=== PATIENT | female | born 1935 | race Asian ===

== ENCOUNTER 2016-06-20 10:06 | Inpatient (IN) | payer MEDICARE, OTHER ==
--- NOTE | 2016-06-20 10:39 | ER Document Report ---
ED Respiratory Problem - General Mode of Arrival: Medic Information source: Patient, Relative TRAVEL OUTSIDE OF THE [place] IN LAST 30 DAYS: No - HPI Patient complains to provider of: Other - Difficulty breathing Onset: This morning Associated symptoms: Other - See above <DARIUSZ MARTINES - Last Filed: 06/20/16 12:15> <LUCRECIA HAMPTON - Last Filed: 06/20/16 19:23> - General Chief Complaint: Respiratory Distress Stated Complaint: TROUBLE BREATHING Notes: Patient is an 80 year old female, with a past medical history including COPD and CHF, who presents to the emergency department via EMS with her daughter complaining of difficulty breathing. Per daughter patient was hospitalized last week and released 5 days ago, she has been using nebulizer treatments at home and yesterday her breathing got much worse. This morning patient's daughter was going to take her to her doctor but called the clinic and was told to bring her to the ED. Patient also complains of loss of appetite for the past 5 days. Patient denies any pain. PCP: [facility] Economist: Dr. Trevino (DARIUSZ MARTINES) - Related Data Allergies/Adverse Reactions: No Known Allergies Allergy (Verified 04/25/13 16:03) Past Medical History - General Information source: Patient - Social History Smoking Status: Unknown if Ever Smoked Family History: Reviewed & Not Pertinent - Past Medical History Cardiac Medical History: Reports: Hx Congestive Heart Failure, Hx Hypercholesterolemia, Hx Hypertension Pulmonary Medical History: Reports: Hx COPD Renal/ Medical History: Reports: Other - Stage III Kidney Disease Musculoskeltal Medical History: Reports Hx Arthritis Past Surgical History: Reports: Hx Hysterectomy, Other - Cataract surgery <DARIUSZ MARTINES - Last Filed: 06/20/16 12:15> Review of Systems - Review of Systems Constitutional: No symptoms reported EENT: No symptoms reported Cardiovascular: No symptoms reported Respiratory: See HPI, Other - Difficulty breathing. denies: Hurts to breathe Gastrointestinal: See HPI, Poor appetite Genitourinary: No symptoms reported Female Genitourinary: No symptoms reported Musculoskeletal: No symptoms reported Skin: No symptoms reported Hematologic/Lymphatic: No symptoms reported Neurological/Psychological: No symptoms reported -: Yes All other systems reviewed and negative <DARIUSZ MARTINES - Last Filed: 06/20/16 12:15> Physical Exam - Vital signs Interpretation: Tachycardic, Hypoxic - General General appearance: Alert In distress: Moderate - Respiratory distress - HEENT Head: Normocephalic, Atraumatic Mucous membranes: Dry - Respiratory Respiratory status: Respiratory distress - Moderate Chest status: Nontender Breath sounds: Decreased air movement - bilaterally Chest palpation: Normal - Cardiovascular Rhythm: Tachycardia Heart sounds: Normal auscultation Murmur: No - Abdominal Inspection: Normal Distension: No distension Bowel sounds: Normal Tenderness: Nontender Organomegaly: No organomegaly - Back Back: Normal, Nontender - Extremities General upper extremity: Normal inspection General lower extremity: Normal inspection - Neurological Neuro grossly intact: Yes Cognition: Normal Orientation: AAOx4 Cofield Coma Scale Eye Opening: Spontaneous Cofield Coma Scale Verbal: Oriented Cofield Coma Scale Motor: Obeys Commands Cofield Coma Scale Total: 15 Speech: Normal - Psychological Associated symptoms: Normal affect, Normal mood - Skin Skin Temperature: Warm Skin Moisture: Dry Skin Color: Normal <DARIUSZ MARTINES - Last Filed: 06/20/16 12:15> Course - Laboratory Result Diagrams: 06/20/16 10:25 06/20/16 10:25 - Consults Dr Banda Time consulted: 12:15 - Discussed admission with Penelope Renae <DARIUSZ MARTINES - Last Filed: 06/20/16 12:15> - Laboratory Result Diagrams: 06/20/16 10:25 06/20/16 10:25 - Diagnostic Test Radiology reviewed: Image reviewed, Reports reviewed - EKG Interpretation by Me EKG shows normal: Sinus rhythm Rate: Normal Rhythm: NSR Meade/QRS: RBBB <LUCRECIA HAMPTON - Last Filed: 06/20/16 19:23> - Re-evaluation Re-evalutation: 06/20/16 Patient is an 80-year-old female who comes in with difficulty breathing. Patient has a history of heart failure and COPD. Patient is not wheezing. She does not seem to be moving air well on initial presentation. Symptoms are most consistent with heart failure exacerbation. Patient was started on BiPAP and given Lasix. Patient patient also had Nitropaste. Due to her persistent hypoxia, patient will be admitted for further evaluation of her heart failure. Stable time of admission. Resting comfortably on BiPAP. Pain free. (LUCRECIA HAMPTON) - Vital Signs Vital signs: Temp Pulse Resp BP Pulse Ox 98 F 120 H 25 H 123/76 95 06/20/16 10:15 06/20/16 18:05 06/20/16 18:01 06/20/16 17:00 06/20/16 18:01 (DARIUSZ MARTINES) (LUCRECIA HAMPTON) - Laboratory Laboratory results interpreted by me: 06/20/16 06/20/16 06/20/16 10:25 10:25 10:25 WBC 39.0 H* Hgb 11.5 L Hct 34.2 L Seg Neuts % (Manual) 93 H Band Neutrophils % 1 L Lymphocytes % (Manual) 3 L Monocytes % (Manual) 2 L Myelocytes % 1 H Abs Neuts (Manual) 37.1 H VBG pH 7.47 H Sodium 130.2 L Chloride 91 L BUN 96 H Creatinine 1.88 H Est GFR ( Amer) 31 L Est GFR (Non-Af Amer) 26 L Glucose 136 H POC Glucose NT-Pro-B Natriuret Pep 06/20/16 06/20/16 10:25 12:05 WBC Hgb Hct Seg Neuts % (Manual) Band Neutrophils % Lymphocytes % (Manual) Monocytes % (Manual) Myelocytes % Abs Neuts (Manual) VBG pH Sodium Chloride BUN Creatinine Est GFR ( Amer) Est GFR (Non-Af Amer) Glucose POC Glucose 148 H NT-Pro-B Natriuret Pep 1770 H (LUCRECIA HAMPTON) Critical Care Note - Critical Care Note Total time excluding time spent on procedures (mins): 35 - evaluation and management of respiratory distress with multiple re-evaluations, management of heart failure, coordination of admission, counseling of patient and family <LUCRECIA HMAPTON - Last Filed: 06/20/16 19:23> Discharge <DARIUSZ MARTINES - Last Filed: 06/20/16 12:15> - Discharge Admitting Provider: Hospitalist - [facility] Unit Admitted: IMCU <LUCRECIA HAMPTON - Last Filed: 06/20/16 19:23> - Discharge Clinical Impression: Respiratory distress, Acute and chronic respiratory failure with hypoxia CHF (congestive heart failure) Qualifiers: Congestive heart failure type: unspecified congestive heart failure type Congestive heart failure chronicity: acute on chronic Qualified Code(s): I50.9 - Heart failure, unspecified Condition: Stable Disposition: ADMITTED INPATIENT Scribe Attestation: 06/20/16 19:23 I personally performed the services described in the documentation, reviewed and edited the documentation which was dictated to the scribe in my presence, and it accurately records my words and actions. (LUCRECIA HAMPTON) Scribe Documentation - Scribe Written by Scribe:: Dariusz Martines 06/20/16 acting as scribe for :: Lizette <DARIUSZ MARTINES - Last Filed: 06/20/16 12:15>
[2016-06-20 10:50] LABS: VENOUS BLOOD BASE EXCESS 2.1 mmol/L; VENOUS BLOOD HCO3 25.6 mmol/L (20-32); VENOUS BLOOD PCO2 36.1 mmHg (35-63); VENOUS BLOOD PH 7.47 (7.30-7.42)
[2016-06-20 10:53] LABS: PROTHROMBIN TIME 12.5 SEC (11.4-15.4)
[2016-06-20 10:58] LABS: HEMATOCRIT 34.2 % (36.0-47.0); HEMOGLOBIN 11.5 g/dL (12.0-15.5); HGB HCT DIFFERENCE 0.3; MEAN CORPUSCULAR HEMOGLOBIN 30.8 pg (27.0-33.4); MEAN CORPUSCULAR HGB CONC 33.7 g/dL (32.0-36.0); MEAN CORPUSCULAR VOLUME 91 fl (80-97); RED BLOOD COUNT 3.74 10^6/uL (3.72-5.28); RED CELL DISTRIBUTION WIDTH 13.8 % (11.5-14.0)
[2016-06-20 11:20] LABS: CREATINE KINASE MB 3.61 ng/mL (<4.55)
[2016-06-20 11:22] LABS: TROPONIN I 0.056 ng/mL
[2016-06-20 11:34] LABS: BAND NEUTROPHILS % (MANUAL) 1 % (3-5); BASOPHILS % (MANUAL) 0 % (0-2); EOSINOPHILS % (MANUAL) 0 % (0-6); LYMPHOCYTES % (MANUAL) 3 % (13-45); POLYCHROMASIA SLIGHT; TOTAL CELLS COUNTED 100; TOXIC GRANULATION 1+; TOXIC VACUOLATION PRESENT
[2016-06-20 11:39] LABS: ALANINE AMINOTRANSFERASE 35 U/L (9-52); ALBUMIN 3.7 g/dL (3.5-5.0); ALKALINE PHOSPHATASE 79 U/L (38-126); ANION GAP 16 (5-19); ASPARTATE AMINO TRANSFERASE 24 U/L (14-36); BILIRUBIN,TOTAL 0.8 mg/dL (0.2-1.3); BLOOD UREA NITROGEN 96 mg/dL (7-20); CALCIUM 8.8 mg/dL (8.4-10.2); CARBON DIOXIDE 23 mmol/L (22-30); CHLORIDE 91 mmol/L (98-107); CREATINE KINASE 50 U/L (30-135); CREATININE RESULT 1.88 mg/dL (0.52-1.25); GLUCOSE 136 mg/dL (75-110); SODIUM 130.2 mmol/L (137-145); TOTAL PROTEIN 7.6 g/dL (6.3-8.2)
[2016-06-20] MEDS ORDERED: FUROSEMIDE INJ/PF 40 MG/4 ML SDV IV ONE (12:11)
--- NOTE | 2016-06-20 16:37 | PDOC H&P ---
History of Present Illness Admission Date/PCP: 06/20/16 13:38 AARON TATUMANT Patient complains of: Severe shortness of breath History of Present Illness: LORENZO MENENDEZ is a 80 year old female who presents to [facility] emergency department, via EMS this afternoon. She presently is on BiPAP therapy due to hypoxemia upon presentation. She has a friend at bedside, history is obtained from the friend. Friend states the patient has no family, she is , and has no children. She was recently hospitalized at [facility] for acute on chronic respiratory failure and discharged on 06/15/2016. She was discharged with a steroid taper as well as nebulizer treatments. Her friend states she has not been taking her medications as instructed, and has been overusing her nebulizer treatments. She also can continues to smoke approximately 1 pack per day. She has been complaining of increasing shortness of breath over the last 3 days progressively worsening. This morning when her friend visited her she did call her primary care doctor doctor's office who directed her to bring her to the emergency room. She therefore called 911 and the patient was brought by EMS. Patient denies any fever or chills over the last 5 days. She denies a productive cough. Past Medical History Cardiac Medical History: Reports: Congestive Heart Failure, Hyperlipidema, Hypertension Denies: Myocardial Infarction Pulmonary Medical History: Reports: Chronic Obstructive Pulmonary Disease (COPD) Denies: Asthma EENT Medical History: Reports: None Neurological Medical History: Reports: None Denies: Seizures Endocrine Medical History: Reports: None Renal/ Medical History: Reports: None, Other - Stage III Kidney Disease Malignancy Medical History: Reports: None GI Medical History: Reports: None Denies: Hepatitis, Hiatal Hernia Musculoskeltal Medical History: Reports: Arthritis Skin Medical History: Reports: None Psychiatric Medical History: Reports: Tobacco Dependency Traumatic Medical History: Reports: None Hematology: Denies: Anemia, Sickle Cell Disease Infectious Medical History: Reports: None Past Surgical History Past Surgical History: Reports: Hysterectomy, Other - Cataract surgery Denies: Amputation, Mastectomy, Pacemaker Social History Information Source: Patient, Friend Lives with: Alone Smoking Status: Current Every Day Smoker Cigarettes Packs Per Day: 1 Number of Years Smokin Last Time Smoked: 06/19/2016 Frequency of Alcohol Use: Rare Hx Recreational Drug Use: No Drugs: None Hx Prescription Drug Abuse: No - Advance Directive Resuscitation Status: Full Code Surrogate healthcare decision maker:: She does not have one at this time Family History Family History: Hypertension, Malignancy Parental Family History Reviewed: Yes Children Family History Reviewed: Yes Sibling(s) Family History Reviewed.: Yes Medication/Allergy Home Medications: Fluticasone/Salmeterol [Advair HFA 45-21 mcg Inhaler] 1 inh IH BID 04/26/12 Tiotropium Royal [Spiriva Handihaler 18 mcg/dose (30 Dose)] 1 cap IH DAILY 08/06 Albuterol Sulfate [Ventolin HFA MDI 18 GM] 1 puff IH Q4HP PRN 04/25/13 Atorvastatin Calcium [Lipitor 20 mg Tablet] 20 mg PO QHS 04/25/13 Docusate Sodium [Colace 100 mg Capsule] 100 mg PO DAILY #30 capsule 06/22/14 Amlodipine Besylate/Benazepril [Lotrel 5-20 mg Capsule] 1 cap PO DAILY 06/13/16 Vitamin E 1 cap PO DAILY 06/13/16 Albuterol Sulfate [Proair HFA] 2 puff IN QID #1 inhaler 06/15/16 Benazepril HCl [Lotensin 20 mg Tablet] 20 mg PO DAILY #30 tablet 06/15/16 Ergocalciferol (Vitamin D2) [Vitamin D2] 2,000 unit PO DAILY #30 tablet Furosemide [Lasix 20 mg Tablet] 20 mg PO QAM #30 tablet 06/15/16 Prednisone 20 mg PO ASDIR PRN #15 tablet 06/15/16 Allergies/Adverse Reactions: No Known Allergies Allergy (Verified 04/25/13 16:03) Review of Systems Constitutional: ABSENT: chills, fever(s), headache(s), weight gain, weight loss Eyes: PRESENT: as per HPI Ears: ABSENT: hearing changes Cardiovascular: PRESENT: dyspnea on exertion Respiratory: PRESENT: cough, dyspnea Gastrointestinal: ABSENT: abdominal pain, constipation, diarrhea, hematemesis, hematochezia, nausea, vomiting Genitourinary: ABSENT: dysuria, hematuria Musculoskeletal: ABSENT: joint swelling Integumentary: ABSENT: rash, wounds Neurological: ABSENT: abnormal gait, abnormal speech, confusion, dizziness, focal weakness, syncope Psychiatric: ABSENT: anxiety, depression, homidical ideation, suicidal ideation Endocrine: ABSENT: cold intolerance, heat intolerance, polydipsia, polyuria Physical Exam Vital Signs: Temp Pulse Resp BP Pulse Ox 98 F 23 H 116/70 100 06/20/16 10:15 06/20/16 15:01 06/20/16 14:45 06/20/16 15:01 General appearance: PRESENT: no acute distress, thin, well-developed, well- nourished, other - On bipap Head exam: PRESENT: atraumatic, normocephalic Eye exam: PRESENT: conjunctiva pink, EOMI, PERRLA. ABSENT: scleral icterus Ear exam: PRESENT: normal external ear exam Mouth exam: PRESENT: moist, tongue midline Neck exam: ABSENT: carotid bruit, JVD, lymphadenopathy, thyromegaly Respiratory exam: PRESENT: symmetrical, unlabored, wheezes - expiratory bilaterally Cardiovascular exam: PRESENT: RRR. ABSENT: diastolic murmur, rubs, systolic murmur GI/Abdominal exam: PRESENT: normal bowel sounds, soft. ABSENT: distended, guarding, mass, organolmegaly, rebound, tenderness Rectal exam: PRESENT: deferred Extremities exam: PRESENT: full ROM. ABSENT: calf tenderness, clubbing, pedal edema Neurological exam: PRESENT: alert, awake, oriented to person, oriented to place , oriented to time, oriented to situation, CN II-XII grossly intact. ABSENT: motor sensory deficit Psychiatric exam: PRESENT: appropriate affect, normal mood. ABSENT: homicidal ideation, suicidal ideation Skin exam: PRESENT: dry, intact, warm. ABSENT: cyanosis, rash Results Impressions: Chest X-Ray 06/20/16 10:16 IMPRESSION: COPD. NO ACUTE RADIOGRAPHIC FINDING IN THE CHEST. Assessment & Plan - Diagnosis (1) Acute and chronic respiratory failure with hypoxia Is this a current diagnosis for this admission?: YesPlan: Patient required BIPAP at 40% to maintain SPO2> 90%. Continue nebulizers and diurese. Chest xray shows no pneumonia. (2) Acute on chronic renal failure Is this a current diagnosis for this admission?: YesPlan: Patient's BUN elevated from previous admission. Friend states she has not been eating or drinking well (3) COPD (chronic obstructive pulmonary disease) Qualifiers: COPD type: unspecified COPD Qualified Code(s): J44.9 - Chronic obstructive pulmonary disease, unspecified Is this a current diagnosis for this admission?: YesPlan: Continue nebulizer and inhalers (4) Fluid overload Qualifiers: Hypervolemia type: unspecified Qualified Code(s): E87.70 - Fluid overload, unspecified Is this a current diagnosis for this admission?: YesPlan: Chest xray shows mild increase in pulmonary vasculature. Diuresed by ED MD (5) Chronic kidney disease, stage 3 Is this a current diagnosis for this admission?: YesPlan: Avoid nephrotoxic drugs and dosages (6) Acute on chronic diastolic (congestive) heart failure Is this a current diagnosis for this admission?: YesPlan: Chest xray shows fluid volume overload. Diuresed by ED MD. Will continue to monitor. Continue current medications (7) Noncompliance Is this a current diagnosis for this admission?: YesPlan: Patient has mild dementia and lives alone. Only has a friend to assist her. Will consult discharge planning for possible placement - Time Time Spent: 50 to 70 Minutes Critical Time spent with patient: 15-24 minutes Smoking Cessation Education: 3 to 10 minutes Medications reviewed and adjusted accordingly: Yes Anticipated discharge: Acute Rehab - Inpatient Certification Based on my medical assessment, after consideration of the patient's comorbidities, presenting symptoms, or acuity I expect that the services needed warrant INPATIENT care.: Yes I certify that my determination is in accordance with my understanding of Medicare's requirements for reasonable and necessary INPATIENT services [42 CFR 412.3e].: Yes Medical Necessity: Need Close Monitoring Due to Risk of Patient Decompensation, Need for Nebulizer Therapy and Monitoring of Response, Risk of Complication if Not Cared For in Hospital
[2016-06-20 17:16] LABS: APPEARANCE,URINE CLEAR; BILIRUBIN,URINE NEGATIVE (NEGATIVE); GLUCOSE, URINE NEGATIVE (NEGATIVE); KETONES,URINE NEGATIVE (NEGATIVE); LEUKOCYTE ESTERASE,URINE MODERATE (NEGATIVE); NITRITE,URINE NEGATIVE (NEGATIVE); PROTEIN,URINE NEGATIVE (NEGATIVE); URINE SPECIFIC GRAVITY 1.009; UROBILINOGEN,URINE NEGATIVE mg/dL (<2.0)
--- NOTE | 2016-06-20 18:57 | EKG REPORT ---
SEVERITY:- ABNORMAL ECG - SINUS TACHYCARDIA BIATRIAL ABNORMALITIES PROBABLE LEFT VENTRICULAR HYPERTROPHY CONSIDER ANTERIOR INFARCT : Confirmed by: Cam Linton MD 20-Jun-2016 18:57:08
[2016-06-20] MEDS: IPRATROPIUM/ALBUTEROL 0.5-2.5 MG/3 ML AMPUL NEB PRN (21:12)
[2016-06-21] MEDS: IPRATROPIUM/ALBUTEROL 0.5-2.5 MG/3 ML AMPUL NEB PRN ×3 (01:29→17:21)
[2016-06-21 07:01] LABS: HEMATOCRIT 31.1 % (36.0-47.0); HEMOGLOBIN 10.5 g/dL (12.0-15.5); HGB HCT DIFFERENCE 0.4; MEAN CORPUSCULAR HGB CONC 33.9 g/dL (32.0-36.0); MEAN CORPUSCULAR VOLUME 92 fl (80-97); RED CELL DISTRIBUTION WIDTH 14.1 % (11.5-14.0)
[2016-06-21 07:03] LABS: ANION GAP 13 (5-19); BLOOD UREA NITROGEN 114 mg/dL (7-20); CALCIUM 8.6 mg/dL (8.4-10.2); CARBON DIOXIDE 24 mmol/L (22-30); CHLORIDE 92 mmol/L (98-107); CREATININE RESULT 3.07 mg/dL (0.52-1.25); GLUCOSE 89 mg/dL (75-110); SODIUM 129.2 mmol/L (137-145)
[2016-06-21 07:23] LABS: BAND NEUTROPHILS % (MANUAL) 1 % (3-5); BASOPHILS % (MANUAL) 0 % (0-2); EOSINOPHILS % (MANUAL) 0 % (0-6); LYMPHOCYTES % (MANUAL) 2 % (13-45); POLYCHROMASIA SLIGHT; TOTAL CELLS COUNTED 100; TOXIC GRANULATION 1+; TOXIC VACUOLATION PRESENT
[2016-06-21] MEDS ORDERED: FUROSEMIDE 20 MG TABLET PO SCH (08:00)
[2016-06-21] MEDS: NORMAL SALINE 1000 ML 1,000 ML IV PRN ×2 (08:16→17:00)
[2016-06-21] MEDS: TIOTROPIUM BROMIDE DPI 5 CAP/KIT (18 MCG/CAP) IH SCH (09:25)
[2016-06-21 11:22] LABS: PATH REVIEW PATHOLOGIST REVIEWED
--- NOTE | 2016-06-21 18:25 | PDOC PROGRESS REPORT ---
Subjective Progress Note for:: 06/21/16 Subjective:: Patient is seen on morning rounds. She is resting quietly in bed on BIPAP. She does awaken to verbal stimuli. She nods head yes and no to questions. Nursing report issues of tachycardia when patient gets out of bed to go to the bathroom with heart rate of 130's. She continues to have congested cough and mild wheezing. She is able to maintain oxygen saturations on nasal cannula. Her oral intake has been poor overnight Physical Exam Vital Signs: Temp Pulse Resp BP Pulse Ox 98.3 F 100 24 H 143/66 H 100 06/21/16 15:38 06/21/16 15:38 06/21/16 15:38 06/21/16 15:38 06/21/16 15:38 Intake & Output 06/20/16 06/21/16 06/22/16 06:59 06:59 06:59 Intake Total 258 820 Output Total 300 0 Balance -42 820 Weight 40.1 kg General appearance: PRESENT: no acute distress, thin, well-developed Head exam: PRESENT: atraumatic, normocephalic Eye exam: PRESENT: conjunctiva pink, EOMI, PERRLA. ABSENT: scleral icterus Ear exam: PRESENT: normal external ear exam Mouth exam: PRESENT: dry mucosa Neck exam: ABSENT: carotid bruit, JVD, lymphadenopathy, thyromegaly Respiratory exam: PRESENT: symmetrical, unlabored, wheezes - expiratory bilaterally Cardiovascular exam: PRESENT: RRR. ABSENT: diastolic murmur, rubs, systolic murmur Pulses: PRESENT: normal dorsalis pedis pul Vascular exam: PRESENT: normal capillary refill GI/Abdominal exam: PRESENT: ascites Rectal exam: PRESENT: deferred Extremities exam: PRESENT: full ROM. ABSENT: calf tenderness, clubbing, pedal edema Neurological exam: PRESENT: alert, awake, oriented to person, oriented to place , CN II-XII grossly intact. ABSENT: motor sensory deficit Psychiatric exam: PRESENT: appropriate affect, normal mood. ABSENT: homicidal ideation, suicidal ideation Skin exam: PRESENT: dry, intact, warm. ABSENT: cyanosis, rash Results Laboratory Results: 06/21/16 06:20 06/21/16 06:20 06/21/16 06/21/16 06:20 06:20 WBC 27.0 H RBC 3.40 L Hgb 10.5 L Hct 31.1 L MCV 92 MCH 31.0 MCHC 33.9 RDW 14.1 H Plt Count 283 Seg Neutrophils % Not Reportable Lymphocytes % Not Reportable Monocytes % Not Reportable Eosinophils % Not Reportable Basophils % Not Reportable Absolute Neutrophils Not Reportable Absolute Lymphocytes Not Reportable Absolute Monocytes Not Reportable Absolute Eosinophils Not Reportable Absolute Basophils Not Reportable Sodium 129.2 L Potassium 4.0 Chloride 92 L Carbon Dioxide 24 Anion Gap 13 BUN 114 H Creatinine 3.07 H Est GFR ( Amer) 18 L Est GFR (Non-Af Amer) 15 L Glucose 89 Calcium 8.6 Magnesium 2.0 06/20/16 06/21/16 06/21/16 20:06 02:01 06:20 Troponin I 0.050 0.061 NT-Pro-B Natriuret Pep 2280 H Impressions: Chest X-Ray 06/20/16 10:16 IMPRESSION: COPD. NO ACUTE RADIOGRAPHIC FINDING IN THE CHEST. Assessment & Plan - Diagnosis (1) Acute and chronic respiratory failure with hypoxia Is this a current diagnosis for this admission?: YesPlan: Patient required BIPAP at 40% to maintain SPO2> 90%. Continue nebulizers and diurese. Chest xray shows no pneumonia.Patient appears clinically and by labs to slightly dry. She has poor oral intake will rehydrate gently (2) Acute on chronic renal failure Is this a current diagnosis for this admission?: YesPlan: Patient's BUN elevated from previous admission. Friend states she has not been eating or drinking well (3) COPD (chronic obstructive pulmonary disease) Qualifiers: COPD type: unspecified COPD Qualified Code(s): J44.9 - Chronic obstructive pulmonary disease, unspecified Is this a current diagnosis for this admission?: Yes (4) Chronic kidney disease, stage 3 Is this a current diagnosis for this admission?: YesPlan: Avoid nephrotoxic drugs and dosages. Slightly worsened today after IV lasix given in ED. Will rehydrate and monitor. May need to have nephrology reconsulted (5) Acute on chronic diastolic (congestive) heart failure Is this a current diagnosis for this admission?: YesPlan: Diuresed by ED MD on admission. Appears slightly dehydrated today. Will continue to monitor. Continue current medications (6) Noncompliance Is this a current diagnosis for this admission?: YesPlan: Patient has mild dementia and lives alone. Only has a friend to assist her. Will consult discharge planning for possible placement (7) Hyponatremia Is this a current diagnosis for this admission?: YesPlan: Appears more likely due to poor intake and UTI than fluid volume overload. Will gently rehydrate and monitor (8) UTI (urinary tract infection) Qualifiers: Hematuria presence: without hematuria Is this a current diagnosis for this admission?: YesPlan: Started empirically on IV Rocephin. Urine culture shows gm negative rods - Time Time Spent with patient: 25-34 minutes Critical Time spent with patient: 15-24 minutes Smoking Cessation Education: 3 to 10 minutes Medications reviewed and adjusted accordingly: Yes Anticipated discharge: Acute Rehab
[2016-06-21] MEDS: ATORVASTATIN CALCIUM 20 MG TABLET PO SCH (21:20)
[2016-06-21] MEDS: CEFTRIAXONE 1 GM/D5W RTU 1 GM/50 ML RTUPB IV SCH (21:21)
[2016-06-22 06:10] LABS: HEMATOCRIT 29.7 % (36.0-47.0); HEMOGLOBIN 9.9 g/dL (12.0-15.5); MEAN CORPUSCULAR HEMOGLOBIN 30.5 pg (27.0-33.4); MEAN CORPUSCULAR HGB CONC 33.5 g/dL (32.0-36.0); MEAN CORPUSCULAR VOLUME 91 fl (80-97); RED BLOOD COUNT 3.25 10^6/uL (3.72-5.28)
[2016-06-22 06:22] LABS: ANION GAP 16 (5-19); BLOOD UREA NITROGEN 109 mg/dL (7-20); CALCIUM 7.9 mg/dL (8.4-10.2); CARBON DIOXIDE 18 mmol/L (22-30); CHLORIDE 99 mmol/L (98-107); CREATININE RESULT 2.34 mg/dL (0.52-1.25); GLUCOSE 62 mg/dL (75-110); MAGNESIUM 1.9 mg/dL (1.6-2.3); POTASSIUM 3.8 mmol/L (3.6-5.0); SODIUM 133.1 mmol/L (137-145)
[2016-06-22 06:52] LABS: WHITE BLOOD COUNT 31.6 10^3/uL (4.0-10.5)
[2016-06-22 06:59] LABS: BASOPHILS % (MANUAL) 0 % (0-2); EOSINOPHILS % (MANUAL) 0 % (0-6); LYMPHOCYTES % (MANUAL) 1 % (13-45); TOTAL CELLS COUNTED 100
[2016-06-22 07:00] LABS: ANISOCYTOSIS SLIGHT; TOXIC GRANULATION SLIGHT; TOXIC VACUOLATION PRESENT
--- NOTE | 2016-06-22 08:55 | PDOC PROGRESS REPORT ---
Subjective Progress Note for:: 06/22/16 Subjective:: Patient appears quite lethargic this morning;\ she is comfortable off BiPAP with nasal O2 On the monitor she did have intermittent tachycardia with multiple APCs Her blood sugar was 62 this morning Physical Exam Vital Signs: Temp Pulse Resp BP Pulse Ox 98.0 F 97 20 143/81 H 98 06/22/16 07:43 06/22/16 07:43 06/22/16 07:43 06/22/16 07:43 06/22/16 07:43 Intake & Output 06/21/16 06/22/16 06/23/16 00:59 00:59 00:59 Intake Total 50 1028 1200 Output Total 300 0 150 Balance -250 1028 1050 Weight 40.1 kg 43.2 kg General appearance: PRESENT: no acute distress, cooperative, thin - He Head exam: PRESENT: atraumatic, normocephalic Neck exam: ABSENT: carotid bruit, JVD, lymphadenopathy, thyromegaly Respiratory exam: PRESENT: crackles, rhonchi Cardiovascular exam: PRESENT: RRR. ABSENT: diastolic murmur, rubs, systolic murmur GI/Abdominal exam: PRESENT: normal bowel sounds, soft. ABSENT: distended, guarding, mass, organolmegaly, rebound, tenderness Extremities exam: PRESENT: full ROM. ABSENT: calf tenderness, clubbing, pedal edema Results Laboratory Results: 06/22/16 05:12 06/22/16 05:12 06/22/16 06/22/16 05:12 05:12 WBC 31.6 H* RBC 3.25 L Hgb 9.9 L Hct 29.7 L MCV 91 MCH 30.5 MCHC 33.5 RDW 14.0 Plt Count 259 Seg Neutrophils % Not Reportable Lymphocytes % Not Reportable Monocytes % Not Reportable Eosinophils % Not Reportable Basophils % Not Reportable Absolute Neutrophils Not Reportable Absolute Lymphocytes Not Reportable Absolute Monocytes Not Reportable Absolute Eosinophils Not Reportable Absolute Basophils Not Reportable Sodium 133.1 L Potassium 3.8 Chloride 99 Carbon Dioxide 18 L Anion Gap 16 BUN 109 H Creatinine 2.34 H Est GFR ( Amer) 24 L Est GFR (Non-Af Amer) 20 L Glucose 62 L Calcium 7.9 L Magnesium 1.9 06/20/16 06/21/16 06/21/16 20:06 02:01 06:20 Troponin I 0.050 0.061 NT-Pro-B Natriuret Pep 2280 H 06/22/16 05:12 Troponin I NT-Pro-B Natriuret Pep 1930 H Impressions: Chest X-Ray 06/20/16 10:16 IMPRESSION: COPD. NO ACUTE RADIOGRAPHIC FINDING IN THE CHEST. Assessment & Plan - Diagnosis (1) SIRS due to Gram-negative infection Is this a current diagnosis for this admission?: YesPlan: White blood count is 30,000 likely to be secondary to UTI and Sirs Could also be secondary to steroids Continue ceftriaxone IV and follow-up CBC (3) Acute and chronic respiratory failure with hypoxia Is this a current diagnosis for this admission?: YesPlan: secondary to COPD exacerbation and diastolic CHF acute exacerbation Patient has improved somewhat she is off BiPAP and oxygenating adequately on 2and half liters per minute nasal cannula (4) Acute on chronic diastolic (congestive) heart failure Is this a current diagnosis for this admission?: YesPlan: We will resume small doses of Lasix 10 mg Lasix IV daily Noted that patient had a normal left ventricular ejection fraction in the past and a normal stress test (5) Chronic kidney disease, stage 3 Is this a current diagnosis for this admission?: YesPlan: CkD stage 3-4 stable (6) UTI (urinary tract infection) Qualifiers: Hematuria presence: without hematuria Is this a current diagnosis for this admission?: YesPlan: As above continue ceftriaxone (7) COPD (chronic obstructive pulmonary disease) Qualifiers: COPD type: unspecified COPD Qualified Code(s): J44.9 - Chronic obstructive pulmonary disease, unspecified Is this a current diagnosis for this admission?: YesPlan: Added methylprednisolone to present management (8) Discharge planning issues Is this a current diagnosis for this admission?: YesPlan: Patient has no family support she is without children A friend does check on her; but she cannot care for self Patient would be a good candidate for assisted living - Time Time Spent with patient: 25-34 minutes
[2016-06-22] MEDS: METHYLPREDNISOLONE INJ 125 MG/2 ML SDV IV SCH ×2 (09:10→21:14)
[2016-06-22] MEDS: TIOTROPIUM BROMIDE DPI 5 CAP/KIT (18 MCG/CAP) IH SCH (09:11)
[2016-06-22] MEDS: DILTIAZEM HCL 120 MG CAP.SR.24H PO SCH (09:11)
[2016-06-22] MEDS: IPRATROPIUM/ALBUTEROL 0.5-2.5 MG/3 ML AMPUL NEB PRN (09:34)
[2016-06-22] MEDS ORDERED: AMLODIPINE BESYLATE 5 MG TABLET PO SCH (10:00)
[2016-06-22] MEDS ORDERED: FUROSEMIDE INJ/PF 20 MG/2 ML SDV IV SCH (10:00)
[2016-06-22] MEDS ORDERED: BENAZEPRIL HCL 20 MG TABLET PO SCH ×2 (10:00)
[2016-06-22] MEDS: NORMAL SALINE 1000 ML 1,000 ML IV PRN (12:46)
[2016-06-22] MEDS: CEFTRIAXONE 1 GM/D5W RTU 1 GM/50 ML RTUPB IV SCH (21:14)
[2016-06-22] MEDS: ATORVASTATIN CALCIUM 20 MG TABLET PO SCH (21:14)
[2016-06-23] MEDS: NORMAL SALINE 1000 ML 1,000 ML IV PRN (04:08)
[2016-06-23 05:14] LABS: HEMOGLOBIN 9.1 g/dL (12.0-15.5); HGB HCT DIFFERENCE 0.3; MEAN CORPUSCULAR HEMOGLOBIN 30.8 pg (27.0-33.4); MEAN CORPUSCULAR HGB CONC 33.5 g/dL (32.0-36.0); MEAN CORPUSCULAR VOLUME 92 fl (80-97); RED BLOOD COUNT 2.94 10^6/uL (3.72-5.28); RED CELL DISTRIBUTION WIDTH 14.1 % (11.5-14.0); WHITE BLOOD COUNT 17.8 10^3/uL (4.0-10.5)
[2016-06-23 05:32] LABS: ANION GAP 14 (5-19); BLOOD UREA NITROGEN 100 mg/dL (7-20); CALCIUM 8.1 mg/dL (8.4-10.2); CARBON DIOXIDE 19 mmol/L (22-30); CHLORIDE 105 mmol/L (98-107); CREATININE RESULT 1.76 mg/dL (0.52-1.25); GLUCOSE 180 mg/dL (75-110); POTASSIUM 3.4 mmol/L (3.6-5.0); SODIUM 137.7 mmol/L (137-145)
[2016-06-23 05:55] LABS: BASOPHILS % (MANUAL) 0 % (0-2); EOSINOPHILS % (MANUAL) 0 % (0-6); LYMPHOCYTES % (MANUAL) 1 % (13-45); TOTAL CELLS COUNTED 100
[2016-06-23 05:57] LABS: ANISOCYTOSIS SLIGHT; BURR CELLS 1+; OVALOCYTES SLIGHT; POIKILOCYTOSIS 1+; SCHISTOCYTES SLIGHT; TEAR DROP CELLS SLIGHT; TOXIC GRANULATION 1+
[2016-06-23] MEDS ORDERED: FUROSEMIDE INJ/PF 20 MG/2 ML SDV IV SCH (08:58)
--- NOTE | 2016-06-23 09:12 | PDOC PROGRESS REPORT ---
Subjective Progress Note for:: 06/23/16 Subjective:: Patient states she's feeling better She is alert awake She still is wheezing; but in no respiratory distress Physical Exam Vital Signs: Temp Pulse Resp BP Pulse Ox 97.7 F 64 14 137/58 H 96 06/23/16 08:06 06/23/16 08:49 06/23/16 08:06 06/23/16 08:06 06/23/16 08:06 Intake & Output 06/22/16 06/23/16 06/24/16 00:59 00:59 00:59 Intake Total 1028 3329 1050 Output Total 0 1650 Balance 1028 1679 1050 Weight 40.1 kg 43.2 kg 43.2 kg General appearance: PRESENT: thin, other - Looks frail and chronically ill Head exam: PRESENT: atraumatic, normocephalic Eye exam: PRESENT: conjunctiva pink, EOMI, PERRLA. ABSENT: scleral icterus Neck exam: ABSENT: carotid bruit, JVD, lymphadenopathy, thyromegaly Respiratory exam: PRESENT: decreased breath sounds, rhonchi, wheezes - Bilaterally Cardiovascular exam: PRESENT: RRR. ABSENT: diastolic murmur, rubs, systolic murmur GI/Abdominal exam: PRESENT: normal bowel sounds, soft. ABSENT: distended, guarding, mass, organolmegaly, rebound, tenderness Extremities exam: PRESENT: full ROM. ABSENT: calf tenderness, clubbing, pedal edema Neurological exam: PRESENT: alert, awake, oriented to person, oriented to place , oriented to time, oriented to situation, CN II-XII grossly intact. ABSENT: motor sensory deficit Results Laboratory Results: 06/23/16 04:43 06/23/16 04:43 06/23/16 06/23/16 04:43 04:43 WBC 17.8 H RBC 2.94 L Hgb 9.1 L Hct 27.0 L MCV 92 MCH 30.8 MCHC 33.5 RDW 14.1 H Plt Count 242 Seg Neutrophils % Not Reportable Lymphocytes % Not Reportable Monocytes % Not Reportable Eosinophils % Not Reportable Basophils % Not Reportable Absolute Neutrophils Not Reportable Absolute Lymphocytes Not Reportable Absolute Monocytes Not Reportable Absolute Eosinophils Not Reportable Absolute Basophils Not Reportable Sodium 137.7 Potassium 3.4 L Chloride 105 Carbon Dioxide 19 L Anion Gap 14 BUN 100 H Creatinine 1.76 H Est GFR ( Amer) 34 L Est GFR (Non-Af Amer) 28 L Glucose 180 H Calcium 8.1 L Magnesium 2.0 06/20/16 16:52 Clean Catch Midstream Urine Culture - Final Escherichia Coli 06/20/16 06/21/16 06/21/16 20:06 02:01 06:20 Troponin I 0.050 0.061 NT-Pro-B Natriuret Pep 2280 H 06/22/16 06/23/16 05:12 04:43 Troponin I NT-Pro-B Natriuret Pep 1930 H 1900 H Impressions: Chest X-Ray 06/20/16 10:16 IMPRESSION: COPD. NO ACUTE RADIOGRAPHIC FINDING IN THE CHEST. Assessment & Plan - Diagnosis (1) SIRS due to Gram-negative infection Is this a current diagnosis for this admission?: YesPlan: Leukocytosis is resolving slowly white blood count is 17,000 Leukocytosis secondary to SIRS Sirs secondary to UTI Culture grew Escherichia coli pansensitive Continue ceftriaxone IV (2) Discharge planning issues Is this a current diagnosis for this admission?: YesPlan: Patient to be discharged to [facility] when she is clinically stable (3) Acute and chronic respiratory failure with hypoxia Is this a current diagnosis for this admission?: YesPlan: Improved Patient likely will need to be discharged on nasal O2 to rehabilitation Respiratory failure secondary to COPD exacerbation and acute on chronic diastolic CHF (4) Acute on chronic diastolic (congestive) heart failure Is this a current diagnosis for this admission?: YesPlan: We'll increase Lasix to 20 mg IV every 12 Patient will be discharged on Lasix by mouth as well (5) Chronic kidney disease, stage 3 Is this a current diagnosis for this admission?: Yes (6) UTI (urinary tract infection) Qualifiers: Hematuria presence: without hematuria Is this a current diagnosis for this admission?: YesPlan: Continue ceftriaxone; patient may be discharged on Levaquin (7) COPD (chronic obstructive pulmonary disease) Qualifiers: COPD type: unspecified COPD Qualified Code(s): J44.9 - Chronic obstructive pulmonary disease, unspecified Is this a current diagnosis for this admission?: YesPlan: Continue duo nebs, Pulmicort,Spiriva, methylprednisolone Patient is slowly improving (8) Discharge planning issues Is this a current diagnosis for this admission?: Yes - Time Time Spent with patient: 25-34 minutes Within: within 48 hours - Patient may be discharged in 24-48 hrs. when the respiratory status improves further Patient to be evaluated for O2 needs at [facility] prior to discharge
[2016-06-23] MEDS: TIOTROPIUM BROMIDE DPI 5 CAP/KIT (18 MCG/CAP) IH SCH (09:14)
[2016-06-23] MEDS: DILTIAZEM HCL 120 MG CAP.SR.24H PO SCH (09:14)
[2016-06-23] MEDS ORDERED: METHYLPREDNISOLONE INJ 125 MG/2 ML SDV IV SCH (09:15)
[2016-06-23] MEDS ORDERED: BUDESONIDE NEB 0.5 MG/2 ML AMPUL NEB PRN (10:46)
[2016-06-23] MEDS ORDERED: BENAZEPRIL HCL 20 MG TABLET PO ONE (11:30)
[2016-06-23] MEDS ORDERED: METHYLPREDNISOLONE INJ 40 MG/1 ML SDV IV ONE (11:30)
[2016-06-23] MEDS ORDERED: FUROSEMIDE INJ/PF 20 MG/2 ML SDV IV ONE (11:45)
[2016-06-23] MEDS: IPRATROPIUM/ALBUTEROL 0.5-2.5 MG/3 ML AMPUL NEB SCH ×2 (13:20→19:24)
[2016-06-23] MEDS: BUDESONIDE NEB 0.5 MG/2 ML AMPUL NEB SCH (19:24)
[2016-06-23] MEDS: METHYLPREDNISOLONE INJ 40 MG/1 ML SDV IV SCH (21:32)
[2016-06-23] MEDS: FUROSEMIDE INJ/PF 20 MG/2 ML SDV IV SCH (21:32)
[2016-06-23] MEDS: CEFTRIAXONE 1 GM/D5W RTU 1 GM/50 ML RTUPB IV SCH (21:33)
[2016-06-23] MEDS: ATORVASTATIN CALCIUM 20 MG TABLET PO SCH (21:33)
[2016-06-24] MEDS: BUDESONIDE NEB 0.5 MG/2 ML AMPUL NEB SCH ×2 (08:01→20:06)
[2016-06-24] MEDS: IPRATROPIUM/ALBUTEROL 0.5-2.5 MG/3 ML AMPUL NEB SCH ×3 (08:01→20:06)
[2016-06-24] MEDS: BENAZEPRIL HCL 20 MG TABLET PO SCH (09:08)
[2016-06-24] MEDS: DILTIAZEM HCL 120 MG CAP.SR.24H PO SCH (09:08)
[2016-06-24] MEDS: FUROSEMIDE INJ/PF 20 MG/2 ML SDV IV SCH ×2 (09:09→22:41)
[2016-06-24] MEDS: METHYLPREDNISOLONE INJ 40 MG/1 ML SDV IV SCH ×2 (09:09→22:41)
[2016-06-24] MEDS: TIOTROPIUM BROMIDE DPI 5 CAP/KIT (18 MCG/CAP) IH SCH (09:09)
--- NOTE | 2016-06-24 09:10 | PDOC PROGRESS REPORT ---
Subjective Progress Note for:: 06/24/16 Subjective:: Patient is seen on morning rounds. She is awake and presently eating her breakfast. She continues to have congested cough and mild wheezing. She is able to maintain oxygen saturations on nasal cannula. She states her breathing is improved since she came into the hospital. She has no other complaints at the present time. Physical Exam Vital Signs: Temp Pulse Resp BP Pulse Ox 97.9 F 75 16 133/59 H 96 06/24/16 06:53 06/24/16 08:01 06/24/16 08:01 06/24/16 06:53 06/24/16 08:01 Intake & Output 06/23/16 06/24/16 06/25/16 06:59 06:59 06:59 Intake Total 3179 1503 Output Total 1500 2050 Balance 1679 -547 Weight 43.2 kg 44.6 kg General appearance: PRESENT: no acute distress, thin, well-developed Head exam: PRESENT: atraumatic, normocephalic Eye exam: PRESENT: conjunctiva pink, EOMI, PERRLA. ABSENT: scleral icterus Ear exam: PRESENT: normal external ear exam Mouth exam: PRESENT: moist, tongue midline Neck exam: ABSENT: carotid bruit, JVD, lymphadenopathy, thyromegaly Respiratory exam: PRESENT: clear to auscultation hansa. ABSENT: rales, rhonchi, wheezes Cardiovascular exam: PRESENT: RRR. ABSENT: diastolic murmur, rubs, systolic murmur Pulses: PRESENT: normal dorsalis pedis pul Vascular exam: PRESENT: normal capillary refill GI/Abdominal exam: PRESENT: normal bowel sounds, soft. ABSENT: distended, guarding, mass, organolmegaly, rebound, tenderness Rectal exam: PRESENT: deferred Extremities exam: PRESENT: full ROM. ABSENT: calf tenderness, clubbing, pedal edema Neurological exam: PRESENT: alert, awake, oriented to person, oriented to place , oriented to time, oriented to situation, CN II-XII grossly intact. ABSENT: motor sensory deficit Psychiatric exam: PRESENT: appropriate affect, normal mood. ABSENT: homicidal ideation, suicidal ideation Skin exam: PRESENT: dry, intact, warm. ABSENT: cyanosis, rash Results Laboratory Results: 06/23/16 04:43 06/23/16 04:43 06/20/16 06/21/16 06/21/16 20:06 02:01 06:20 Troponin I 0.050 0.061 NT-Pro-B Natriuret Pep 2280 H 06/22/16 06/23/16 05:12 04:43 Troponin I NT-Pro-B Natriuret Pep 1930 H 1900 H Impressions: Chest X-Ray 06/20/16 10:16 IMPRESSION: COPD. NO ACUTE RADIOGRAPHIC FINDING IN THE CHEST. Assessment & Plan - Diagnosis (1) Acute and chronic respiratory failure with hypoxia Is this a current diagnosis for this admission?: YesPlan: Improving. Continue nebulizers and diurese. Chest xray shows no pneumonia. (2) Acute on chronic renal failure Is this a current diagnosis for this admission?: YesPlan: Patient's BUN elevated from previous admission. Friend states she has not been eating or drinking well (3) COPD (chronic obstructive pulmonary disease) Qualifiers: COPD type: unspecified COPD Qualified Code(s): J44.9 - Chronic obstructive pulmonary disease, unspecified Is this a current diagnosis for this admission?: YesPlan: Continue nebulizer and inhalers (4) Chronic kidney disease, stage 3 Is this a current diagnosis for this admission?: YesPlan: Avoid nephrotoxic drugs and dosages. Slightly worsened today after IV lasix given in ED. Will rehydrate and monitor. May need to have nephrology reconsulted (5) Acute on chronic diastolic (congestive) heart failure Is this a current diagnosis for this admission?: YesPlan: Diuresed by ED MD on admission. Appears slightly dehydrated today. Will continue to monitor. Continue current medications (6) Noncompliance Is this a current diagnosis for this admission?: YesPlan: Patient has mild dementia and lives alone. Only has a friend to assist her. Will consult discharge planning for possible placement (7) Hyponatremia Is this a current diagnosis for this admission?: YesPlan: Appears more likely due to poor intake and UTI than fluid volume overload. Will gently rehydrate and monitor (8) UTI (urinary tract infection) Qualifiers: Hematuria presence: without hematuria Is this a current diagnosis for this admission?: YesPlan: Started empirically on IV Rocephin. Urine culture shows gm negative rods - Time Time Spent with patient: 15-24 minutes Critical Time spent with patient: Less than 15 minutes Smoking Cessation Education: 3 to 10 minutes Medications reviewed and adjusted accordingly: Yes Anticipated discharge: Acute Rehab Within: when bed available - Inpatient Certification Based on my medical assessment, after consideration of the patient's comorbidities, presenting symptoms, or acuity I expect that the services needed warrant INPATIENT care.: Yes I certify that my determination is in accordance with my understanding of Medicare's requirements for reasonable and necessary INPATIENT services [42 CFR 412.3e].: Yes Medical Necessity: Failure to Improve With Outpatient Therapy, Need for Nebulizer Therapy and Monitoring of Response, Need for IV Antibiotics
[2016-06-24] MEDS: ATORVASTATIN CALCIUM 20 MG TABLET PO SCH (22:40)
[2016-06-24] MEDS: CEFTRIAXONE 1 GM/D5W RTU 1 GM/50 ML RTUPB IV SCH (22:40)
[2016-06-25] MEDS: BUDESONIDE NEB 0.5 MG/2 ML AMPUL NEB SCH ×2 (07:40→19:57)
[2016-06-25] MEDS: IPRATROPIUM/ALBUTEROL 0.5-2.5 MG/3 ML AMPUL NEB SCH ×3 (07:40→19:57)
--- NOTE | 2016-06-25 10:22 | PDOC PROGRESS REPORT ---
Subjective Subjective:: Patient is seen on morning rounds. She is awake and presently eating her breakfast. Her cough is improved and she is no longer wheezing. She is able to maintain oxygen saturations on nasal cannula. She states her breathing is improved since she came into the hospital. She has no other complaints at the present time. Physical Exam Vital Signs: Temp Pulse Resp BP Pulse Ox 98.2 F 82 16 129/55 H 100 06/25/16 08:27 06/25/16 08:27 06/25/16 08:27 06/25/16 08:27 06/25/16 08:27 Intake & Output 06/24/16 06/25/16 06/26/16 06:59 06:59 06:59 Intake Total 1503 1061 Output Total 2050 1400 Balance -547 -339 Weight 44.6 kg 44.4 kg General appearance: PRESENT: no acute distress, well-developed, well-nourished Head exam: PRESENT: atraumatic, normocephalic Eye exam: PRESENT: conjunctiva pink, EOMI, PERRLA. ABSENT: scleral icterus Ear exam: PRESENT: normal external ear exam Mouth exam: PRESENT: moist, tongue midline Neck exam: ABSENT: carotid bruit, JVD, lymphadenopathy, thyromegaly Respiratory exam: PRESENT: decreased breath sounds, rhonchi, symmetrical, unlabored Cardiovascular exam: PRESENT: RRR. ABSENT: diastolic murmur, rubs, systolic murmur Pulses: PRESENT: normal carotid pulses Vascular exam: PRESENT: normal capillary refill GI/Abdominal exam: PRESENT: normal bowel sounds, soft. ABSENT: distended, guarding, mass, organolmegaly, rebound, tenderness Rectal exam: PRESENT: deferred Extremities exam: PRESENT: full ROM. ABSENT: calf tenderness, clubbing, pedal edema Neurological exam: PRESENT: alert, awake, oriented to person, oriented to place , oriented to time, oriented to situation, CN II-XII grossly intact. ABSENT: motor sensory deficit Psychiatric exam: PRESENT: appropriate affect, normal mood. ABSENT: homicidal ideation, suicidal ideation Skin exam: PRESENT: dry, intact, warm. ABSENT: cyanosis, rash Results Laboratory Results: 06/23/16 04:43 06/23/16 04:43 06/20/16 06/21/16 06/21/16 20:06 02:01 06:20 Troponin I 0.050 0.061 NT-Pro-B Natriuret Pep 2280 H 06/22/16 06/23/16 05:12 04:43 Troponin I NT-Pro-B Natriuret Pep 1930 H 1900 H Impressions: Chest X-Ray 06/20/16 10:16 IMPRESSION: COPD. NO ACUTE RADIOGRAPHIC FINDING IN THE CHEST. Assessment & Plan - Diagnosis (1) Acute and chronic respiratory failure with hypoxia Is this a current diagnosis for this admission?: YesPlan: Improving. Continue nebulizers and diurese. Chest xray shows no pneumonia. (2) Acute on chronic renal failure Is this a current diagnosis for this admission?: YesPlan: Patient's BUN elevated from previous admission. Friend states she has not been eating or drinking well (3) COPD (chronic obstructive pulmonary disease) Qualifiers: COPD type: unspecified COPD Qualified Code(s): J44.9 - Chronic obstructive pulmonary disease, unspecified Is this a current diagnosis for this admission?: YesPlan: Continue nebulizer and inhalers (4) Chronic kidney disease, stage 3 Is this a current diagnosis for this admission?: YesPlan: Avoid nephrotoxic drugs and dosages. Slightly worsened today after IV lasix given in ED. Will rehydrate and monitor. May need to have nephrology reconsulted (5) Acute on chronic diastolic (congestive) heart failure Is this a current diagnosis for this admission?: YesPlan: Diuresed by ED MD on admission. Appears slightly dehydrated today. Will continue to monitor. Continue current medications (6) Noncompliance Is this a current diagnosis for this admission?: YesPlan: Patient has mild dementia and lives alone. Only has a friend to assist her. Will consult discharge planning for possible placement (7) Hyponatremia Is this a current diagnosis for this admission?: YesPlan: Appears more likely due to poor intake and UTI than fluid volume overload. Will gently rehydrate and monitor (8) UTI (urinary tract infection) Qualifiers: Hematuria presence: without hematuria Is this a current diagnosis for this admission?: YesPlan: Urine culture shows gm negative rods. Antibiotic changed to ceftin bid in preparation for discharge - Time Time Spent with patient: 25-34 minutes Critical Time spent with patient: 15-24 minutes Medications reviewed and adjusted accordingly: Yes Anticipated discharge: Acute Rehab
[2016-06-25] MEDS: PREDNISONE 20 MG TABLET PO SCH (10:47)
[2016-06-25] MEDS: DILTIAZEM HCL 120 MG CAP.SR.24H PO SCH (10:48)
[2016-06-25] MEDS: FUROSEMIDE INJ/PF 20 MG/2 ML SDV IV SCH ×2 (10:48→21:26)
[2016-06-25] MEDS: CEFUROXIME 250 MG TABLET PO SCH ×2 (10:48→17:42)
[2016-06-25] MEDS: TIOTROPIUM BROMIDE DPI 5 CAP/KIT (18 MCG/CAP) IH SCH (10:48)
[2016-06-25] MEDS: BENAZEPRIL HCL 20 MG TABLET PO SCH (10:48)
[2016-06-25] MEDS: ATORVASTATIN CALCIUM 20 MG TABLET PO SCH (21:26)
[2016-06-26 04:59] LABS: HEMATOCRIT 29.6 % (36.0-47.0); HGB HCT DIFFERENCE 0.4; MEAN CORPUSCULAR HEMOGLOBIN 30.7 pg (27.0-33.4); MEAN CORPUSCULAR HGB CONC 33.9 g/dL (32.0-36.0); MEAN CORPUSCULAR VOLUME 91 fl (80-97); RED BLOOD COUNT 3.26 10^6/uL (3.72-5.28); RED CELL DISTRIBUTION WIDTH 13.9 % (11.5-14.0); WHITE BLOOD COUNT 12.1 10^3/uL (4.0-10.5)
[2016-06-26 05:08] LABS: ANION GAP 14 (5-19); BLOOD UREA NITROGEN 92 mg/dL (7-20); CALCIUM 9.1 mg/dL (8.4-10.2); CARBON DIOXIDE 25 mmol/L (22-30); CHLORIDE 98 mmol/L (98-107); CREATININE RESULT 1.83 mg/dL (0.52-1.25); GLUCOSE 142 mg/dL (75-110); POTASSIUM 3.1 mmol/L (3.6-5.0); SODIUM 136.7 mmol/L (137-145)
[2016-06-26 05:23] LABS: BASOPHILS % (MANUAL) 0 % (0-2); EOSINOPHILS % (MANUAL) 0 % (0-6); LYMPHOCYTES % (MANUAL) 5 % (13-45); NUCLEATED RED BLOOD CELLS 1 /100 WBC (0); TOTAL CELLS COUNTED 100
[2016-06-26 05:27] LABS: OVALOCYTES 2+; PLATELET CLUMPS PRESENT; TARGET CELLS SLIGHT
[2016-06-26] MEDS: IPRATROPIUM/ALBUTEROL 0.5-2.5 MG/3 ML AMPUL NEB SCH ×3 (07:46→19:32)
[2016-06-26] MEDS: BUDESONIDE NEB 0.5 MG/2 ML AMPUL NEB SCH ×2 (07:46→19:33)
[2016-06-26] MEDS ORDERED: NORMAL SALINE 1000 ML 1,000 ML IV PRN (07:53)
[2016-06-26] MEDS ORDERED: POTASSI CL 20 MEQ/50 ML RIDER 20 MEQ/50 ML RTUPB IV SCH (08:00)
[2016-06-26] MEDS ORDERED: POTASSIUM CHLORIDE 10 MEQ TABLET.SA PO SCH (10:00)
[2016-06-26] MEDS: PREDNISONE 20 MG TABLET PO SCH (10:20)
[2016-06-26] MEDS: BENAZEPRIL HCL 20 MG TABLET PO SCH (10:21)
[2016-06-26] MEDS: DILTIAZEM HCL 120 MG CAP.SR.24H PO SCH (10:21)
[2016-06-26] MEDS: CEFUROXIME 250 MG TABLET PO SCH ×2 (10:22→17:44)
[2016-06-26] MEDS: TIOTROPIUM BROMIDE DPI 5 CAP/KIT (18 MCG/CAP) IH SCH (10:23)
[2016-06-26] MEDS ORDERED: PREDNISONE 20 MG TABLET PO ONE (11:00)
--- NOTE | 2016-06-26 12:25 | PDOC PROGRESS REPORT ---
Subjective Progress Note for:: 06/26/16 Subjective:: Patient is seen on morning rounds. She is awake and presently eating her breakfast. Her cough is improved and she is no longer wheezing. She is able to maintain oxygen saturations on nasal cannula. She states her breathing is improved since she came into the hospital. She has no other complaints at the present time. Physical Exam Vital Signs: Temp Pulse Resp BP Pulse Ox 97.7 F 87 18 146/64 H 100 06/26/16 07:59 06/26/16 07:59 06/26/16 07:59 06/26/16 07:59 06/26/16 07:59 Intake & Output 06/25/16 06/26/16 06/27/16 06:59 06:59 06:59 Intake Total 1061 1436 Output Total 1400 2200 Balance -339 -764 Weight 44.4 kg 44.3 kg General appearance: PRESENT: no acute distress, thin, well-developed, well- nourished Head exam: PRESENT: atraumatic, normocephalic Eye exam: PRESENT: conjunctiva pink, EOMI, PERRLA. ABSENT: scleral icterus Ear exam: PRESENT: normal external ear exam Mouth exam: PRESENT: moist, tongue midline Neck exam: ABSENT: carotid bruit, JVD, lymphadenopathy, thyromegaly Respiratory exam: PRESENT: decreased breath sounds, symmetrical, unlabored, wheezes Cardiovascular exam: PRESENT: RRR. ABSENT: diastolic murmur, rubs, systolic murmur Pulses: PRESENT: normal dorsalis pedis pul Vascular exam: PRESENT: normal capillary refill GI/Abdominal exam: PRESENT: normal bowel sounds, soft. ABSENT: distended, guarding, mass, organolmegaly, rebound, tenderness Rectal exam: PRESENT: deferred Extremities exam: PRESENT: full ROM. ABSENT: calf tenderness, clubbing, pedal edema Neurological exam: PRESENT: alert, awake, oriented to person, oriented to place , oriented to time, oriented to situation, CN II-XII grossly intact. ABSENT: motor sensory deficit Psychiatric exam: PRESENT: appropriate affect, normal mood. ABSENT: homicidal ideation, suicidal ideation Skin exam: PRESENT: dry, intact, warm. ABSENT: cyanosis, rash Results Laboratory Results: 06/26/16 04:25 06/26/16 04:25 06/26/16 06/26/16 04:25 04:25 WBC 12.1 H RBC 3.26 L Hgb 10.0 L Hct 29.6 L MCV 91 MCH 30.7 MCHC 33.9 RDW 13.9 Plt Count 233 Seg Neutrophils % Not Reportable Lymphocytes % Not Reportable Monocytes % Not Reportable Eosinophils % Not Reportable Basophils % Not Reportable Absolute Neutrophils Not Reportable Absolute Lymphocytes Not Reportable Absolute Monocytes Not Reportable Absolute Eosinophils Not Reportable Absolute Basophils Not Reportable Sodium 136.7 L Potassium 3.1 L Chloride 98 Carbon Dioxide 25 Anion Gap 14 BUN 92 H Creatinine 1.83 H Est GFR ( Amer) 32 L Est GFR (Non-Af Amer) 27 L Glucose 142 H Calcium 9.1 06/20/16 06/21/16 06/21/16 20:06 02:01 06:20 Troponin I 0.050 0.061 NT-Pro-B Natriuret Pep 2280 H 06/22/16 06/23/16 05:12 04:43 Troponin I NT-Pro-B Natriuret Pep 1930 H 1900 H Impressions: Chest X-Ray 06/20/16 10:16 IMPRESSION: COPD. NO ACUTE RADIOGRAPHIC FINDING IN THE CHEST. Assessment & Plan - Diagnosis (1) Acute and chronic respiratory failure with hypoxia Is this a current diagnosis for this admission?: YesPlan: Improving. Continue nebulizers and diurese. Chest xray shows no pneumonia. (2) Acute on chronic renal failure Is this a current diagnosis for this admission?: YesPlan: Patient's BUN elevated from previous admission. Friend states she has not been eating or drinking well (3) COPD (chronic obstructive pulmonary disease) Qualifiers: COPD type: unspecified COPD Qualified Code(s): J44.9 - Chronic obstructive pulmonary disease, unspecified Is this a current diagnosis for this admission?: YesPlan: Continue nebulizer and inhalers (4) Chronic kidney disease, stage 3 Is this a current diagnosis for this admission?: YesPlan: Avoid nephrotoxic drugs and dosages. Slightly worsened today after IV lasix given in ED. Will rehydrate and monitor. May need to have nephrology reconsulted (5) Acute on chronic diastolic (congestive) heart failure Is this a current diagnosis for this admission?: YesPlan: Diuresed by ED MD on admission. Appears slightly dehydrated today. Will continue to monitor. Continue current medications (6) Noncompliance Is this a current diagnosis for this admission?: YesPlan: Patient has mild dementia and lives alone. Only has a friend to assist her. Will consult discharge planning for possible placement (7) Hyponatremia Is this a current diagnosis for this admission?: YesPlan: Appears more likely due to poor intake and UTI than fluid volume overload. Will gently rehydrate and monitor (8) UTI (urinary tract infection) Qualifiers: Hematuria presence: without hematuria Is this a current diagnosis for this admission?: Yes - Time Time Spent with patient: 25-34 minutes Critical Time spent with patient: 15-24 minutes Smoking Cessation Education: 3 to 10 minutes Medications reviewed and adjusted accordingly: Yes Anticipated discharge: Acute Rehab Within: when bed available
[2016-06-26] MEDS: POTASSIUM CHLORIDE 10 MEQ TABLET.SA PO SCH (17:43)
[2016-06-26] MEDS: ATORVASTATIN CALCIUM 20 MG TABLET PO SCH (22:02)
[2016-06-27 04:32] VITALS: BP 147/70
[2016-06-27] MEDS: IPRATROPIUM/ALBUTEROL 0.5-2.5 MG/3 ML AMPUL NEB SCH ×2 (07:46→13:38)
[2016-06-27] MEDS: BUDESONIDE NEB 0.5 MG/2 ML AMPUL NEB SCH (07:46)
--- NOTE | 2016-06-27 08:42 | PDOC TRANSFER SUMMARY ---
General - Admit/Disc Date/PCP Admission Date/Primary Care Provider: 06/20/16 13:38 AARON HAHN Discharge Date: 06/27/16 - Discharge Diagnosis (1) Acute and chronic respiratory failure with hypoxia Is this a current diagnosis for this admission?: YesSummary: Patient was treated with steroids and nebulizers. Improved to baseline (2) Acute on chronic renal failure Is this a current diagnosis for this admission?: Yes (3) COPD (chronic obstructive pulmonary disease) Is this a current diagnosis for this admission?: YesSummary: Continue inhalers (4) Chronic kidney disease, stage 3 Is this a current diagnosis for this admission?: YesSummary: Avoid nephrotoxic medications and dosages. (5) Acute on chronic diastolic (congestive) heart failure Is this a current diagnosis for this admission?: YesSummary: Patient was diuresed. 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 Forgets to take medications according to friend (7) Hyponatremia Is this a current diagnosis for this admission?: YesSummary: Resolved (8) UTI (urinary tract infection) Is this a current diagnosis for this admission?: YesSummary: Completed treatment (9) Hypokalemia Summary: Repleted as necessary - Additional Information Resuscitation Status: Full Code Discharge Diet: Cardiac Discharge Activity: Activity As Tolerated, Balance Activity w/Rest, Weigh Daily Home Medications: Fluticasone/Salmeterol [Advair HFA 45-21 mcg Inhaler] 1 inh IH BID 04/26/12 Tiotropium Superior [Spiriva Handihaler 18 mcg/dose (30 Dose)] 1 cap IH DAILY 08/06 Atorvastatin Calcium [Lipitor 20 mg Tablet] 20 mg PO DAILY 04/25/13 Amlodipine Besylate/Benazepril [Lotrel 5-20 mg Capsule] 1 cap PO DAILY 06/13/16 Vitamin E 1 cap PO DAILY 06/13/16 Furosemide [Lasix 20 mg Tablet] 20 mg PO QAM #30 tablet 06/15/16 Cholecalciferol (Vitamin D3) [Vitamin D3 2000 unit Tablet] 2,000 unit PO DAILY 06/21/16 Ergocalciferol (Vitamin D2) [Vitamin D2] 50,000 unit PO ASDIR 06/21/16 Albuterol Sulfate [Proair HFA] 2 puff IN QID PRN #1 inhaler 06/27/16 Diltiazem HCl [Cardizem Cd 120 mg Capsule] 120 mg PO DAILY cap.sr.24h 06/27/16 Prednisone [Deltasone 20 mg Tablet] 20 mg PO DAILY #6 tablet 06/27/16 History of Present Illness Admission Date/PCP: 06/20/16 13:38 AARON HAHN History of Present Illness: LORENZO MENENDEZ is a 80 year old female who presents to [facility]'s emergency department, via EMS this afternoon. She presently is on BiPAP therapy due to hypoxemia upon presentation. She has a friend at bedside, history is obtained from the friend. Friend states the patient has no family, she is , and has no children. She was recently hospitalized at [facility] for acute on chronic respiratory failure and discharged on 06/15/2016. She was discharged with a steroid taper as well as nebulizer treatments. Her friend states she has not been taking her medications as instructed, and has been overusing her nebulizer treatments. She also can continues to smoke approximately 1 pack per day. She has been complaining of increasing shortness of breath over the last 3 days progressively worsening. This morning when her friend visited her she did call her primary care doctor doctor's office who directed her to bring her to the emergency room. She therefore called 911 and the patient was brought by EMS. Patient denies any fever or chills over the last 5 days. She denies a productive cough. Hospital Course Hospital Course: Patient was admitted to the [facility] on telemetry. She received nebulizer treatments and aggressive pulmonary care. She was found to have a uti and started on IV rocephin. She was weaned from BIPAP to nasal cannula. She had PT consult. Discharge planning was consulted for safe discharge plan. She has no family. She has a very supportive friend who checks on her daily. Today her oxygen is back to 2l/min n/c her baseline. She is no longer wheezing. She is ready for discharge to rehab. Physical Exam Vital Signs: Temp Pulse Resp BP Pulse Ox 97.3 F 99 20 147/70 H 98 06/27/16 04:24 06/27/16 07:48 06/27/16 07:48 06/27/16 04:24 06/27/16 07:48 Intake & Output 06/26/16 06/27/16 06/28/16 06:59 06:59 06:59 Intake Total 1436 838 Output Total 2200 1100 Balance -764 -262 Weight 44.3 kg 45 kg General appearance: PRESENT: no acute distress, thin, well-developed, well- nourished Head exam: PRESENT: atraumatic, normocephalic Eye exam: PRESENT: conjunctival injection Ear exam: PRESENT: normal external ear exam Mouth exam: PRESENT: moist, tongue midline Neck exam: ABSENT: carotid bruit, JVD, lymphadenopathy, thyromegaly Respiratory exam: PRESENT: clear to auscultation hansa, decreased breath sounds, symmetrical, unlabored Cardiovascular exam: PRESENT: RRR. ABSENT: diastolic murmur, rubs, systolic murmur Pulses: PRESENT: normal dorsalis pedis pul Vascular exam: PRESENT: normal capillary refill GI/Abdominal exam: PRESENT: normal bowel sounds, soft. ABSENT: distended, guarding, mass, organolmegaly, rebound, tenderness Rectal exam: PRESENT: deferred Extremities exam: PRESENT: full ROM. ABSENT: calf tenderness, clubbing, pedal edema Neurological exam: PRESENT: alert, awake, oriented to person, oriented to place , oriented to time, oriented to situation, CN II-XII grossly intact. ABSENT: motor sensory deficit Psychiatric exam: PRESENT: appropriate affect, normal mood. ABSENT: homicidal ideation, suicidal ideation Skin exam: PRESENT: dry, intact, warm. ABSENT: cyanosis, rash Results Laboratory Results: 06/26/16 04:25 06/26/16 04:25 06/20/16 06/21/16 06/21/16 20:06 02:01 06:20 Troponin I 0.050 0.061 NT-Pro-B Natriuret Pep 2280 H 06/22/16 06/23/16 05:12 04:43 Troponin I NT-Pro-B Natriuret Pep 1930 H 1900 H Impressions: Chest X-Ray 06/20/16 10:16 IMPRESSION: COPD. NO ACUTE RADIOGRAPHIC FINDING IN THE CHEST. Qualifiers PATEINT BEING DISCHARGED WITH ANY OF THE FOLLOWING DIAGNOSIS?: No Plan Discharge Plan: Transfer to [facility]
[2016-06-27 09:05] LABS: ANION GAP 11 (5-19); BLOOD UREA NITROGEN 96 mg/dL (7-20); CALCIUM 9.9 mg/dL (8.4-10.2); CARBON DIOXIDE 24 mmol/L (22-30); CHLORIDE 103 mmol/L (98-107); CREATININE RESULT 1.57 mg/dL (0.52-1.25); GLUCOSE 158 mg/dL (75-110); POTASSIUM 4.9 mmol/L (3.6-5.0); SODIUM 137.5 mmol/L (137-145)
[2016-06-27] MEDS: CEFUROXIME 250 MG TABLET PO SCH (09:30)
[2016-06-27] MEDS: DILTIAZEM HCL 120 MG CAP.SR.24H PO SCH (09:30)
[2016-06-27] MEDS: BENAZEPRIL HCL 20 MG TABLET PO SCH (09:31)
[2016-06-27] MEDS: TIOTROPIUM BROMIDE DPI 5 CAP/KIT (18 MCG/CAP) IH SCH (09:31)
[2016-06-27] MEDS: POTASSIUM CHLORIDE 10 MEQ TABLET.SA PO SCH (09:34)
[2016-06-27] MEDS ORDERED: PREDNISONE 20 MG TABLET PO SCH (10:00)
[2016-06-27] MEDS ORDERED: FUROSEMIDE 20 MG TABLET PO SCH (10:00)
== END 2016-06-27 17:39 | DRG 189 ==
LOC: ER 10:06 → EH 13:38 → UNDOADMIN 13:56 → 3W 18:45
PROVIDERS: ADMIT Family Medicine; ATTEND Family Medicine
PROC: 5A09357 Assistance with Respiratory Ventilation, Less than 24 Consecutive Hours, Continuous Positive Airway Pressure (ICD-10-PCS; principal; 2016-06-20)
DX: J96.21 Acute and chronic respiratory failure with hypoxia (principal); I50.33 Acute on chronic diastolic (congestive) heart failure; I13.0 Hypertensive heart and chronic kidney disease with heart failure and stage 1 through stage 4 chronic kidney disease, or unspecified chronic kidney disease; N17.9 Acute kidney failure, unspecified; N39.0 Urinary tract infection, site not specified; E87.1 Hypo-osmolality and hyponatremia; N18.3 Chronic kidney disease, stage 3 (moderate); F03.90 Unspecified dementia, unspecified severity, without behavioral disturbance, psychotic disturbance, mood disturbance, and anxiety; B96.20 Unspecified Escherichia coli [E. coli] as the cause of diseases classified elsewhere; J44.9 Chronic obstructive pulmonary disease, unspecified; M19.90 Unspecified osteoarthritis, unspecified site; E78.5 Hyperlipidemia, unspecified; F17.210 Nicotine dependence, cigarettes, uncomplicated; E87.6 Hypokalemia; Z79.51 Long term (current) use of inhaled steroids; Z79.52 Long term (current) use of systemic steroids; Z91.19 Patient's noncompliance with other medical treatment and regimen; Z82.49 Family history of ischemic heart disease and other diseases of the circulatory system
CPT/HCPCS: 36415; 71010; 80048; 80053; 81001; 82550; 82553; 82803; 82962; 83605; 83735; 83880; 84484; 85025; 85610; 87040; 87086; 87088; 87186; 93005; 93010; 94660; 99285; G8978-GP; G8979-GP; J0696; J1940; J2920; J2930; J3480; J3490; J7030; J7512; J7620

== ENCOUNTER → 2016-07-31 | Outpatient (CLI) | payer MEDICARE, OTHER ==
[2016-07-31 14:49] LABS: HEMATOCRIT 35.8 % (36.0-47.0); HEMOGLOBIN 11.8 g/dL (12.0-15.5); HGB HCT DIFFERENCE -0.4; MEAN CORPUSCULAR HEMOGLOBIN 30.5 pg (27.0-33.4); MEAN CORPUSCULAR VOLUME 92 fl (80-97); RED BLOOD COUNT 3.88 10^6/uL (3.72-5.28); RED CELL DISTRIBUTION WIDTH 15.3 % (11.5-14.0); WHITE BLOOD COUNT 13.6 10^3/uL (4.0-10.5)
[2016-07-31 15:01] LABS: APPEARANCE,URINE CLEAR; BILIRUBIN,URINE NEGATIVE (NEGATIVE); GLUCOSE, URINE NEGATIVE (NEGATIVE); KETONES,URINE NEGATIVE (NEGATIVE); LEUKOCYTE ESTERASE,URINE NEGATIVE (NEGATIVE); NITRITE,URINE NEGATIVE (NEGATIVE); PROTEIN,URINE NEGATIVE (NEGATIVE); URINE SPECIFIC GRAVITY 1.009; UROBILINOGEN,URINE NEGATIVE mg/dL (<2.0)
[2016-07-31 15:11] LABS: ANION GAP 13 (5-19); BLOOD UREA NITROGEN 56 mg/dL (7-20); CARBON DIOXIDE 30 mmol/L (22-30); CHLORIDE 96 mmol/L (98-107); CREATININE RESULT 1.39 mg/dL (0.52-1.25); GLUCOSE 153 mg/dL (75-110); POTASSIUM 4.1 mmol/L (3.6-5.0); SODIUM 139.1 mmol/L (137-145)
[2016-07-31 15:13] LABS: ANISOCYTOSIS SLIGHT; BASOPHILS % (MANUAL) 0 % (0-2); EOSINOPHILS % (MANUAL) 0 % (0-6); LYMPHOCYTES % (MANUAL) 4 % (13-45); PLATELET CLUMPS PRESENT; POLYCHROMASIA SLIGHT; TOTAL CELLS COUNTED 100; TOXIC GRANULATION SLIGHT
== END ==
LOC: OD 14:11
PROVIDERS: ATTEND Internal Medicine Nephrology
DX: N18.3 Chronic kidney disease, stage 3 (moderate) (principal); D63.1 Anemia in chronic kidney disease
CPT/HCPCS: 36415; 80048; 81001; 85025

== ENCOUNTER → 2016-08-29 | Outpatient (CLI) | payer MEDICARE, OTHER | LOC: RAD 12:33 | PROVIDERS: ATTEND Internal Medicine Critical Care Medicine | DX: R91.8 Other nonspecific abnormal finding of lung field (principal); Z87.891 Personal history of nicotine dependence; R06.09 Other forms of dyspnea; J44.9 Chronic obstructive pulmonary disease, unspecified; Z87.01 Personal history of pneumonia (recurrent) | CPT/HCPCS: 71250 ==

== ENCOUNTER → 2016-09-15 | Outpatient (CLI) | payer MEDICARE, OTHER | LOC: OD 10:16 | PROVIDERS: ATTEND Nurse Practitioner | DX: I50.22 Chronic systolic (congestive) heart failure (principal) | CPT/HCPCS: 71020 ==

== ENCOUNTER 2016-09-22 16:26 | Emergency (ER) | payer MEDICARE, OTHER ==
--- NOTE | 2016-09-22 17:03 | ER Document Report ---
ED General - General Stated Complaint: DIFFICULTY BREATHING Mode of Arrival: Medic Information source: Patient Notes: 80-year-old female history of COPD CHF A. fib presents by EMS with concerns of anxiety not able to sleep at night decreased appetite over the past 10 days. Patient denies any fevers or chills notes that she feels short of breath. Patient believes it is medication related. Patient denies any other concerns. Patient found satting 96% on her home on 4 L which is her baseline TRAVEL OUTSIDE OF THE [place] IN LAST 30 DAYS: No - HPI Onset: Last week Onset/Duration: Persistent Quality of pain: No pain Severity: Mild Pain Level: Denies Associated symptoms: Nonproductive cough, Shortness of breath Exacerbated by: Walking Relieved by: Denies Similar symptoms previously: Yes Recently seen / treated by doctor: Yes - Related Data Allergies/Adverse Reactions: No Known Allergies Allergy (Verified 09/22/16 17:02) Past Medical History - Social History Smoking Status: Never Smoker Cigarette use (# per day): No Chew tobacco use (# tins/day): No Smoking Education Provided: No Family History: Hypertension, Malignancy - Past Medical History Cardiac Medical History: Reports: Hx Congestive Heart Failure, Hx Hypercholesterolemia, Hx Hypertension Denies: Hx Heart Attack Pulmonary Medical History: Reports: Hx COPD Denies: Hx Asthma Neurological Medical History: Denies: Hx Cerebrovascular Accident, Hx Seizures GI Medical History: Denies: Hx Hepatitis, Hx Hiatal Hernia, Hx Ulcer Musculoskeltal Medical History: Reports Hx Arthritis Infectious Medical History: Denies: Hx Hepatitis Past Surgical History: Reports: Hx Hysterectomy, Other - Cataract surgery. Denies: Hx Mastectomy, Hx Open Heart Surgery, Hx Pacemaker Review of Systems - Review of Systems Notes: REVIEW OF SYSTEMS: CONSTITUTIONAL : Denies fever, chills, or sweats. Denies recent illness. EENT: Denies eye, ear, throat, or mouth pain or symptoms. Denies nasal or sinus congestion or discharge. Denies throat, tongue, or mouth swelling or difficulty swallowing. CARDIOVASCULAR: Denies chest pain. Denies palpitations or racing or irregular heart beat. Denies ankle edema. RESPIRATORY: Admits to shortness breath difficulty breathing GASTROINTESTINAL: Denies abdominal pain or distention. Denies nausea, vomiting , or diarrhea. Denies blood in vomitus, stools, or per rectum. Denies black, tarry stools. Denies constipation. GENITOURINARY: Denies difficulty urinating, painful urination, burning, frequency, blood in urine, or discharge. FEMALE GENITOURINARY: Denies vaginal bleeding, heavy or abnormal periods, irregular periods. Denies vaginal discharge or odor. MUSCULOSKELETAL: Denies back or neck pain or stiffness. Denies joint pain or swelling. SKIN: Denies rash, lesions or sores. HEMATOLOGIC : Denies easy bruising or bleeding. LYMPHATIC: Denies swollen, enlarged glands. NEUROLOGICAL: Denies confusion or altered mental status. Denies passing out or loss of consciousness. Denies dizziness or lightheadedness. Denies headache. Denies weakness or paralysis or loss of use of either side. Denies problems with gait or speech. Denies sensory loss, numbness, or tingling. Denies seizures. PSYCHIATRIC: feeling anxious insomnia ALL OTHER SYSTEMS REVIEWED AND NEGATIVE. Dictation was performed using [employer] voice recognition software PHYSICAL EXAMINATION: GENERAL: Well-appearing, well-nourished and in no acute distress. HEAD: Atraumatic, normocephalic. EYES: Pupils equal round and reactive to light, extraocular movements intact, conjunctiva are normal. ENT: Nares patent, oropharynx clear without exudates. Moist mucous membranes. NECK: Normal range of motion, supple without lymphadenopathy LUNGS: No respiratory distress, mild crackles at the bases bilateral HEART: A. fib ABDOMEN: Soft, nontender, nondistended abdomen. No guarding, no rebound. No masses appreciated. Female : deferred Musculoskeletal: Normal range of motion, no pitting or edema. No cyanosis. NEUROLOGICAL: Cranial nerves grossly intact. Normal speech, normal gait. Normal sensory, motor exams PSYCH: Normal mood, normal affect. SKIN: Warm, Dry, normal turgor, no rashes or lesions noted. Physical Exam - Vital signs Vitals: Temp Pulse Resp BP Pulse Ox 98.9 F 86 23 H 123/63 98 09/22/16 16:30 09/22/16 16:30 09/22/16 16:30 09/22/16 16:30 09/22/16 16:30 Course - Re-evaluation Re-evalutation: 09/22/16 17:03 Dyspneic workup performed patient appears stable and in no distress at this time 09/22/16 18:07 pt lab work imaginig and presentation are very benign, pt notes that she is just anxious and having insomnia since taking the antibiotics. i will have her take benadryl for the side effects otherwise she looks well and is satable for dc Family member agrees with this plan After performing a Medical Screening Examination, I estimate there is LOW risk for ACUTE CORONARY SYNDROME, RESPIRATORY FAILURE, SEPSIS OR MENINGITIS, thus I consider the discharge disposition reasonable. The patient and I have discussed the diagnosis and risks, and we agree with discharging home with close follow- up. We also discussed returning to the Emergency Department immediately if new or worsening symptoms occur. We have discussed the symptoms which are most concerning (e.g., changing or worsening pain, trouble swallowing or breathing, neck stiffness, fever) that necessitate immediate return. - Vital Signs Vital signs: Temp Pulse Resp BP Pulse Ox 98.9 F 86 23 H 123/63 98 09/22/16 16:30 09/22/16 16:30 09/22/16 16:30 09/22/16 16:30 09/22/16 16:50 - Laboratory Result Diagrams: 09/22/16 16:50 09/22/16 16:50 Laboratory results interpreted by me: 09/22/16 09/22/16 09/22/16 16:50 16:50 16:50 WBC 14.0 H RBC 3.47 L Hgb 10.5 L Hct 30.9 L RDW 16.8 H Seg Neutrophils % 81.0 H Lymphocytes % 6.5 L Absolute Neutrophils 11.3 H Absolute Monocytes 1.7 H Chloride 94 L BUN 61 H Creatinine 5.51 H Est GFR ( Amer) 9 L Est GFR (Non-Af Amer) 7 L NT-Pro-B Natriuret Pep 3630 H Total Protein 6.0 L - Diagnostic Test Radiology reviewed: Image reviewed, Reports reviewed Discharge - Discharge Clinical Impression: Chronic kidney disease, stage 3 COPD (chronic obstructive pulmonary disease) Qualifiers: COPD type: unspecified COPD Qualified Code(s): J44.9 - Chronic obstructive pulmonary disease, unspecified Condition: Stable Disposition: HOME, SELF-CARE Instructions: Chronic Obstructive Lung Disease ([facility]) Additional Instructions: Follow up with your physician tomorrow for further care or return to the ED IMMEDIATELY if symptoms worsen or new concerns occur
[2016-09-22 17:13] LABS: ABSOLUTE BASOPHILS # (AUTO) 0.1 10^3/uL (0.0-0.2); ABSOLUTE LYMPHOCYTES (AUTO) 0.9 10^3/uL (0.5-4.7); ABSOLUTE MONOCYTES (AUTO) 1.7 10^3/uL (0.1-1.4); ABSOLUTE NEUT (AUTO) 11.3 10^3/uL (1.7-8.2); BASOPHILS % (AUTO) 0.5 % (0-2); EOSINOPHILS % (AUTO) 0.1 % (0-6); HEMATOCRIT 30.9 % (36.0-47.0); HEMOGLOBIN 10.5 g/dL (12.0-15.5); HGB HCT DIFFERENCE 0.6; LYMPHOCYTES % (AUTO) 6.5 % (13-45); MEAN CORPUSCULAR HEMOGLOBIN 30.2 pg (27.0-33.4); MEAN CORPUSCULAR VOLUME 89 fl (80-97); MONOCYTES % (AUTO) 11.9 % (3-13); RED BLOOD COUNT 3.47 10^6/uL (3.72-5.28); RED CELL DISTRIBUTION WIDTH 16.8 % (11.5-14.0)
[2016-09-22] MEDS ORDERED: IPRATROPIUM/ALBUTEROL 0.5-2.5 MG/3 ML AMPUL NEB ONE (17:31)
[2016-09-22 17:41] LABS: ALANINE AMINOTRANSFERASE 22 U/L (9-52); ALBUMIN 3.6 g/dL (3.5-5.0); ALKALINE PHOSPHATASE 85 U/L (38-126); ANION GAP 17 (5-19); ASPARTATE AMINO TRANSFERASE 32 U/L (14-36); BILIRUBIN,DIRECT 0.4 mg/dL (0.0-0.4); BILIRUBIN,TOTAL 0.7 mg/dL (0.2-1.3); BLOOD UREA NITROGEN 61 mg/dL (7-20); CALCIUM 9.5 mg/dL (8.4-10.2); CARBON DIOXIDE 26 mmol/L (22-30); CHLORIDE 94 mmol/L (98-107); CREATINE KINASE 109 U/L (30-135); CREATININE RESULT 5.51 mg/dL (0.52-1.25); GLUCOSE 79 mg/dL (75-110); POTASSIUM 4.4 mmol/L (3.6-5.0); SODIUM 137.3 mmol/L (137-145)
[2016-09-22 17:51] LABS: CREATINE KINASE MB 2.46 ng/mL (<4.55)
[2016-09-22 17:55] LABS: TROPONIN I 0.044 ng/mL
[2016-09-22 18:27] VITALS: BP 128/72
--- NOTE | 2016-09-22 22:02 | EKG REPORT ---
SEVERITY:- BORDERLINE ECG - SINUS RHYTHM BORDERLINE PROLONGED QT INTERVAL : Confirmed by: Lupillo Pedroza 22-Sep-2016 22:01:43
== END 2016-09-22 19:19 | disposition home or self-care (01) ==
LOC: ER 16:26
DX: N18.3 Chronic kidney disease, stage 3 (moderate) (principal); J44.9 Chronic obstructive pulmonary disease, unspecified; R06.02 Shortness of breath; I50.9 Heart failure, unspecified; I48.91 Unspecified atrial fibrillation; F41.9 Anxiety disorder, unspecified; R63.0 Anorexia
CPT/HCPCS: 93005; 94640; 99285; 36415; 87040; 82553; 82550; 85025; 80053; 84484; 83880; 71010; 93010; A9270; J7620

== ENCOUNTER 2016-09-23 08:44 | Inpatient (IN) | payer MEDICARE, OTHER ==
--- NOTE | 2016-09-23 09:57 | ER Document Report ---
ED Dizziness/Weakness - General Stated Complaint: WEAKNESS Mode of Arrival: Medic Information source: Patient Notes: Patient states that she got up this morning and had weakness that caused her to fall. Patient complains of left hip pain after the fall. Patient denies any head injury, headache, or loss of consciousness. Patient denies any chest pain , abdominal pain, nausea or vomiting. Patient denies any fever. Patient does report mild cough and having phlegm in her throat. Patient does state that she was here yesterday. TRAVEL OUTSIDE OF THE [place] IN LAST 30 DAYS: No - HPI Patient complains to provider of: Weakness Onset: This morning Onset/Duration: Sudden Pain Level: 1 Associated symptoms: Recent fall. denies: Chest pain, Confused, Diarrhea, Fainted, Headache, Lightheaded, Vomiting Baseline gait: Walks w/o assistance - Related Data Allergies/Adverse Reactions: No Known Allergies Allergy (Verified 09/22/16 17:02) Past Medical History - General Information source: Patient - Social History Smoking Status: Former Smoker - Quit 4 months ago Frequency of alcohol use: None Drug Abuse: None Lives with: Family Family History: Hypertension, Malignancy - Past Medical History Cardiac Medical History: Reports: Hx Congestive Heart Failure, Hx Hypercholesterolemia, Hx Hypertension Denies: Hx Heart Attack Pulmonary Medical History: Reports: Hx COPD Denies: Hx Asthma Neurological Medical History: Denies: Hx Cerebrovascular Accident, Hx Seizures Renal/ Medical History: Denies: Hx Peritoneal Dialysis GI Medical History: Denies: Hx Hepatitis, Hx Hiatal Hernia, Hx Ulcer Musculoskeltal Medical History: Reports Hx Arthritis Infectious Medical History: Denies: Hx Hepatitis Past Surgical History: Reports: Hx Hysterectomy, Other - Cataract surgery. Denies: Hx Mastectomy, Hx Open Heart Surgery, Hx Pacemaker Review of Systems - Review of Systems Constitutional: Recent illness - Recent upper respiratory symptoms. denies: Fever EENT: No symptoms reported Cardiovascular: No symptoms reported. denies: Chest pain, Dizziness, Lightheaded Respiratory: Cough, Sputum. denies: Short of breath Gastrointestinal: No symptoms reported. denies: Abdominal pain, Diarrhea, Nausea, Vomiting Genitourinary: No symptoms reported. denies: Dysuria, Flank pain Female Genitourinary: No symptoms reported Musculoskeletal: Joint pain - Left hip tenderness Skin: No symptoms reported Hematologic/Lymphatic: No symptoms reported Neurological/Psychological: Weakness. denies: Confusion, Headaches Physical Exam - Vital signs Vitals: Temp Pulse Resp BP Pulse Ox 98.3 F 93 20 146/59 H 100 09/23/16 10:09 09/23/16 10:09 09/23/16 10:09 09/23/16 10:09 09/23/16 10:09 - General General appearance: Appears well, Alert In distress: None - HEENT Head: Normocephalic, Atraumatic Eyes: Normal Conjunctiva: Normal Nasal: Normal Mouth/Lips: Normal Mucous membranes: Normal Pharynx: Normal Neck: Normal, Supple. No: Lymphadenopathy - Respiratory Respiratory status: No respiratory distress. No: Labored Chest status: Nontender Breath sounds: Nonproductive cough. No: Rales, Rhonchi, Stridor, Wheezing Chest palpation: Normal - Cardiovascular Rhythm: Regular Heart sounds: S1 appreciated, S2 appreciated Murmur: No - Abdominal Inspection: Normal Distension: No distension Bowel sounds: Normal Tenderness: Nontender Organomegaly: No organomegaly - Back Back: Normal, Nontender. No: CVA tenderness, Vertebra tenderness - Extremities General upper extremity: Normal inspection, Normal strength General lower extremity: Tender - Left posterior hip tenderness Shoulder: Normal, Nontender Arm: Normal, Nontender Elbow: Normal, Nontender Forearm: Ecchymosis - Right forearm Wrist: Normal, Nontender Hand: Normal, Nontender Hip: Tender - Left posterior hip tenderness. No: Deformity Thigh: Normal, Nontender Knee: Normal, Nontender Calf: Normal, Nontender Ankle: Normal, Nontender Foot: Normal, Nontender - Neurological Neuro grossly intact: Yes [place] Coma Scale Eye Opening: Spontaneous [place] Coma Scale Verbal: Oriented [place] Coma Scale Motor: Obeys Commands [place] Coma Scale Total: 15 Notes: Patient with 4/5 strength to bilateral lower extremities - Psychological Associated symptoms: Normal affect, Normal mood - Skin Skin Temperature: Warm Skin Moisture: Dry Skin Color: Normal Course - Re-evaluation Re-evalutation: 09/23/16 11:[address] Carranza regarding patient presentation, recommends consultation with hospitalist for admission Patient resting comfortably in room, advised that she will need to be admitted. Patient agreeable with this plan of care. Vital signs continue stable. Breath sounds clear bilaterally. Patient denies any shortness of breath or chest pain. 09/23/16 11:[address] Busteed, who agrees to accept patient for admission to nurse practitioner [facility]. Consulted with [facility] INTERIOR DESIGN PROFESSIONAL who advises inpatient admission to telemetry unit. - Vital Signs Vital signs: Temp Pulse Resp BP Pulse Ox 98.3 F 93 15 146/61 H 99 09/23/16 10:09 09/23/16 10:09 09/23/16 10:31 09/23/16 10:31 09/23/16 10:31 - Laboratory Result Diagrams: 09/23/16 10:05 09/23/16 10:05 Laboratory results interpreted by me: 09/23/16 09/23/16 09/23/16 10:05 10:05 10:05 WBC 13.2 H RBC 3.46 L Hgb 10.2 L Hct 30.6 L RDW 15.9 H Seg Neutrophils % 83.0 H Lymphocytes % 5.1 L Absolute Neutrophils 11.0 H Absolute Monocytes 1.5 H Sodium 136.3 L Chloride 96 L BUN 67 H Creatinine 5.83 H Est GFR ( Amer) 8 L Est GFR (Non-Af Amer) 7 L Magnesium 1.5 L Creatine Kinase 181 H NT-Pro-B Natriuret Pep 2780 H Total Protein 5.8 L Labs- Entire Visit 09/23/16 09/23/16 09/23/16 10:05 10:05 10:05 WBC 13.2 H RBC 3.46 L Hgb 10.2 L Hct 30.6 L MCV 89 MCH 29.4 MCHC 33.2 RDW 15.9 H Plt Count 250 Seg Neutrophils % 83.0 H Lymphocytes % 5.1 L Monocytes % 11.5 Eosinophils % 0.1 Basophils % 0.3 Absolute Neutrophils 11.0 H Absolute Lymphocytes 0.7 Absolute Monocytes 1.5 H Absolute Eosinophils 0.0 Absolute Basophils 0.0 Sodium 136.3 L Potassium 4.6 Chloride 96 L Carbon Dioxide 25 Anion Gap 15 BUN 67 H Creatinine 5.83 H Est GFR ( Amer) 8 L Est GFR (Non-Af Amer) 7 L Glucose 82 Calcium 9.2 Magnesium 1.5 L Total Bilirubin 0.5 Direct Bilirubin 0.2 Indirect Bilirubin Not Reportable Neonat Total Bilirubin Not Reportable AST 32 ALT 32 Alkaline Phosphatase 74 Creatine Kinase 181 H CK-MB (CK-2) 4.35 Troponin I 0.041 NT-Pro-B Natriuret Pep 2780 H Total Protein 5.8 L Albumin 3.5 Reviewed patient's laboratory studies from previous ER visit as well as outpatient lab work performed within the past 2 months 09/23/16 12:00 - Diagnostic Test Radiology reviewed: Reports reviewed - Reviewed radiology report from yesterday as well Discharge - Discharge Clinical Impression: Acute on chronic renal failure, Weakness generalized Fall Qualifiers: Encounter type: initial encounter Qualified Code(s): W19.XXXA - Unspecified fall, initial encounter Condition: Stable Disposition: ADMITTED INPATIENT Admitting Provider: Hospitalist Unit Admitted: Telemetry
[2016-09-23 10:22] LABS: ABSOLUTE LYMPHOCYTES (AUTO) 0.7 10^3/uL (0.5-4.7); ABSOLUTE MONOCYTES (AUTO) 1.5 10^3/uL (0.1-1.4); BASOPHILS % (AUTO) 0.3 % (0-2); EOSINOPHILS % (AUTO) 0.1 % (0-6); HEMATOCRIT 30.6 % (36.0-47.0); HEMOGLOBIN 10.2 g/dL (12.0-15.5); LYMPHOCYTES % (AUTO) 5.1 % (13-45); MEAN CORPUSCULAR HEMOGLOBIN 29.4 pg (27.0-33.4); MEAN CORPUSCULAR HGB CONC 33.2 g/dL (32.0-36.0); MEAN CORPUSCULAR VOLUME 89 fl (80-97); MONOCYTES % (AUTO) 11.5 % (3-13); RED BLOOD COUNT 3.46 10^6/uL (3.72-5.28); RED CELL DISTRIBUTION WIDTH 15.9 % (11.5-14.0); WHITE BLOOD COUNT 13.2 10^3/uL (4.0-10.5)
[2016-09-23 10:49] LABS: ALANINE AMINOTRANSFERASE 32 U/L (9-52); ALBUMIN 3.5 g/dL (3.5-5.0); ALKALINE PHOSPHATASE 74 U/L (38-126); ANION GAP 15 (5-19); ASPARTATE AMINO TRANSFERASE 32 U/L (14-36); BILIRUBIN,DIRECT 0.2 mg/dL (0.0-0.4); BILIRUBIN,TOTAL 0.5 mg/dL (0.2-1.3); BLOOD UREA NITROGEN 67 mg/dL (7-20); CALCIUM 9.2 mg/dL (8.4-10.2); CARBON DIOXIDE 25 mmol/L (22-30); CHLORIDE 96 mmol/L (98-107); CREATINE KINASE 181 U/L (30-135); CREATININE RESULT 5.83 mg/dL (0.52-1.25); GLUCOSE 82 mg/dL (75-110); MAGNESIUM 1.5 mg/dL (1.6-2.3); POTASSIUM 4.6 mmol/L (3.6-5.0); SODIUM 136.3 mmol/L (137-145); TOTAL PROTEIN 5.8 g/dL (6.3-8.2)
[2016-09-23 11:01] LABS: CREATINE KINASE MB 4.35 ng/mL (<4.55)
[2016-09-23 11:07] LABS: TROPONIN I 0.041 ng/mL
[2016-09-23] MEDS ORDERED: NORMAL SALINE 1000 ML 500 ML IV ONE (11:30)
--- NOTE | 2016-09-23 12:37 | EKG REPORT ---
SEVERITY:- BORDERLINE ECG - SINUS RHYTHM BORDERLINE PROLONGED QT INTERVAL : Confirmed by: Lupillo Pedroza 23-Sep-2016 12:37:04
--- NOTE | 2016-09-23 13:22 | PDOC H&P ---
History of Present Illness Admission Date/PCP: 09/23/16 11:46 Christie Roman Outpatient back order clerk: Dr. Shaikh Patient complains of: Fell out of bed History of Present Illness: LORENZO MENENDEZ is a 80 year old with a past medical history of chronic kidney disease that states she got up this morning and had weakness that caused her to fall. Patient complains of left hip pain after the fall. Patient denied any head injury, headache, or loss of consciousness. Patient denies any chest pain, abdominal pain, nausea or vomiting. Patient denies any fever. Patient does report mild cough and having phlegm in her throat. Patient does state that she was here yesterday. Today the patient was found to be in acute renal failure. 07/31/16 09/23/16 14:20 10:05 Creatinine 1.39 H 5.83 H Past Medical History Cardiac Medical History: Reports: Congestive Heart Failure, Hyperlipidema, Hypertension Pulmonary Medical History: Reports: Chronic Obstructive Pulmonary Disease (COPD) Renal/ Medical History: Reports: Chronic Kidney Disease Musculoskeltal Medical History: Reports: Arthritis Past Surgical History Past Surgical History: Reports: Hysterectomy, Other - Cataract surgery Social History Information Source: Patient Lives with: Alone Smoking Status: Former Smoker - Quit 4 months ago Number of Years Smokin Frequency of Alcohol Use: None Hx Recreational Drug Use: No Drugs: None Hx Prescription Drug Abuse: No - Advance Directive Resuscitation Status: Full Code Surrogate healthcare decision maker:: Jose Alberts Family History Family History: Reviewed & Not Pertinent, Hypertension, Malignancy Parental Family History Reviewed: Yes Children Family History Reviewed: Yes Sibling(s) Family History Reviewed.: Yes Medication/Allergy Home Medications: Fluticasone/Salmeterol [Advair HFA 45-21 mcg Inhaler] 1 inh IH BID 04/26/12 Tiotropium [place] [Spiriva Handihaler 18 mcg/dose (30 Dose)] 1 cap IH DAILY 08/06 Atorvastatin Calcium [Lipitor 20 mg Tablet] 20 mg PO DAILY 04/25/13 Amlodipine Besylate/Benazepril [Lotrel 5-20 mg Capsule] 1 cap PO DAILY 06/13/16 Vitamin E 1 cap PO DAILY 06/13/16 Furosemide [Lasix 20 mg Tablet] 20 mg PO QAM #30 tablet 12/22/16 Cholecalciferol (Vitamin D3) [Vitamin D3 2000 unit Tablet] 2,000 unit PO DAILY 06/21/16 Ergocalciferol (Vitamin D2) [Vitamin D2] 50,000 unit PO ASDIR 06/21/16 Albuterol Sulfate [Proair HFA] 2 puff IN QID PRN #1 inhaler 06/27/16 Diltiazem HCl [Cardizem Cd 120 mg Capsule] 120 mg PO DAILY cap.sr.24h 06/27/16 Prednisone [Deltasone 20 mg Tablet] 20 mg PO DAILY #6 tablet 06/27/16 Allergies/Adverse Reactions: No Known Allergies Allergy (Verified 09/22/16 17:02) Review of Systems Constitutional: PRESENT: weakness, other - Loss of appetite. ABSENT: chills, fever(s), headache(s), weight gain, weight loss Eyes: ABSENT: visual disturbances Ears: ABSENT: hearing changes Cardiovascular: ABSENT: chest pain, dyspnea on exertion, edema, orthropnea, palpitations Respiratory: ABSENT: cough, hemoptysis Gastrointestinal: ABSENT: abdominal pain, constipation, diarrhea, hematemesis, hematochezia, nausea, vomiting Genitourinary: ABSENT: dysuria, hematuria Musculoskeletal: ABSENT: joint swelling Integumentary: ABSENT: rash, wounds Neurological: ABSENT: abnormal gait, abnormal speech, confusion, dizziness, focal weakness, syncope Psychiatric: ABSENT: anxiety, depression, homidical ideation, suicidal ideation Endocrine: ABSENT: cold intolerance, heat intolerance, polydipsia, polyuria Hematologic/Lymphatic: ABSENT: easy bleeding, easy bruising Physical Exam Vital Signs: Temp Pulse Resp BP Pulse Ox 98.3 F 93 23 H 110/92 H 98 09/23/16 10:09 09/23/16 10:09 09/23/16 12:31 09/23/16 12:31 09/23/16 12:31 General appearance: PRESENT: no acute distress, cooperative, well-developed, well-nourished Head exam: PRESENT: atraumatic, normocephalic Eye exam: PRESENT: conjunctiva pink, EOMI, PERRLA. ABSENT: scleral icterus Ear exam: PRESENT: normal external ear exam Mouth exam: PRESENT: moist, tongue midline Neck exam: ABSENT: carotid bruit, JVD, lymphadenopathy, thyromegaly Respiratory exam: PRESENT: clear to auscultation hansa. ABSENT: rales, rhonchi, wheezes Cardiovascular exam: PRESENT: RRR. ABSENT: diastolic murmur, rubs, systolic murmur Pulses: PRESENT: normal dorsalis pedis pul Vascular exam: PRESENT: normal capillary refill GI/Abdominal exam: PRESENT: normal bowel sounds, soft. ABSENT: distended, guarding, mass, organolmegaly, rebound, tenderness Rectal exam: PRESENT: deferred Extremities exam: PRESENT: full ROM. ABSENT: calf tenderness, clubbing, pedal edema Neurological exam: PRESENT: alert, awake, oriented to person, oriented to place , oriented to time, oriented to situation, CN II-XII grossly intact. ABSENT: motor sensory deficit Psychiatric exam: PRESENT: appropriate affect, normal mood. ABSENT: homicidal ideation, suicidal ideation Skin exam: PRESENT: dry, intact, warm. ABSENT: cyanosis, rash Results Laboratory Results: Labs- Last Values WBC 13.2 10^3/uL (4.0-10.5) H 09/23/16 10:05 RBC 3.46 10^6/uL (3.72-5.28) L 09/23/16 10:05 Hgb 10.2 g/dL (12.0-15.5) L 09/23/16 10:05 Hct 30.6 % (36.0-47.0) L 09/23/16 10:05 MCV 89 fl (80-97) 09/23/16 10:05 MCH 29.4 pg (27.0-33.4) 09/23/16 10:05 MCHC 33.2 g/dL (32.0-36.0) 09/23/16 10:05 RDW 15.9 % (11.5-14.0) H 09/23/16 10:05 Plt Count 250 10^3/uL (150-450) 09/23/16 10:05 Seg Neutrophils % 83.0 % (42-78) H 09/23/16 10:05 Lymphocytes % 5.1 % (13-45) L 09/23/16 10:05 Monocytes % 11.5 % (3-13) 09/23/16 10:05 Eosinophils % 0.1 % (0-6) 09/23/16 10:05 Basophils % 0.3 % (0-2) 09/23/16 10:05 Absolute Neutrophils 11.0 10^3/uL (1.7-8.2) H 09/23/16 10:05 Absolute Lymphocytes 0.7 10^3/uL (0.5-4.7) 09/23/16 10:05 Absolute Monocytes 1.5 10^3/uL (0.1-1.4) H 09/23/16 10:05 Absolute Eosinophils 0.0 10^3/uL (0.0-0.6) 09/23/16 10:05 Absolute Basophils 0.0 10^3/uL (0.0-0.2) 09/23/16 10:05 Sodium 136.3 mmol/L (137-145) L 09/23/16 10:05 Potassium 4.6 mmol/L (3.6-5.0) 09/23/16 10:05 Chloride 96 mmol/L (98-107) L 09/23/16 10:05 Carbon Dioxide 25 mmol/L (22-30) 09/23/16 10:05 Anion Gap 15 (5-19) 09/23/16 10:05 BUN 67 mg/dL (7-20) H 09/23/16 10:05 Creatinine 5.83 mg/dL (0.52-1.25) H 09/23/16 10:05 Est GFR ( Amer) 8 (>60) L 09/23/16 10:05 Est GFR (Non-Af Amer) 7 (>60) L 09/23/16 10:05 Glucose 82 mg/dL (75-110) 09/23/16 10:05 Calcium 9.2 mg/dL (8.4-10.2) 09/23/16 10:05 Magnesium 1.5 mg/dL (1.6-2.3) L 09/23/16 10:05 Total Bilirubin 0.5 mg/dL (0.2-1.3) 09/23/16 10:05 Direct Bilirubin 0.2 mg/dL (0.0-0.4) 09/23/16 10:05 Indirect Bilirubin Not Reportable 09/23/16 10:05 Neonat Total Bilirubin Not Reportable 09/23/16 10:05 AST 32 U/L (14-36) 09/23/16 10:05 ALT 32 U/L (9-52) 09/23/16 10:05 Alkaline Phosphatase 74 U/L (38-126) 09/23/16 10:05 Creatine Kinase 181 U/L (30-135) H 09/23/16 10:05 CK-MB (CK-2) 4.35 ng/mL (<4.55) 09/23/16 10:05 Troponin I 0.041 ng/mL 09/23/16 10:05 NT-Pro-B Natriuret Pep 2780 pg/mL (<450) H 09/23/16 10:05 Total Protein 5.8 g/dL (6.3-8.2) L 09/23/16 10:05 Albumin 3.5 g/dL (3.5-5.0) 09/23/16 10:05 Impressions: Chest X-Ray 09/23/16 09:45 IMPRESSION: COPD. NO ACUTE RADIOGRAPHIC FINDING IN THE CHEST. Hip X-Ray 09/23/16 09:45 IMPRESSION: NEGATIVE STUDY OF THE LEFT HIP AND PELVIS. NO RADIOGRAPHIC EVIDENCE OF ACUTE INJURY. Assessment & Plan - Diagnosis (1) Acute on chronic renal failure Is this a current diagnosis for this admission?: YesPlan: The patient admits to limited oral intake. Will continue to hydrate repeat chemistries in the a.m. and follow. Will obtain UA. Given the patient's deep increasing creatinine will obtain renal ultrasound. (2) Fall Qualifiers: Encounter type: initial encounter Qualified Code(s): W19.XXXA - Unspecified fall, initial encounter Is this a current diagnosis for this admission?: YesPlan: Workup thus far been unremarkable symptoms overall have improved will continue to monitor. (3) COPD (chronic obstructive pulmonary disease) Qualifiers: COPD type: unspecified COPD Qualified Code(s): J44.9 - Chronic obstructive pulmonary disease, unspecified Is this a current diagnosis for this admission?: YesPlan: My home meds the patient is not requiring O2 (4) Chronic kidney disease, stage 3 Is this a current diagnosis for this admission?: YesPlan: Baseline creatinine appears to be in the 1.3-1.4 range (5) Hyponatremia Is this a current diagnosis for this admission?: YesPlan: Mild this may be hypovolemic will monitor. - Time Time Spent: 50 to 70 Minutes Medications reviewed and adjusted accordingly: Yes - Inpatient Certification Based on my medical assessment, after consideration of the patient's comorbidities, presenting symptoms, or acuity I expect that the services needed warrant INPATIENT care.: Yes I certify that my determination is in accordance with my understanding of Medicare's requirements for reasonable and necessary INPATIENT services [42 CFR 412.3e].: Yes Medical Necessity: Need For IV Fluids, Need For Continuous Telemetry Monitoring Post Hospital Care: D/C or Transfer Summary
[2016-09-23] MEDS: HEPARIN SOD (PORCINE) 5,000 UNIT/ML 1 ML SYRINGE SUBCUT SCH ×2 (19:26→22:12)
[2016-09-23] MEDS: NORMAL SALINE 1000 ML 1,000 ML IV PRN (22:12)
[2016-09-24 04:58] LABS: APPEARANCE,URINE CLEAR; BILIRUBIN,URINE NEGATIVE (NEGATIVE); GLUCOSE, URINE NEGATIVE (NEGATIVE); KETONES,URINE NEGATIVE (NEGATIVE); LEUKOCYTE ESTERASE,URINE NEGATIVE (NEGATIVE); NITRITE,URINE NEGATIVE (NEGATIVE); PROTEIN,URINE NEGATIVE (NEGATIVE); URINE SPECIFIC GRAVITY 1.009; UROBILINOGEN,URINE NEGATIVE mg/dL (<2.0)
[2016-09-24 05:04] LABS: ANION GAP 16 (5-19); BLOOD UREA NITROGEN 59 mg/dL (7-20); CALCIUM 8.1 mg/dL (8.4-10.2); CARBON DIOXIDE 22 mmol/L (22-30); CHLORIDE 103 mmol/L (98-107); CREATININE RESULT 4.45 mg/dL (0.52-1.25); GLUCOSE 81 mg/dL (75-110); MAGNESIUM 1.4 mg/dL (1.6-2.3); SODIUM 141.4 mmol/L (137-145)
[2016-09-24] MEDS: HEPARIN SOD (PORCINE) 5,000 UNIT/ML 1 ML SYRINGE SUBCUT SCH ×2 (05:28→17:16)
[2016-09-24 05:31] LABS: POTASSIUM 3.8 mmol/L (3.6-5.0)
[2016-09-24] MEDS: ERGOCALCIFEROL (VITAMIN D2) 50000 UNIT (1.25 MG) CAPSULE PO SCH (09:52)
[2016-09-24] MEDS: DILTIAZEM HCL 120 MG CAP.SR.24H PO SCH (09:53)
[2016-09-24] MEDS: VITAMIN E (DL, ACETATE) 400 UNIT CAPSULE PO SCH (09:53)
[2016-09-24] MEDS: FLUTICASONE/SALMETEROL DISKUS 250-50 MCG/DOSE IH SCH (09:53)
[2016-09-24] MEDS: TIOTROPIUM BROMIDE DPI 5 CAP/KIT (18 MCG/CAP) IH SCH (09:53)
[2016-09-24] MEDS: NORMAL SALINE 1000 ML 1,000 ML IV PRN ×2 (09:54→17:17)
[2016-09-24] MEDS ORDERED: BUDESONIDE/FORMOTEROL 160-4.5 MCG 60 PUFF/6 GM MDI IH SCH (10:00)
[2016-09-24] MEDS ORDERED: HYDRALAZINE HCL INJ/PF 20 MG/1 ML SDV IV PRN (10:07)
--- NOTE | 2016-09-24 10:42 | PDOC PROGRESS REPORT ---
Subjective Progress Note for:: 09/24/16 Subjective:: The patient was seen earlier today on rounds. Patient is concerned with how weak she is cannot take care of herself at home. The patient denies any nausea , vomiting, diarrhea, shortness of breath, dizziness, chest pain, heart palpitations, fevers, or chills. The patient has remained afebrile. Blood pressures have been in a good range. When prompted the patient voices no other concerns at this time. Review of systems: The rest of the review of systems is negative. Physical Exam Vital Signs: Temp Pulse Resp BP Pulse Ox 97.9 F 100 19 190/81 H 96 09/24/16 08:00 09/24/16 08:00 09/24/16 08:00 09/24/16 10:07 09/24/16 08:00 Intake & Output 09/22/16 09/23/16 09/24/16 23:59 23:59 23:59 Intake Total 100 1050 Balance 100 1050 Weight 42.3 kg 42.1 kg General appearance: PRESENT: no acute distress, cooperative, well-developed, well-nourished Head exam: PRESENT: atraumatic, normocephalic Eye exam: PRESENT: conjunctiva pink, EOMI, PERRLA. ABSENT: scleral icterus Ear exam: PRESENT: normal external ear exam Mouth exam: PRESENT: moist, tongue midline Neck exam: ABSENT: carotid bruit, JVD, lymphadenopathy, thyromegaly Respiratory exam: PRESENT: clear to auscultation hansa. ABSENT: rales, rhonchi, wheezes Cardiovascular exam: PRESENT: RRR. ABSENT: diastolic murmur, rubs, systolic murmur Pulses: PRESENT: normal dorsalis pedis pul Vascular exam: PRESENT: normal capillary refill GI/Abdominal exam: PRESENT: normal bowel sounds, soft. ABSENT: distended, guarding, mass, organolmegaly, rebound, tenderness Rectal exam: PRESENT: deferred Extremities exam: PRESENT: full ROM. ABSENT: calf tenderness, clubbing, pedal edema Neurological exam: PRESENT: alert, awake, oriented to person, oriented to place , oriented to time, oriented to situation, CN II-XII grossly intact. ABSENT: motor sensory deficit Psychiatric exam: PRESENT: appropriate affect, normal mood. ABSENT: homicidal ideation, suicidal ideation Skin exam: PRESENT: dry, intact, warm. ABSENT: cyanosis, rash Results Laboratory Results: 09/24/16 04:38 09/24/16 09/24/16 03:50 04:38 Sodium 141.4 Potassium 3.8 Chloride 103 Carbon Dioxide 22 Anion Gap 16 BUN 59 H Creatinine 4.45 H Est GFR ( Amer) 12 L Est GFR (Non-Af Amer) 10 L Glucose 81 Calcium 8.1 L Magnesium 1.4 L Urine Color YELLOW Urine Appearance CLEAR Urine pH 6.0 Ur Specific Paron 1.009 Urine Protein NEGATIVE Urine Glucose (UA) NEGATIVE Urine Ketones NEGATIVE Urine Blood NEGATIVE Urine Nitrite NEGATIVE Ur Leukocyte Esterase NEGATIVE Urine WBC (Auto) 1 Urine RBC (Auto) 0 Impressions: Chest X-Ray 09/23/16 09:45 IMPRESSION: COPD. NO ACUTE RADIOGRAPHIC FINDING IN THE CHEST. Hip X-Ray 09/23/16 09:45 IMPRESSION: NEGATIVE STUDY OF THE LEFT HIP AND PELVIS. NO RADIOGRAPHIC EVIDENCE OF ACUTE INJURY. Renal Ultrasound 09/23/16 13:21 IMPRESSION: Stable. Left kidney not visualized. Assessment & Plan - Diagnosis (1) Acute on chronic renal failure Is this a current diagnosis for this admission?: YesPlan: The patient admits to limited oral intake. Will continue to hydrate. Repeat chemistries have improved. Renal ultrasound showed no evidence of obstructive uropathy. (2) Fall Qualifiers: Encounter type: initial encounter Qualified Code(s): W19.XXXA - Unspecified fall, initial encounter Is this a current diagnosis for this admission?: YesPlan: Workup thus far been unremarkable symptoms overall have improved will continue to monitor. (3) COPD (chronic obstructive pulmonary disease) Qualifiers: COPD type: unspecified COPD Qualified Code(s): J44.9 - Chronic obstructive pulmonary disease, unspecified Is this a current diagnosis for this admission?: YesPlan: My home meds the patient is not requiring O2 (4) Chronic kidney disease, stage 3 Is this a current diagnosis for this admission?: YesPlan: Baseline creatinine appears to be in the 1.3-1.4 range (5) Hyponatremia Is this a current diagnosis for this admission?: YesPlan: Mild this may be hypovolemic will monitor. - Time Time Spent with patient: 25-34 minutes Medications reviewed and adjusted accordingly: Yes Anticipated discharge: SNF, Acute Rehab Within: within 48 hours, when bed available
[2016-09-24] MEDS ORDERED: HYDRALAZINE HCL INJ/PF 20 MG/1 ML SDV IV ONE (11:00)
[2016-09-24] MEDS: MAGNESIUM OXIDE 400 MG TABLET PO SCH ×2 (14:00→17:17)
[2016-09-25] MEDS: HEPARIN SOD (PORCINE) 5,000 UNIT/ML 1 ML SYRINGE SUBCUT SCH ×4 (00:39→21:31)
[2016-09-25] MEDS: FLUTICASONE/SALMETEROL DISKUS 250-50 MCG/DOSE IH SCH ×3 (00:39→21:31)
[2016-09-25 05:29] LABS: HEMATOCRIT 28.7 % (36.0-47.0); HEMOGLOBIN 9.7 g/dL (12.0-15.5); HGB HCT DIFFERENCE 0.4; MEAN CORPUSCULAR HEMOGLOBIN 29.8 pg (27.0-33.4); MEAN CORPUSCULAR HGB CONC 33.8 g/dL (32.0-36.0); MEAN CORPUSCULAR VOLUME 88 fl (80-97); RED BLOOD COUNT 3.25 10^6/uL (3.72-5.28); RED CELL DISTRIBUTION WIDTH 16.3 % (11.5-14.0)
[2016-09-25 05:55] LABS: ANION GAP 10 (5-19); BLOOD UREA NITROGEN 61 mg/dL (7-20); CALCIUM 8.3 mg/dL (8.4-10.2); CARBON DIOXIDE 24 mmol/L (22-30); CHLORIDE 106 mmol/L (98-107); CREATININE RESULT 3.69 mg/dL (0.52-1.25); GLUCOSE 111 mg/dL (75-110); MAGNESIUM 1.6 mg/dL (1.6-2.3); POTASSIUM 3.9 mmol/L (3.6-5.0); SODIUM 139.8 mmol/L (137-145)
[2016-09-25] MEDS: NORMAL SALINE 1000 ML 1,000 ML IV PRN (06:27)
--- NOTE | 2016-09-25 11:49 | PDOC PROGRESS REPORT ---
Subjective Progress Note for:: 09/25/16 Subjective:: The patient was seen earlier today on rounds. Patient is concerned with how weak she and at this point cannot take care of herself at home. The patient denies any nausea, vomiting, diarrhea, shortness of breath, dizziness, chest pain, heart palpitations, fevers, or chills. The patient has remained afebrile. Blood pressures have been in a good range. When prompted the patient voices no other concerns at this time. Review of systems: The rest of the review of systems is negative. Physical Exam Vital Signs: Temp Pulse Resp BP Pulse Ox 98.8 F 88 18 137/61 H 97 09/25/16 07:37 09/25/16 07:37 09/25/16 07:37 09/25/16 07:37 09/25/16 07:37 Intake & Output 09/23/16 09/24/16 09/25/16 23:59 23:59 23:59 Intake Total 100 2674 240 Balance 100 2674 240 Weight 42.3 kg 42.1 kg 42 kg General appearance: PRESENT: no acute distress, cooperative, well-developed, well-nourished Head exam: PRESENT: atraumatic, normocephalic Eye exam: PRESENT: conjunctiva pink, EOMI, PERRLA. ABSENT: scleral icterus Ear exam: PRESENT: normal external ear exam Mouth exam: PRESENT: moist, tongue midline Neck exam: ABSENT: carotid bruit, JVD, lymphadenopathy, thyromegaly Respiratory exam: PRESENT: clear to auscultation hansa. ABSENT: rales, rhonchi, wheezes Cardiovascular exam: PRESENT: RRR. ABSENT: diastolic murmur, rubs, systolic murmur Pulses: PRESENT: normal dorsalis pedis pul Vascular exam: PRESENT: normal capillary refill GI/Abdominal exam: PRESENT: normal bowel sounds, soft. ABSENT: distended, guarding, mass, organolmegaly, rebound, tenderness Rectal exam: PRESENT: deferred Extremities exam: PRESENT: full ROM. ABSENT: calf tenderness, clubbing, pedal edema Neurological exam: PRESENT: alert, awake, oriented to person, oriented to place , oriented to time, oriented to situation, CN II-XII grossly intact. ABSENT: motor sensory deficit Psychiatric exam: PRESENT: appropriate affect, normal mood. ABSENT: homicidal ideation, suicidal ideation Skin exam: PRESENT: dry, intact, warm. ABSENT: cyanosis, rash Results Laboratory Results: 09/25/16 05:00 09/25/16 05:00 Impressions: Chest X-Ray 09/23/16 09:45 IMPRESSION: COPD. NO ACUTE RADIOGRAPHIC FINDING IN THE CHEST. Hip X-Ray 09/23/16 09:45 IMPRESSION: NEGATIVE STUDY OF THE LEFT HIP AND PELVIS. NO RADIOGRAPHIC EVIDENCE OF ACUTE INJURY. Renal Ultrasound 09/23/16 13:21 IMPRESSION: Stable. Left kidney not visualized. Assessment & Plan - Diagnosis (1) Acute on chronic renal failure Is this a current diagnosis for this admission?: YesPlan: The patient admits to limited oral intake. Will continue to hydrate. Repeat chemistries have improved. Renal ultrasound showed no evidence of obstructive uropathy. (2) Fall Qualifiers: Encounter type: initial encounter Qualified Code(s): W19.XXXA - Unspecified fall, initial encounter Is this a current diagnosis for this admission?: YesPlan: Workup thus far been unremarkable symptoms overall have improved will continue to monitor. (3) COPD (chronic obstructive pulmonary disease) Qualifiers: COPD type: unspecified COPD Qualified Code(s): J44.9 - Chronic obstructive pulmonary disease, unspecified Is this a current diagnosis for this admission?: YesPlan: My home meds the patient is not requiring O2 (4) Chronic kidney disease, stage 3 Is this a current diagnosis for this admission?: YesPlan: Baseline creatinine appears to be in the 1.3-1.4 range (5) Hyponatremia Is this a current diagnosis for this admission?: YesPlan: Mild this may be hypovolemic will monitor. - Time Time Spent with patient: 25-34 minutes Medications reviewed and adjusted accordingly: Yes Anticipated discharge: Home Within: within 24 hours, within 48 hours
[2016-09-25] MEDS: MAGNESIUM OXIDE 400 MG TABLET PO SCH ×3 (11:50→18:14)
[2016-09-25] MEDS: DILTIAZEM HCL 120 MG CAP.SR.24H PO SCH (11:50)
[2016-09-25] MEDS: VITAMIN E (DL, ACETATE) 400 UNIT CAPSULE PO SCH (11:50)
[2016-09-25] MEDS: TIOTROPIUM BROMIDE DPI 5 CAP/KIT (18 MCG/CAP) IH SCH (11:51)
[2016-09-26] MEDS: HEPARIN SOD (PORCINE) 5,000 UNIT/ML 1 ML SYRINGE SUBCUT SCH ×3 (05:48→23:02)
[2016-09-26] MEDS: FLUTICASONE/SALMETEROL DISKUS 250-50 MCG/DOSE IH SCH ×2 (09:01→23:01)
[2016-09-26] MEDS: DILTIAZEM HCL 120 MG CAP.SR.24H PO SCH (09:01)
[2016-09-26] MEDS: MAGNESIUM OXIDE 400 MG TABLET PO SCH ×3 (09:02→17:46)
[2016-09-26] MEDS: VITAMIN E (DL, ACETATE) 400 UNIT CAPSULE PO SCH (09:02)
[2016-09-26] MEDS: TIOTROPIUM BROMIDE DPI 5 CAP/KIT (18 MCG/CAP) IH SCH (09:02)
[2016-09-26] MEDS ORDERED: ALBUTEROL SULFATE 0.083% NEB 2.5 MG/3 ML AMPUL NEB PRN (09:07)
[2016-09-26 10:08] LABS: ANION GAP 12 (5-19); BLOOD UREA NITROGEN 64 mg/dL (7-20); CALCIUM 8.7 mg/dL (8.4-10.2); CARBON DIOXIDE 22 mmol/L (22-30); CHLORIDE 107 mmol/L (98-107); CREATININE RESULT 3.27 mg/dL (0.52-1.25); GLUCOSE 121 mg/dL (75-110); POTASSIUM 4.2 mmol/L (3.6-5.0); SODIUM 141.3 mmol/L (137-145)
[2016-09-26] MEDS: NORMAL SALINE 1000 ML 1,000 ML IV PRN (14:31)
--- NOTE | 2016-09-26 16:35 | PDOC PROGRESS REPORT ---
Subjective Progress Note for:: 09/26/16 Subjective:: The patient was seen earlier today on rounds. Patient is feeling much better. The patient is excited to see Dr. Shaikh. The patient denies any nausea, vomiting, diarrhea, shortness of breath, dizziness, chest pain, heart palpitations, fevers, or chills. The patient has remained afebrile. Blood pressures have been in a good range. When prompted the patient voices no other concerns at this time. Review of systems: The rest of the review of systems is negative. Brief history: Patient is a very pleasant 80-year-old [place] female with a past medical history of chronic obstructive pulmonary disease and chronic kidney disease. The patient presented to the emergency department after sustaining a fall and complaining of weakness. The patient was noted to be in acute on chronic kidney failure. Renal ultrasound was not suggestive of an obstructive uropathy. The patient's creatinine has improved nicely with gentle hydration. Physical Exam Vital Signs: Temp Pulse Resp BP Pulse Ox 98.7 F 87 18 132/60 H 99 09/26/16 07:20 09/26/16 15:19 09/26/16 15:19 09/26/16 15:19 09/26/16 15:19 Intake & Output 09/24/16 09/25/16 09/26/16 23:59 23:59 23:59 Intake Total 2674 450 1296 Balance 2674 450 1296 Weight 42.1 kg 42 kg 42 kg General appearance: PRESENT: no acute distress, cooperative, well-developed, well-nourished Head exam: PRESENT: atraumatic, normocephalic Eye exam: PRESENT: conjunctiva pink, EOMI, PERRLA. ABSENT: scleral icterus Ear exam: PRESENT: normal external ear exam Mouth exam: PRESENT: moist, tongue midline Neck exam: ABSENT: carotid bruit, JVD, lymphadenopathy, thyromegaly Respiratory exam: PRESENT: clear to auscultation hansa. ABSENT: rales, rhonchi, wheezes Cardiovascular exam: PRESENT: RRR. ABSENT: diastolic murmur, rubs, systolic murmur Pulses: PRESENT: normal dorsalis pedis pul Vascular exam: PRESENT: normal capillary refill GI/Abdominal exam: PRESENT: normal bowel sounds, soft. ABSENT: distended, guarding, mass, organolmegaly, rebound, tenderness Rectal exam: PRESENT: deferred Extremities exam: PRESENT: full ROM. ABSENT: calf tenderness, clubbing, pedal edema Neurological exam: PRESENT: alert, awake, oriented to person, oriented to place , oriented to time, oriented to situation, CN II-XII grossly intact. ABSENT: motor sensory deficit Psychiatric exam: PRESENT: appropriate affect, normal mood. ABSENT: homicidal ideation, suicidal ideation Skin exam: PRESENT: dry, intact, warm. ABSENT: cyanosis, rash Results Laboratory Results: 09/25/16 05:00 09/26/16 09:30 09/26/16 09:30 Sodium 141.3 Potassium 4.2 Chloride 107 Carbon Dioxide 22 Anion Gap 12 BUN 64 H Creatinine 3.27 H Est GFR ( Amer) 16 L Est GFR (Non-Af Amer) 14 L Glucose 121 H Calcium 8.7 Impressions: Chest X-Ray 09/23/16 09:45 IMPRESSION: COPD. NO ACUTE RADIOGRAPHIC FINDING IN THE CHEST. Hip X-Ray 09/23/16 09:45 IMPRESSION: NEGATIVE STUDY OF THE LEFT HIP AND PELVIS. NO RADIOGRAPHIC EVIDENCE OF ACUTE INJURY. Renal Ultrasound 09/23/16 13:21 IMPRESSION: Stable. Left kidney not visualized. Assessment & Plan - Diagnosis (1) Acute on chronic renal failure Is this a current diagnosis for this admission?: YesPlan: The patient admits to limited oral intake. Will continue to hydrate. Repeat chemistries have improved. Renal ultrasound showed no evidence of obstructive uropathy. (2) Fall Qualifiers: Encounter type: initial encounter Qualified Code(s): W19.XXXA - Unspecified fall, initial encounter Is this a current diagnosis for this admission?: YesPlan: Workup thus far been unremarkable symptoms overall have improved will continue to monitor. (3) COPD (chronic obstructive pulmonary disease) Qualifiers: COPD type: unspecified COPD Qualified Code(s): J44.9 - Chronic obstructive pulmonary disease, unspecified Is this a current diagnosis for this admission?: YesPlan: My home meds the patient is not requiring O2. Have resumed nebulizers. The patient is not producing any sputum. (4) Chronic kidney disease, stage 3 Is this a current diagnosis for this admission?: YesPlan: Baseline creatinine appears to be in the 1.3-1.4 range (5) Hyponatremia Is this a current diagnosis for this admission?: YesPlan: Mild this may be hypovolemic resolved - Time Time Spent with patient: 25-34 minutes Medications reviewed and adjusted accordingly: Yes Anticipated discharge: Home Within: within 24 hours, within 48 hours Disposition: The patient is a full code. Pending patient's symptomatology and diagnostic findings will reevaluate in the a.m.
--- NOTE | 2016-09-26 17:36 | PDOC CONSULTATION ---
Consultation Consult Date: 09/26/16 Attending physician:: MAGNOLIA VILLAGRAN Consult reason:: I was asked by Magnolia Villagran to see the patient because of acute on chronic kidney disease. History of Present Illness Admission Date/PCP: 09/23/16 11:46 History of Present Illness: LORENZO MENENDEZ is a 80 year old with a past medical history of chronic kidney disease that states she got up Sunday morning and had weakness that caused her to fall. Patient complains of left hip pain after the fall. Please note that the patient is a very hard of hearing so history is very difficult to obtain. Patient denied any head injury, headache, or loss of consciousness. Patient denies any chest pain, abdominal pain, nausea or vomiting. Patient denies any fever. Patient does report mild cough and having phlegm in her throat. Patient does state that she was in the emergency room on Sunday but got sent home. So the next day she said she could not ambulate and could not walk because her legs feel weak so she went back to the emergency room. She also admits that she is not eating very well at home prior to admission. On admission she had a BUN of 67 creatinine of 5.83 with estimated GFR of 7. Her baseline creatinine is usually around 1.3-1.5. The last time I saw her in my office on July she had BUN of 56 creatinine of 1.39 with estimated GFR of 36 from the lab drawn on 07/31/2016. She was started on some IV fluid hydration and her kidney function seems to be improving slowly at this time. Her urine output is not quantified. The only complaint that the patient tells me today is inability to walk. Otherwise she doesn't have any other new complaints. Past Medical History Cardiac Medical History: Reports: Hyperlipidemia, Hypertension-primary Pulmonary Medical History: Reports: Chronic Obstructive Pulmonary Disease (COPD) Renal/ Medical History: Reports: Chronic Kidney Disease Stage III, Hyponatremia, Other - Left renal atrophy Musculoskeltal Medical History: Reports: Arthritis Hematology Medical History: Reports Anemia of Chronic Kidney Disease Past Surgical History Past Surgical History: Reports: Hysterectomy, Other - Cataract surgery Social History Lives with: Alone Smoking Status: Current Every Day Smoker Number of Years Smokin Frequency of Alcohol Use: None Hx Recreational Drug Use: No Drugs: None Hx Prescription Drug Abuse: No - Advance Directive Resuscitation Status: Full Code Family History Family History: Malignancy - Colon cancer on her sister Parental Family History Reviewed: Yes Children Family History Reviewed: Unknown Sibling(s) Family History Reviewed.: Yes Medication/Allergy Home Medications: Albuterol Sulfate [Proair HFA Inhalation Aerosol 8.5 gm MDI] 2 puff IH QID 09/23 Albuterol Sulfate [Ventolin 0.083% Neb 2.5 mg/3 mL Ampul] 2.5 mg NEB TID Atorvastatin Calcium [Lipitor 20 mg Tablet] 20 mg PO DAILY 09/23/16 Benazepril HCl [Lotensin 20 mg Tablet] 20 mg PO DAILY 09/23/16 Diltiazem HCl [Cardizem Cd 120 mg Capsule] 120 mg PO DAILY 09/23/16 Ergocalciferol (Vitamin D2) [Vitamin D2] 50,000 unit PO SIMONS@1000 09/23/16 Fluticasone/Salmeterol [Advair 250-50 Diskus 14 Dose/Diskus] 1 puff IH Q12 09/23 Furosemide [Lasix] 20 mg PO DAILY 09/23/16 Potassium Chloride [Klor-Con 10 Meq Tablet.sa] 10 meq PO DAILY 09/23/16 Tiotropium [place] [Spiriva Handihaler 5 Cap/Kit (18 Mcg/Cap)] 1 puff IH DAILY 09/23/16 Vitamin E (Dl, Acetate) [Vitamin E 400 Unit Capsule] 400 unit PO DAILY 09/23/16 Allergies/Adverse Reactions: No Known Allergies Allergy (Verified 09/22/16 17:02) Review of Systems All systems: reviewed and no additional remarkable complaints except as stated Review of Systems: Constitutional: ABSENT: chills, fatigue, fever(s), headache(s), weight gain, weight loss; admits feeling weak and not eating very well at home. Eyes: ABSENT: visual disturbances Ears: ABSENT: hearing changes Cardiovascular: ABSENT: chest pain, dyspnea on exertion, edema, orthropnea, palpitations Respiratory: ABSENT: cough, dyspnea, hemoptysis Gastrointestinal: ABSENT: abdominal pain, constipation, diarrhea, hematemesis, hematochezia, nausea, vomiting Genitourinary: ABSENT: dysuria, hematuria Musculoskeletal: ABSENT: joint swelling Integumentary: ABSENT: rash, wounds Neurological: ABSENT: abnormal gait, abnormal speech, confusion, dizziness, focal weakness, numbness, syncope Psychiatric: ABSENT: anxiety, depression Endocrine: ABSENT: cold intolerance, heat intolerance, polydipsia, polyuria Hematologic/Lymphatic: ABSENT: easy bleeding, easy bruising, lymphadenopathy Physical Exam Vital Signs: Temp Pulse Resp BP Pulse Ox 98.7 F 79 18 132/60 H 98 09/26/16 07:20 09/26/16 16:10 09/26/16 16:10 09/26/16 15:19 09/26/16 16:10 Intake & Output 09/25/16 09/26/16 09/27/16 06:59 06:59 06:59 Intake Total 1864 1506 Balance 1864 1506 Weight 42 kg 42 kg Exam: General appearance: no acute distress, cooperative, well-developed, well- nourished Head exam: PRESENT: atraumatic, normocephalic Eye exam: PRESENT: Conjunctiva slightly pale, EOMI, PERRLA. ABSENT: conjunctival injection, scleral icterus Mouth exam: PRESENT: moist, neck supple, tongue midline Neck exam: PRESENT: full ROM. ABSENT: carotid bruit, JVD, lymphadenopathy, thyromegaly Respiratory exam: PRESENT: Diminished to auscultation bilaterally. She has anterior wheezing more on the upper airways. ABSENT: rales, rhonchi, stridor Cardiovascular exam: PRESENT: RRR, +S1, +S2 soft. ABSENT: systolic murmur Pulses: PRESENT: normal radial pulses, normal dorsalis pedis pulses GI/Abdominal exam: PRESENT: normal bowel sounds, soft. ABSENT: guarding, mass, tenderness Rectal exam: deferred Extremities exam: PRESENT: full ROM. ABSENT: calf tenderness, pedal edema Musculoskeletal: PRESENT: full ROM. ABSENT: deformity Neurological exam: PRESENT: alert, Awake, Oriented to person, Oriented to place , Oriented to time, reflexes normal, CN II-XII grossly intact except for difficulty of hearing. ABSENT: motor sensory deficit Psychiatric exam: PRESENT: appropriate affect, normal mood. ABSENT: homicidal ideation, suicidal ideation Skin exam: PRESENT: intact, dry, warm. ABSENT: rash Results Laboratory Results: 09/25/16 05:00 09/26/16 09:30 09/26/16 09:30 Sodium 141.3 Potassium 4.2 Chloride 107 Carbon Dioxide 22 Anion Gap 12 BUN 64 H Creatinine 3.27 H Est GFR ( Amer) 16 L Est GFR (Non-Af Amer) 14 L Glucose 121 H Calcium 8.7 Impressions: Chest X-Ray 09/23/16 09:45 IMPRESSION: COPD. NO ACUTE RADIOGRAPHIC FINDING IN THE CHEST. Hip X-Ray 09/23/16 09:45 IMPRESSION: NEGATIVE STUDY OF THE LEFT HIP AND PELVIS. NO RADIOGRAPHIC EVIDENCE OF ACUTE INJURY. Renal Ultrasound 09/23/16 13:21 IMPRESSION: Stable. Left kidney not visualized. Assessment & Plan - Diagnosis (1) Acute on chronic renal failure Is this a current diagnosis for this admission?: YesPlan: This is likely due to prerenal azotemia due to poor oral intake. This is improving with cautious IV fluid hydration. Continue current IV fluids but monitor the patient not to clinically overload her. She does not need any renal replacement therapy. (2) Chronic kidney disease, stage 3 Is this a current diagnosis for this admission?: YesPlan: This is due to hypertensive nephrosclerosis in a patient with baseline left renal atrophy. (3) Anemia in chronic kidney disease (CKD) Is this a current diagnosis for this admission?: YesPlan: Currently stable. (4) Hypertension Is this a current diagnosis for this admission?: YesPlan: Controlled. (5) Fall Qualifiers: Encounter type: initial encounter Qualified Code(s): W19.XXXA - Unspecified fall, initial encounter Is this a current diagnosis for this admission?: YesPlan: Patient is still complains of weakness in her legs and inability to ambulate well. Patient might benefit from physical therapy starting flow in the hospital. (6) COPD (chronic obstructive pulmonary disease) Qualifiers: COPD type: unspecified COPD Qualified Code(s): J44.9 - Chronic obstructive pulmonary disease, unspecified Is this a current diagnosis for this admission?: YesPlan: Continue current management per primary service. - Notes Notes: Thank you very much for this consultation. - Time Time Spent: Greater than 70 Minutes
[2016-09-26] MEDS ORDERED: ALBUTEROL SULFATE 0.083% NEB 2.5 MG/3 ML AMPUL NEB ONE (17:45)
[2016-09-27] MEDS: ALBUTEROL SULFATE 0.083% NEB 2.5 MG/3 ML AMPUL NEB PRN (03:34)
[2016-09-27] MEDS: HEPARIN SOD (PORCINE) 5,000 UNIT/ML 1 ML SYRINGE SUBCUT SCH ×3 (06:25→22:24)
[2016-09-27 07:09] LABS: ANION GAP 10 (5-19); BLOOD UREA NITROGEN 62 mg/dL (7-20); CARBON DIOXIDE 22 mmol/L (22-30); CHLORIDE 110 mmol/L (98-107); GLUCOSE 104 mg/dL (75-110); POTASSIUM 4.4 mmol/L (3.6-5.0)
[2016-09-27] MEDS: MAGNESIUM OXIDE 400 MG TABLET PO SCH ×3 (10:02→17:28)
[2016-09-27] MEDS: VITAMIN E (DL, ACETATE) 400 UNIT CAPSULE PO SCH (10:02)
[2016-09-27] MEDS: FLUTICASONE/SALMETEROL DISKUS 250-50 MCG/DOSE IH SCH ×2 (10:03→22:24)
[2016-09-27] MEDS: DILTIAZEM HCL 120 MG CAP.SR.24H PO SCH (10:03)
[2016-09-27] MEDS: TIOTROPIUM BROMIDE DPI 5 CAP/KIT (18 MCG/CAP) IH SCH (10:03)
[2016-09-27] MEDS ORDERED: BUDESONIDE/FORMOTEROL 80-4.5 MCG 60 PUFF/6.9 GM MDI IH ONE (13:00)
--- NOTE | 2016-09-27 16:34 | PDOC PROGRESS REPORT ---
Subjective Progress Note for:: 09/27/16 Subjective:: Patient os seen on morning rounds. She is resting comfortably in bed. She denies any shortness of breath, cough or dyspnea. She denies any chest pain or palpitations. She denies any nausea, vomiting, or diarrhea. She denies any other complaints at the present time. Physical Exam Vital Signs: Temp Pulse Resp BP Pulse Ox 98.1 F 92 20 143/71 H 92 09/27/16 16:24 09/27/16 16:24 09/27/16 16:24 09/27/16 16:24 09/27/16 16:24 Intake & Output 09/26/16 09/27/16 09/28/16 06:59 06:59 06:59 Intake Total 1506 2886 Balance 1506 2886 Weight 42 kg 42 kg General appearance: PRESENT: no acute distress, thin, well-developed Head exam: PRESENT: atraumatic, normocephalic Eye exam: PRESENT: conjunctiva pink, EOMI, PERRLA. ABSENT: scleral icterus Ear exam: PRESENT: normal external ear exam Mouth exam: PRESENT: moist, tongue midline Neck exam: ABSENT: carotid bruit, JVD, lymphadenopathy, thyromegaly Respiratory exam: PRESENT: clear to auscultation hansa. ABSENT: rales, rhonchi, wheezes Cardiovascular exam: PRESENT: RRR. ABSENT: diastolic murmur, rubs, systolic murmur Pulses: PRESENT: normal dorsalis pedis pul Vascular exam: PRESENT: normal capillary refill GI/Abdominal exam: PRESENT: normal bowel sounds, soft. ABSENT: distended, guarding, mass, organolmegaly, rebound, tenderness Rectal exam: PRESENT: deferred Extremities exam: PRESENT: full ROM. ABSENT: calf tenderness, clubbing, pedal edema Neurological exam: PRESENT: alert, awake, oriented to person, oriented to place , oriented to time, oriented to situation, CN II-XII grossly intact. ABSENT: motor sensory deficit Psychiatric exam: PRESENT: appropriate affect, normal mood. ABSENT: homicidal ideation, suicidal ideation Skin exam: PRESENT: dry, intact, warm. ABSENT: cyanosis, rash Results Laboratory Results: 09/25/16 05:00 09/27/16 05:57 09/27/16 05:57 Sodium 142.0 Potassium 4.4 Chloride 110 H Carbon Dioxide 22 Anion Gap 10 BUN 62 H Creatinine 3.20 H Est GFR ( Amer) 17 L Est GFR (Non-Af Amer) 14 L Glucose 104 Calcium 9.0 Impressions: Chest X-Ray 09/23/16 09:45 IMPRESSION: COPD. NO ACUTE RADIOGRAPHIC FINDING IN THE CHEST. Hip X-Ray 09/23/16 09:45 IMPRESSION: NEGATIVE STUDY OF THE LEFT HIP AND PELVIS. NO RADIOGRAPHIC EVIDENCE OF ACUTE INJURY. Renal Ultrasound 09/23/16 13:21 IMPRESSION: Stable. Left kidney not visualized. Assessment & Plan - Diagnosis (1) Acute on chronic renal failure Is this a current diagnosis for this admission?: YesPlan: Patient being totally hydrated with improvement of her BUN/creatinine. Dr. Brooks is following for nephrology. We will avoid nephrotoxic drugs and dosages. (2) Anemia in chronic kidney disease (CKD) Is this a current diagnosis for this admission?: YesPlan: Stable continue to monitor, secondary to chronic kidney disease. (3) Hypertension Is this a current diagnosis for this admission?: YesPlan: Continue current medications and dosages (4) COPD (chronic obstructive pulmonary disease) Qualifiers: COPD type: unspecified COPD Qualified Code(s): J44.9 - Chronic obstructive pulmonary disease, unspecified Is this a current diagnosis for this admission?: YesPlan: Continue nebulizers and inhalers (5) Chronic kidney disease, stage 3 Is this a current diagnosis for this admission?: YesPlan: Avoid nephrotoxic medications and dosages (6) Hyponatremia Is this a current diagnosis for this admission?: YesPlan: Chronic most likely secondary to heart failure - Time Time Spent with patient: 25-34 minutes Critical Time spent with patient: 15-24 minutes Medications reviewed and adjusted accordingly: Yes Anticipated discharge: Home with Homehealth
[2016-09-27] MEDS: NORMAL SALINE 1000 ML 1,000 ML IV PRN (17:29)
[2016-09-27] MEDS: BUDESONIDE/FORMOTEROL 80-4.5 MCG 60 PUFF/6.9 GM MDI IH SCH (22:24)
[2016-09-28 05:51] LABS: ANION GAP 10 (5-19); BLOOD UREA NITROGEN 51 mg/dL (7-20); CALCIUM 8.9 mg/dL (8.4-10.2); CARBON DIOXIDE 19 mmol/L (22-30); CHLORIDE 116 mmol/L (98-107); CREATININE RESULT 1.71 mg/dL (0.52-1.25); GLUCOSE 96 mg/dL (75-110); SODIUM 144.6 mmol/L (137-145)
[2016-09-28] MEDS: HEPARIN SOD (PORCINE) 5,000 UNIT/ML 1 ML SYRINGE SUBCUT SCH ×3 (06:04→22:16)
[2016-09-28] MEDS: NORMAL SALINE 1000 ML 1,000 ML IV PRN (06:04)
[2016-09-28] MEDS: ALBUTEROL SULFATE 0.083% NEB 2.5 MG/3 ML AMPUL NEB PRN ×2 (06:09→22:56)
[2016-09-28] MEDS: TIOTROPIUM BROMIDE DPI 5 CAP/KIT (18 MCG/CAP) IH SCH (09:15)
[2016-09-28] MEDS: VITAMIN E (DL, ACETATE) 400 UNIT CAPSULE PO SCH (09:15)
[2016-09-28] MEDS: BUDESONIDE/FORMOTEROL 80-4.5 MCG 60 PUFF/6.9 GM MDI IH SCH (09:15)
[2016-09-28] MEDS: MAGNESIUM OXIDE 400 MG TABLET PO SCH ×3 (09:15→17:35)
[2016-09-28] MEDS: FLUTICASONE/SALMETEROL DISKUS 250-50 MCG/DOSE IH SCH ×2 (09:15→22:16)
[2016-09-28] MEDS: DILTIAZEM HCL 120 MG CAP.SR.24H PO SCH (09:15)
[2016-09-28] MEDS: CEFTRIAXONE 1 GM/D5W RTU 50 ML IV SCH (10:49)
--- NOTE | 2016-09-28 11:43 | PDOC PROGRESS REPORT ---
Subjective Subjective:: Patient is seen on morning rounds. She is resting comfortably in bed on BIPAP. She apparently got into some respiratory distress while doing her breathing treatment. She recovered with being placed on BIPAP. She denies any shortness of breath, cough or dyspnea at the present time. She denies any chest pain or palpitations. She denies any nausea, vomiting, or diarrhea. She denies any other complaints at the present time. Physical Exam Vital Signs: Temp Pulse Resp BP Pulse Ox 97.4 F 97 13 136/83 H 100 09/28/16 08:00 09/28/16 08:00 09/28/16 09:36 09/28/16 08:00 09/28/16 09:36 Intake & Output 09/27/16 09/28/16 09/29/16 06:59 06:59 06:59 Intake Total 2886 2756 Balance 2886 2756 Weight 42 kg 43 kg General appearance: PRESENT: no acute distress, thin, well-developed, well- nourished Head exam: PRESENT: atraumatic, normocephalic Eye exam: PRESENT: conjunctiva pink, EOMI, PERRLA. ABSENT: scleral icterus Ear exam: PRESENT: bleeding Mouth exam: PRESENT: moist, tongue midline Neck exam: ABSENT: carotid bruit, JVD, lymphadenopathy, thyromegaly Respiratory exam: PRESENT: crackles - left base, symmetrical, unlabored Cardiovascular exam: PRESENT: RRR. ABSENT: diastolic murmur, rubs, systolic murmur Pulses: PRESENT: normal dorsalis pedis pul Vascular exam: PRESENT: normal capillary refill GI/Abdominal exam: PRESENT: normal bowel sounds, soft. ABSENT: distended, guarding, mass, organolmegaly, rebound, tenderness Rectal exam: PRESENT: deferred Extremities exam: PRESENT: full ROM. ABSENT: calf tenderness, clubbing, pedal edema Neurological exam: PRESENT: alert, awake, oriented to person, oriented to place , oriented to time, oriented to situation, CN II-XII grossly intact. ABSENT: motor sensory deficit Psychiatric exam: PRESENT: appropriate affect, normal mood. ABSENT: homicidal ideation, suicidal ideation Skin exam: PRESENT: dry, intact, warm. ABSENT: cyanosis, rash Results Laboratory Results: 09/25/16 05:00 09/28/16 04:44 04/06/17 04:44 Sodium 144.6 Potassium 5.0 Chloride 116 H Carbon Dioxide 19 L Anion Gap 10 BUN 51 H Creatinine 1.71 H Est GFR ( Amer) 35 L Est GFR (Non-Af Amer) 29 L Glucose 96 Calcium 8.9 Impressions: Hip X-Ray 09/23/16 09:45 IMPRESSION: NEGATIVE STUDY OF THE LEFT HIP AND PELVIS. NO RADIOGRAPHIC EVIDENCE OF ACUTE INJURY. Renal Ultrasound 09/23/16 13:21 IMPRESSION: Stable. Left kidney not visualized. Chest X-Ray 09/28/16 00:00 IMPRESSION: Left lower lobe pneumonia. Assessment & Plan - Diagnosis (1) Acute on chronic renal failure Is this a current diagnosis for this admission?: YesPlan: Patient being totally hydrated with improvement of her BUN/creatinine. Dr. Brooks is following for nephrology. We will avoid nephrotoxic drugs and dosages. (2) Anemia in chronic kidney disease (CKD) Is this a current diagnosis for this admission?: YesPlan: Stable continue to monitor, secondary to chronic kidney disease. (3) Hypertension Is this a current diagnosis for this admission?: YesPlan: Continue current medications and dosages (4) COPD (chronic obstructive pulmonary disease) Qualifiers: COPD type: unspecified COPD Qualified Code(s): J44.9 - Chronic obstructive pulmonary disease, unspecified Is this a current diagnosis for this admission?: YesPlan: Continue nebulizers and inhalers (5) Chronic kidney disease, stage 3 Is this a current diagnosis for this admission?: YesPlan: Avoid nephrotoxic medications and dosages (6) Hyponatremia Is this a current diagnosis for this admission?: Yes (7) Pneumonia Qualifiers: Laterality: left Lung location: lower lobe of lung Is this a current diagnosis for this admission?: YesPlan: Patient had repeat chest xray this morning which showed left lobe infiltrate - Time Time Spent with patient: 25-34 minutes Critical Time spent with patient: 15-24 minutes Medications reviewed and adjusted accordingly: Yes Anticipated discharge: SNF
[2016-09-28 11:56] LABS: ARTERIAL BLOOD BASE EXCESS -1.6 mmol/L; ARTERIAL BLOOD O2 SATURATION 99.2 % (94-98)
[2016-09-28] MEDS: AZITHROMYCIN 500 MG in DEXTROSE 5%-WATER 250 ML IV SCH (11:56)
--- NOTE | 2016-09-28 19:48 | PDOC PROGRESS REPORT ---
Subjective Progress Note for:: 09/28/16 Subjective:: Patient tells me that she is not breathing so well. I can actually hear the wheezing without a stethoscope. Again she is very hard of hearing. She tells me that she doesn't really cough that much. Physical Exam Vital Signs: Temp Pulse Resp BP Pulse Ox 97.8 F 100 19 148/87 H 92 09/28/16 16:00 09/28/16 16:00 09/28/16 16:00 09/28/16 16:00 09/28/16 16:00 Intake & Output 09/27/16 09/28/16 09/29/16 06:59 06:59 06:59 Intake Total 2886 2756 857 Balance 2886 2756 857 Weight 42 kg 43 kg Exam: General appearance: [PRESENT: no acute distress, cooperative, well-developed, well-nourished] Head exam: [PRESENT: atraumatic, normocephalic; her face looks slightly puffy compared to a few days ago] Eye exam: [PRESENT: conjunctiva pale, PERRLA. ABSENT: scleral icterus] Neck exam: [ABSENT: JVD] Respiratory exam: [PRESENT: Diminished breath sounds. She has some anterior wheezes and diabetes for crackles ABSENT: Scratch dose rhonchi, unlabored] Cardiovascular exam: [PRESENT: Regular rate rhythm -+S1, +S2. ABSENT: diastolic murmur, systolic murmur] GI/Abdominal exam: [PRESENT: normal bowel sounds, soft. ABSENT: guarding, mass , tenderness] Extremities exam: [Grade 1 bilateral pitting edema] Neurological exam: [PRESENT: alert, awake, oriented to person, place and time.] Skin exam: [PRESENT: dry, warm,] Results Laboratory Results: 09/25/16 05:00 09/28/16 04:44 09/28/16 09/28/16 04:44 11:46 Carbonic Acid 1.23 HCO3/H2CO3 Ratio 19:1 ABG pH 7.38 ABG pCO2 40.7 ABG pO2 174.3 H ABG HCO3 23.4 ABG O2 Saturation 99.2 H ABG Base Excess -1.6 FiO2 45% Sodium 144.6 Potassium 5.0 Chloride 116 H Carbon Dioxide 19 L Anion Gap 10 BUN 51 H Creatinine 1.71 H Est GFR ( Amer) 35 L Est GFR (Non-Af Amer) 29 L Glucose 96 Calcium 8.9 Impressions: Hip X-Ray 09/23/16 09:45 IMPRESSION: NEGATIVE STUDY OF THE LEFT HIP AND PELVIS. NO RADIOGRAPHIC EVIDENCE OF ACUTE INJURY. Renal Ultrasound 09/23/16 13:21 IMPRESSION: Stable. Left kidney not visualized. Chest X-Ray 09/28/16 00:00 IMPRESSION: Left lower lobe pneumonia. Assessment & Plan - Diagnosis (1) Acute on chronic renal failure Is this a current diagnosis for this admission?: YesPlan: Her kidney function is currently almost at baseline. Her urine output is not being quantified. However clinically she seems to be mildly over hydrated. Agree with discontinuation of IV fluids. I will give her a dose of Lasix 20 mg by mouth 1 dose tonight. If needed this could be repeated in the next couple of days. Continue to monitor kidney function. (2) Chronic kidney disease, stage 3 Is this a current diagnosis for this admission?: YesPlan: This is due to hypertensive nephrosclerosis in a patient with baseline left renal atrophy. (3) Anemia in chronic kidney disease (CKD) Is this a current diagnosis for this admission?: YesPlan: Slight decreased hemoglobin could be due to hemodilution. (4) Hypertension Is this a current diagnosis for this admission?: YesPlan: Suboptimal. Continue to hold benazepril for now. Start on low-dose hydralazine 10 mg by mouth twice a day. (5) Fall Qualifiers: Encounter type: initial encounter Qualified Code(s): W19.XXXA - Unspecified fall, initial encounter Is this a current diagnosis for this admission?: YesPlan: Patient is still complains of weakness in her legs and inability to ambulate well. Patient might benefit from physical therapy starting flow in the hospital. (6) COPD (chronic obstructive pulmonary disease) Qualifiers: COPD type: unspecified COPD Qualified Code(s): J44.9 - Chronic obstructive pulmonary disease, unspecified Is this a current diagnosis for this admission?: YesPlan: Continue current management per primary service. (7) Pneumonia Qualifiers: Laterality: left Lung location: lower lobe of lung Is this a current diagnosis for this admission?: Yes - Time Time with patient: 15-25 minutes
[2016-09-28] MEDS ORDERED: FUROSEMIDE 20 MG TABLET PO ONE (20:30)
[2016-09-28] MEDS: HYDRALAZINE HCL 10 MG TABLET PO SCH (22:16)
[2016-09-29] MEDS: HEPARIN SOD (PORCINE) 5,000 UNIT/ML 1 ML SYRINGE SUBCUT SCH ×3 (05:45→21:11)
[2016-09-29] MEDS: VITAMIN E (DL, ACETATE) 400 UNIT CAPSULE PO SCH (09:35)
[2016-09-29] MEDS: HYDRALAZINE HCL 10 MG TABLET PO SCH ×2 (09:35→21:11)
[2016-09-29] MEDS: MAGNESIUM OXIDE 400 MG TABLET PO SCH ×3 (09:36→17:05)
[2016-09-29] MEDS: FLUTICASONE/SALMETEROL DISKUS 250-50 MCG/DOSE IH SCH ×2 (09:36→21:11)
[2016-09-29] MEDS: DILTIAZEM HCL 120 MG CAP.SR.24H PO SCH (09:36)
[2016-09-29] MEDS: CEFTRIAXONE 1 GM/D5W RTU 50 ML IV SCH (10:31)
[2016-09-29] MEDS: TIOTROPIUM BROMIDE DPI 5 CAP/KIT (18 MCG/CAP) IH SCH (10:31)
[2016-09-29] MEDS: AZITHROMYCIN 500 MG in DEXTROSE 5%-WATER 250 ML IV SCH (11:39)
[2016-09-29] MEDS ORDERED: FUROSEMIDE 20 MG TABLET PO ONE (13:15)
--- NOTE | 2016-09-29 15:39 | PDOC PROGRESS REPORT ---
Subjective Progress Note for:: 09/29/16 Subjective:: Patient is seen on morning rounds. She is resting comfortably in bed. She is presently on oxygen by nasal cannula. She continues to have productive cough, and intermittent wheezing. She is continued on IV antibiotics. She was given oral Lasix last evening by nephrology. And creatinine continue to improve. Patient has intermittent periods of confusion, as well as language barrier occasionally being problem. She has a personal was able to interpret for her was not here at the present time. She denies any pain. She denies any nausea or vomiting. Physical Exam Vital Signs: Temp Pulse Resp BP Pulse Ox 97.9 F 95 17 147/75 H 98 09/29/16 12:00 09/29/16 12:00 09/29/16 12:00 09/29/16 12:00 09/29/16 12:00 Intake & Output 09/28/16 09/29/16 09/30/16 06:59 06:59 06:59 Intake Total 2756 1097 538 Output Total 550 Balance 2756 547 538 Weight 43 kg 52.9 kg General appearance: PRESENT: no acute distress, thin, well-developed, well- nourished Head exam: PRESENT: atraumatic, normocephalic Eye exam: PRESENT: conjunctiva pink, EOMI, PERRLA. ABSENT: scleral icterus Ear exam: PRESENT: normal external ear exam Mouth exam: PRESENT: moist, tongue midline Neck exam: ABSENT: carotid bruit, JVD, lymphadenopathy, thyromegaly Respiratory exam: PRESENT: rhonchi, symmetrical, unlabored, wheezes Cardiovascular exam: PRESENT: RRR. ABSENT: diastolic murmur, rubs, systolic murmur Pulses: PRESENT: normal dorsalis pedis pul Vascular exam: PRESENT: normal capillary refill GI/Abdominal exam: PRESENT: normal bowel sounds, soft. ABSENT: distended, guarding, mass, organolmegaly, rebound, tenderness Rectal exam: PRESENT: deferred Extremities exam: PRESENT: full ROM. ABSENT: calf tenderness, clubbing, pedal edema Neurological exam: PRESENT: alert, altered, awake, oriented to person, CN II- XII grossly intact. ABSENT: motor sensory deficit Psychiatric exam: PRESENT: appropriate affect Skin exam: PRESENT: dry, intact, warm. ABSENT: cyanosis, rash Results Laboratory Results: 09/25/16 05:00 09/28/16 04:44 Impressions: Hip X-Ray 09/23/16 09:45 IMPRESSION: NEGATIVE STUDY OF THE LEFT HIP AND PELVIS. NO RADIOGRAPHIC EVIDENCE OF ACUTE INJURY. Renal Ultrasound 09/23/16 13:21 IMPRESSION: Stable. Left kidney not visualized. Chest X-Ray 09/28/16 00:00 IMPRESSION: Left lower lobe pneumonia. Assessment & Plan - Diagnosis (1) Acute on chronic renal failure Is this a current diagnosis for this admission?: YesPlan: Improved back to near baseline. Patient was given po Lasix last evening. We will continue same dose for the next day or two. Dr. Brooks is following for nephrology. We will avoid nephrotoxic drugs and dosages. (2) Anemia in chronic kidney disease (CKD) Is this a current diagnosis for this admission?: YesPlan: Stable continue to monitor, secondary to chronic kidney disease. (3) Hypertension Is this a current diagnosis for this admission?: YesPlan: Continue current medications and dosages (4) COPD (chronic obstructive pulmonary disease) Qualifiers: COPD type: unspecified COPD Qualified Code(s): J44.9 - Chronic obstructive pulmonary disease, unspecified Is this a current diagnosis for this admission?: YesPlan: Continue nebulizers and inhalers (5) Chronic kidney disease, stage 3 Is this a current diagnosis for this admission?: YesPlan: Avoid nephrotoxic medications and dosages (6) Hyponatremia Is this a current diagnosis for this admission?: YesPlan: Chronic most likely secondary to heart failure (7) Pneumonia Qualifiers: Laterality: left Lung location: lower lobe of lung Is this a current diagnosis for this admission?: YesPlan: Patient had repeat chest xray this morning which showed left lobe infiltrate - Time Time Spent with patient: 25-34 minutes Medications reviewed and adjusted accordingly: Yes Anticipated discharge: SNF
[2016-09-30] MEDS: HEPARIN SOD (PORCINE) 5,000 UNIT/ML 1 ML SYRINGE SUBCUT SCH ×3 (05:10→21:32)
[2016-09-30 06:11] LABS: ABSOLUTE BASOPHILS # (AUTO) 0.1 10^3/uL (0.0-0.2); ABSOLUTE EOSINOPHILS # (AUTO) 0.3 10^3/uL (0.0-0.6); ABSOLUTE LYMPHOCYTES (AUTO) 0.9 10^3/uL (0.5-4.7); ABSOLUTE MONOCYTES (AUTO) 0.9 10^3/uL (0.1-1.4); ABSOLUTE NEUT (AUTO) 6.1 10^3/uL (1.7-8.2); BASOPHILS % (AUTO) 0.8 % (0-2); EOSINOPHILS % (AUTO) 3.3 % (0-6); LYMPHOCYTES % (AUTO) 10.4 % (13-45); MEAN CORPUSCULAR HEMOGLOBIN 29.6 pg (27.0-33.4); MEAN CORPUSCULAR HGB CONC 33.2 g/dL (32.0-36.0); MEAN CORPUSCULAR VOLUME 89 fl (80-97); MONOCYTES % (AUTO) 11.1 % (3-13); RED BLOOD COUNT 3.03 10^6/uL (3.72-5.28); RED CELL DISTRIBUTION WIDTH 16.9 % (11.5-14.0); SEGMENTED NEUTROPHILS % (AUTO) 74.4 % (42-78); WHITE BLOOD COUNT 8.2 10^3/uL (4.0-10.5)
[2016-09-30 06:32] LABS: ANION GAP 8 (5-19); BLOOD UREA NITROGEN 34 mg/dL (7-20); CALCIUM 8.9 mg/dL (8.4-10.2); CARBON DIOXIDE 27 mmol/L (22-30); CHLORIDE 107 mmol/L (98-107); CREATININE RESULT 1.18 mg/dL (0.52-1.25); GLUCOSE 87 mg/dL (75-110); POTASSIUM 4.5 mmol/L (3.6-5.0); SODIUM 141.6 mmol/L (137-145)
[2016-09-30] MEDS: CEFTRIAXONE 1 GM/D5W RTU 50 ML IV SCH (09:19)
[2016-09-30] MEDS: FLUTICASONE/SALMETEROL DISKUS 250-50 MCG/DOSE IH SCH ×2 (09:19→21:32)
[2016-09-30] MEDS: FUROSEMIDE 20 MG TABLET PO SCH (09:20)
[2016-09-30] MEDS: MAGNESIUM OXIDE 400 MG TABLET PO SCH ×3 (09:20→17:09)
[2016-09-30] MEDS: VITAMIN E (DL, ACETATE) 400 UNIT CAPSULE PO SCH (09:20)
[2016-09-30] MEDS: DILTIAZEM HCL 120 MG CAP.SR.24H PO SCH (09:20)
[2016-09-30] MEDS: TIOTROPIUM BROMIDE DPI 5 CAP/KIT (18 MCG/CAP) IH SCH (09:21)
[2016-09-30] MEDS: HYDRALAZINE HCL 10 MG TABLET PO SCH ×2 (09:21→21:33)
[2016-09-30] MEDS: AZITHROMYCIN 500 MG in DEXTROSE 5%-WATER 250 ML IV SCH (11:05)
[2016-09-30] MEDS ORDERED: FLUTICASONE NASAL SPRAY 50 MCG/SPRY 120 SPRAY/16 GM NASL ONE (14:30)
[2016-09-30] MEDS ORDERED: CETIRIZINE 10 MG TABLET PO ONE (14:30)
--- NOTE | 2016-09-30 16:49 | PDOC PROGRESS REPORT ---
Subjective Progress Note for:: 09/30/16 Subjective:: Patient is seen on morning rounds. She is resting comfortably in bed. She is presently on oxygen by nasal cannula. She continues to have productive cough, and intermittent wheezing. She is continued on IV antibiotics. She was given oral Lasix last evening by nephrology. And creatinine continue to improve. Patient has intermittent periods of confusion, as well as language barrier occasionally being problem. She has a personal was able to interpret for her was not here at the present time. She denies any pain. She denies any nausea or vomiting. Physical Exam Vital Signs: Temp Pulse Resp BP Pulse Ox 98.4 F 92 18 142/66 H 100 09/30/16 16:00 09/30/16 16:00 09/30/16 16:00 09/30/16 16:00 09/30/16 16:00 Intake & Output 09/29/16 09/30/16 10/01/16 06:59 06:59 06:59 Intake Total 1097 1088 Output Total 550 Balance 547 1088 Weight 52.9 kg 53.5 kg General appearance: PRESENT: no acute distress, thin, well-developed Head exam: PRESENT: atraumatic, normocephalic Eye exam: PRESENT: conjunctiva pink, EOMI, PERRLA. ABSENT: scleral icterus Ear exam: PRESENT: normal external ear exam Mouth exam: PRESENT: moist, tongue midline Neck exam: ABSENT: carotid bruit, JVD, lymphadenopathy, thyromegaly Respiratory exam: PRESENT: crackles, symmetrical, unlabored Cardiovascular exam: PRESENT: RRR. ABSENT: diastolic murmur, rubs, systolic murmur Pulses: PRESENT: normal dorsalis pedis pul Vascular exam: PRESENT: normal capillary refill GI/Abdominal exam: PRESENT: normal bowel sounds, soft. ABSENT: distended, guarding, mass, organolmegaly, rebound, tenderness Rectal exam: PRESENT: deferred Extremities exam: PRESENT: full ROM. ABSENT: calf tenderness, clubbing, pedal edema Musculoskeletal exam: PRESENT: ambulatory Neurological exam: PRESENT: alert, awake, oriented to person, oriented to place , CN II-XII grossly intact, other - confused at times. ABSENT: motor sensory deficit Psychiatric exam: PRESENT: anxious Skin exam: PRESENT: dry, intact, warm. ABSENT: cyanosis, rash Results Laboratory Results: 09/30/16 05:57 09/30/16 05:57 09/30/16 09/30/16 05:57 05:57 WBC 8.2 RBC 3.03 L Hgb 9.0 L Hct 27.0 L MCV 89 MCH 29.6 MCHC 33.2 RDW 16.9 H Plt Count 183 Seg Neutrophils % 74.4 Lymphocytes % 10.4 L Monocytes % 11.1 Eosinophils % 3.3 Basophils % 0.8 Absolute Neutrophils 6.1 Absolute Lymphocytes 0.9 Absolute Monocytes 0.9 Absolute Eosinophils 0.3 Absolute Basophils 0.1 Sodium 141.6 Potassium 4.5 Chloride 107 Carbon Dioxide 27 Anion Gap 8 BUN 34 H Creatinine 1.18 Est GFR ( Amer) 53 L Est GFR (Non-Af Amer) 44 L Glucose 87 Calcium 8.9 Impressions: Hip X-Ray 09/23/16 09:45 IMPRESSION: NEGATIVE STUDY OF THE LEFT HIP AND PELVIS. NO RADIOGRAPHIC EVIDENCE OF ACUTE INJURY. Renal Ultrasound 09/23/16 13:21 IMPRESSION: Stable. Left kidney not visualized. Chest X-Ray 09/28/16 00:00 IMPRESSION: Left lower lobe pneumonia. Head CT 09/29/16 00:00 IMPRESSION: CHRONIC CHANGES OF ATROPHY AND MICROVASCULAR ISCHEMIA. NO ACUTE PROCESS. CHRONIC PARANASAL SINUS DISEASE. Assessment & Plan - Diagnosis (1) Acute on chronic renal failure Is this a current diagnosis for this admission?: YesPlan: Improved back to near baseline. Patient was given po Lasix last evening. We will continue same dose for the next day or two. Dr. Brooks is following for nephrology. We will avoid nephrotoxic drugs and dosages. (2) Anemia in chronic kidney disease (CKD) Is this a current diagnosis for this admission?: YesPlan: Stable continue to monitor, secondary to chronic kidney disease. (3) Hypertension Is this a current diagnosis for this admission?: YesPlan: Continue current medications and dosages (4) COPD (chronic obstructive pulmonary disease) Qualifiers: COPD type: unspecified COPD Qualified Code(s): J44.9 - Chronic obstructive pulmonary disease, unspecified Is this a current diagnosis for this admission?: YesPlan: Continue nebulizers and inhalers (5) Chronic kidney disease, stage 3 Is this a current diagnosis for this admission?: YesPlan: Avoid nephrotoxic medications and dosages (6) Hyponatremia Is this a current diagnosis for this admission?: YesPlan: Resolved (7) Pneumonia Qualifiers: Laterality: left Lung location: lower lobe of lung Is this a current diagnosis for this admission?: Yes - Time Time Spent with patient: 25-34 minutes Critical Time spent with patient: 15-24 minutes Medications reviewed and adjusted accordingly: Yes Anticipated discharge: Acute Rehab
[2016-09-30] MEDS: ALBUTEROL SULFATE 0.083% NEB 2.5 MG/3 ML AMPUL NEB PRN (19:58)
[2016-09-30] MEDS: MONTELUKAST SODIUM 10 MG TABLET PO SCH (21:33)
[2016-10-01] MEDS: HEPARIN SOD (PORCINE) 5,000 UNIT/ML 1 ML SYRINGE SUBCUT SCH ×3 (06:00→21:41)
[2016-10-01] MEDS: FUROSEMIDE 20 MG TABLET PO SCH (09:29)
[2016-10-01] MEDS: DILTIAZEM HCL 120 MG CAP.SR.24H PO SCH (09:29)
[2016-10-01] MEDS: HYDRALAZINE HCL 10 MG TABLET PO SCH ×2 (09:30→21:41)
[2016-10-01] MEDS: ERGOCALCIFEROL (VITAMIN D2) 50000 UNIT (1.25 MG) CAPSULE PO SCH (09:30)
[2016-10-01] MEDS: CETIRIZINE 10 MG TABLET PO SCH (09:30)
[2016-10-01] MEDS: VITAMIN E (DL, ACETATE) 400 UNIT CAPSULE PO SCH (09:30)
[2016-10-01] MEDS: AZITHROMYCIN 250 MG TABLET PO SCH (09:30)
[2016-10-01] MEDS: TIOTROPIUM BROMIDE DPI 5 CAP/KIT (18 MCG/CAP) IH SCH (09:30)
[2016-10-01] MEDS: MAGNESIUM OXIDE 400 MG TABLET PO SCH ×3 (09:30→17:20)
[2016-10-01] MEDS: FLUTICASONE NASAL SPRAY 50 MCG/SPRY 120 SPRAY/16 GM NASL SCH (09:31)
[2016-10-01] MEDS: FLUTICASONE/SALMETEROL DISKUS 250-50 MCG/DOSE IH SCH ×2 (09:36→21:41)
--- NOTE | 2016-10-01 13:45 | PDOC PROGRESS REPORT ---
Subjective Progress Note for:: 10/01/16 Subjective:: Patient is seen on morning rounds. She is resting comfortably in bed. She is presently on oxygen by nasal cannula. She continues to have productive cough. She is no longer wheezing. She does have intermittent periods of confusion and there is problems with language barriers. BUN and creatinine continue to improve. Patient has intermittent periods of confusion, as well as language barrier with communication. She has a personal friend who is able to interpret for her was not here at the present time. She denies any pain. She denies any nausea or vomiting. Physical Exam Vital Signs: Temp Pulse Resp BP Pulse Ox 98.1 F 87 16 160/66 H 100 10/01/16 12:00 10/01/16 12:00 10/01/16 12:00 10/01/16 12:00 10/01/16 12:00 Intake & Output 09/30/16 10/01/16 10/02/16 06:59 06:59 06:59 Intake Total 1088 1280 Output Total 400 Balance 1088 880 Weight 53.5 kg 51.9 kg General appearance: PRESENT: no acute distress, thin, well-developed Head exam: PRESENT: atraumatic, normocephalic Eye exam: PRESENT: conjunctiva pink, EOMI, PERRLA. ABSENT: scleral icterus Ear exam: PRESENT: normal external ear exam Mouth exam: PRESENT: moist, tongue midline Neck exam: ABSENT: carotid bruit, JVD, lymphadenopathy, thyromegaly Respiratory exam: PRESENT: rhonchi, symmetrical, unlabored Cardiovascular exam: PRESENT: RRR. ABSENT: diastolic murmur, rubs, systolic murmur Pulses: PRESENT: normal dorsalis pedis pul Vascular exam: PRESENT: normal capillary refill GI/Abdominal exam: PRESENT: normal bowel sounds, soft. ABSENT: distended, guarding, mass, organolmegaly, rebound, tenderness Rectal exam: PRESENT: deferred Extremities exam: PRESENT: full ROM. ABSENT: calf tenderness, clubbing, pedal edema Neurological exam: PRESENT: alert, awake, oriented to person, oriented to place , CN II-XII grossly intact. ABSENT: motor sensory deficit Psychiatric exam: PRESENT: appropriate affect, normal mood. ABSENT: homicidal ideation, suicidal ideation Skin exam: PRESENT: dry, intact, warm. ABSENT: cyanosis, rash Results Laboratory Results: 09/30/16 05:57 09/30/16 05:57 Impressions: Hip X-Ray 09/23/16 09:45 IMPRESSION: NEGATIVE STUDY OF THE LEFT HIP AND PELVIS. NO RADIOGRAPHIC EVIDENCE OF ACUTE INJURY. Renal Ultrasound 09/23/16 13:21 IMPRESSION: Stable. Left kidney not visualized. Chest X-Ray 09/28/16 00:00 IMPRESSION: Left lower lobe pneumonia. Head CT 09/29/16 00:00 IMPRESSION: CHRONIC CHANGES OF ATROPHY AND MICROVASCULAR ISCHEMIA. NO ACUTE PROCESS. CHRONIC PARANASAL SINUS DISEASE. Assessment & Plan - Diagnosis (1) Acute on chronic renal failure Is this a current diagnosis for this admission?: YesPlan: Improved back to near baseline. Patient was given po Lasix last evening. We will continue same dose for the next day or two. Dr. Brooks is following for nephrology. We will avoid nephrotoxic drugs and dosages. (2) Anemia in chronic kidney disease (CKD) Is this a current diagnosis for this admission?: YesPlan: Stable continue to monitor, secondary to chronic kidney disease. (3) Hypertension Is this a current diagnosis for this admission?: YesPlan: Continue current medications and dosages (4) COPD (chronic obstructive pulmonary disease) Qualifiers: COPD type: unspecified COPD Qualified Code(s): J44.9 - Chronic obstructive pulmonary disease, unspecified Is this a current diagnosis for this admission?: YesPlan: Continue nebulizers and inhalers (5) Chronic kidney disease, stage 3 Is this a current diagnosis for this admission?: YesPlan: Avoid nephrotoxic medications and dosages (6) Hyponatremia Is this a current diagnosis for this admission?: YesPlan: Resolved (7) Pneumonia Qualifiers: Laterality: left Lung location: lower lobe of lung Is this a current diagnosis for this admission?: YesPlan: Patient had repeat chest xray this morning which showed left lobe infiltrate - Time Time Spent with patient: 25-34 minutes Critical Time spent with patient: 15-24 minutes Anticipated discharge: SNF Within: when bed available
[2016-10-01] MEDS: MONTELUKAST SODIUM 10 MG TABLET PO SCH (21:41)
[2016-10-02] MEDS: HEPARIN SOD (PORCINE) 5,000 UNIT/ML 1 ML SYRINGE SUBCUT SCH ×2 (05:19→15:21)
[2016-10-02 07:58] LABS: ANION GAP 7 (5-19); BLOOD UREA NITROGEN 31 mg/dL (7-20); CALCIUM 9.1 mg/dL (8.4-10.2); CARBON DIOXIDE 32 mmol/L (22-30); CHLORIDE 102 mmol/L (98-107); CREATININE RESULT 1.39 mg/dL (0.52-1.25); GLUCOSE 88 mg/dL (75-110); MAGNESIUM 2.1 mg/dL (1.6-2.3); POTASSIUM 4.8 mmol/L (3.6-5.0); SODIUM 140.8 mmol/L (137-145)
[2016-10-02 08:48] VITALS: BP 149/70
[2016-10-02] MEDS: MAGNESIUM OXIDE 400 MG TABLET PO SCH ×2 (10:54→15:20)
[2016-10-02] MEDS: CETIRIZINE 10 MG TABLET PO SCH (10:54)
[2016-10-02] MEDS: DILTIAZEM HCL 120 MG CAP.SR.24H PO SCH (10:54)
[2016-10-02] MEDS: FUROSEMIDE 20 MG TABLET PO SCH (10:54)
[2016-10-02] MEDS: FLUTICASONE NASAL SPRAY 50 MCG/SPRY 120 SPRAY/16 GM NASL SCH (10:55)
[2016-10-02] MEDS: VITAMIN E (DL, ACETATE) 400 UNIT CAPSULE PO SCH (10:56)
[2016-10-02] MEDS: HYDRALAZINE HCL 10 MG TABLET PO SCH (10:56)
[2016-10-02] MEDS: AZITHROMYCIN 250 MG TABLET PO SCH (10:56)
[2016-10-02] MEDS: TIOTROPIUM BROMIDE DPI 5 CAP/KIT (18 MCG/CAP) IH SCH (10:57)
--- NOTE | 2016-10-02 11:08 | PDOC TRANSFER SUMMARY ---
General - Admit/Disc Date/PCP Admission Date/Primary Care Provider: 09/23/16 11:46 Discharge Date: 10/02/16 - Discharge Diagnosis (1) Acute on chronic renal failure Is this a current diagnosis for this admission?: YesSummary: Secondary to dehydration now resolved back to chronic kidney disease stage III after being rehydrated (2) Anemia in chronic kidney disease (CKD) Is this a current diagnosis for this admission?: YesSummary: Stable we'll continue to follow (3) Hypertension Is this a current diagnosis for this admission?: YesSummary: Continue current antihypertensive she is normotensive (4) COPD (chronic obstructive pulmonary disease) Is this a current diagnosis for this admission?: YesSummary: Continue current inhalers and nebulizer treatment (5) Chronic kidney disease, stage 3 Is this a current diagnosis for this admission?: YesSummary: Avoid nephrotoxic medications and dosages (6) Hyponatremia Is this a current diagnosis for this admission?: YesSummary: Resolved (7) Pneumonia Is this a current diagnosis for this admission?: YesSummary: Completed a course of antibiotics - Additional Information Resuscitation Status: Full Code Discharge Diet: Cardiac Discharge Activity: Activity As Tolerated Home Medications: Albuterol Sulfate [Proair HFA Inhalation Aerosol 8.5 gm MDI] 2 puff IH QID 09/23 Albuterol Sulfate [Ventolin 0.083% Neb 2.5 mg/3 mL Ampul] 2.5 mg NEB TID Atorvastatin Calcium [Lipitor 20 mg Tablet] 20 mg PO DAILY 09/23/16 Diltiazem HCl [Cardizem Cd 120 mg Capsule] 120 mg PO DAILY 09/23/16 Ergocalciferol (Vitamin D2) [Vitamin D2] 50,000 unit PO SIMONS@1000 09/23/16 Fluticasone/Salmeterol [Advair 250-50 Diskus 14 Dose/Diskus] 1 puff IH Q12 09/23 Furosemide [Lasix] 20 mg PO DAILY 09/23/16 Tiotropium Mims [Spiriva Handihaler 5 Cap/Kit (18 Mcg/Cap)] 1 puff IH DAILY 09/23/16 Vitamin E (Dl, Acetate) [Vitamin E 400 Unit Capsule] 400 unit PO DAILY 09/23/16 Cetirizine HCl [Zyrtec 10 mg Tablet] 10 mg PO DAILY tablet 10/02/16 Ergocalciferol (Vitamin D2) [Drisdol 50,000 unit (1.25MG) Capsule] 50,000 unit PO SIMONS@1000 capsule 10/02/16 Fluticasone Propionate [Flonase Nasal [place] 50 Mcg/[place] 16 gm] 2 spray NASL DAILY spray.pump 10/02/16 Hydralazine HCl [Apresoline 10 mg Tablet] 10 mg PO Q12 tablet 10/02/16 Magnesium Oxide [Mag-Ox 400 mg Tablet] 800 mg PO TID tablet 10/02/16 Montelukast Sodium [Singulair 10 mg Tablet] 10 mg PO QHS tablet 10/02/16 Tiotropium Mims [Spiriva Handihaler 5 Cap/Kit (18 Mcg/Cap)] 1 cap IH DAILY kit 10/02/16 History of Present Illness Admission Date/PCP: 09/23/16 11:46 History of Present Illness: LORENZO MENENDEZ is a 80 year old with a past medical history of chronic kidney disease that states she got up Sunday morning and had weakness that caused her to fall. Patient complains of left hip pain after the fall. Please note that the patient is a very hard of hearing so history is very difficult to obtain. Patient denied any head injury, headache, or loss of consciousness. Patient denies any chest pain, abdominal pain, nausea or vomiting. Patient denies any fever. Patient does report mild cough and having phlegm in her throat. Patient does state that she was in the emergency room on Sunday but got sent home. So the next day she said she could not ambulate and could not walk because her legs feel weak so she went back to the emergency room. She also admits that she is not eating very well at home prior to admission. On admission she had a BUN of 67 creatinine of 5.83 with estimated GFR of 7. Her baseline creatinine is usually around 1.3-1.5. The last time I saw her in my office on July she had BUN of 56 creatinine of 1.39 with estimated GFR of 36 from the lab drawn on 07/31/2016. She was started on some IV fluid hydration and her kidney function seems to be improving slowly at this time. Her urine output is not quantified. The only complaint that the patient tells me today is inability to walk. Otherwise she doesn't have any other new complaints. Hospital Course Hospital Course: Patient presented to [facility] emergency room on 09/23/2016, after she fell out of bed injuring her left hip. Patient reports she's had increasing weakness over the last several days prior to this, she was actually seen the day prior in the emergency room and discharged home. X-rays of the hip are unremarkable. Lab work did reveal however that she was anicteric acute kidney injury with a BUN of 67 and a creatinine of 5.83. She does have a history of chronic kidney disease stage III. Renal ultrasound was ordered patient was referred to the hospitalist service for admission. Admitted to telemetry unit she was gently rehydrated with IV fluids. Dr. العلي, riveter [employer], saw the patient in consult. Patient was noted to have also a left lower lobe pneumonia on chest x-ray. 6 she was started on broad-spectrum and her antibiotic therapy, she required BiPAP from time to time because of respiratory distress. This improved over the next several days. BUN/ creatinine returned to baseline creatinine of 1.18. She has increased her activity with physical therapy. They have recommended she at least short-term rehabilitation for her prior to going home. She is agreed to go to [facility] for rehabilitation. She did have periods of confusion intermittently during her hospitalization. ET of the head was obtained which did show small vessel changes consistent with dementia. Physical Exam Vital Signs: Temp Pulse Resp BP Pulse Ox 98.2 F 116 H 23 H 149/70 H 91 L 10/02/16 07:59 10/02/16 07:59 10/02/16 07:59 10/02/16 07:59 10/02/16 07:59 Intake & Output 10/01/16 10/02/16 10/03/16 06:59 06:59 06:59 Intake Total 1280 1270 Output Total 400 Balance 880 1270 Weight 51.9 kg 50.4 kg General appearance: PRESENT: no acute distress, well-developed, well-nourished Head exam: PRESENT: atraumatic, normocephalic Eye exam: PRESENT: conjunctiva pink, EOMI, PERRLA. ABSENT: scleral icterus Ear exam: PRESENT: normal external ear exam Mouth exam: PRESENT: moist, tongue midline Neck exam: ABSENT: carotid bruit, JVD, lymphadenopathy, thyromegaly Respiratory exam: PRESENT: clear to auscultation hansa, decreased breath sounds, symmetrical, unlabored. ABSENT: rales, rhonchi, wheezes Cardiovascular exam: PRESENT: RRR. ABSENT: diastolic murmur, rubs, systolic murmur Pulses: PRESENT: normal dorsalis pedis pul Vascular exam: PRESENT: normal capillary refill GI/Abdominal exam: PRESENT: normal bowel sounds, soft. ABSENT: distended, guarding, mass, organolmegaly, rebound, tenderness Rectal exam: PRESENT: deferred Extremities exam: PRESENT: full ROM. ABSENT: calf tenderness, clubbing, pedal edema Neurological exam: PRESENT: alert, awake, oriented to person, oriented to place , oriented to situation, CN II-XII grossly intact. ABSENT: motor sensory deficit Psychiatric exam: PRESENT: anxious, appropriate affect, normal mood. ABSENT: homicidal ideation, suicidal ideation Skin exam: PRESENT: dry, intact, warm. ABSENT: cyanosis, rash Results Laboratory Results: 09/30/16 05:57 10/02/16 07:00 10/02/16 07:00 Sodium 140.8 Potassium 4.8 Chloride 102 Carbon Dioxide 32 H Anion Gap 7 BUN 31 H Creatinine 1.39 H Est GFR ( Amer) 44 L Est GFR (Non-Af Amer) 36 L Glucose 88 Calcium 9.1 Magnesium 2.1 Impressions: Hip X-Ray 09/23/16 09:45 IMPRESSION: NEGATIVE STUDY OF THE LEFT HIP AND PELVIS. NO RADIOGRAPHIC EVIDENCE OF ACUTE INJURY. Renal Ultrasound 09/23/16 13:21 IMPRESSION: Stable. Left kidney not visualized. Chest X-Ray 09/28/16 00:00 IMPRESSION: Left lower lobe pneumonia. Head CT 09/29/16 00:00 IMPRESSION: CHRONIC CHANGES OF ATROPHY AND MICROVASCULAR ISCHEMIA. NO ACUTE PROCESS. CHRONIC PARANASAL SINUS DISEASE. Transfer Plan - Disposition Transfer Plan: Discharge to [facility] - Time Spent with Patient Time spent with patient: Less than 30 Minutes Qualifiers PATEINT BEING DISCHARGED WITH ANY OF THE FOLLOWING DIAGNOSIS?: No
[2016-10-02] MEDS: FLUTICASONE/SALMETEROL DISKUS 250-50 MCG/DOSE IH SCH (15:20)
== END 2016-10-02 16:55 | DRG 682 ==
LOC: ER 08:44 → EH 11:46 → UNDOADMIN 11:49 → 5 15:03
PROVIDERS: ADMIT Internal Medicine; ATTEND Internal Medicine
PROC: 3E0F73Z Introduction of Anti-inflammatory into Respiratory Tract, Via Natural or Artificial Opening (ICD-10-PCS; principal; 2016-09-26)
DX: N17.9 Acute kidney failure, unspecified (principal); J18.9 Pneumonia, unspecified organism; I13.0 Hypertensive heart and chronic kidney disease with heart failure and stage 1 through stage 4 chronic kidney disease, or unspecified chronic kidney disease; E87.1 Hypo-osmolality and hyponatremia; M25.552 Pain in left hip; M19.90 Unspecified osteoarthritis, unspecified site; N18.3 Chronic kidney disease, stage 3 (moderate); I50.9 Heart failure, unspecified; Z87.891 Personal history of nicotine dependence; J44.9 Chronic obstructive pulmonary disease, unspecified; D63.1 Anemia in chronic kidney disease; H91.90 Unspecified hearing loss, unspecified ear; E86.0 Dehydration; R26.2 Difficulty in walking, not elsewhere classified; F03.90 Unspecified dementia, unspecified severity, without behavioral disturbance, psychotic disturbance, mood disturbance, and anxiety; E78.5 Hyperlipidemia, unspecified; Z91.81 History of falling; W06.XXXA Fall from bed, initial encounter; Z90.710 Acquired absence of both cervix and uterus; Z98.49 Cataract extraction status, unspecified eye; Z80.0 Family history of malignant neoplasm of digestive organs; Y95 Nosocomial condition
CPT/HCPCS: 36415; 36600; 70450; 71010; 71020; 76770; 80048; 80053; 81001; 82550; 82553; 82803; 83735; 83880; 84484; 85025; 85027; 87040; 93005; 93010; 94660; 94667; 99285; J0360; J0456; J0696; J1644; J3490; J7030; J7060

== ENCOUNTER 2017-01-19 11:54 | Inpatient (IN) | payer MEDICARE, OTHER ==
[2017-01-19] MEDS ORDERED: NITROGLYCERIN/D5W 250 ML IV PRN (12:02)
--- NOTE | 2017-01-19 12:12 | ER Document Report ---
ED Respiratory Problem - General Chief Complaint: Respiratory Distress Stated Complaint: RESPIRATORY DISTRESS Time Seen by Provider: 01/19/17 12:00 Notes: The patient is a 81 yo female, PMHx COPD (on home 2L O2), CHF, A fib, presents with increasing shortness of breath and respiratory distress that started this morning. She was 88% on her home oxygen when EMS arrived. She was given 2 DuoNeb, 125 mg solumedrol and placed on CPAP with improvement of her symptoms. Patient also has swelling of her legs. Difficult historian due to respiratory distress and language barrier. Patient would not answer language line. TRAVEL OUTSIDE OF THE [place] IN LAST 30 DAYS: No - Related Data Allergies/Adverse Reactions: No Known Allergies Allergy (Verified 01/19/17 12:21) Past Medical History - General Information source: Emergency Med Personnel Cannot obtain history due to: Unstable vital signs - Social History Smoking Status: Unknown if Ever Smoked Family History: Reviewed & Not Pertinent, Hypertension, Malignancy - Past Medical History Cardiac Medical History: Reports: Hx Congestive Heart Failure, Hx Hypercholesterolemia, Hx Hypertension Denies: Hx Heart Attack Pulmonary Medical History: Reports: Hx COPD Denies: Hx Asthma Neurological Medical History: Denies: Hx Cerebrovascular Accident, Hx Seizures Renal/ Medical History: Denies: Hx Peritoneal Dialysis GI Medical History: Denies: Hx Hepatitis, Hx Hiatal Hernia, Hx Ulcer Musculoskeltal Medical History: Reports Hx Arthritis Infectious Medical History: Denies: Hx Hepatitis Past Surgical History: Reports: Hx Hysterectomy, Other - Cataract surgery. Denies: Hx Mastectomy, Hx Open Heart Surgery, Hx Pacemaker Review of Systems - Review of Systems -: Yes ROS unobtainable due to patient's medical condition Physical Exam - Vital signs Vitals: Resp Pulse Ox 18 100 01/19/17 12:04 01/19/17 12:04 - Notes Notes: PHYSICAL EXAMINATION: GENERAL: Tachypnea, moderate respiratory distress HEAD: Atraumatic, normocephalic. EYES: Pupils equal round and reactive to light, extraocular movements intact, sclera anicteric, conjunctiva are normal. ENT: nares patent, oropharynx clear without exudates. Moist mucous membranes. NECK: Normal range of motion, supple without lymphadenopathy LUNGS: Tachypnea, diffuse wheezing, bibasilar rales present HEART: Regular rate and rhythm. ABDOMEN: Soft, nontender, normoactive bowel sounds. No guarding, no rebound. No masses appreciated. EXTREMITIES: 2+ pitting edema up to knees bilaterally. Normal range of motion. No cyanosis. NEUROLOGICAL: Cranial nerves grossly intact. Normal sensory and motor exams. PSYCH: Normal mood, normal affect. SKIN: Warm, Dry, normal turgor, no rashes or lesions noted. Course - Re-evaluation Re-evalutation: Patient seen immediately on arrival to the emergency room and placed on BiPAP due to the tachypnea and respiratory distress. Her breath sounds were diffuse wheezing and bibasilar rales. With peripheral edema, she appeared fluid overloaded. Nitro drip started. At 1500, patient was transitioned to her home 2 L nasal cannula and she is continuing to sat 97%. Nitro gtt stopped. She is in no respiratory distress at this time. Patient denies any chest pain. Her first troponin is 0.1. EKG shows LVH, but no clear STEMI criteria. 01/19/17 16:17 Repeat troponin is lower than first troponin. Spoke to Dr. Hernandes and he will admit patient to [facility] as Inpatient. - Vital Signs Vital signs: Temp Pulse Resp BP Pulse Ox 98.6 F 18 150/66 H 98 01/19/17 12:06 01/19/17 15:01 01/19/17 15:01 01/19/17 15:01 - Laboratory Result Diagrams: 01/19/17 12:05 01/19/17 12:05 Laboratory results interpreted by me: 01/19/17 01/19/17 01/19/17 12:05 12:05 12:05 WBC 16.0 H RBC 3.43 L Hgb 10.0 L Hct 30.8 L RDW 16.7 H Seg Neuts % (Manual) 96 H Lymphocytes % (Manual) 1 L Monocytes % (Manual) 2 L Abs Neuts (Manual) 15.4 H Abs Lymphs (Manual) 0.2 L VBG HCO3 Chloride 96 L Carbon Dioxide 35 H BUN 47 H Creatinine 1.59 H Est GFR ( Amer) 38 L Est GFR (Non-Af Amer) 31 L Glucose 116 H AST 51 H ALT 57 H NT-Pro-B Natriuret Pep 75803 H 01/19/17 12:05 WBC RBC Hgb Hct RDW Seg Neuts % (Manual) Lymphocytes % (Manual) Monocytes % (Manual) Abs Neuts (Manual) Abs Lymphs (Manual) VBG HCO3 36.7 H Chloride Carbon Dioxide BUN Creatinine Est GFR ( Amer) Est GFR (Non-Af Amer) Glucose AST ALT NT-Pro-B Natriuret Pep - Diagnostic Test Radiology reviewed: Image reviewed, Reports reviewed Radiology results interpreted by me: CXR: stable COPD - EKG Interpretation by Me EKG shows normal: Sinus rhythm, [place], Intervals, QRS Complexes, ST-T Waves Rate: Tachycardia When compared to previous EKG there are: No significant change Critical Care Note - Critical Care Note Total time excluding time spent on procedures (mins): 55 Discharge - Discharge Clinical Impression: Respiratory distress, COPD exacerbation Pulmonary edema Qualifiers: Chronicity: acute Qualified Code(s): J81.0 - Acute pulmonary edema Condition: Stable Disposition: ADMITTED INPATIENT Admitting Provider: Hospitalist - [facility] Unit Admitted: [facility] Referrals: DENIZ CHOW MD [Primary Care Provider] - Follow up as needed
--- NOTE | 2017-01-19 12:18 | EKG REPORT ---
SEVERITY:- ABNORMAL ECG - SINUS TACHYCARDIA CONSIDER LEFT VENTRICULAR HYPERTROPHY : Confirmed by: Moni Swartz MD 19-Jan-2017 12:18:22
[2017-01-19 12:32] LABS: HEMATOCRIT 30.8 % (36.0-47.0); HGB HCT DIFFERENCE -0.8; MEAN CORPUSCULAR HEMOGLOBIN 29.3 pg (27.0-33.4); MEAN CORPUSCULAR HGB CONC 32.6 g/dL (32.0-36.0); MEAN CORPUSCULAR VOLUME 90 fl (80-97); RED BLOOD COUNT 3.43 10^6/uL (3.72-5.28); RED CELL DISTRIBUTION WIDTH 16.7 % (11.5-14.0)
[2017-01-19 12:52] LABS: ALANINE AMINOTRANSFERASE 57 U/L (9-52); ALBUMIN 4.3 g/dL (3.5-5.0); ALKALINE PHOSPHATASE 108 U/L (38-126); ANION GAP 11 (5-19); ASPARTATE AMINO TRANSFERASE 51 U/L (14-36); BILIRUBIN,DIRECT 0.4 mg/dL (0.0-0.4); BILIRUBIN,TOTAL 0.7 mg/dL (0.2-1.3); BLOOD UREA NITROGEN 47 mg/dL (7-20); CALCIUM 9.9 mg/dL (8.4-10.2); CARBON DIOXIDE 35 mmol/L (22-30); CHLORIDE 96 mmol/L (98-107); CREATINE KINASE 109 U/L (30-135); CREATININE RESULT 1.59 mg/dL (0.52-1.25); GLUCOSE 116 mg/dL (75-110); LIPASE 71.3 U/L (23-300); POTASSIUM 4.4 mmol/L (3.6-5.0); SODIUM 141.9 mmol/L (137-145); TOTAL PROTEIN 7.4 g/dL (6.3-8.2)
[2017-01-19 12:53] LABS: ANISOCYTOSIS 1+; BASOPHILS % (MANUAL) 1 % (0-2); EOSINOPHILS % (MANUAL) 0 % (0-6); HYPOCHROMASIA SLIGHT; LYMPHOCYTES % (MANUAL) 1 % (13-45); POLYCHROMASIA SLIGHT; TOTAL CELLS COUNTED 100
[2017-01-19 13:13] LABS: TROPONIN I 0.104 ng/mL
[2017-01-19 13:29] LABS: VENOUS BLOOD BASE EXCESS 9.6 mmol/L; VENOUS BLOOD HCO3 36.7 mmol/L (20-32); VENOUS BLOOD PCO2 61.6 mmHg (35-63); VENOUS BLOOD PH 7.39 (7.30-7.42)
--- NOTE | 2017-01-19 13:45 | RADIOLOGY REPORT (SQ) ---
EXAM DESCRIPTION: CHEST SINGLE VIEW COMPLETED DATE/TIME: 01/19/2017 1:32 pm REASON FOR STUDY: SOB COMPARISON: 09/28/2016. NUMBER OF VIEWS: One view. TECHNIQUE: Single frontal radiographic view of the chest acquired. LIMITATIONS: None. FINDINGS: LUNGS AND PLEURA: Chronic interstitial changes. Left basilar infiltrate seen on the prior study has almost completely resolved. No lobar infiltrates, masses or pneumothorax. Possible minim al pleural effusions. Attenuated blood vessels and flattened ike-diaphragms. MEDIASTINUM AND HILAR STRUCTURES: No masses. Contour normal. HEART AND VASCULAR STRUCTURES: Heart normal in size. Normal vasculature. BONES: No acute findings. HARDWARE: None in the chest. OTHER: No other significant finding. IMPRESSION: COPD. CHRONIC SCARRING. ALMOST COMPLETE RESOLUTION OF THE PREVIOUSLY SEEN LEFT BASILAR INFILTRATE. TECHNICAL DOCUMENTATION: JOB ID: [id number] [employer]- All Rights Reserved
[2017-01-19] MEDS ORDERED: IPRATROPIUM/ALBUTEROL 0.5-2.5 MG/3 ML AMPUL NEB ONE (14:50)
[2017-01-19] MEDS ORDERED: FUROSEMIDE INJ/PF 40 MG/4 ML SDV IV ONE (16:16)
[2017-01-19] MEDS ORDERED: ONDANSETRON HCL INJ/PF 4 MG/2 ML SDV IV PRN (16:51)
[2017-01-19] MEDS ORDERED: MAGNESIUM HYDROXIDE SUSP 30 ML UDCUP PO PRN (16:51)
[2017-01-19] MEDS ORDERED: ACETAMINOPHEN 325 MG TABLET PO PRN (16:51)
[2017-01-19] MEDS ORDERED: OXYCODONE-ACETAMINOPHEN 5-325 MG TABLET PO PRN (16:51)
[2017-01-19] MEDS ORDERED: LORAZEPAM 0.5 MG TABLET PO PRN (16:56)
[2017-01-19] MEDS ORDERED: MORPHINE SULFATE 10 MG/ML INJ IV PRN (16:56)
--- NOTE | 2017-01-19 17:29 | PDOC H&P ---
History of Present Illness Admission Date/PCP: 01/19/17 16:29 DENIZ CHOW MD Patient complains of: SOA History of Present Illness: LORENZO MENENDEZ is a 81 year old female presents to the ED from home (? - sent to [facility] 10/02 after hospitalization) via EMS for respiratory distress. she is not able to provide a ROS or history due to tangential thoughts and conversation, very rambling and going on about her "doctor told her to come it and get the thing removed". review of the old record shows mention of vascular dementia but it is difficult to get a good read on what her current baseline mental state is and no family came with her to the ED. She remained in distress on arrival with sat 88% in spite of her reported home o2 of 2L/min continuous, with BPs >200/100 so placed on BiPAP and nitro gtt, given high dose IV steroids and multiple breathing treatments with good improvement in her both. she was noted audibly wheezing on arrival and has hx of admissions for COPD exac requiring several days of nebs and steroids before improving. though she has stabilized she remains wheezing and frail and so we were asked to admit for further eval and management. Past Medical History Cardiac Medical History: Reports: Congestive Heart Failure, Hyperlipidema, Hypertension Denies: Myocardial Infarction Pulmonary Medical History: Reports: Chronic Obstructive Pulmonary Disease (COPD) Denies: Asthma Neurological Medical History: Denies: Seizures GI Medical History: Denies: Hepatitis, Hiatal Hernia Musculoskeltal Medical History: Reports: Arthritis Hematology: Denies: Anemia, Sickle Cell Disease Past Surgical History Past Surgical History: Reports: Hysterectomy, Other - Cataract surgery Denies: Amputation, Mastectomy, Pacemaker Social History Information Source: [facility] Records Smoking Status: Former Smoker Frequency of Alcohol Use: None Hx Recreational Drug Use: No Drugs: None Hx Prescription Drug Abuse: No - Advance Directive Resuscitation Status: Full Code - recent hospital notes list FULL CODE Family History Family History: Reviewed & Not Pertinent, Hypertension, Malignancy Family History: unable to review due to mental state Parental Family History Reviewed: Yes Children Family History Reviewed: Yes Sibling(s) Family History Reviewed.: Yes Medication/Allergy Home Medications: Albuterol Sulfate [Albuterol Sulfate 2.5mg/3 mL] 1 vial IH RTTID 01/19/17 Albuterol Sulfate [Proair HFA] 2 puff IH QID 01/19/17 Albuterol Sulfate [Proair Respiclick] 2 ahfu IH Q4HP PRN 01/19/17 Atorvastatin Calcium [Lipitor 20 mg Tablet] 20 mg PO QHS 01/19/17 Budesonide/Formoterol Fumarate [Symbicort Hfa 160-4.5 Mcg Inhaler 6 gm] 2 puff IH Q12 01/19/17 Cetirizine HCl [Zyrtec 10 mg Tablet] 10 mg PO DAILY 01/19/17 Diltiazem HCl [Cardizem Cd 120 mg Capsule] 120 mg PO DAILY 01/19/17 Ergocalciferol (Vitamin D2) [Vitamin D2] 50,000 unit PO FR@1000 01/19/17 Ferrous Sulfate [Feosol 325 mg Tablet] 325 mg PO BID 01/19/17 Fluticasone Propionate [Flonase Nasal [place] 50 Mcg/Pal[place] 16 gm] 2 sprays NAREB Q12 01/19/17 Furosemide [Lasix 20 mg Tablet] 20 mg PO QAM 01/19/17 Hydralazine HCl [Apresoline 25 mg Tablet] 25 mg PO Q12 01/19/17 Magnesium Oxide [Mag-Ox 400 mg Tablet] 400 mg PO DAILY 01/19/17 Mirtazapine 7.5 mg PO QHS 01/19/17 Montelukast Sodium [Singulair 10 mg Tablet] 10 mg PO QHS 01/19/17 Prednisone 10 mg PO DAILY 01/19/17 Tiotropium [place] [Spiriva Handihaler 5 Cap/Kit (18 Mcg/Cap)] 1 cap IH DAILY Allergies/Adverse Reactions: No Known Allergies Allergy (Verified 01/19/17 12:21) Review of Systems ROS unobtainable: Due to mental status Physical Exam Vital Signs: Temp Pulse Resp BP Pulse Ox 98.6 F 18 150/66 H 98 01/19/17 12:06 01/19/17 15:01 01/19/17 15:01 01/19/17 15:01 General appearance: PRESENT: mild distress, well-developed, well-nourished Head exam: PRESENT: atraumatic, normocephalic Eye exam: PRESENT: EOMI. ABSENT: conjunctival injection, scleral icterus Neck exam: ABSENT: JVD, lymphadenopathy, tenderness Respiratory exam: PRESENT: accessory muscle use, crackles - bilat bases, tachypnea, wheezes - bilat. ABSENT: rales Cardiovascular exam: PRESENT: irregular rhythm - extrasystolic beats noted, tachycardia Pulses: PRESENT: normal radial pulses, normal dorsalis pedis pul GI/Abdominal exam: PRESENT: normal bowel sounds, soft. ABSENT: tenderness Extremities exam: PRESENT: +1 edema - R>L Musculoskeletal exam: PRESENT: normal inspection, other - bilat weakness of her legs, 4/5 at best Neurological exam: PRESENT: alert, awake, oriented to person Psychiatric exam: PRESENT: appropriate affect, normal mood Focused psych exam: PRESENT: flight of ideas. ABSENT: psychomotor agitation, restlessness Skin exam: PRESENT: pallor, warm - moist Results Laboratory Results: 01/19/17 12:05 01/19/17 12:05 MCV 90 fl (80-97) 01/19/17 12:05 MCH 29.3 pg (27.0-33.4) 01/19/17 12:05 MCHC 32.6 g/dL (32.0-36.0) 01/19/17 12:05 RDW 16.7 % (11.5-14.0) H 01/19/17 12:05 Seg Neutrophils % Not Reportable 01/19/17 12:05 Lymphocytes % Not Reportable 01/19/17 12:05 Monocytes % Not Reportable 01/19/17 12:05 Eosinophils % Not Reportable 01/19/17 12:05 Basophils % Not Reportable 01/19/17 12:05 Absolute Neutrophils Not Reportable 01/19/17 12:05 Absolute Lymphocytes Not Reportable 01/19/17 12:05 Absolute Monocytes Not Reportable 01/19/17 12:05 Absolute Eosinophils Not Reportable 01/19/17 12:05 Absolute Basophils Not Reportable 01/19/17 12:05 VBG pH 7.39 (7.30-7.42) 01/19/17 12:05 VBG pCO2 61.6 mmHg (35-63) 01/19/17 12:05 VBG HCO3 36.7 mmol/L (20-32) H 01/19/17 12:05 VBG Base Excess 9.6 mmol/L 01/19/17 12:05 Chloride 96 mmol/L (98-107) L 01/19/17 12:05 Carbon Dioxide 35 mmol/L (22-30) H 01/19/17 12:05 Anion Gap 11 (5-19) 01/19/17 12:05 Est GFR ( Amer) 38 (>60) L 01/19/17 12:05 Est GFR (Non-Af Amer) 31 (>60) L 01/19/17 12:05 Glucose 116 mg/dL (75-110) H 01/19/17 12:05 Lactic Acid 1.0 mmol/L (0.7-2.1) 01/19/17 12:05 Calcium 9.9 mg/dL (8.4-10.2) 01/19/17 12:05 Total Bilirubin 0.7 mg/dL (0.2-1.3) 01/19/17 12:05 AST 51 U/L (14-36) H 01/19/17 12:05 ALT 57 U/L (9-52) H 01/19/17 12:05 Alkaline Phosphatase 108 U/L (38-126) 01/19/17 12:05 Total Protein 7.4 g/dL (6.3-8.2) 01/19/17 12:05 Albumin 4.3 g/dL (3.5-5.0) 01/19/17 12:05 Lipase 71.3 U/L (23-300) 01/19/17 12:05 01/19/17 01/19/17 01/19/17 12:05 12:05 14:55 Creatine Kinase 109 Troponin I 0.104 0.102 NT-Pro-B Natriuret Pep 27626 H EKG Comments: sinus tach, QTc 469 Impressions: Chest X-Ray 01/19/17 12:01 IMPRESSION: COPD. CHRONIC SCARRING. ALMOST COMPLETE RESOLUTION OF THE PREVIOUSLY SEEN LEFT BASILAR INFILTRATE. Status: Image reviewed by me - not sure, there might be bibasilar airspace disease R>L Assessment & Plan - Diagnosis (1) COPD exacerbation Is this a current diagnosis for this admission?: YesPlan: unclear what the trigger is but based on her history she seems quite frail regarding her breathing; admit for aggressive pulm toilet, high dose IV steroids , scheduled and as needed nebs, wean O2 back to her baseline of 2L/min as tolerated, prn BiPAP for increased WOB, distress or lethargy (2) Acute and chronic respiratory failure with hypoxia Is this a current diagnosis for this admission?: YesPlan: new 2/2 above; monitor for signs of infection, leukocytosis is nonspecific and might be due to stress. (3) CKD (chronic kidney disease) stage 3, GFR 30-59 ml/min Is this a current diagnosis for this admission?: Yes (4) Edema Qualifiers: Edema type: unspecified Qualified Code(s): R60.9 - Edema, unspecified Is this a current diagnosis for this admission?: YesPlan: unclear if related to 3rd spacing from renal disease or acute diastolic heart failure. she appears relatively sedentary so will ck dimer and dopplers and if elevated then VQ scan (no ct due to renal disease) (5) Anemia in chronic kidney disease (CKD) Qualifiers: Chronic kidney disease stage: stage 3 (moderate) Qualified Code(s): N18.3 - Chronic kidney disease, stage 3 (moderate); D63.1 - Anemia in chronic kidney disease Is this a current diagnosis for this admission?: YesPlan: h/h stable (6) Acute diastolic (congestive) heart failure Is this a current diagnosis for this admission?: YesPlan: working diagnosis; BNP can be elevated for a variety of reasons including renal failure, stress from hypoxia or severe HTN at presentation. will trial low dose diuretic but monitor her renal function carefully, topical nitro and betablocker as tolerated. she received lasix IV 40mg in ED. Monitor I/O's and trend BNP - Time Time Spent: Greater than 70 Minutes Medications reviewed and adjusted accordingly: Yes - Inpatient Certification Based on my medical assessment, after consideration of the patient's comorbidities, presenting symptoms, or acuity I expect that the services needed warrant INPATIENT care.: Yes I certify that my determination is in accordance with my understanding of Medicare's requirements for reasonable and necessary INPATIENT services [42 CFR 412.3e].: Yes Medical Necessity: Significant Comorbidiites Make Outpatient Treatment Too Risky , Need Close Monitoring Due to Risk of Patient Decompensation, Need For Continuous Telemetry Monitoring, Need for Nebulizer Therapy and Monitoring of Response, Risk of Complication if Not Cared For in Hospital
--- NOTE | 2017-01-19 18:45 | RADIOLOGY REPORT (SQ) ---
EXAM DESCRIPTION: VENOUS BILATERAL LOWER COMPLETED DATE/TIME: 01/19/2017 6:34 pm REASON FOR STUDY: swelling, resp failure, poss DVT/PE COMPARISON: None. TECHNIQUE: Dynamic and static do scale and color images acquired of both lower extremity venous sy stems. Selected spectral images acquired with additional compression and augmentation maneuvers. Imag es stored on PACS. LIMITATIONS: None. FINDINGS: RIGHT LEG COMMON FEMORAL AND FEMORAL: Normal phasicity, compression and augmentation. No visualized echogenic m aterial on do scale. No defects on color images. POPLITEAL: Normal compression and augmentation. No visualized echogenic material on do scale. No de fects on color images. CALF VESSELS: Normal compression and augmentation. No visualized echogenic material on do scale. No defects on color image. GSV AND SSV: Normal compression. No visualized echogenic material on do scale. No defects on color images. ANY DEEP VENOUS INSUFFICIENCY: Not evaluated. ANY EVIDENCE OF POPLITEAL CYST: No. OTHER: No other significant finding. LEFT LEG COMMON FEMORAL AND FEMORAL: Normal phasicity, compression and augmentation. No visualized echogenic m aterial on do scale. No defects on color images. POPLITEAL: Normal compression and augmentation. No visualized echogenic material on do scale. No de fects on color images. CALF VESSELS: Normal compression and augmentation. No visualized echogenic material on do scale. No defects on color images. GSV AND SSV: Normal compression. No visualized echogenic material on do scale. No defects on color images. ANY DEEP VENOUS INSUFFICIENCY: Not evaluated. ANY EVIDENCE POPLITEAL CYST: No. OTHER: No other significant finding. IMPRESSION: NO EVIDENCE DVT OR SVT IN EITHER LEG. TECHNICAL DOCUMENTATION: JOB ID: [id number] [employer]- All Rights Reserved
[2017-01-19] MEDS ORDERED: NOREPINEPHRINE BITARTRATE INJ/PF 4 MG/4 ML SDV IV ONE (20:00)
[2017-01-19] MEDS: IPRATROPIUM/ALBUTEROL 0.5-2.5 MG/3 ML AMPUL NEB SCH (20:53)
[2017-01-19] MEDS: CARVEDILOL 3.125 MG TABLET PO SCH (21:17)
[2017-01-19] MEDS: HEPARIN SOD (PORCINE) 5,000 UNIT/ML 1 ML SYRINGE SUBCUT SCH (21:18)
[2017-01-19] MEDS: METHYLPREDNISOLONE INJ 40 MG/1 ML SDV IV SCH (21:18)
[2017-01-19] MEDS: PANTOPRAZOLE SODIUM 40 MG VIAL IV SCH (21:18)
--- NOTE | 2017-01-19 23:51 | RADIOLOGY REPORT (SQ) ---
EXAM DESCRIPTION: NM LUNG VENT/PERF SCAN COMPLETED DATE/TIME: 01/19/2017 11:40 pm REASON FOR STUDY: SOB COMPARISON: Chest radiograph from 01/19/2017 RADIONUCLIDE AND DOSE: 5.29 millicuries TC-99m MAA Intravenous 31.7 millicuries TC-99m DTPA Inhaled aerosol TECHNIQUE: Eight views of the lungs acquired post ventilation of DTPA aerosol. Eight matching views of the lungs acquired following injection of MAA. LIMITATIONS: Limited due to poor quality of images. FINDINGS: VENTILATION: Marked heterogeneous distribution of DTPA aerosol during ventilatory phase. No definite wedge-shaped defects identified. PERFUSION: Perfusion images with mild heterogeneous activity without definite wedge-shaped or segment al defects. No definite ventilation-perfusion mismatches. OTHER: No other significant finding. IMPRESSION: LOW PROBABILITY FOR PULMONARY EMBOLUS. HETEROGENEOUS UPTAKE DESCRIBED ABOVE PRESUMAB LY RELATED TO PATIENT CHRONIC UNDERLYING LUNG DISEASE. TECHNICAL DOCUMENTATION: JOB ID: [id number] [employer] All Rights Reserved
[2017-01-20] MEDS: ALBUTEROL SULFATE 0.083% NEB 2.5 MG/3 ML AMPUL NEB PRN (00:37)
[2017-01-20 03:43] LABS: HEMATOCRIT 26.9 % (36.0-47.0); HEMOGLOBIN 8.7 g/dL (12.0-15.5); HGB HCT DIFFERENCE -0.8; MEAN CORPUSCULAR HEMOGLOBIN 28.8 pg (27.0-33.4); MEAN CORPUSCULAR HGB CONC 32.4 g/dL (32.0-36.0); MEAN CORPUSCULAR VOLUME 89 fl (80-97); RED BLOOD COUNT 3.03 10^6/uL (3.72-5.28); WHITE BLOOD COUNT 3.8 10^3/uL (4.0-10.5)
[2017-01-20 03:48] LABS: ANION GAP 8 (5-19); BLOOD UREA NITROGEN 53 mg/dL (7-20); CALCIUM 8.7 mg/dL (8.4-10.2); CARBON DIOXIDE 35 mmol/L (22-30); CHLORIDE 95 mmol/L (98-107); CREATININE RESULT 1.48 mg/dL (0.52-1.25); GLUCOSE 141 mg/dL (75-110); POTASSIUM 4.5 mmol/L (3.6-5.0); SODIUM 138.4 mmol/L (137-145)
[2017-01-20 03:57] LABS: BAND NEUTROPHILS % (MANUAL) 1 % (3-5); BASOPHILS % (MANUAL) 0 % (0-2); EOSINOPHILS % (MANUAL) 0 % (0-6); LYMPHOCYTES % (MANUAL) 3 % (13-45); TOTAL CELLS COUNTED 100
[2017-01-20 03:59] LABS: ANISOCYTOSIS 1+; TOXIC VACUOLATION PRESENT; TROPONIN I 0.07 ng/mL
[2017-01-20] MEDS: HEPARIN SOD (PORCINE) 5,000 UNIT/ML 1 ML SYRINGE SUBCUT SCH ×3 (06:13→22:18)
[2017-01-20] MEDS: METHYLPREDNISOLONE INJ 40 MG/1 ML SDV IV SCH ×3 (06:13→22:17)
[2017-01-20] MEDS: IPRATROPIUM/ALBUTEROL 0.5-2.5 MG/3 ML AMPUL NEB SCH ×3 (08:28→20:04)
[2017-01-20] MEDS ORDERED: FUROSEMIDE INJ/PF 20 MG/2 ML SDV IV SCH (10:00)
[2017-01-20] MEDS: PANTOPRAZOLE SODIUM 40 MG VIAL IV SCH ×2 (11:32→22:17)
[2017-01-20] MEDS: CARVEDILOL 3.125 MG TABLET PO SCH ×2 (11:32→22:19)
[2017-01-20] MEDS: DOCUSATE SODIUM 100 MG CAPSULE PO SCH (11:32)
--- NOTE | 2017-01-20 12:13 | PDOC PROGRESS REPORT ---
Subjective Progress Note for:: 01/20/17 Subjective:: reason for visit: f/u bronchitis, acute on chronic resp failure hospital course: LORENZO MENENDEZ is a 81 year old female presents to the ED from home (? - sent to [facility] 10/02 after hospitalization) via EMS for respiratory distress. she is not able to provide a ROS or history due to tangential thoughts and conversation, very rambling and going on about her "doctor told her to come it and get the thing removed". review of the old record shows mention of vascular dementia but it is difficult to get a good read on what her current baseline mental state is and no family came with her to the ED. She remained in distress on arrival with sat 88% in spite of her reported home o2 of 2L/min continuous, with BPs >200/100 so placed on BiPAP and nitro gtt, given high dose IV steroids and multiple breathing treatments with good improvement in her both. she was noted audibly wheezing on arrival and has hx of admissions for COPD exac requiring several days of nebs and steroids before improving. though she has stabilized she remains wheezing and frail and so we were asked to admit for further eval and management. she was admitted and continued on prn NIPPV, supplemental O2, scheduled and as needed nebs, high dose systemic steroids with some improvement in her condition. however her leukocytosis quickly became a leukopenia and her cough more productive and purulent appearing so abx added for atypical pathogens. she denies chest pain, n/v/d, palpitations; still gets easily winded and wheezing, cough more productive of green phlegm. ROS: all systems reviewed, see above, remaining systems negative. Physical Exam Vital Signs: Temp Pulse Resp BP Pulse Ox 97.8 F 78 15 177/89 H 100 01/20/17 07:47 01/20/17 07:47 01/20/17 07:47 01/20/17 07:47 01/20/17 07:47 Intake & Output 01/19/17 01/20/17 01/21/17 06:59 06:59 06:59 Intake Total 1042 Balance 1042 Weight 47.3 kg 46.312 kg General appearance: PRESENT: mild resp distress, well-developed, well-nourished Head exam: PRESENT: atraumatic, normocephalic Eye exam: PRESENT: EOMI. ABSENT: conjunctival injection, scleral icterus Neck exam: ABSENT: lymphadenopathy, tenderness Respiratory exam: PRESENT: accessory muscle use, crackles - bilat bases, tachypnea, wheezes - bilat. ABSENT: rales Cardiovascular exam: PRESENT: regular rhythm , no tachycardia Pulses: PRESENT: normal radial pulses, normal dorsalis pedis pul GI/Abdominal exam: PRESENT: normal bowel sounds, soft. ABSENT: tenderness Extremities exam: PRESENT: +1 edema - R>L Musculoskeletal exam: PRESENT: normal inspection, other - bilat weakness of her legs, 4/5 at best Neurological exam: PRESENT: alert, awake, oriented to person Psychiatric exam: PRESENT: appropriate affect, normal mood Focused psych exam: ABSENT: psychomotor agitation, restlessness Skin exam: PRESENT: pallor, warm - moist Results Laboratory Results: 01/20/17 03:15 01/20/17 03:15 01/20/17 01/20/17 03:15 03:15 WBC 3.8 L RBC 3.03 L Hgb 8.7 L Hct 26.9 L MCV 89 MCH 28.8 MCHC 32.4 RDW 17.0 H Plt Count 195 Seg Neutrophils % Not Reportable Lymphocytes % Not Reportable Monocytes % Not Reportable Eosinophils % Not Reportable Basophils % Not Reportable Absolute Neutrophils Not Reportable Absolute Lymphocytes Not Reportable Absolute Monocytes Not Reportable Absolute Eosinophils Not Reportable Absolute Basophils Not Reportable Sodium 138.4 Potassium 4.5 Chloride 95 L Carbon Dioxide 35 H Anion Gap 8 BUN 53 H Creatinine 1.48 H Est GFR ( Amer) 41 L Est GFR (Non-Af Amer) 34 L Glucose 141 H Calcium 8.7 01/19/17 01/20/17 20:55 03:15 Troponin I 0.081 0.070 NT-Pro-B Natriuret Pep 90004 H Impressions: Venous Doppler Study 01/19/17 00:00 IMPRESSION: NO EVIDENCE DVT OR SVT IN EITHER LEG. Chest X-Ray 01/19/17 12:01 IMPRESSION: COPD. CHRONIC SCARRING. ALMOST COMPLETE RESOLUTION OF THE PREVIOUSLY SEEN LEFT BASILAR INFILTRATE. Lung Scan-VQ NM 01/19/17 21:54 IMPRESSION: LOW PROBABILITY FOR PULMONARY EMBOLUS. HETEROGENEOUS UPTAKE DESCRIBED ABOVE PRESUMABLY RELATED TO PATIENT CHRONIC UNDERLYING LUNG DISEASE. Status: Imported from PACS Assessment & Plan - Diagnosis (1) Pneumonia Qualifiers: Laterality: left Lung location: lower lobe of lung Is this a current diagnosis for this admission?: YesPlan: I do beleive more strongly this morning, as her condition has evolved, that she has a Rt base pneumonia so will add empiric CAP for atypical pathogens particularly and monitor for effect; f/u cultures (2) COPD exacerbation Is this a current diagnosis for this admission?: YesPlan: improved but only barely so and a long way from baseline. 2/2 above; continue aggressive pulm toilet, high dose IV steroids, scheduled and as needed nebs, wean O2 back to her baseline of 2L/min as tolerated, prn BiPAP for increased WOB , distress or lethargy (3) Acute and chronic respiratory failure with hypoxia Is this a current diagnosis for this admission?: YesPlan: improved and close to baseline, still requiring intermittent BiPAP for increased WOB after even minimal exertion (4) CKD (chronic kidney disease) stage 3, GFR 30-59 ml/min Is this a current diagnosis for this admission?: YesPlan: continue diuretics and monitor renal function closely (5) Edema Qualifiers: Edema type: unspecified Qualified Code(s): R60.9 - Edema, unspecified Is this a current diagnosis for this admission?: YesPlan: unclear if related to 3rd spacing from renal disease or acute diastolic heart failure. she appears relatively sedentary dimer elevated but VQ low probability for thrombus and dopplers neg for DVT (6) Anemia in chronic kidney disease (CKD) Qualifiers: Chronic kidney disease stage: stage 3 (moderate) Qualified Code(s): N18.3 - Chronic kidney disease, stage 3 (moderate); D63.1 - Anemia in chronic kidney disease Is this a current diagnosis for this admission?: Yes (7) Acute diastolic (congestive) heart failure Is this a current diagnosis for this admission?: Yes - Time Time Spent with patient: 35 or more minutes Medications reviewed and adjusted accordingly: Yes Anticipated discharge: Home Within: within 72 hours
[2017-01-20] MEDS ORDERED: HYDRALAZINE HCL 25 MG TABLET PO ONE (13:00)
[2017-01-20] MEDS ORDERED: CLARITHROMYCIN 500 MG TABLET PO SCH (13:00)
[2017-01-20] MEDS ORDERED: DILTIAZEM HCL 120 MG CAP.SR.24H PO ONE (15:00)
[2017-01-20] MEDS: CEFTRIAXONE 1 GM/D5W RTU 1 GM/50 ML RTUPB IV SCH (16:12)
[2017-01-20] MEDS: FERROUS SULFATE 325 MG TABLET PO SCH (17:46)
[2017-01-20] MEDS: AZITHROMYCIN 500 MG in DEXTROSE 5%-WATER 250 ML IV SCH (17:46)
[2017-01-20] MEDS ORDERED: FLUTICASONE NASAL SPRAY 50 MCG/SPRY 120 SPRAY/16 GM NAREB SCH (22:00)
[2017-01-20] MEDS: FLUTICASONE NASAL SPRAY 50 MCG/SPRY 120 SPRAY/16 GM NAREB SCH (22:18)
[2017-01-20] MEDS: MIRTAZAPINE 15 MG TABLET PO SCH (22:19)
[2017-01-20] MEDS: BUDESONIDE/FORMOTEROL 160-4.5 MCG 60 PUFF/6 GM MDI IH SCH (22:20)
[2017-01-20] MEDS: HYDRALAZINE HCL 25 MG TABLET PO SCH (22:20)
[2017-01-21] MEDS: ALBUTEROL SULFATE 0.083% NEB 2.5 MG/3 ML AMPUL NEB PRN (02:45)
[2017-01-21 06:15] LABS: HEMATOCRIT 26.7 % (36.0-47.0); HEMOGLOBIN 8.9 g/dL (12.0-15.5); MEAN CORPUSCULAR HEMOGLOBIN 29.4 pg (27.0-33.4); MEAN CORPUSCULAR HGB CONC 33.3 g/dL (32.0-36.0); MEAN CORPUSCULAR VOLUME 88 fl (80-97); RED BLOOD COUNT 3.02 10^6/uL (3.72-5.28); RED CELL DISTRIBUTION WIDTH 16.5 % (11.5-14.0)
[2017-01-21] MEDS: METHYLPREDNISOLONE INJ 40 MG/1 ML SDV IV SCH ×3 (06:18→22:02)
[2017-01-21] MEDS: HEPARIN SOD (PORCINE) 5,000 UNIT/ML 1 ML SYRINGE SUBCUT SCH ×3 (06:18→22:03)
[2017-01-21 06:32] LABS: ANION GAP 10 (5-19); BLOOD UREA NITROGEN 69 mg/dL (7-20); CALCIUM 8.4 mg/dL (8.4-10.2); CARBON DIOXIDE 33 mmol/L (22-30); CHLORIDE 94 mmol/L (98-107); CREATININE RESULT 1.86 mg/dL (0.52-1.25); GLUCOSE 133 mg/dL (75-110); POTASSIUM 4.2 mmol/L (3.6-5.0); SODIUM 136.6 mmol/L (137-145)
[2017-01-21 06:34] LABS: WHITE BLOOD COUNT 8.2 10^3/uL (4.0-10.5)
[2017-01-21 06:45] LABS: BAND NEUTROPHILS % (MANUAL) 1 % (3-5); BASOPHILS % (MANUAL) 0 % (0-2); EOSINOPHILS % (MANUAL) 0 % (0-6); LYMPHOCYTES % (MANUAL) 2 % (13-45); TOTAL CELLS COUNTED 100
[2017-01-21 06:47] LABS: ANISOCYTOSIS 1+; OVALOCYTES SLIGHT; POIKILOCYTOSIS SLIGHT; POLYCHROMASIA SLIGHT; TOXIC VACUOLATION PRESENT
[2017-01-21 06:48] LABS: TEAR DROP CELLS SLIGHT
[2017-01-21] MEDS: IPRATROPIUM/ALBUTEROL 0.5-2.5 MG/3 ML AMPUL NEB SCH ×3 (08:32→19:56)
[2017-01-21] MEDS ORDERED: FUROSEMIDE 20 MG TABLET PO SCH (10:00)
[2017-01-21] MEDS: BUDESONIDE/FORMOTEROL 160-4.5 MCG 60 PUFF/6 GM MDI IH SCH ×2 (10:15→22:03)
[2017-01-21] MEDS: MAGNESIUM OXIDE 400 MG TABLET PO SCH (10:16)
[2017-01-21] MEDS: DILTIAZEM HCL 120 MG CAP.SR.24H PO SCH (10:16)
[2017-01-21] MEDS: CETIRIZINE 10 MG TABLET PO SCH (10:16)
[2017-01-21] MEDS: TIOTROPIUM BROMIDE DPI 5 CAP/KIT (18 MCG/CAP) IH SCH (10:17)
[2017-01-21] MEDS: HYDRALAZINE HCL 25 MG TABLET PO SCH ×2 (10:17→22:03)
[2017-01-21] MEDS: CARVEDILOL 3.125 MG TABLET PO SCH ×2 (10:17→22:03)
[2017-01-21] MEDS: PANTOPRAZOLE SODIUM 40 MG VIAL IV SCH ×2 (10:18→22:02)
[2017-01-21] MEDS: FLUTICASONE NASAL SPRAY 50 MCG/SPRY 120 SPRAY/16 GM NAREB SCH ×2 (10:18→22:03)
[2017-01-21] MEDS: DOCUSATE SODIUM 100 MG CAPSULE PO SCH (10:18)
[2017-01-21] MEDS: FERROUS SULFATE 325 MG TABLET PO SCH ×2 (10:18→17:45)
--- NOTE | 2017-01-21 11:45 | PDOC PROGRESS REPORT ---
Subjective Progress Note for:: 01/21/17 Subjective:: reason for visit: f/u bronchitis, acute on chronic resp failure hospital course: LORENZO MENENDEZ is a 81 year old female presents to the ED from home (? - sent to [facility] 10/02 after hospitalization) via EMS for respiratory distress. she is not able to provide a ROS or history due to tangential thoughts and conversation, very rambling and going on about her "doctor told her to come it and get the thing removed". review of the old record shows mention of vascular dementia but it is difficult to get a good read on what her current baseline mental state is and no family came with her to the ED. She remained in distress on arrival with sat 88% in spite of her reported home o2 of 2L/min continuous, with BPs >200/100 so placed on BiPAP and nitro gtt, given high dose IV steroids and multiple breathing treatments with good improvement in her both. she was noted audibly wheezing on arrival and has hx of admissions for COPD exac requiring several days of nebs and steroids before improving. though she has stabilized in the ED she remains wheezing and frail and so we were asked to admit for further eval and management. she was admitted and continued on prn NIPPV, supplemental O2, scheduled and as needed nebs, high dose systemic steroids with some improvement in her condition. however her leukocytosis quickly became a leukopenia and her cough more productive and purulent appearing so abx added for atypical pathogens. Her WBCs responded nicely and her condition is gradually improving. Her renal function worsened slightly so diuretics had to be cut back even though her BNP and volume status were improving. she denies chest pain, n/v/d, palpitations; still gets easily winded and wheezing requiring a short stay on BiPAP after any exertion, cough productive of green phlegm. ROS: all systems reviewed, see above, remaining systems negative. Physical Exam Vital Signs: Temp Pulse Resp BP Pulse Ox 97.5 F 74 18 141/79 H 100 01/21/17 07:49 01/21/17 07:49 01/21/17 07:49 01/21/17 07:49 01/21/17 07:49 Intake & Output 01/20/17 01/21/17 01/22/17 06:59 06:59 06:59 Intake Total 1042 1580 Output Total 1500 Balance 1042 80 Weight 47.3 kg 48.1 kg General appearance: PRESENT: mild resp distress at rest, well-developed, well- nourished Head exam: PRESENT: atraumatic, normocephalic Eye exam: PRESENT: EOMI. ABSENT: conjunctival injection, scleral icterus Neck exam: ABSENT: lymphadenopathy, tenderness Respiratory exam: PRESENT: accessory muscle use, crackles - bilat bases, tachypnea, wheezes - bilat. ABSENT: rales Cardiovascular exam: PRESENT: regular rhythm , no tachycardia Pulses: PRESENT: normal radial pulses, normal dorsalis pedis pul GI/Abdominal exam: PRESENT: normal bowel sounds, soft. ABSENT: tenderness Extremities exam: PRESENT: +1 edema - R>L some improved Musculoskeletal exam: PRESENT: normal inspection, other - bilat weakness of her legs, 4/5 at best Neurological exam: PRESENT: alert, awake, oriented to person Psychiatric exam: PRESENT: appropriate affect, normal mood Focused psych exam: ABSENT: psychomotor agitation, restlessness Skin exam: PRESENT: pallor, warm - moist Results Laboratory Results: 01/21/17 05:46 01/21/17 05:46 01/21/17 01/21/17 05:46 05:46 WBC 8.2 D RBC 3.02 L Hgb 8.9 L Hct 26.7 L MCV 88 MCH 29.4 MCHC 33.3 RDW 16.5 H Plt Count 263 Seg Neutrophils % Not Reportable Lymphocytes % Not Reportable Monocytes % Not Reportable Eosinophils % Not Reportable Basophils % Not Reportable Absolute Neutrophils Not Reportable Absolute Lymphocytes Not Reportable Absolute Monocytes Not Reportable Absolute Eosinophils Not Reportable Absolute Basophils Not Reportable Sodium 136.6 L Potassium 4.2 Chloride 94 L Carbon Dioxide 33 H Anion Gap 10 BUN 69 H Creatinine 1.86 H Est GFR ( Amer) 31 L Est GFR (Non-Af Amer) 26 L Glucose 133 H Calcium 8.4 01/19/17 01/20/17 01/21/17 20:55 03:15 05:46 Troponin I 0.081 0.070 NT-Pro-B Natriuret Pep 25470 H 07951 H Assessment & Plan - Diagnosis (1) Pneumonia Qualifiers: Laterality: left Lung location: lower lobe of lung Is this a current diagnosis for this admission?: Yes (2) COPD exacerbation Is this a current diagnosis for this admission?: Yes (3) Acute and chronic respiratory failure with hypoxia Is this a current diagnosis for this admission?: Yes (4) CKD (chronic kidney disease) stage 3, GFR 30-59 ml/min Is this a current diagnosis for this admission?: YesPlan: cut diuretics dose in 1/2 and monitor renal function closely (5) Edema Qualifiers: Edema type: unspecified Qualified Code(s): R60.9 - Edema, unspecified Is this a current diagnosis for this admission?: Yes (6) Anemia in chronic kidney disease (CKD) Qualifiers: Chronic kidney disease stage: stage 3 (moderate) Qualified Code(s): N18.3 - Chronic kidney disease, stage 3 (moderate); D63.1 - Anemia in chronic kidney disease Is this a current diagnosis for this admission?: Yes (7) Acute diastolic (congestive) heart failure Is this a current diagnosis for this admission?: Yes - Time Time Spent with patient: 15-24 minutes Medications reviewed and adjusted accordingly: Yes
[2017-01-21] MEDS: CEFTRIAXONE 1 GM/D5W RTU 1 GM/50 ML RTUPB IV SCH (16:22)
[2017-01-21] MEDS: AZITHROMYCIN 500 MG in DEXTROSE 5%-WATER 250 ML IV SCH (17:45)
[2017-01-21] MEDS: MIRTAZAPINE 15 MG TABLET PO SCH (22:02)
[2017-01-22] MEDS: METHYLPREDNISOLONE INJ 40 MG/1 ML SDV IV SCH ×2 (06:27→17:47)
[2017-01-22] MEDS: HEPARIN SOD (PORCINE) 5,000 UNIT/ML 1 ML SYRINGE SUBCUT SCH ×3 (06:28→22:21)
[2017-01-22 06:57] LABS: HEMATOCRIT 27.1 % (36.0-47.0); HEMOGLOBIN 9.2 g/dL (12.0-15.5); HGB HCT DIFFERENCE 0.5; MEAN CORPUSCULAR HEMOGLOBIN 30.1 pg (27.0-33.4); MEAN CORPUSCULAR VOLUME 89 fl (80-97); RED BLOOD COUNT 3.05 10^6/uL (3.72-5.28); RED CELL DISTRIBUTION WIDTH 16.3 % (11.5-14.0); WHITE BLOOD COUNT 7.6 10^3/uL (4.0-10.5)
[2017-01-22 07:03] LABS: ANION GAP 9 (5-19); BLOOD UREA NITROGEN 91 mg/dL (7-20); CALCIUM 8.4 mg/dL (8.4-10.2); CARBON DIOXIDE 33 mmol/L (22-30); CHLORIDE 94 mmol/L (98-107); CREATININE RESULT 2.25 mg/dL (0.52-1.25); GLUCOSE 159 mg/dL (75-110); POTASSIUM 3.8 mmol/L (3.6-5.0); SODIUM 135.7 mmol/L (137-145)
[2017-01-22 07:25] LABS: BASOPHILS % (MANUAL) 0 % (0-2); EOSINOPHILS % (MANUAL) 0 % (0-6); LYMPHOCYTES % (MANUAL) 2 % (13-45); TOTAL CELLS COUNTED 100
[2017-01-22 07:26] LABS: ANISOCYTOSIS 2+; OVALOCYTES SLIGHT; POIKILOCYTOSIS SLIGHT
[2017-01-22] MEDS: IPRATROPIUM/ALBUTEROL 0.5-2.5 MG/3 ML AMPUL NEB SCH ×3 (09:16→19:55)
[2017-01-22] MEDS: TIOTROPIUM BROMIDE DPI 5 CAP/KIT (18 MCG/CAP) IH SCH (10:34)
[2017-01-22] MEDS: FLUTICASONE NASAL SPRAY 50 MCG/SPRY 120 SPRAY/16 GM NAREB SCH ×2 (10:34→22:24)
[2017-01-22] MEDS: BUDESONIDE/FORMOTEROL 160-4.5 MCG 60 PUFF/6 GM MDI IH SCH ×2 (10:34→22:24)
[2017-01-22] MEDS: FERROUS SULFATE 325 MG TABLET PO SCH ×2 (10:34→17:48)
[2017-01-22] MEDS: CARVEDILOL 3.125 MG TABLET PO SCH ×2 (10:35→22:21)
[2017-01-22] MEDS: DOCUSATE SODIUM 100 MG CAPSULE PO SCH (10:35)
--- NOTE | 2017-01-22 10:38 | PDOC PROGRESS REPORT ---
Subjective Progress Note for:: 01/22/17 Subjective:: reason for visit: f/u bronchitis, acute on chronic resp failure hospital course: LORENZO MENENDEZ is a 81 year old female presents to the ED from [facility], where she was sent to rehab 10/02/16 after hospitalization , via EMS for respiratory distress. she was initially unable to provide a ROS or history due to tangential thoughts and rambling conversation, going on about her "doctor told her to come in and get the thing removed". review of the old record makes mention of vascular dementia but it is difficult to get a good read on what her current baseline mental state is and no family came with her to the ED. She remained in distress on arrival with sat 88% in spite of her reported home o2 of 2L/min continuous, with BPs >200/100 so placed on BiPAP and nitro gtt, given high dose IV steroids and multiple breathing treatments with good improvement in both. she was noted audibly wheezing on arrival and has hx of admissions for COPD exac requiring several days of nebs and steroids before improving. though she has stabilized in the ED she remains wheezing and frail and so we were asked to admit for further eval and management. she was admitted and continued on prn NIPPV, supplemental O2, scheduled and as needed nebs, high dose systemic steroids with gradual improvement in her condition. however her leukocytosis quickly became a leukopenia and her cough more productive and purulent appearing so abx added for atypical pathogens/CAP on 01/20 . Her WBCs responded nicely and her condition is gradually improving. Her renal function worsened, is very labile on review of old records, and so diuretics had to be cut back Sunday and d/c'd today even though her BNP and volume status were improving. she denies chest pain, n/v/d, palpitations; still gets easily winded and wheezing requiring a short stay on BiPAP after any exertion, cough productive of green phlegm. ROS: all systems reviewed, see above, remaining systems negative. Physical Exam Vital Signs: Temp Pulse Resp BP Pulse Ox 97.8 F 88 20 151/68 H 95 01/22/17 07:10 01/22/17 09:18 01/22/17 09:18 01/22/17 07:10 01/22/17 09:18 Intake & Output 01/21/17 01/22/17 01/23/17 06:59 06:59 06:59 Intake Total 1580 1315 Output Total 1500 1500 Balance 80 -185 Weight 48.1 kg 49.1 kg General appearance: PRESENT: mild resp distress even at rest, well-developed, well-nourished Head exam: PRESENT: atraumatic, normocephalic Eye exam: PRESENT: EOMI. ABSENT: conjunctival injection, scleral icterus Neck exam: ABSENT: lymphadenopathy, tenderness Respiratory exam: PRESENT: no accessory muscle use, crackles - bilat bases, mild exp wheezes - bilat, all of which markedly improved from presentation. ABSENT: rales Cardiovascular exam: PRESENT: regular rhythm , no tachycardia Pulses: PRESENT: normal radial pulses, normal dorsalis pedis pul GI/Abdominal exam: PRESENT: normal bowel sounds, soft. ABSENT: tenderness Extremities exam: PRESENT: trace edema - R>L ankles, markedly improved Musculoskeletal exam: PRESENT: normal inspection, other - bilat weakness of her legs, 4/5 at best Neurological exam: PRESENT: alert, awake, oriented to person Psychiatric exam: PRESENT: appropriate affect, normal mood, very lively and animated Focused psych exam: ABSENT: psychomotor agitation, restlessness Skin exam: PRESENT: pallor, warm - moist Results Laboratory Results: 01/22/17 06:30 01/22/17 06:30 01/22/17 01/22/17 06:30 06:30 WBC 7.6 RBC 3.05 L Hgb 9.2 L Hct 27.1 L MCV 89 MCH 30.1 MCHC 34.0 RDW 16.3 H Plt Count 241 Seg Neutrophils % Not Reportable Lymphocytes % Not Reportable Monocytes % Not Reportable Eosinophils % Not Reportable Basophils % Not Reportable Absolute Neutrophils Not Reportable Absolute Lymphocytes Not Reportable Absolute Monocytes Not Reportable Absolute Eosinophils Not Reportable Absolute Basophils Not Reportable Sodium 135.7 L Potassium 3.8 Chloride 94 L Carbon Dioxide 33 H Anion Gap 9 BUN 91 H Creatinine 2.25 H Est GFR ( Amer) 25 L Est GFR (Non-Af Amer) 21 L Glucose 159 H Calcium 8.4 01/19/17 01/20/17 01/21/17 20:55 03:15 05:46 Troponin I 0.081 0.070 NT-Pro-B Natriuret Pep 73728 H 56903 H 07/31/17 06:30 Troponin I NT-Pro-B Natriuret Pep 06184 H Assessment & Plan - Diagnosis (1) Pneumonia Qualifiers: Laterality: left Lung location: lower lobe of lung Is this a current diagnosis for this admission?: YesPlan: As her condition has evolved, I believe more strongly this was present on admission as a Rt base pneumonia. continue empiric abx for CAP and atypical pathogens for standard course. consider change to oral on Sunday. (2) COPD exacerbation Is this a current diagnosis for this admission?: YesPlan: improved but not back to baseline. 2/2 above; continue aggressive pulm toilet, start weaning IV steroids, continue scheduled and as needed nebs, wean O2 back to her baseline of 2L/min as tolerated, prn BiPAP for increased WOB, distress or lethargy (3) Acute and chronic respiratory failure with hypoxia Is this a current diagnosis for this admission?: YesPlan: improved and close to baseline, still requiring intermittent BiPAP for increased WOB after even minimal exertion (4) CKD (chronic kidney disease) stage 3, GFR 30-59 ml/min Is this a current diagnosis for this admission?: YesPlan: worse again today, d/c diuretics and monitor renal function closely; hold on IVFs as we just got improvement in her resp status (5) Edema Qualifiers: Edema type: unspecified Qualified Code(s): R60.9 - Edema, unspecified Is this a current diagnosis for this admission?: YesPlan: appears back to baseline; unclear if related to 3rd spacing from renal disease or acute diastolic heart failure. she appears relatively sedentary dimer elevated but VQ low probability for thrombus and dopplers neg for DVT (6) Anemia in chronic kidney disease (CKD) Qualifiers: Chronic kidney disease stage: stage 3 (moderate) Qualified Code(s): N18.3 - Chronic kidney disease, stage 3 (moderate); D63.1 - Anemia in chronic kidney disease Is this a current diagnosis for this admission?: YesPlan: H/H stable and no evidence for acute blood loss (7) Acute diastolic (congestive) heart failure Is this a current diagnosis for this admission?: YesPlan: working diagnosis; BNP can be elevated for a variety of reasons including renal failure, stress from hypoxia or severe HTN at presentation. diuretics on hold as noted above. - Time Time Spent with patient: 25-34 minutes Medications reviewed and adjusted accordingly: Yes Anticipated discharge: SNF - pt is requesting to go to [place] for ongoing rehab, not happy with [facility]. forensic social worker consulted Within: within 48 hours
[2017-01-22] MEDS: MAGNESIUM OXIDE 400 MG TABLET PO SCH (10:39)
[2017-01-22] MEDS: CETIRIZINE 10 MG TABLET PO SCH (10:39)
[2017-01-22] MEDS: DILTIAZEM HCL 120 MG CAP.SR.24H PO SCH (10:40)
[2017-01-22] MEDS: HYDRALAZINE HCL 25 MG TABLET PO SCH ×2 (10:40→22:23)
[2017-01-22] MEDS: PANTOPRAZOLE SODIUM 40 MG VIAL IV SCH (10:40)
[2017-01-22] MEDS ORDERED: MAGNESIUM HYDROXIDE SUSP 30 ML UDCUP PO PRN (15:07)
[2017-01-22] MEDS ORDERED: ONDANSETRON HCL INJ/PF 4 MG/2 ML SDV IV PRN (15:10)
[2017-01-22] MEDS: CEFTRIAXONE 1 GM/D5W RTU 1 GM/50 ML RTUPB IV SCH (16:52)
[2017-01-22] MEDS: AZITHROMYCIN 500 MG in DEXTROSE 5%-WATER 250 ML IV SCH (17:47)
[2017-01-22] MEDS ORDERED: METHYLPREDNISOLONE INJ 40 MG/1 ML SDV IV SCH (22:00)
[2017-01-22] MEDS: MIRTAZAPINE 15 MG TABLET PO SCH (22:22)
[2017-01-22] MEDS: LANSOPRAZOLE 30 MG TAB.RAP.DR PO SCH (22:22)
[2017-01-23] MEDS: METHYLPREDNISOLONE INJ 40 MG/1 ML SDV IV SCH ×2 (05:01→18:18)
[2017-01-23] MEDS: HEPARIN SOD (PORCINE) 5,000 UNIT/ML 1 ML SYRINGE SUBCUT SCH ×3 (05:01→22:13)
[2017-01-23 05:42] LABS: HEMATOCRIT 27.4 % (36.0-47.0); HEMOGLOBIN 9.3 g/dL (12.0-15.5); HGB HCT DIFFERENCE 0.5; MEAN CORPUSCULAR HEMOGLOBIN 29.6 pg (27.0-33.4); MEAN CORPUSCULAR VOLUME 87 fl (80-97); RED BLOOD COUNT 3.15 10^6/uL (3.72-5.28); RED CELL DISTRIBUTION WIDTH 16.1 % (11.5-14.0); WHITE BLOOD COUNT 7.5 10^3/uL (4.0-10.5)
[2017-01-23 05:56] LABS: ANION GAP 12 (5-19); BLOOD UREA NITROGEN 96 mg/dL (7-20); CARBON DIOXIDE 31 mmol/L (22-30); CHLORIDE 93 mmol/L (98-107); CREATININE RESULT 1.89 mg/dL (0.52-1.25); GLUCOSE 150 mg/dL (75-110); POTASSIUM 3.5 mmol/L (3.6-5.0); SODIUM 136.3 mmol/L (137-145)
[2017-01-23 06:10] LABS: BASOPHILS % (MANUAL) 0 % (0-2); EOSINOPHILS % (MANUAL) 0 % (0-6); LYMPHOCYTES % (MANUAL) 3 % (13-45); TOTAL CELLS COUNTED 100
[2017-01-23 06:11] LABS: ANISOCYTOSIS 1+; OVALOCYTES SLIGHT; POLYCHROMASIA SLIGHT; TOXIC GRANULATION SLIGHT
[2017-01-23 06:12] LABS: POIKILOCYTOSIS SLIGHT
[2017-01-23] MEDS: ALBUTEROL SULFATE 0.083% NEB 2.5 MG/3 ML AMPUL NEB PRN (07:53)
[2017-01-23] MEDS: IPRATROPIUM/ALBUTEROL 0.5-2.5 MG/3 ML AMPUL NEB SCH ×3 (07:56→20:04)
[2017-01-23] MEDS ORDERED: POTASSIUM CHLORIDE 10 MEQ TABLET.SA PO ONE (09:29)
[2017-01-23] MEDS: CETIRIZINE 10 MG TABLET PO SCH (10:33)
[2017-01-23] MEDS: AZITHROMYCIN 250 MG TABLET PO SCH (10:33)
[2017-01-23] MEDS: DILTIAZEM HCL 120 MG CAP.SR.24H PO SCH (10:33)
[2017-01-23] MEDS: MAGNESIUM OXIDE 400 MG TABLET PO SCH (10:33)
[2017-01-23] MEDS: LANSOPRAZOLE 30 MG TAB.RAP.DR PO SCH ×2 (10:33→22:14)
[2017-01-23] MEDS: HYDRALAZINE HCL 25 MG TABLET PO SCH ×2 (10:34→22:14)
[2017-01-23] MEDS: FERROUS SULFATE 325 MG TABLET PO SCH ×2 (10:34→18:18)
[2017-01-23] MEDS: CARVEDILOL 3.125 MG TABLET PO SCH ×2 (10:34→22:14)
[2017-01-23] MEDS: FLUTICASONE NASAL SPRAY 50 MCG/SPRY 120 SPRAY/16 GM NAREB SCH ×2 (10:35→22:13)
[2017-01-23] MEDS: BUDESONIDE/FORMOTEROL 160-4.5 MCG 60 PUFF/6 GM MDI IH SCH ×2 (10:35→22:13)
[2017-01-23] MEDS: TIOTROPIUM BROMIDE DPI 5 CAP/KIT (18 MCG/CAP) IH SCH (10:35)
[2017-01-23] MEDS: DOCUSATE SODIUM 100 MG CAPSULE PO SCH (10:35)
--- NOTE | 2017-01-23 15:48 | PDOC PROGRESS REPORT ---
Subjective Progress Note for:: 01/23/17 Subjective:: Patient is seen on morning rounds. She is out of bed in chair eating her breakfast. She appears in no acute distress. She continues to have a productive cough and some mild wheezing. She denies dyspnea, palpitations or chest pain. She denies any nausea, vomiting or abdominal pain. She denies any athralgias or myalgias. Remaining review of systems are negative. Physical Exam Vital Signs: Temp Pulse Resp BP Pulse Ox 98.0 F 65 16 169/63 H 99 01/23/17 07:34 01/23/17 07:53 01/23/17 07:53 01/23/17 07:34 01/23/17 07:53 Intake & Output 01/22/17 01/23/17 01/24/17 06:59 06:59 06:59 Intake Total 1315 873 Output Total 1500 450 Balance -185 423 Weight 49.1 kg 48.4 kg General appearance: PRESENT: no acute distress, thin, well-developed Head exam: PRESENT: atraumatic, normocephalic Eye exam: PRESENT: conjunctiva pink, EOMI, PERRLA. ABSENT: scleral icterus Ear exam: PRESENT: normal external ear exam Mouth exam: PRESENT: moist, tongue midline Neck exam: ABSENT: carotid bruit, JVD, lymphadenopathy, thyromegaly Respiratory exam: PRESENT: symmetrical, unlabored, wheezes - bilateral exp wheezes Cardiovascular exam: PRESENT: irregular rhythm, +S1 Pulses: PRESENT: normal dorsalis pedis pul GI/Abdominal exam: PRESENT: normal bowel sounds, soft. ABSENT: distended, guarding, mass, organolmegaly, rebound, tenderness Rectal exam: PRESENT: deferred Extremities exam: PRESENT: full ROM. ABSENT: calf tenderness, clubbing, pedal edema Neurological exam: PRESENT: alert, awake, oriented to person, oriented to place , oriented to time, oriented to situation, CN II-XII grossly intact. ABSENT: motor sensory deficit Psychiatric exam: PRESENT: appropriate affect, normal mood. ABSENT: homicidal ideation, suicidal ideation Skin exam: PRESENT: abrasion Results Laboratory Results: 01/23/17 05:15 01/23/17 05:15 01/23/17 01/23/17 05:15 05:15 WBC 7.5 RBC 3.15 L Hgb 9.3 L Hct 27.4 L MCV 87 MCH 29.6 MCHC 34.0 RDW 16.1 H Plt Count 262 Seg Neutrophils % Not Reportable Lymphocytes % Not Reportable Monocytes % Not Reportable Eosinophils % Not Reportable Basophils % Not Reportable Absolute Neutrophils Not Reportable Absolute Lymphocytes Not Reportable Absolute Monocytes Not Reportable Absolute Eosinophils Not Reportable Absolute Basophils Not Reportable Sodium 136.3 L Potassium 3.5 L Chloride 93 L Carbon Dioxide 31 H Anion Gap 12 BUN 96 H Creatinine 1.89 H Est GFR ( Amer) 31 L Est GFR (Non-Af Amer) 26 L Glucose 150 H Calcium 8.0 L 01/19/17 01/20/17 01/21/17 20:55 03:15 05:46 Troponin I 0.081 0.070 NT-Pro-B Natriuret Pep 60781 H 53836 H 01/22/17 06:30 Troponin I NT-Pro-B Natriuret Pep 89539 H Impressions: Venous Doppler Study 01/19/17 00:00 IMPRESSION: NO EVIDENCE DVT OR SVT IN EITHER LEG. Chest X-Ray 01/19/17 12:01 IMPRESSION: COPD. CHRONIC SCARRING. ALMOST COMPLETE RESOLUTION OF THE PREVIOUSLY SEEN LEFT BASILAR INFILTRATE. Lung Scan-VQ NM 01/19/17 21:54 IMPRESSION: LOW PROBABILITY FOR PULMONARY EMBOLUS. HETEROGENEOUS UPTAKE DESCRIBED ABOVE PRESUMABLY RELATED TO PATIENT CHRONIC UNDERLYING LUNG DISEASE.
[2017-01-23] MEDS: MIRTAZAPINE 15 MG TABLET PO SCH (22:14)
[2017-01-24] MEDS: METHYLPREDNISOLONE INJ 40 MG/1 ML SDV IV SCH (05:02)
[2017-01-24] MEDS: HEPARIN SOD (PORCINE) 5,000 UNIT/ML 1 ML SYRINGE SUBCUT SCH ×3 (05:03→21:03)
[2017-01-24 06:30] LABS: ANION GAP 9 (5-19); BLOOD UREA NITROGEN 104 mg/dL (7-20); CALCIUM 8.3 mg/dL (8.4-10.2); CARBON DIOXIDE 32 mmol/L (22-30); CHLORIDE 95 mmol/L (98-107); CREATININE RESULT 2.15 mg/dL (0.52-1.25); GLUCOSE 156 mg/dL (75-110); POTASSIUM 3.8 mmol/L (3.6-5.0); SODIUM 136.3 mmol/L (137-145)
[2017-01-24] MEDS ORDERED: NORMAL SALINE 1000 ML 1,000 ML IV PRN (06:55)
[2017-01-24] MEDS: IPRATROPIUM/ALBUTEROL 0.5-2.5 MG/3 ML AMPUL NEB SCH ×3 (07:47→20:01)
[2017-01-24] MEDS: FERROUS SULFATE 325 MG TABLET PO SCH ×2 (11:24→17:20)
[2017-01-24] MEDS: CETIRIZINE 10 MG TABLET PO SCH (11:24)
[2017-01-24] MEDS: CARVEDILOL 3.125 MG TABLET PO SCH ×2 (11:24→21:02)
[2017-01-24] MEDS: HYDRALAZINE HCL 25 MG TABLET PO SCH ×2 (11:24→21:01)
[2017-01-24] MEDS: DILTIAZEM HCL 120 MG CAP.SR.24H PO SCH (11:25)
[2017-01-24] MEDS: DOCUSATE SODIUM 100 MG CAPSULE PO SCH (11:25)
[2017-01-24] MEDS: AZITHROMYCIN 250 MG TABLET PO SCH (11:25)
[2017-01-24] MEDS: PREDNISONE 20 MG TABLET PO SCH ×2 (11:25→21:02)
[2017-01-24] MEDS: MAGNESIUM OXIDE 400 MG TABLET PO SCH (11:25)
[2017-01-24] MEDS: BUDESONIDE/FORMOTEROL 160-4.5 MCG 60 PUFF/6 GM MDI IH SCH ×2 (11:26→21:01)
[2017-01-24] MEDS: LANSOPRAZOLE 30 MG TAB.RAP.DR PO SCH ×2 (11:26→21:02)
[2017-01-24] MEDS: TIOTROPIUM BROMIDE DPI 5 CAP/KIT (18 MCG/CAP) IH SCH (11:26)
[2017-01-24] MEDS: FLUTICASONE NASAL SPRAY 50 MCG/SPRY 120 SPRAY/16 GM NAREB SCH ×2 (11:26→21:00)
--- NOTE | 2017-01-24 15:24 | PDOC PROGRESS REPORT ---
Subjective Progress Note for:: 01/24/17 Subjective:: Patient is seen on morning rounds. She is out of bed in chair eating her breakfast. She appears in no acute distress. She continues to have a productive cough and some mild expiratory wheezing. She denies dyspnea, palpitations or chest pain. She denies any nausea, vomiting or abdominal pain. She denies any athralgias or myalgias. Remaining review of systems are negative. Physical Exam Vital Signs: Temp Pulse Resp BP Pulse Ox 97.8 F 65 18 156/66 H 99 01/24/17 08:06 01/24/17 08:06 01/24/17 08:06 01/24/17 08:06 01/24/17 08:06 Intake & Output 01/23/17 01/24/17 01/25/17 06:59 06:59 06:59 Intake Total 873 965 Output Total 450 300 Balance 423 665 Weight 48.4 kg 49.8 kg General appearance: PRESENT: no acute distress, thin, well-developed Head exam: PRESENT: atraumatic, normocephalic Eye exam: PRESENT: conjunctiva pink, EOMI, PERRLA. ABSENT: scleral icterus Ear exam: PRESENT: normal external ear exam Mouth exam: PRESENT: moist, tongue midline Neck exam: ABSENT: carotid bruit, JVD, lymphadenopathy, thyromegaly Respiratory exam: PRESENT: rhonchi - expiratory upper airway edema, symmetrical , unlabored, wheezes Cardiovascular exam: PRESENT: RRR. ABSENT: diastolic murmur, rubs, systolic murmur Pulses: PRESENT: normal dorsalis pedis pul Vascular exam: PRESENT: normal capillary refill GI/Abdominal exam: PRESENT: normal bowel sounds, soft. ABSENT: distended, guarding, mass, organolmegaly, rebound, tenderness Rectal exam: PRESENT: deferred Extremities exam: PRESENT: full ROM. ABSENT: calf tenderness, clubbing, pedal edema Musculoskeletal exam: PRESENT: ambulatory Neurological exam: PRESENT: alert, awake, oriented to person, oriented to place , oriented to time, oriented to situation, CN II-XII grossly intact. ABSENT: motor sensory deficit Psychiatric exam: PRESENT: appropriate affect, normal mood. ABSENT: homicidal ideation, suicidal ideation Skin exam: PRESENT: dry, intact, warm. ABSENT: cyanosis, rash Results Laboratory Results: 01/23/17 05:15 01/24/17 06:02 01/24/17 06:02 Sodium 136.3 L Potassium 3.8 Chloride 95 L Carbon Dioxide 32 H Anion Gap 9 BUN 104 H Creatinine 2.15 H Est GFR ( Amer) 27 L Est GFR (Non-Af Amer) 22 L Glucose 156 H Calcium 8.3 L 01/19/17 01/20/17 01/21/17 20:55 03:15 05:46 Troponin I 0.081 0.070 NT-Pro-B Natriuret Pep 59630 H 68526 H 01/22/17 06:30 Troponin I NT-Pro-B Natriuret Pep 97881 H Impressions: Venous Doppler Study 01/19/17 00:00 IMPRESSION: NO EVIDENCE DVT OR SVT IN EITHER LEG. Chest X-Ray 01/19/17 12:01 IMPRESSION: COPD. CHRONIC SCARRING. ALMOST COMPLETE RESOLUTION OF THE PREVIOUSLY SEEN LEFT BASILAR INFILTRATE. Lung Scan-VQ NM 01/19/17 21:54 IMPRESSION: LOW PROBABILITY FOR PULMONARY EMBOLUS. HETEROGENEOUS UPTAKE DESCRIBED ABOVE PRESUMABLY RELATED TO PATIENT CHRONIC UNDERLYING LUNG DISEASE. Assessment & Plan - Diagnosis (1) Acute and chronic respiratory failure with hypoxia Is this a current diagnosis for this admission?: YesPlan: Improving with antibiotics and diuresis (2) Acute on chronic renal failure Qualifiers: Chronic kidney disease stage: stage 4 (severe) Is this a current diagnosis for this admission?: YesPlan: BUN/CR have continued to increase after aggressive diuresis. Will hydrate patient with one liter of (3) Acute diastolic (congestive) heart failure Is this a current diagnosis for this admission?: YesPlan: Resolved (4) CKD (chronic kidney disease) stage 3, GFR 30-59 ml/min Is this a current diagnosis for this admission?: YesPlan: Worsened with diuresis. Will hold and add one bag of IV fluids (5) COPD exacerbation Is this a current diagnosis for this admission?: Yes (6) Anemia in chronic kidney disease (CKD) Qualifiers: Chronic kidney disease stage: stage 3 (moderate) Qualified Code(s): N18.3 - Chronic kidney disease, stage 3 (moderate); D63.1 - Anemia in chronic kidney disease Is this a current diagnosis for this admission?: YesPlan: Stable (7) COPD (chronic obstructive pulmonary disease) Qualifiers: COPD type: unspecified COPD Qualified Code(s): J44.9 - Chronic obstructive pulmonary disease, unspecified Is this a current diagnosis for this admission?: YesPlan: Continue inhalers (8) Hypertension Qualifiers: Hypertension type: essential hypertension Qualified Code(s): I10 - Essential (primary) hypertension Is this a current diagnosis for this admission?: YesPlan: Continue current medications - Time Time Spent with patient: 25-34 minutes Critical Time spent with patient: 15-24 minutes Smoking Cessation Education: 3 to 10 minutes Medications reviewed and adjusted accordingly: Yes Anticipated discharge: SNF Within: within 48 hours
[2017-01-24] MEDS: ALBUTEROL SULFATE 0.083% NEB 2.5 MG/3 ML AMPUL NEB PRN (19:56)
[2017-01-24] MEDS: MIRTAZAPINE 15 MG TABLET PO SCH (21:02)
[2017-01-25] MEDS: HEPARIN SOD (PORCINE) 5,000 UNIT/ML 1 ML SYRINGE SUBCUT SCH ×2 (05:40→13:12)
[2017-01-25] MEDS: IPRATROPIUM/ALBUTEROL 0.5-2.5 MG/3 ML AMPUL NEB SCH ×2 (08:37→14:31)
[2017-01-25 08:47] LABS: ANION GAP 9 (5-19); BLOOD UREA NITROGEN 98 mg/dL (7-20); CALCIUM 8.1 mg/dL (8.4-10.2); CARBON DIOXIDE 35 mmol/L (22-30); CHLORIDE 95 mmol/L (98-107); CREATININE RESULT 1.99 mg/dL (0.52-1.25); GLUCOSE 153 mg/dL (75-110); POTASSIUM 4.1 mmol/L (3.6-5.0); SODIUM 138.5 mmol/L (137-145)
[2017-01-25] MEDS: CARVEDILOL 3.125 MG TABLET PO SCH (09:58)
[2017-01-25] MEDS: MAGNESIUM OXIDE 400 MG TABLET PO SCH (09:58)
[2017-01-25] MEDS: HYDRALAZINE HCL 25 MG TABLET PO SCH (09:58)
[2017-01-25] MEDS: AZITHROMYCIN 250 MG TABLET PO SCH (09:58)
[2017-01-25] MEDS: CETIRIZINE 10 MG TABLET PO SCH (10:00)
[2017-01-25] MEDS: DOCUSATE SODIUM 100 MG CAPSULE PO SCH (10:00)
[2017-01-25] MEDS: LANSOPRAZOLE 30 MG TAB.RAP.DR PO SCH (10:00)
[2017-01-25] MEDS: BUDESONIDE/FORMOTEROL 160-4.5 MCG 60 PUFF/6 GM MDI IH SCH (10:00)
[2017-01-25] MEDS: FERROUS SULFATE 325 MG TABLET PO SCH (10:00)
[2017-01-25] MEDS: DILTIAZEM HCL 120 MG CAP.SR.24H PO SCH (10:00)
[2017-01-25] MEDS: PREDNISONE 20 MG TABLET PO SCH (10:00)
[2017-01-25] MEDS: TIOTROPIUM BROMIDE DPI 5 CAP/KIT (18 MCG/CAP) IH SCH (10:01)
[2017-01-25] MEDS: FLUTICASONE NASAL SPRAY 50 MCG/SPRY 120 SPRAY/16 GM NAREB SCH (10:01)
--- NOTE | 2017-01-25 11:32 | PDOC TRANSFER SUMMARY ---
General - Admit/Disc Date/PCP Admission Date/Primary Care Provider: 01/19/17 16:42 DENIZ CHOW MD Discharge Date: 01/25/17 - Discharge Diagnosis (1) Acute and chronic respiratory failure with hypoxia Is this a current diagnosis for this admission?: YesSummary: Improved to baseline oxygen at 2l/min (2) Acute on chronic renal failure Is this a current diagnosis for this admission?: YesSummary: Improved withhold lasix for 2 more days (3) Acute diastolic (congestive) heart failure Is this a current diagnosis for this admission?: Yes (4) CKD (chronic kidney disease) stage 3, GFR 30-59 ml/min Is this a current diagnosis for this admission?: Yes (5) COPD exacerbation Is this a current diagnosis for this admission?: Yes (6) Anemia in chronic kidney disease (CKD) Is this a current diagnosis for this admission?: Yes (7) COPD (chronic obstructive pulmonary disease) Is this a current diagnosis for this admission?: Yes (8) Hypertension Is this a current diagnosis for this admission?: YesSummary: Continue current medications - Additional Information Resuscitation Status: Full Code Discharge Activity: Activity As Tolerated, Balance Activity w/Rest Home Medications: Albuterol Sulfate [Albuterol Sulfate 2.5mg/3 mL] 1 vial IH RTTID 01/19/17 Albuterol Sulfate [Proair HFA] 2 puff IH QID 01/19/17 Albuterol Sulfate [Proair Respiclick] 2 ahfu IH Q4HP PRN 01/19/17 Atorvastatin Calcium [Lipitor 20 mg Tablet] 20 mg PO QHS 01/19/17 Budesonide/Formoterol Fumarate [Symbicort HFA 160-4.5 mcg Inhaler 6 gm] 2 puff IH Q12 01/19/17 Cetirizine HCl [Zyrtec 10 mg Tablet] 10 mg PO DAILY 01/19/17 Diltiazem HCl [Cardizem Cd 120 mg Capsule] 120 mg PO DAILY 01/19/17 Ergocalciferol (Vitamin D2) [Vitamin D2] 50,000 unit PO FR@1000 01/19/17 Ferrous Sulfate [Feosol 325 mg Tablet] 325 mg PO BID 01/19/17 Fluticasone Propionate [Flonase Nasal [place] 50 Mcg/[place] 16 gm] 2 sprays NAREB Q12 01/19/17 Furosemide [Lasix 20 mg Tablet] 20 mg PO QAM 01/19/17 Hydralazine HCl [Apresoline 25 mg Tablet] 25 mg PO Q12 01/19/17 Magnesium Oxide [Mag-Ox 400 mg Tablet] 400 mg PO DAILY 01/19/17 Mirtazapine 7.5 mg PO QHS 01/19/17 Montelukast Sodium [Singulair 10 mg Tablet] 10 mg PO QHS 01/19/17 Prednisone 10 mg PO DAILY 01/19/17 Tiotropium [place] [Spiriva Handihaler 5 Cap/Kit (18 Mcg/Cap)] 1 cap IH DAILY Acetaminophen [Tylenol 325 mg Tablet] 650 mg PO Q4HP PRN tablet 01/25/17 Albuterol Sulfate [Ventolin 0.083% Neb 2.5 mg/3 mL Ampul] 2.5 mg NEB RTQ3HP PRN vial.neb 01/25/17 Prednisone [Deltasone 20 mg Tablet] 20 mg PO DAILY #5 tablet 01/25/17 History of Present Illness Admission Date/PCP: 01/19/17 16:42 DENIZ CHOW MD Patient complains of: Shortness of breath and wheezing History of Present Illness: LORENZO MENENDEZ is a 81 year old female presents to the ED from home (? - sent to [facility] 10/02 after hospitalization) via EMS for respiratory distress. she is not able to provide a ROS or history due to tangential thoughts and conversation, very rambling and going on about her "doctor told her to come it and get the thing removed". review of the old record shows mention of vascular dementia but it is difficult to get a good read on what her current baseline mental state is and no family came with her to the ED. She remained in distress on arrival with sat 88% in spite of her reported home o2 of 2L/min continuous, with BPs >200/100 so placed on BiPAP and nitro gtt, given high dose IV steroids and multiple breathing treatments with good improvement in her both. she was noted audibly wheezing on arrival and has hx of admissions for COPD exac requiring several days of nebs and steroids before improving. though she has stabilized she remains wheezing and frail and so we were asked to admit for further eval and management. Hospital Course Hospital Course: Patient was admitted to IMCU on telemetry. She received IV steroids, diuretics and nebulizer treatments. respiratory status gradually improved. She was started on broad-spectrum IV antibiotics for possible acute on chronic COPD exacerbation secondary to acute bronchitis. She did diurese well with IV Lasix. She had physical therapy for mobilization. After 3 days of IV diuretic she did have increase in her BUN and creatinine to 104 creatinine 2.1 diuretics were held. She was given 1 L of normal saline over the course of 12 hours IV. Bun and creatinine are trending downward. ` Physical Exam Vital Signs: Temp Pulse Resp BP Pulse Ox 98.2 F 72 20 159/80 H 97 01/25/17 07:35 01/25/17 08:37 01/25/17 08:37 01/25/17 07:35 01/25/17 08:37 Intake & Output 01/24/17 01/25/17 01/26/17 06:59 06:59 06:59 Intake Total 965 2172 Output Total 300 620 Balance 665 1552 Weight 49.8 kg 49.9 kg General appearance: PRESENT: no acute distress, thin, well-developed Head exam: PRESENT: atraumatic, normocephalic Eye exam: PRESENT: conjunctiva pink, EOMI, PERRLA. ABSENT: scleral icterus Ear exam: PRESENT: normal external ear exam Mouth exam: PRESENT: moist, tongue midline Neck exam: ABSENT: carotid bruit, JVD, lymphadenopathy, thyromegaly Respiratory exam: PRESENT: clear to auscultation hansa, symmetrical, unlabored. ABSENT: rales, rhonchi, wheezes Cardiovascular exam: PRESENT: RRR. ABSENT: diastolic murmur, rubs, systolic murmur Pulses: PRESENT: normal dorsalis pedis pul Vascular exam: PRESENT: normal capillary refill GI/Abdominal exam: PRESENT: normal bowel sounds, soft. ABSENT: distended, guarding, mass, organolmegaly, rebound, tenderness Rectal exam: PRESENT: deferred Extremities exam: PRESENT: full ROM. ABSENT: calf tenderness, clubbing, pedal edema Neurological exam: PRESENT: alert, awake, oriented to person, oriented to place , oriented to time, oriented to situation, CN II-XII grossly intact. ABSENT: motor sensory deficit Psychiatric exam: PRESENT: appropriate affect, normal mood. ABSENT: homicidal ideation, suicidal ideation Skin exam: PRESENT: dry, intact, warm. ABSENT: cyanosis, rash Results Laboratory Results: 01/23/17 05:15 01/25/17 07:51 01/25/17 07:51 Sodium 138.5 Potassium 4.1 Chloride 95 L Carbon Dioxide 35 H Anion Gap 9 BUN 98 H Creatinine 1.99 H Est GFR ( Amer) 29 L Est GFR (Non-Af Amer) 24 L Glucose 153 H Calcium 8.1 L 01/19/17 01/20/17 01/21/17 20:55 03:15 05:46 Troponin I 0.081 0.070 NT-Pro-B Natriuret Pep 65159 H 11539 H 01/22/17 06:30 Troponin I NT-Pro-B Natriuret Pep 10596 H Impressions: Venous Doppler Study 01/19/17 00:00 IMPRESSION: NO EVIDENCE DVT OR SVT IN EITHER LEG. Chest X-Ray 01/19/17 12:01 IMPRESSION: COPD. CHRONIC SCARRING. ALMOST COMPLETE RESOLUTION OF THE PREVIOUSLY SEEN LEFT BASILAR INFILTRATE. Lung Scan-VQ NM 01/19/17 21:54 IMPRESSION: LOW PROBABILITY FOR PULMONARY EMBOLUS. HETEROGENEOUS UPTAKE DESCRIBED ABOVE PRESUMABLY RELATED TO PATIENT CHRONIC UNDERLYING LUNG DISEASE. Transfer Plan - Disposition Transfer Plan: [facility] - Time Spent with Patient Time spent with patient: Less than 30 Minutes Qualifiers PATEINT BEING DISCHARGED WITH ANY OF THE FOLLOWING DIAGNOSIS?: No
[2017-01-25 13:27] VITALS: BP 164/73
== END 2017-01-25 17:19 | DRG 190 ==
LOC: ER 11:54 → EH 16:29 → UNDOADMIN 16:29 → EH 16:42 → 3S 18:45
PROVIDERS: ADMIT Internal Medicine; ATTEND Internal Medicine
PROC: 5A09557 Assistance with Respiratory Ventilation, Greater than 96 Consecutive Hours, Continuous Positive Airway Pressure (ICD-10-PCS; principal; 2017-01-19)
DX: J44.1 Chronic obstructive pulmonary disease with (acute) exacerbation (principal); J96.01 Acute respiratory failure with hypoxia; I50.33 Acute on chronic diastolic (congestive) heart failure; J18.9 Pneumonia, unspecified organism; I13.0 Hypertensive heart and chronic kidney disease with heart failure and stage 1 through stage 4 chronic kidney disease, or unspecified chronic kidney disease; N17.9 Acute kidney failure, unspecified; J20.9 Acute bronchitis, unspecified; J44.0 Chronic obstructive pulmonary disease with (acute) lower respiratory infection; E78.5 Hyperlipidemia, unspecified; M19.90 Unspecified osteoarthritis, unspecified site; I48.91 Unspecified atrial fibrillation; F01.50 Vascular dementia, unspecified severity, without behavioral disturbance, psychotic disturbance, mood disturbance, and anxiety; N18.3 Chronic kidney disease, stage 3 (moderate); D63.1 Anemia in chronic kidney disease; Z99.81 Dependence on supplemental oxygen; Z90.710 Acquired absence of both cervix and uterus; Z79.899 Other long term (current) drug therapy; Z79.52 Long term (current) use of systemic steroids
CPT/HCPCS: 36415; 71010; 78582; 80048; 80053; 82550; 82803; 83605; 83690; 83735; 83880; 84484; 85025; 85379; 87040; 93005; 93010; 93970; 94640; 94660; 96365; 99291; A9540; A9567; J0456; J0696; J1644; J1940; J2920; J3490; J7030; J7060; J7512; J7620; Q9969; S0164

== ENCOUNTER 2017-02-19 21:58 | Inpatient (IN) | payer MEDICARE, OTHER ==
[2017-02-19] MEDS ORDERED: NITROGLYCERIN/D5W 50 MG/250 ML RTUINJ IV PRN (22:19)
[2017-02-19] MEDS ORDERED: FUROSEMIDE INJ/PF 100 MG/10 ML SDV IV ONE (22:19)
--- NOTE | 2017-02-19 22:21 | RADIOLOGY REPORT (SQ) ---
EXAM DESCRIPTION: CHEST SINGLE VIEW COMPLETED DATE/TIME: 02/19/2017 10:12 pm REASON FOR STUDY: difficulty breathing COMPARISON: 01/19/2017 EXAM PARAMETERS: NUMBER OF VIEWS: One view. TECHNIQUE: Single frontal radiographic view of the chest acquired. RADIATION DOSE: NA LIMITATIONS: None. FINDINGS: LUNGS AND PLEURA: Increasing bibasilar opacities and bilateral effusions. Question aspira tion complex. None Pneumothorax. MEDIASTINUM AND HILAR STRUCTURES: No masses. Contour normal. HEART AND VASCULAR STRUCTURES: Heart normal in size. Normal vasculature. BONES: No acute findings. HARDWARE: None in the chest. OTHER: No other significant finding. IMPRESSION: Increasing bibasilar opacities and effusions. Question aspiration complex. TECHNICAL DOCUMENTATION: JOB ID: [id number]
[2017-02-19 22:23] LABS: VENOUS BLOOD BASE EXCESS 1.6 mmol/L; VENOUS BLOOD HCO3 28.5 mmol/L (20-32); VENOUS BLOOD PH 7.34 (7.30-7.42)
[2017-02-19 22:29] LABS: PROTHROMBIN TIME 11.7 SEC (11.4-15.4)
[2017-02-19 22:39] LABS: ALANINE AMINOTRANSFERASE 68 U/L (9-52); ALBUMIN 4.2 g/dL (3.5-5.0); ALKALINE PHOSPHATASE 106 U/L (38-126); ANION GAP 10 (5-19); ASPARTATE AMINO TRANSFERASE 71 U/L (14-36); BILIRUBIN,DIRECT 0.4 mg/dL (0.0-0.4); BILIRUBIN,TOTAL 0.6 mg/dL (0.2-1.3); BLOOD UREA NITROGEN 64 mg/dL (7-20); CALCIUM 10.4 mg/dL (8.4-10.2); CARBON DIOXIDE 36 mmol/L (22-30); CHLORIDE 95 mmol/L (98-107); CREATININE RESULT 1.98 mg/dL (0.52-1.25); GLUCOSE 138 mg/dL (75-110); POTASSIUM 4.5 mmol/L (3.6-5.0); SODIUM 140.5 mmol/L (137-145); TOTAL PROTEIN 7.1 g/dL (6.3-8.2)
[2017-02-19 23:06] LABS: TROPONIN I 0.35 ng/mL
[2017-02-19 23:20] LABS: APPEARANCE,URINE SLIGHTLY-CLOUDY; BILIRUBIN,URINE NEGATIVE (NEGATIVE); GLUCOSE, URINE NEGATIVE (NEGATIVE); KETONES,URINE NEGATIVE (NEGATIVE); LEUKOCYTE ESTERASE,URINE NEGATIVE (NEGATIVE); NITRITE,URINE NEGATIVE (NEGATIVE); PROTEIN,URINE NEGATIVE (NEGATIVE); URINE SPECIFIC GRAVITY 1.015; UROBILINOGEN,URINE NEGATIVE mg/dL (<2.0)
--- NOTE | 2017-02-19 23:21 | EKG REPORT ---
SEVERITY:- ABNORMAL ECG - SINUS RHYTHM CONSIDER LEFT VENTRICULAR HYPERTROPHY : Confirmed by: Lupillo Pedroza 19-Feb-2017 23:21:04
[2017-02-19 23:24] LABS: HEMATOCRIT 26.4 % (36.0-47.0); HGB HCT DIFFERENCE 0.6; MEAN CORPUSCULAR HEMOGLOBIN 30.6 pg (27.0-33.4); MEAN CORPUSCULAR HGB CONC 34.1 g/dL (32.0-36.0); MEAN CORPUSCULAR VOLUME 90 fl (80-97); RED BLOOD COUNT 2.95 10^6/uL (3.72-5.28); RED CELL DISTRIBUTION WIDTH 17.2 % (11.5-14.0); WHITE BLOOD COUNT 8.1 10^3/uL (4.0-10.5)
[2017-02-19 23:36] LABS: BASOPHILS % (MANUAL) 0 % (0-2); EOSINOPHILS % (MANUAL) 0 % (0-6); LYMPHOCYTES % (MANUAL) 2 % (13-45); TOTAL CELLS COUNTED 100
[2017-02-19 23:37] LABS: OVALOCYTES SLIGHT; POIKILOCYTOSIS SLIGHT; POLYCHROMASIA SLIGHT; TOXIC GRANULATION SLIGHT
[2017-02-20 00:35] LABS: ARTERIAL BLOOD BASE EXCESS 10.5 mmol/L; ARTERIAL BLOOD O2 SATURATION 92.4 % (94-98)
--- NOTE | 2017-02-20 01:10 | ER Document Report ---
ED General - General Chief Complaint: Breathing Difficulty Stated Complaint: DIFFICULTY BREATHING Time Seen by Provider: 02/19/17 22:17 Mode of Arrival: Medic Information source: Patient, Emergency Med Personnel TRAVEL OUTSIDE OF THE [place] IN LAST 30 DAYS: No - HPI Notes: Patient is a 81-year-old female history of CHF, acute kidney injury, COPD presents to the emergency department with report of difficulty breathing progressive over the course of the last evening with increasing lower extremity edema. Patient denies any chest pain, nausea or vomiting. Patient had oxygen saturations in the 80s at the senior living and was placed upon BiPAP and given IV Solu-Medrol 125 mg and a DuoNeb in route by EMS for wheezing. The patient had improvement in her oxygen saturations. Patient had recent admission with a negative VQ scan and negative ultrasound of both lower extremities this past month. She was discharged back to [facility]. Review of record shows patient had a Cardiolite study done on 07/13/15 which showed a ejection fraction of 74% and a nonischemic result. Previous echocardiogram last recorded on 06/15/16 showed left ventricular ejection fraction greater than 65%. Patient is unable to have cardiac catheterization due to her renal insufficiency , previously having a creatinine that went up to 5.83 thought secondary to overdiuresis. Patient has no family. Her 10 years ago and she has no children. Contact was made with a neighbor which is her only listed contact. There is no power of tax associate attorney listed. - Related Data Allergies/Adverse Reactions: No Known Allergies Allergy (Verified 01/19/17 12:21) Past Medical History - General Information source: Patient - Social History Smoking Status: Unknown if Ever Smoked Frequency of alcohol use: None Drug Abuse: None Lives with: Senior Living Family History: Reviewed & Not Pertinent, Hypertension, Malignancy - Past Medical History Cardiac Medical History: Reports: Hx Congestive Heart Failure, Hx Hypercholesterolemia, Hx Hypertension Denies: Hx Heart Attack Pulmonary Medical History: Reports: Hx COPD Denies: Hx Asthma Neurological Medical History: Denies: Hx Cerebrovascular Accident, Hx Seizures Renal/ Medical History: Denies: Hx Peritoneal Dialysis GI Medical History: Denies: Hx Hepatitis, Hx Hiatal Hernia, Hx Ulcer Musculoskeltal Medical History: Reports Hx Arthritis Infectious Medical History: Denies: Hx Hepatitis Past Surgical History: Reports: Hx Hysterectomy, Other - Cataract surgery. Denies: Hx Mastectomy, Hx Open Heart Surgery, Hx Pacemaker Review of Systems - Review of Systems Notes: REVIEW OF SYSTEMS: CONSTITUTIONAL : Denies fever, chills, or sweats. Denies recent illness. EENT: Denies eye, ear, throat, or mouth pain or symptoms. Denies nasal or sinus congestion or discharge. Denies throat, tongue, or mouth swelling or difficulty swallowing. CARDIOVASCULAR: Denies chest pain. Denies palpitations or racing or irregular heart beat. Denies ankle edema. RESPIRATORY: Denies cough, cold, or chest congestion. GASTROINTESTINAL: Denies abdominal pain or distention. Denies nausea, vomiting , or diarrhea. Denies blood in vomitus, stools, or per rectum. Denies black, tarry stools. Denies constipation. GENITOURINARY: Denies difficulty urinating, painful urination, burning, frequency, blood in urine, or discharge. FEMALE GENITOURINARY: Denies vaginal bleeding, heavy or abnormal periods, irregular periods. Denies vaginal discharge or odor. MUSCULOSKELETAL: Denies back or neck pain or stiffness. Denies joint pain or swelling. SKIN: Denies rash, lesions or sores. HEMATOLOGIC : Denies easy bruising or bleeding. LYMPHATIC: Denies swollen, enlarged glands. NEUROLOGICAL: Denies confusion or altered mental status. Denies passing out or loss of consciousness. Denies dizziness or lightheadedness. Denies headache. Denies weakness or paralysis or loss of use of either side. Denies problems with gait or speech. Denies sensory loss, numbness, or tingling. Denies seizures. PSYCHIATRIC: Denies anxiety or stress. Denies depression, suicidal ideation, or homicidal ideation. ALL OTHER SYSTEMS REVIEWED AND NEGATIVE. Dictation was performed using [employer] voice recognition software Physical Exam - Vital signs Vitals: Pulse Ox 97 02/19/17 22:00 - Notes Notes: PHYSICAL EXAMINATION: GENERAL: Initially seen in obvious respiratory distress. BiPAP in place. HEAD: Atraumatic, normocephalic. EYES: Pupils equal round and reactive to light, extraocular movements intact, conjunctiva are normal. ENT: Nares patent, oropharynx clear without exudates. Moist mucous membranes. NECK: Normal range of motion, supple without lymphadenopathy. Positive JVD LUNGS: Breath sounds coarse bilaterally with scant expiratory wheeze and Rales and diminished through the bases. HEART: Regular rate and rhythm with 2/6 systolic ejection murmur best auscultated over the apex with mild S4 gallop. ABDOMEN: Soft, nontender, nondistended abdomen. No guarding, no rebound. No masses appreciated. Female : deferred Musculoskeletal: Normal range of motion. No cyanosis. 3+ bilateral lower extremity edema. Negative Homans. No palpable cord. NEUROLOGICAL: Cranial nerves grossly intact. Normal speech, normal gait. Normal sensory, motor exams. Patient is unaware of the president but knows her name and the hospital. She initially stated it was 2076, later corrected herself to 2016 PSYCH: Normal mood, normal affect. Patient was smiling and interactive on later exam. SKIN: Warm, Dry, normal turgor, no rashes or lesions noted. Course - Re-evaluation Re-evalutation: 02/20/17 04:22 Patient initially was placed upon BiPAP and watched for 4 hours. She remained alert and interactive. O2 sats remained stable. Blood gas showed only minimal hypercarbia and the patient has a history of the same. Patient was given a DuoNeb treatment. She had already received IV Solu-Medrol in route by EMS. Patient was given Lasix 80 mg IV upon arrival. Later she was given Bumex 1 mg IV. Patient was guaiac negative and was started on heparin protocol. On repeat exam she denied any chest pain again. Patient was kept on a nitroglycerin drip which was titrated For blood pressure control. Patient's renal insufficiency would not be conducive to DIANN inhibitor use at this time. Renal insufficiency is chronic and unchanged, if not slightly improved from previous values. Troponin showed mild elevation which would be more consistent with strain versus subendocardial WA.. There is no obvious evidence for STEMI. Review of records shows that patient has not had echocardiogram or other evaluation of her ejection fraction for the last 8 months. Patient will need echocardiogram performed. Patient was able to be weaned off the BiPAP and was interactive and doing well on 3 L of nasal cannula oxygen after 4 hours on BiPAP. Discussed with patient, and she was in agreement with admission here for further evaluation and management. In discussion, the patient stated she did not want to leave the senior living to come to the hospital to start with. Discussion was undertaken with the hospitalist Dr. Miller and he agreed to admit the patient for further evaluation and management. Patient was started up on heparin. Vital signs were stable. - Vital Signs Vital signs: Temp Pulse Resp BP Pulse Ox 98.8 F 104 H 19 163/83 H 97 02/20/17 04:16 02/19/17 22:02 02/20/17 04:16 02/20/17 04:16 02/20/17 04:16 - Laboratory Result Diagrams: 02/19/17 23:05 02/19/17 22:06 Laboratory results interpreted by me: 02/19/17 02/19/17 02/19/17 22:06 22:06 22:06 RBC Hgb Hct RDW Seg Neuts % (Manual) Lymphocytes % (Manual) Abs Lymphs (Manual) Carbonic Acid ABG pCO2 ABG pO2 ABG HCO3 ABG Total CO2 ABG O2 Saturation Chloride 95 L Carbon Dioxide 36 H BUN 64 H Creatinine 1.98 H Est GFR ( Amer) 29 L Est GFR (Non-Af Amer) 24 L Glucose 138 H Calcium 10.4 H Magnesium 3.2 H AST 71 H ALT 68 H NT-Pro-B Natriuret Pep 73987 H Urine Ascorbic Acid 02/19/17 02/19/17 02/20/17 22:41 23:05 00:15 RBC 2.95 L Hgb 9.0 L Hct 26.4 L RDW 17.2 H Seg Neuts % (Manual) 95 H Lymphocytes % (Manual) 2 L Abs Lymphs (Manual) 0.2 L Carbonic Acid 1.65 H ABG pCO2 54.9 H ABG pO2 63.1 L ABG HCO3 36.1 H ABG Total CO2 37.8 H ABG O2 Saturation 92.4 L Chloride Carbon Dioxide BUN Creatinine Est GFR ( Amer) Est GFR (Non-Af Amer) Glucose Calcium Magnesium AST ALT NT-Pro-B Natriuret Pep Urine Ascorbic Acid 40 H - EKG Interpretation by Me EKG shows normal: Sinus rhythm Additional EKG results interpreted by me: 02/20/17 04:19 EKG #1 at 02/19/17 at 2239 showed normal sinus rhythm heart rate of 97. There was a mild baseline rhythm disturbance but no significant change from previous EKG from 01/19/17. There was mild left ventricular hypertrophy identified. No obvious evidence for acute WA. EKG #2 on 02/20/17 at 0 351 showed normal sinus rhythm heart rate of 87. Again there is left ventricular hypertrophy identified. There is no obvious evidence for acute WA or ischemia noted. Critical Care Note - Critical Care Note Total time excluding time spent on procedures (mins): 92 Discharge - Discharge Clinical Impression: Hypercarbia, COPD exacerbation, Renal insufficiency, Hypoxia CHF (congestive heart failure) Qualifiers: Congestive heart failure type: unspecified congestive heart failure type Congestive heart failure chronicity: acute on chronic Qualified Code(s): I50.9 - Heart failure, unspecified Condition: Stable Disposition: ADMITTED INPATIENT Admitting Provider: Hospitalist Unit Admitted: IMCU
[2017-02-20] MEDS ORDERED: BUMETANIDE INJ/PF 1 MG/4 ML SDV IV PRN (02:41)
[2017-02-20] MEDS ORDERED: HEPARIN SOD (PORCINE) 1,000 UNIT/ML 10 ML VIAL IV PRN (04:20)
[2017-02-20] MEDS ORDERED: HEPARIN SODIUM,PORCINE/D5W 25,000 UNIT/250 ML RTUINJ IV PRN (04:20)
[2017-02-20] MEDS ORDERED: HEPARIN SOD (PORCINE) 1,000 UNIT/ML 10 ML VIAL IV ONE (04:20)
[2017-02-20] MEDS ORDERED: NITROGLYCERIN 0.4 MG/TAB 25 TAB/BOTTLE SL PRN (04:29)
[2017-02-20] MEDS ORDERED: METOPROLOL TARTRATE PF/INJ 5 MG/5 ML SDV IV PRN (04:29)
[2017-02-20] MEDS ORDERED: CLOPIDOGREL BISULFATE 300 MG TABLET PO ONE (05:00)
[2017-02-20] MEDS ORDERED: ATORVASTATIN CALCIUM 80 MG TABLET PO ONE (05:00)
[2017-02-20] MEDS ORDERED: METOPROLOL TARTRATE PF/INJ 5 MG/5 ML SDV IV ONE (05:00)
[2017-02-20] MEDS ORDERED: ENALAPRIL MALEATE 5 MG TABLET PO ONE (05:00)
--- NOTE | 2017-02-20 05:35 | PDOC H&P ---
History of Present Illness Patient complains of: Shortness of breath History of Present Illness: LORENZO MENENDEZ is a 81 year old female with a past medical history of dementia , coronary artery disease, diastolic heart failure and COPD who is a retirement resident brought to the emergency room via EMS for complaints of shortness of breath and lower extremity swelling. In the emergency room she is noted to be a very poor historian but denies chest pain nausea vomiting or palpitations. Her workup is notable for a positive troponin and EKG with ST changes in anterior leads. She is started on IV heparin and referred to the hospitalist for admission. Patient is and without children or power of real estate attorney. Past Medical History Cardiac Medical History: Reports: Congestive Heart Failure, Coronary Artery Disease, Hyperlipidema, Hypertension Denies: Myocardial Infarction Pulmonary Medical History: Reports: Chronic Obstructive Pulmonary Disease (COPD) Denies: Asthma Neurological Medical History: Denies: Seizures GI Medical History: Denies: Hepatitis, Hiatal Hernia Musculoskeltal Medical History: Reports: Arthritis Psychiatric Medical History: Reports: Dementia Hematology: Denies: Anemia, Sickle Cell Disease Past Surgical History Past Surgical History: Reports: Hysterectomy, Other - Cataract surgery Denies: Amputation, Mastectomy, Pacemaker Social History Information Source: Emergency Med Personnel, [facility] Records Lives with: Snf Smoking Status: Unknown if Ever Smoked Frequency of Alcohol Use: None Hx Recreational Drug Use: No Drugs: None Hx Prescription Drug Abuse: No - Advance Directive Resuscitation Status: Do Not Resuscitate Family History Family History: Reviewed & Not Pertinent, Hypertension, Malignancy Parental Family History Reviewed: Yes Children Family History Reviewed: Yes Sibling(s) Family History Reviewed.: Yes Medication/Allergy Home Medications: Albuterol Sulfate [Albuterol Sulfate 2.5mg/3 mL] 1 vial IH RTTID 01/19/17 Albuterol Sulfate [Proair HFA] 2 puff IH QID 01/19/17 Albuterol Sulfate [Proair Respiclick] 2 ahfu IH Q4HP PRN 01/19/17 Atorvastatin Calcium [Lipitor 20 mg Tablet] 20 mg PO QHS 01/19/17 Budesonide/Formoterol Fumarate [Symbicort HFA 160-4.5 mcg Inhaler 6 gm] 2 puff IH Q12 01/19/17 Cetirizine HCl [Zyrtec 10 mg Tablet] 10 mg PO DAILY 01/19/17 Diltiazem HCl [Cardizem Cd 120 mg Capsule] 120 mg PO DAILY 01/19/17 Ergocalciferol (Vitamin D2) [Vitamin D2] 50,000 unit PO FR@1000 01/19/17 Ferrous Sulfate [Feosol 325 mg Tablet] 325 mg PO BID 01/19/17 Fluticasone Propionate [Flonase Nasal [place] 50 Mcg/[place] 16 gm] 2 sprays NAREB Q12 01/19/17 Furosemide [Lasix 20 mg Tablet] 20 mg PO QAM 01/19/17 Hydralazine HCl [Apresoline 25 mg Tablet] 25 mg PO Q12 01/19/17 Magnesium Oxide [Mag-Ox 400 mg Tablet] 400 mg PO DAILY 01/19/17 Mirtazapine 7.5 mg PO QHS 01/19/17 Montelukast Sodium [Singulair 10 mg Tablet] 10 mg PO QHS 01/19/17 Prednisone 10 mg PO DAILY 01/19/17 Tiotropium [place] [Spiriva Handihaler 5 Cap/Kit (18 Mcg/Cap)] 1 cap IH DAILY Acetaminophen [Tylenol 325 mg Tablet] 650 mg PO Q4HP PRN tablet 01/25/17 Albuterol Sulfate [Ventolin 0.083% Neb 2.5 mg/3 mL Ampul] 2.5 mg NEB RTQ3HP PRN vial.neb 01/25/17 Prednisone [Deltasone 20 mg Tablet] 20 mg PO DAILY #5 tablet 01/25/17 Allergies/Adverse Reactions: No Known Allergies Allergy (Verified 01/19/17 12:21) Review of Systems ROS unobtainable: Due to mental status - Inconsistent answers secondary to dementia. Physical Exam Vital Signs: Temp Pulse Resp BP Pulse Ox 98.8 F 104 H 19 163/83 H 97 02/20/17 04:16 02/19/17 22:02 02/20/17 04:16 02/20/17 04:16 02/20/17 04:16 Intake & Output 02/18/17 02/19/17 02/20/17 11:59 11:59 11:59 Weight 55 kg General appearance: PRESENT: cooperative, hard of hearing, mild distress. ABSENT: disheveled Head exam: PRESENT: atraumatic, normocephalic Eye exam: PRESENT: conjunctiva pink, EOMI, PERRLA. ABSENT: scleral icterus Ear exam: PRESENT: normal external ear exam Mouth exam: PRESENT: moist, tongue midline Neck exam: ABSENT: carotid bruit, JVD, lymphadenopathy, thyromegaly Respiratory exam: PRESENT: crackles, tachypnea. ABSENT: accessory muscle use, chest wall tenderness, rales, rhonchi, wheezes Cardiovascular exam: PRESENT: RRR. ABSENT: diastolic murmur, rubs, systolic murmur Pulses: PRESENT: normal dorsalis pedis pul Vascular exam: PRESENT: normal capillary refill GI/Abdominal exam: PRESENT: normal bowel sounds, soft. ABSENT: distended, guarding, mass, organolmegaly, rebound, tenderness Rectal exam: PRESENT: deferred Extremities exam: PRESENT: +2 edema Neurological exam: PRESENT: alert, awake, oriented to person, oriented to place , oriented to time, oriented to situation, CN II-XII grossly intact. ABSENT: motor sensory deficit Psychiatric exam: PRESENT: appropriate affect, normal mood. ABSENT: homicidal ideation, suicidal ideation Skin exam: PRESENT: dry, intact, warm. ABSENT: cyanosis, rash Results Laboratory Results: 02/19/17 23:05 02/19/17 22:06 02/19/17 02/19/17 02/19/17 22:06 22:06 22:06 WBC Cancelled RBC Cancelled Hgb Cancelled Hct Cancelled MCV Cancelled MCH Cancelled MCHC Cancelled RDW Cancelled Plt Count Cancelled Seg Neutrophils % Cancelled Lymphocytes % Cancelled Monocytes % Cancelled Eosinophils % Cancelled Basophils % Cancelled Absolute Neutrophils Cancelled Absolute Lymphocytes Cancelled Absolute Monocytes Cancelled Absolute Eosinophils Cancelled Absolute Basophils Cancelled Carbonic Acid HCO3/H2CO3 Ratio ABG pH ABG pCO2 ABG pO2 ABG HCO3 ABG O2 Saturation ABG Base Excess VBG pH 7.34 VBG pCO2 54.0 VBG HCO3 28.5 VBG Base Excess 1.6 FiO2 Sodium 140.5 Potassium 4.5 Chloride 95 L Carbon Dioxide 36 H Anion Gap 10 BUN 64 H Creatinine 1.98 H Est GFR ( Amer) 29 L Est GFR (Non-Af Amer) 24 L Glucose 138 H Lactic Acid Calcium 10.4 H Magnesium Total Bilirubin 0.6 AST 71 H ALT 68 H Alkaline Phosphatase 106 Total Protein 7.1 Albumin 4.2 Urine Color Urine Appearance Urine pH Ur Specific [place] Urine Protein Urine Glucose (UA) Urine Ketones Urine Blood Urine Nitrite Ur Leukocyte Esterase Urine WBC (Auto) Urine RBC (Auto) Stool Occult Blood 02/19/17 02/19/17 02/19/17 22:06 22:41 22:41 WBC RBC Hgb Hct MCV MCH MCHC RDW Plt Count Seg Neutrophils % Lymphocytes % Monocytes % Eosinophils % Basophils % Absolute Neutrophils Absolute Lymphocytes Absolute Monocytes Absolute Eosinophils Absolute Basophils Carbonic Acid HCO3/H2CO3 Ratio ABG pH ABG pCO2 ABG pO2 ABG HCO3 ABG O2 Saturation ABG Base Excess VBG pH VBG pCO2 VBG HCO3 VBG Base Excess FiO2 Sodium Potassium Chloride Carbon Dioxide Anion Gap BUN Creatinine Est GFR ( Amer) Est GFR (Non-Af Amer) Glucose Lactic Acid 1.4 Calcium Magnesium 3.2 H Total Bilirubin AST ALT Alkaline Phosphatase Total Protein Albumin Urine Color YELLOW Urine Appearance SLIGHTLY-CLOUDY Urine pH 5.0 Ur Specific [place] 1.015 Urine Protein NEGATIVE Urine Glucose (UA) NEGATIVE Urine Ketones NEGATIVE Urine Blood NEGATIVE Urine Nitrite NEGATIVE Ur Leukocyte Esterase NEGATIVE Urine WBC (Auto) 2 Urine RBC (Auto) 1 Stool Occult Blood 02/19/17 02/20/17 02/20/17 23:05 00:15 02:48 WBC 8.1 RBC 2.95 L Hgb 9.0 L Hct 26.4 L MCV 90 MCH 30.6 MCHC 34.1 RDW 17.2 H Plt Count 225 Seg Neutrophils % Not Reportable Lymphocytes % Not Reportable Monocytes % Not Reportable Eosinophils % Not Reportable Basophils % Not Reportable Absolute Neutrophils Not Reportable Absolute Lymphocytes Not Reportable Absolute Monocytes Not Reportable Absolute Eosinophils Not Reportable Absolute Basophils Not Reportable Carbonic Acid 1.65 H HCO3/H2CO3 Ratio 21:1 ABG pH 7.44 ABG pCO2 54.9 H ABG pO2 63.1 L ABG HCO3 36.1 H ABG O2 Saturation 92.4 L ABG Base Excess 10.5 VBG pH VBG pCO2 VBG HCO3 VBG Base Excess FiO2 30% Sodium Potassium Chloride Carbon Dioxide Anion Gap BUN Creatinine Est GFR ( Amer) Est GFR (Non-Af Amer) Glucose Lactic Acid Calcium Magnesium Total Bilirubin AST ALT Alkaline Phosphatase Total Protein Albumin Urine Color Urine Appearance Urine pH Ur Specific [place] Urine Protein Urine Glucose (UA) Urine Ketones Urine Blood Urine Nitrite Ur Leukocyte Esterase Urine WBC (Auto) Urine RBC (Auto) Stool Occult Blood NEGATIVE 02/19/17 02/20/17 22:06 02:32 Troponin I 0.350 1.060 NT-Pro-B Natriuret Pep 39521 H Impressions: Chest X-Ray 02/19/17 22:00 IMPRESSION: Increasing bibasilar opacities and effusions. Question aspiration complex. Assessment & Plan - Diagnosis (1) ST elevation VT (STEMI) Is this a current diagnosis for this admission?: Yes Plan: Conservative management given minimal symptoms and dementia. Possibly secondary to hypertensive emergency. That said she is admitted to the [facility] with an acute coronary syndrome care set, IV nitroglycerin, heparin, aspirin, Plavix, Lipitor. Serial cardiac enzymes and EKG ordered cardiology consulted. (2) CHF (congestive heart failure) Qualifiers: Congestive heart failure type: unspecified congestive heart failure type Congestive heart failure chronicity: acute on chronic Qualified Code(s): I50.9 - Heart failure, unspecified Is this a current diagnosis for this admission?: Yes Plan: Diastolic failure with evidence of uncontrolled hypertension she will receive IV Vasotec and Lopressor consider gentle diuresis however she already appears to be intravascularly depleted. (3) Anemia in chronic kidney disease (CKD) Qualifiers: Chronic kidney disease stage: stage 3 (moderate) Qualified Code(s): N18.3 - Chronic kidney disease, stage 3 (moderate) Is this a current diagnosis for this admission?: Yes Plan: Consider transfusion as needed hemoglobin less than 9. (4) Renal insufficiency Is this a current diagnosis for this admission?: Yes Plan: Likely secondary prerenal azotemia with hypovolemia and poor cardiac output. Avoid nephrotoxic meds and doses reevaluate chemistry - Time Time Spent: 50 to 70 Minutes - Inpatient Certification Medical Necessity: Need Close Monitoring Due to Risk of Patient Decompensation
[2017-02-20 05:44] LABS: HEMATOCRIT 23.7 % (36.0-47.0); HEMOGLOBIN 8.1 g/dL (12.0-15.5); HGB HCT DIFFERENCE 0.6; MEAN CORPUSCULAR HEMOGLOBIN 30.5 pg (27.0-33.4); MEAN CORPUSCULAR HGB CONC 34.2 g/dL (32.0-36.0); MEAN CORPUSCULAR VOLUME 89 fl (80-97); RED BLOOD COUNT 2.66 10^6/uL (3.72-5.28); RED CELL DISTRIBUTION WIDTH 17.4 % (11.5-14.0); WHITE BLOOD COUNT 5.4 10^3/uL (4.0-10.5)
[2017-02-20 05:46] LABS: PROTHROMBIN TIME 12.2 SEC (11.4-15.4)
[2017-02-20 05:47] LABS: PARTIAL THROMBOPLASTIN TIME 28.6 SEC (23.5-35.8)
[2017-02-20 05:50] LABS: ANION GAP 8 (5-19); BLOOD UREA NITROGEN 63 mg/dL (7-20); CALCIUM 9.8 mg/dL (8.4-10.2); CARBON DIOXIDE 36 mmol/L (22-30); CHLORIDE 96 mmol/L (98-107); CHOLESTEROL 192.08 mg/dL (0-200); CREATININE RESULT 1.93 mg/dL (0.52-1.25); Direct HDL 80 mg/dL (>40); GLUCOSE 158 mg/dL (75-110); POTASSIUM 4.2 mmol/L (3.6-5.0); SODIUM 140.2 mmol/L (137-145); TRIGLYCERIDES 88 mg/dL (<150)
[2017-02-20 06:00] LABS: DIRECT LDL 96 mg/dL (<100)
[2017-02-20 06:01] LABS: CREATINE KINASE MB 4.57 ng/mL (<4.55)
[2017-02-20 06:03] LABS: BASOPHILS % (MANUAL) 0 % (0-2); EOSINOPHILS % (MANUAL) 0 % (0-6); LYMPHOCYTES % (MANUAL) 4 % (13-45); TOTAL CELLS COUNTED 100
[2017-02-20 06:04] LABS: TOXIC GRANULATION SLIGHT; TROPONIN I 1.33 ng/mL
[2017-02-20 06:05] LABS: ANISOCYTOSIS 1+; OVALOCYTES SLIGHT; POIKILOCYTOSIS SLIGHT; SCHISTOCYTES SLIGHT; TEAR DROP CELLS SLIGHT
[2017-02-20] MEDS ORDERED: FUROSEMIDE INJ/PF 20 MG/2 ML SDV IV ONE (08:40)
[2017-02-20 09:01] LABS: HEMATOCRIT 23.7 % (36.0-47.0); HGB HCT DIFFERENCE 0.3; MEAN CORPUSCULAR HEMOGLOBIN 30.1 pg (27.0-33.4); MEAN CORPUSCULAR HGB CONC 33.9 g/dL (32.0-36.0); MEAN CORPUSCULAR VOLUME 89 fl (80-97); RED BLOOD COUNT 2.68 10^6/uL (3.72-5.28); RED CELL DISTRIBUTION WIDTH 16.9 % (11.5-14.0); WHITE BLOOD COUNT 4.5 10^3/uL (4.0-10.5)
[2017-02-20 09:08] LABS: PROTHROMBIN TIME 12.8 SEC (11.4-15.4)
[2017-02-20 09:20] LABS: ANION GAP 9 (5-19); BLOOD UREA NITROGEN 63 mg/dL (7-20); CALCIUM 9.4 mg/dL (8.4-10.2); CARBON DIOXIDE 36 mmol/L (22-30); CHLORIDE 95 mmol/L (98-107); CREATININE RESULT 1.74 mg/dL (0.52-1.25); GLUCOSE 143 mg/dL (75-110); POTASSIUM 4.1 mmol/L (3.6-5.0); SODIUM 140.3 mmol/L (137-145)
[2017-02-20 09:21] VITALS: BP 133/80
[2017-02-20 09:24] LABS: PARTIAL THROMBOPLASTIN TIME 98.5 SEC (23.5-35.8)
--- NOTE | 2017-02-20 09:36 | TRANSFER SUMMARY E ---
Transfer Summary NAME: LORENZO MENENDEZ : 1935 AGE: 81Y ADMITTED: 02/20/2017 TRANSFERRED: 02/20/2017 DIAGNOSES AT THE TIME OF DISCHARGE: 1. STEMI 2. Chronic kidney disease. 3. Chronic obstructive pulmonary disease. 4. Coronary artery disease. 5. Congestive heart failure. 6. Chronic steroid dependency. 7. Acute on chronic respiratory failure. 8. Vitamin E deficiency. 9. Hypertension. 10. Hyperlipidemia. 11. Hyperosmolar hyponatremia. 12. Seasonal rhinitis. HOSPITAL COURSE: Patient is an 81-year-old [place] female who presented to the emergency department with complaints of chest pain. Initially patient was felt to be having a NSTEMI with ST segment depressions in I, II, and aVF. Patient subsequently began developing more chest pain and while with these ST segment depressions in I, II, began having ST segment elevation in V1, II, and III, as well as a positive troponin of 1.3. Discussion with patient reveals that she is actively having chest pain and at this time discussion with patient through the [employer] translator interpreter, reports that patient wishes to be a full code and is amenable to stenting if at all possible. Patient's chest x-rays reveal bilateral opacities as well as effusion. PHYSICAL EXAMINATION: VITAL SIGNS: Reveals a temperature of 99.0, oxygen saturation of 96% on 2 liters nasal cannula, respiratory rate of 12, pulse of 87, and a blood pressure of 137/82. GENERAL: Patient is awake, alert, and oriented to person, place, and situation. She is in mild to moderate respiratory distress. HEENT: She is atraumatic, normocephalic. Pupils are equal, round, reactive to light and accommodation. Extraocular movements intact. Her mucosa is moist. NECK: Supple. She has JVD. Her trachea is midline. CHEST: Diminished bases bilaterally as well as rhonchi in the right lobe. CARDIOVASCULAR: Regular rate and rhythm without appreciable murmur, rub, or gallop. EXTREMITIES: Reveal 3+ bilateral lower extremity edema. NEUROLOGIC: Grossly intact. PSYCH: Normal mood and affect. LABORATORY VALUES: As follows: White count of 5.4, hemoglobin is 8.1, hematocrit of 23.7, and platelets of 194. INR of 0.85. ABG reveals a pH of 7.44, pCO2 of 54.9, pO2 of 63.1, and bicarbonate of 36.1 on 30%. Her sodium is 140, potassium 4.2, chloride 96, CO2 36, BUN 63, creatinine 1.93, glucose 158, calcium 9.8. Troponin of 1.33 at 5 a.m. Triglycerides of 88, cholesterol of 192, LDL of 96, VLDL of 18, and HDL of 80. Blood and urine cultures are pending. IMPRESSION AND PLAN: This is an 81-year-old female with STEMI. Patient has already received heparin bolus, nitroglycerin drip, and continues to have chest pain. She has received atorvastatin as well as 300 mg of Plavix. Patient takes Vasotec and also received this medication at approximately 0451 this morning. Currently we are pending repeat values of her troponin as well as a repeat EKG. Patient does continue to have some chest pain despite this. Patient, at this time, is listed as a DNR but it appears as though she wishes to be a full code. Regrettably, this patient has no family and is recently , has no power of research attorney, and has not discussed these things with anyone prior to this intervention. MEDICATIONS: [facility]: 1. Albuterol. 2. ProAir. 3. Lipitor 20 mg p.o. at bedtime. 4. Symbicort. 5. Zyrtec. 6. Cardizem 120 mg p.o. daily. 7. Vitamin D 50,000 units q. weekly. 8. Ferrous sulfate. 9. Flonase. 10. Lasix. 11. Apresoline 25 mg p.o. q. 12. 12. Magnesium oxide 400 mg p.o. daily. 13. Remeron 7.5 mg p.o. at bedtime. 14. Singulair 10 mg p.o. at bedtime. 15. Prednisone 10 mg p.o. daily to start on 01/30/17. 16. Tylenol 650 mg p.o. q. 4 hour p.r.n. CONDITION AT THE TIME OF TRANSFER: Stable. DISCHARGE TO: [facility] pending accepting physician. TIME SPENT: Total time spent with patient including physical examination, coordination of care, of discussion with patient of the risks and benefits of transfer was 65 minutes of prolonged care time. DICTATING PHYSICIAN: SOCO SEXTON M.D. [id number] PHY#: [id number] ID: [id number] JOB#: [id number] ACCT: [id number] cc:SOCO SEXTON M.D. >
--- NOTE | 2017-02-20 09:46 | Physician Advisory Note ---
Physician Advisor ProgressNote .: [facility], I have reviewed the medical record for this patient. 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 Please consider documenting, if you agree: 1. "Acute on chronic diastolic CHF" 2. "CKD stage 4" 3. "hypertensive emergency producing ____" [AMI, Ac diast CHF, ...] 4. Please document findings supporting dx of hyperosm hyponatremia, or else indicate this dx was ruled out. Discussion status: 81yo Medicare pt w/underlying chronic diastolic CHF, CKD stage 4, COPD/chronic resp failure requiring steroids chronically, HTN, HLD, dementia, CAD, came in with SOB, increasing BLE edema, sats 80s at SNF despite O2, requiring BIpap, IV Solumedrol, & Duoneb en route, "initially seen in obvious respiratory distress. Bipap in place." per ED dr, w/(+)JVD, coarse BS, wheezes, rales, edema. HR 104, RR34, BP [id number]-143 initially, w/sat 93% on Bipap. BNP 73,300, LFTs consistent with passive congestion, Hgb 9.0, EKG with ant ST depressions, Trop I 0.35, Tx'd with Bipap x4h, Duoneb, IV Lasix then IV Bumex, NTG gtt, O2. Very appropriately made Inpatient. Very high severity of illness and intensity of service, expectation of >> 2MNs of hospital care. After 1st MN (in ED), and admission decision, pt continued to show evidence of worsening despite aggressive tx, with trop I climbing to 1.33 then 1.480, new ST elevations in ant leads indicating new STEMI developing, while Hgb had dropped despite diuretic tx to 8.1. For this reason, she is now being transferred urgently/emergently to higher level of care hospital. Thanks! CK
[2017-02-20] MEDS ORDERED: ASPIRIN 81 MG TABLET, ENT COATED PO SCH (10:00)
[2017-02-20] MEDS ORDERED: TIOTROPIUM BROMIDE DPI 5 CAP/KIT (18 MCG/CAP) IH SCH (10:00)
[2017-02-20] MEDS ORDERED: DILTIAZEM HCL 120 MG CAP.SR.24H PO SCH (10:00)
[2017-02-20] MEDS ORDERED: PREDNISONE 10 MG TABLET PO SCH (10:00)
[2017-02-20] MEDS ORDERED: MAGNESIUM OXIDE 400 MG TABLET PO SCH (10:00)
[2017-02-20] MEDS ORDERED: ENALAPRIL MALEATE 5 MG TABLET PO SCH (10:00)
[2017-02-20] MEDS ORDERED: DOCUSATE SODIUM 100 MG CAPSULE PO SCH (10:00)
[2017-02-20] MEDS ORDERED: FLUTICASONE NASAL SPRAY 50 MCG/SPRY 120 SPRAY/16 GM NAREB SCH (10:00)
--- NOTE | 2017-02-20 12:23 | EKG REPORT ---
SEVERITY:- ABNORMAL ECG - SINUS RHYTHM PROBABLE LEFT ATRIAL ABNORMALITY LEFT VENTRICULAR HYPERTROPHY ANTERIOR ST ELEVATION, PROBABLY DUE TO LVH PROLONGED QT INTERVAL : Confirmed by: Moni Swartz MD 20-Feb-2017 12:22:52
--- NOTE | 2017-02-20 12:23 | EKG REPORT ---
SEVERITY:- ABNORMAL ECG - SINUS RHYTHM LEFT VENTRICULAR HYPERTROPHY ABNORMAL T, CONSIDER ISCHEMIA, LATERAL LEADS ANTERIOR ST ELEVATION, PROBABLY DUE TO LVH BORDERLINE PROLONGED QT INTERVAL : Confirmed by: Moni Swartz MD 20-Feb-2017 12:23:07
--- NOTE | 2017-02-20 19:26 | PDOC CONSULTATION ---
Consultation Consult Date: 02/20/17 Attending physician:: ELPIDIO FERRARA Consult reason:: Positive troponin I History of Present Illness Admission Date/PCP: 02/20/17 04:29 Patient complains of: Chest pain History of Present Illness: LORENZO MENENDEZ is a 81 year old female with a past medical history of dementia , coronary artery disease, diastolic heart failure and COPD who is a snf resident brought to the emergency room via EMS for complaints of shortness of breath and lower extremity swelling. In the emergency room she is noted to be a very poor historian but denies chest pain nausea vomiting or palpitations. Her workup is notable for a positive troponin and EKG with ST changes in anterior leads. She is started on IV heparin and referred to the hospitalist for admission. Patient is and without children or power of state attorney. This history was confirmed. There is some difficulty with communication. It seems subsequently patient did admit to having some chest discomfort. Past Medical History Cardiac Medical History: Reports: Congestive Heart Failure, Coronary Artery Disease, Hyperlipidema, Hypertension Denies: Myocardial Infarction Pulmonary Medical History: Reports: Chronic Obstructive Pulmonary Disease (COPD) Denies: Asthma Neurological Medical History: Denies: Seizures GI Medical History: Denies: Hepatitis, Hiatal Hernia Musculoskeltal Medical History: Reports: Arthritis Psychiatric Medical History: Reports: Dementia Hematology: Denies: Anemia, Sickle Cell Disease Past Surgical History Past Surgical History: Reports: Hysterectomy, Other - Cataract surgery Denies: Amputation, Mastectomy, Pacemaker Social History Information Source: [facility] Records Lives with: [facility] Smoking Status: Unknown if Ever Smoked Frequency of Alcohol Use: None Hx Recreational Drug Use: No Drugs: None Hx Prescription Drug Abuse: No - Advance Directive Resuscitation Status: Do Not Resuscitate Family History Family History: Reviewed & Not Pertinent, Hypertension, Malignancy Parental Family History Reviewed: No Children Family History Reviewed: No Sibling(s) Family History Reviewed.: No Medication/Allergy Allergies/Adverse Reactions: No Known Allergies Allergy (Verified 01/19/17 12:21) Review of Systems Review of Systems: System review is somewhat limited because of communication barrier. Physical Exam Vital Signs: Temp Pulse Resp BP Pulse Ox 98.8 F 104 H 17 133/80 H 93 02/20/17 09:16 02/19/17 22:02 02/20/17 09:16 02/20/17 09:16 02/20/17 09:16 Intake & Output 02/19/17 02/20/17 02/21/17 06:59 06:59 06:59 Output Total 500 Balance -500 Exam: GENERAL: well-nourished and in no acute distress. Patient is alert but possibly oriented but could not be checked because of communication problem. HEAD: Atraumatic, normocephalic. EYES: Pupils equal round and reactive to light, extraocular movements intact, sclera anicteric, conjunctiva are normal. ENT: TMs normal, nares patent, oropharynx clear without exudates. Moist mucous membranes. No oral ulcerations or bleeding gums noted NECK: supple without lymphadenopathy or JVD. Trachea is central. No cervical or axillary lymphadenopathy noted. Carotids are 2+ LUNGS: Breath sounds bibasilar fine crackles at bases. No significant dullness noted. CHEST: Palpation of chest wall shows no significant chest wall tenderness. HEART: [place] [employer], No PSH, 2/6 DELFINO aortic area, 1/6 barnes systolic murmur mitral area, rubs or gallops. ABDOMEN: Soft, no significant tenderness appreciated, normoactive bowel sounds. No guarding, no rebound. No rigidity noted . No masses appreciated. EXTREMITIES: Pedal pulses are 1-2+, no calf tenderness noted, 2+ pedal edema noted. No clubbing or cyanosis. NEUROLOGICAL: Patient is alert, patient is able to move all 4 extremities. No facial asymmetry or conjugate gauge paralysis noted. PSYCH: Psych exam could not be performed because of communication barrier. SKIN: Few ecchymosis noted. No signs of pruritus noted. MUSCULOSKELETAL EXAM: No significant joint swelling noted. Results Laboratory Results: 02/20/17 08:45 02/20/17 08:45 02/20/17 02/20/17 02/20/17 05:04 05:04 08:45 WBC 5.4 4.5 RBC 2.66 L 2.68 L Hgb 8.1 L 8.0 L Hct 23.7 L 23.7 L MCV 89 89 MCH 30.5 30.1 MCHC 34.2 33.9 RDW 17.4 H 16.9 H Plt Count 194 190 Seg Neutrophils % Not Reportable Lymphocytes % Not Reportable Monocytes % Not Reportable Eosinophils % Not Reportable Basophils % Not Reportable Absolute Neutrophils Not Reportable Absolute Lymphocytes Not Reportable Absolute Monocytes Not Reportable Absolute Eosinophils Not Reportable Absolute Basophils Not Reportable Sodium 140.2 Potassium 4.2 Chloride 96 L Carbon Dioxide 36 H Anion Gap 8 BUN 63 H Creatinine 1.93 H Est GFR ( Amer) 30 L Est GFR (Non-Af Amer) 25 L Glucose 158 H Calcium 9.8 Triglycerides 88 Cholesterol 192.08 LDL Cholesterol Direct 96 VLDL Cholesterol 18.0 HDL Cholesterol 80 02/20/17 08:45 WBC RBC Hgb Hct MCV MCH MCHC RDW Plt Count Seg Neutrophils % Lymphocytes % Monocytes % Eosinophils % Basophils % Absolute Neutrophils Absolute Lymphocytes Absolute Monocytes Absolute Eosinophils Absolute Basophils Sodium 140.3 Potassium 4.1 Chloride 95 L Carbon Dioxide 36 H Anion Gap 9 BUN 63 H Creatinine 1.74 H Est GFR ( Amer) 34 L Est GFR (Non-Af Amer) 28 L Glucose 143 H Calcium 9.4 Triglycerides Cholesterol LDL Cholesterol Direct VLDL Cholesterol HDL Cholesterol 02/20/17 02/20/17 05:04 08:45 CK-MB (CK-2) 4.57 H Troponin I 1.330 1.480 EKG Comments: Twelve-lead EKG is reviewed. There is probable mild ST segment elevation of 1 mm noted in V1 and V2. Impressions: Chest X-Ray 02/19/17 22:00 IMPRESSION: Increasing bibasilar opacities and effusions. Question aspiration complex. Assessment & Plan - Diagnosis (1) Elevated troponin I level Is this a current diagnosis for this admission?: Yes (2) ST elevation GA (STEMI) Qualifiers: Involved coronary artery: unspecified coronary artery Qualified Code(s): I21.3 - ST elevation (STEMI) myocardial infarction of unspecified site Is this a current diagnosis for this admission?: Yes (3) Edema Qualifiers: Edema type: unspecified Qualified Code(s): R60.9 - Edema, unspecified Is this a current diagnosis for this admission?: Yes (4) Renal insufficiency Is this a current diagnosis for this admission?: Yes - Notes Notes: Troponin I elevation: Possibly related to myocardial infarction. There is minimal ST elevation in lead V1 and V2 however could be related to LVH and related to however there is some change in pattern from previous EKG. At this point agree with current management plans. Have ordered a 2D echo to look for any wall motion abnormalities. Patient medical regimen reviewed and currently being treated with heparin, aspirin, Plavix, DIANN inhibitors, beta blockers therefore currently well managed. Agree with attempts at medical management however if patient deteriorates, may need to reconsider. Edema: Continue with IV diuretics at low dose. Renal insufficiency: This is mild. Continue to follow closely. ST segment elevation myocardial infarction: Patient has borderline ST segment elevation in V1 and V2. Do not feel patient would need thrombolytics but as this is just borderline elevation. Risk benefits did not favor thrombolytics in this patient. - Time Time Spent: 30 to 50 Minutes - CODE STATUS : was discussed, patient remains DO NOT RESUSCITATE. Surrogate decision-maker not known. Multiple medical problems were addressed. More than 50% of the time spent coordinating care, discussing management plans with involved caregivers. Management plans discussed with involved personnels. Medical decision making was of moderate to high complexity, patient's has multiple comorbidities. Medications reviewed and adjusted accordingly: Yes
[2017-02-20] MEDS ORDERED: MIRTAZAPINE 15 MG TABLET PO SCH (22:00)
--- NOTE | 2017-02-22 14:31 | Progress Note ---
Provider Note Provider Note: Revision of the DC summary from 02/20: 1. Remove STEMI 2. Unstable angina 3. CHF acute on chronic likely both systolic and diastolic Upon review of the EKG, patient found to have LVH with strain as opposed to true STEMI. Patient still requiring transfer secondary to ongoing chest pain despite nitro ggt for a diagnosis of unstable angina.
== END 2017-02-20 09:34 | disposition short-term general hospital (02) | DRG 302 ==
LOC: ER 21:58 → EH 02-20 04:29 → UNDOADMIN 02-20 04:39
PROVIDERS: ADMIT Internal Medicine; ATTEND Internal Medicine
DX: I25.110 Atherosclerotic heart disease of native coronary artery with unstable angina pectoris (principal); J96.20 Acute and chronic respiratory failure, unspecified whether with hypoxia or hypercapnia; I50.43 Acute on chronic combined systolic (congestive) and diastolic (congestive) heart failure; I16.1 Hypertensive emergency; J44.1 Chronic obstructive pulmonary disease with (acute) exacerbation; I13.0 Hypertensive heart and chronic kidney disease with heart failure and stage 1 through stage 4 chronic kidney disease, or unspecified chronic kidney disease; E87.1 Hypo-osmolality and hyponatremia; N18.3 Chronic kidney disease, stage 3 (moderate); D63.1 Anemia in chronic kidney disease; E78.00 Pure hypercholesterolemia, unspecified; F03.90 Unspecified dementia, unspecified severity, without behavioral disturbance, psychotic disturbance, mood disturbance, and anxiety; Z79.51 Long term (current) use of inhaled steroids; Z79.52 Long term (current) use of systemic steroids; Z79.899 Other long term (current) drug therapy
CPT/HCPCS: 36415; 36600; 71010; 80048; 80053; 80061; 81001; 82272; 82553; 82803; 83605; 83735; 83880; 84484; 85025; 85027; 85610; 85730; 87040; 87086; 93005; 93010; 94660; J1644; J1940; J3490

== ENCOUNTER 2017-04-07 19:23 | Emergency (ER) | payer MEDICARE, OTHER ==
--- NOTE | 2017-04-07 19:45 | ER Document Report ---
ED General - General Chief Complaint: Syncope Stated Complaint: GENERAL WEAKNESS Time Seen by Provider: 04/07/17 19:30 Notes: patient is a 81 year old female who is DNR arrived by EMS with chief complaint via progressive care nurse of syncope x1. Has not been drinking/eating much at home. She states now that she does not want to be here, she does not want to be admitted. Denies any headache, nausea, vomting, abdominal pain, diarrhea, constipation, chest pain, shortness of breath. Admits to decreased appetite PMH: COPD, CAD, HTN TRAVEL OUTSIDE OF THE [place] IN LAST 30 DAYS: No - Related Data Allergies/Adverse Reactions: No Known Allergies Allergy (Verified 01/19/17 12:21) Past Medical History - Social History Smoking Status: Former Smoker Family History: Reviewed & Not Pertinent, Hypertension, Malignancy - Past Medical History Cardiac Medical History: Reports: Hx Congestive Heart Failure, Hx Coronary Artery Disease, Hx Hypercholesterolemia, Hx Hypertension Denies: Hx Heart Attack Pulmonary Medical History: Reports: Hx COPD Denies: Hx Asthma Neurological Medical History: Denies: Hx Cerebrovascular Accident, Hx Seizures Renal/ Medical History: Denies: Hx Peritoneal Dialysis GI Medical History: Denies: Hx Hepatitis, Hx Hiatal Hernia, Hx Ulcer Musculoskeltal Medical History: Reports Hx Arthritis Psychiatric Medical History: Reports: Hx Dementia Infectious Medical History: Denies: Hx Hepatitis Past Surgical History: Reports: Hx Hysterectomy, Other - Cataract surgery. Denies: Hx Mastectomy, Hx Open Heart Surgery, Hx Pacemaker Review of Systems - Review of Systems Constitutional: No symptoms reported Cardiovascular: No symptoms reported Respiratory: No symptoms reported Gastrointestinal: No symptoms reported -: Yes All other systems reviewed and negative Physical Exam - Vital signs Vitals: Resp Pulse Ox 12 99 04/07/17 19:53 04/07/17 19:53 - Notes Notes: PHYSICAL EXAM GENERAL: Alert, interacts well. HEAD: Normocephalic, atraumatic. EYES: Pupils equal, round, and reactive to light. Extraocular movements intact. ENT: Oral mucosa moist, tongue midline. NECK: Full range of motion. Supple. Trachea midline. LUNGS: Clear to auscultation bilaterally, no wheezes, rales, or rhonchi. No respiratory distress. HEART: Regular rate and rhythm. No murmurs, gallops, or rubs. ABDOMEN: Soft, nondistended, nontender. No guarding, rebound, or rigidity.. Bowel sounds present in all 4 quadrants. EXTREMITIES: Moves all 4 extremities spontaneously. No edema, radial and dorsalis pedis pulses 2/4 bilaterally. No cyanosis. NEUROLOGICAL: Alert and oriented x4. Normal speech. PSYCH: Normal affect, normal mood. SKIN: Warm, dry, normal turgor. No rashes or lesions noted. Course - Re-evaluation Re-evalutation: 04/07/17 19:45 patient DNR Patient is a 81 year old female who was sent to the ED by her caretakers depsite her decline for care. At this time her workup shows evidence of UTI with elevation in her renal function likely due to decreased PO intake and existing CKD. She is afebrile, no evidence of tachycardia, hypotension. Tolerating PO, declining admission and requesting to go home. Will discharge her home on PO antibiotics and to follow up with primary care - Vital Signs Vital signs: Temp Pulse Resp BP Pulse Ox 98.6 F 71 15 151/63 H 99 04/07/17 20:02 04/07/17 20:02 04/07/17 22:00 04/07/17 22:00 04/07/17 22:00 - Laboratory Result Diagrams: 04/07/17 20:17 04/07/17 20:17 Laboratory results interpreted by me: 04/07/17 04/07/17 04/07/17 20:17 20:17 21:01 WBC 11.0 H Hgb 11.0 L Hct 32.9 L RDW 16.6 H Seg Neutrophils % 78.9 H Lymphocytes % 8.3 L Absolute Neutrophils 8.7 H Chloride 93 L Carbon Dioxide 31 H BUN 97 H Creatinine 2.60 H Est GFR ( Amer) 21 L Est GFR (Non-Af Amer) 18 L Glucose 115 H Calcium 11.7 H Direct Bilirubin 0.5 H AST 37 H Alkaline Phosphatase 143 H Ur Leukocyte Esterase LARGE H Discharge - Discharge Clinical Impression: UTI (urinary tract infection) Qualifiers: Urinary tract infection type: acute cystitis Hematuria presence: without hematuria Qualified Code(s): N30.00 - Acute cystitis without hematuria Condition: Stable Disposition: HOME, SELF-CARE Instructions: Cephalexin ([facility]), Urinary Tract Infection ([facility]) Prescriptions: Cephalexin Monohydrate [Keflex 500 mg Capsule] 500 mg PO BID 5 Days capsule Referrals: AARON HAHN NP [COMMUNITY BASED STAFF] - Follow up in 3-5 days
[2017-04-07 20:38] LABS: ABSOLUTE BASOPHILS # (AUTO) 0.1 10^3/uL (0.0-0.2); ABSOLUTE EOSINOPHILS # (AUTO) 0.2 10^3/uL (0.0-0.6); ABSOLUTE LYMPHOCYTES (AUTO) 0.9 10^3/uL (0.5-4.7); ABSOLUTE MONOCYTES (AUTO) 1.1 10^3/uL (0.1-1.4); ABSOLUTE NEUT (AUTO) 8.7 10^3/uL (1.7-8.2); BASOPHILS % (AUTO) 0.5 % (0-2); EOSINOPHILS % (AUTO) 1.9 % (0-6); HEMATOCRIT 32.9 % (36.0-47.0); HGB HCT DIFFERENCE 0.1; LYMPHOCYTES % (AUTO) 8.3 % (13-45); MEAN CORPUSCULAR HEMOGLOBIN 29.1 pg (27.0-33.4); MEAN CORPUSCULAR HGB CONC 33.4 g/dL (32.0-36.0); MEAN CORPUSCULAR VOLUME 87 fl (80-97); MONOCYTES % (AUTO) 10.4 % (3-13); RED BLOOD COUNT 3.77 10^6/uL (3.72-5.28); RED CELL DISTRIBUTION WIDTH 16.6 % (11.5-14.0); SEGMENTED NEUTROPHILS % (AUTO) 78.9 % (42-78)
--- NOTE | 2017-04-07 20:50 | RADIOLOGY REPORT (SQ) ---
EXAM DESCRIPTION: CHEST SINGLE VIEW COMPLETED DATE/TIME: 04/07/2017 8:41 pm REASON FOR STUDY: syncope COMPARISON: 09/23/2016 NUMBER OF VIEWS: One view. TECHNIQUE: Single frontal radiographic view of the chest acquired. LIMITATIONS: None. FINDINGS: LUNGS AND PLEURA: No opacities, masses or pneumothorax. No pleural effusion. Attenuated bl ood vessels and flattened ike-diaphragms. MEDIASTINUM AND HILAR STRUCTURES: No masses. Contour normal. HEART AND VASCULAR STRUCTURES: Heart normal in size. Normal vasculature. BONES: No acute findings. HARDWARE: None in the chest. OTHER: No other significant finding. IMPRESSION: COPD. NO ACUTE RADIOGRAPHIC FINDING IN THE CHEST. TECHNICAL DOCUMENTATION: JOB ID: [id number] [employer]- All Rights Reserved
--- NOTE | 2017-04-07 20:51 | RADIOLOGY REPORT (SQ) ---
EXAM DESCRIPTION: KUB/ABDOMEN (SINGLE VIEW) COMPLETED DATE/TIME: 04/07/2017 8:41 pm REASON FOR STUDY: constipation COMPARISON: None. NUMBER OF VIEWS: One view. TECHNIQUE: Supine radiographic image of the abdomen acquired. LIMITATIONS: None. FINDINGS: BOWEL GAS PATTERN: Normal bowel gas pattern. No dilated loops. CALCIFICATIONS: No suspicious calcifications. SOFT TISSUES: No gross mass or suggestion of organomegaly. HARDWARE: None in the abdomen. BONES: No acute fracture. No worrisome bone lesions. OTHER: No other significant finding. IMPRESSION: NO RADIOGRAPHIC EVIDENCE FOR ACUTE ABDOMINAL DISEASE. TECHNICAL DOCUMENTATION: JOB ID: [id number] [employer]- All Rights Reserved
[2017-04-07 20:58] LABS: ALANINE AMINOTRANSFERASE 29 U/L (9-52); ALKALINE PHOSPHATASE 143 U/L (38-126); ANION GAP 15 (5-19); ASPARTATE AMINO TRANSFERASE 37 U/L (14-36); BILIRUBIN,DIRECT 0.5 mg/dL (0.0-0.4); BILIRUBIN,TOTAL 0.5 mg/dL (0.2-1.3); BLOOD UREA NITROGEN 97 mg/dL (7-20); CARBON DIOXIDE 31 mmol/L (22-30); CHLORIDE 93 mmol/L (98-107); GLUCOSE 115 mg/dL (75-110); POTASSIUM 3.9 mmol/L (3.6-5.0); SODIUM 139.3 mmol/L (137-145)
[2017-04-07 21:18] LABS: CALCIUM 11.7 mg/dL (8.4-10.2)
[2017-04-07 21:35] LABS: APPEARANCE,URINE SLIGHTLY-CLOUDY; BILIRUBIN,URINE NEGATIVE (NEGATIVE); GLUCOSE, URINE NEGATIVE (NEGATIVE); KETONES,URINE NEGATIVE (NEGATIVE); LEUKOCYTE ESTERASE,URINE LARGE (NEGATIVE); NITRITE,URINE NEGATIVE (NEGATIVE); PROTEIN,URINE NEGATIVE (NEGATIVE); UROBILINOGEN,URINE NEGATIVE mg/dL (<2.0)
[2017-04-07] MEDS ORDERED: CEPHALEXIN 500 MG CAPSULE PO ONE (21:46)
[2017-04-07 22:36] VITALS: BP 151/63
--- NOTE | 2017-04-08 08:07 | EKG REPORT ---
SEVERITY:- ABNORMAL ECG - SINUS RHYTHM LVH WITH SECONDARY REPOLARIZATION ABNORMALITY : Confirmed by: Cam Linton MD 08-Apr-2017 08:07:07
== END 2017-04-07 22:36 | disposition home or self-care (01) ==
LOC: ER 19:23
DX: N30.00 Acute cystitis without hematuria (principal); R55 Syncope and collapse; R63.0 Anorexia; N39.0 Urinary tract infection, site not specified; I12.9 Hypertensive chronic kidney disease with stage 1 through stage 4 chronic kidney disease, or unspecified chronic kidney disease; N18.9 Chronic kidney disease, unspecified; I25.10 Atherosclerotic heart disease of native coronary artery without angina pectoris; J44.9 Chronic obstructive pulmonary disease, unspecified; Z87.891 Personal history of nicotine dependence
CPT/HCPCS: 93005; 99285; 36415; 85025; 80053; 81001; 84484; 71010; 74000; 93010; A9270

== ENCOUNTER 2017-04-17 11:03 | Inpatient (IN) | payer MEDICARE, OTHER ==
[2017-04-17] MEDS ORDERED: NORMAL SALINE 1000 ML 500 ML IV ONE (12:17)
--- NOTE | 2017-04-17 12:20 | ER Document Report ---
ED Dizziness/Weakness - General Chief Complaint: General Weakness Stated Complaint: POSSIBLE DEYHDRATION Time Seen by Provider: 04/17/17 11:58 Mode of Arrival: Wheelchair Information source: Friend - Patient's in-home caregiver Cannot obtain history due to: Dementia, Other - Hard of hearing Notes: Patient presents for evaluation for possible dehydration. Patient was sent here from her primary care provider's office. Patient has had a 10 pound weight loss over the past 12 days per primary doctor. Care provider at bedside states that patient had some tarry stools decreased appetite and decreased oral intake for the past month. Patient was recently treated for UTI and has just recently finished taking the antibiotic. Patient has not had a fever. Patient does complain of some lower back tenderness. TRAVEL OUTSIDE OF THE [place] IN LAST 30 DAYS: No - HPI Patient complains to provider of: Weakness Onset: Other - 1 month Onset/Duration: Persistent Quality of pain: Achy Pain Level: 2 Associated symptoms: Weak all over. denies: Diarrhea, Fainted, Lightheaded, Nausea, Short of breath, Vomiting - Related Data Allergies/Adverse Reactions: No Known Allergies Allergy (Verified 01/19/17 12:21) Home Medications: Current Home Medications Acetaminophen [Tylenol] 650 mg PO Q6HP PRN 04/17/17 [History] Albuterol Sulfate [Ventolin 0.083% Neb 2.5 mg/3 ml Ampul] 1 vial NEB TID [History] Aspirin [Aspirin 81 mg Chewable Tablet] 81 mg PO DAILY 04/17/17 [History] Atorvastatin Calcium [Lipitor 20 mg Tablet] 20 mg PO QHS 04/17/17 [History] Carvedilol [Coreg 25 mg Tablet] 25 mg PO Q12 04/17/17 [History] Ergocalciferol (Vitamin D2) [Vitamin D2] 50,000 unit PO FR@1000 04/17/17 [ History] Ferrous Sulfate [Iron] 325 mg PO DAILY 04/17/17 [History] Fluticasone Propionate [Flonase Nasal [place] 50 Mcg/[place] 16 gm] 2 sprays NASL Q12 04/17/17 [History] Fluticasone/Salmeterol [Advair 250-50 Diskus 28 dose] 1 inh IH Q12 04/17/17 [ History] Furosemide [Lasix 40 mg Tablet] 80 mg PO Q12@0600,1800 04/17/17 [History] Isosorbide Mononitrate [Imdur 60 mg Tablet.er] 60 mg PO DAILY 04/17/17 [History] Montelukast Sodium [Singulair 10 mg Tablet] 10 mg PO QHS 04/17/17 [History] Pantoprazole Sodium [Protonix] 40 mg PO DAILY 04/17/17 [History] Potassium Chloride [Klor-Con 10 Meq Tablet.sa] 20 meq PO DAILY 04/17/17 [History ] Venlafaxine HCl ER [Effexor Xr 37.5 mg Cap.sr] 37.5 mg PO DAILY 04/17/17 [ History] Past Medical History - General Information source: Patient, Outside Facility 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 Cannot obtain history due to: Dementia - Social History Smoking Status: Never Smoker Frequency of alcohol use: None Drug Abuse: None Lives with: Alone Family History: Reviewed & Not Pertinent, Hypertension, Malignancy - Past Medical History Cardiac Medical History: Reports: Hx Congestive Heart Failure, Hx Coronary Artery Disease, Hx Hypercholesterolemia, Hx Hypertension Denies: Hx Heart Attack Pulmonary Medical History: Reports: Hx COPD Denies: Hx Asthma Neurological Medical History: Denies: Hx Cerebrovascular Accident, Hx Seizures Renal/ Medical History: Denies: Hx Peritoneal Dialysis GI Medical History: Denies: Hx Hepatitis, Hx Hiatal Hernia, Hx Ulcer Musculoskeltal Medical History: Reports Hx Arthritis Psychiatric Medical History: Reports: Hx Dementia Infectious Medical History: Denies: Hx Hepatitis Past Surgical History: Reports: Hx Hysterectomy, Other - Cataract surgery. Denies: Hx Mastectomy, Hx Open Heart Surgery, Hx Pacemaker Review of Systems - Review of Systems Constitutional: Recent illness - recent UTI. denies: Fever EENT: No symptoms reported Cardiovascular: No symptoms reported. denies: Chest pain Respiratory: No symptoms reported. denies: Cough, Short of breath Gastrointestinal: No symptoms reported, Poor appetite, Poor fluid intake. denies: Abdominal pain, Diarrhea, Vomiting Genitourinary: No symptoms reported. denies: Dysuria Female Genitourinary: No symptoms reported Musculoskeletal: Back pain Skin: No symptoms reported Hematologic/Lymphatic: No symptoms reported Neurological/Psychological: No symptoms reported Physical Exam - Vital signs Vitals: Temp Pulse Resp BP 98.5 F 90 14 104/56 L 04/17/17 11:37 04/17/17 11:37 04/17/17 11:37 04/17/17 11:37 - General General appearance: Other - rests with eyes closed, arouses easily to voice In distress: Mild - HEENT Head: Normocephalic Eyes: Normal Nasal: Normal Mouth/Lips: Normal Mucous membranes: Dry Neck: Normal, Supple. No: Lymphadenopathy - Respiratory Respiratory status: No respiratory distress Chest status: Nontender Breath sounds: Normal. No: Rales, Rhonchi, Stridor, Wheezing Chest palpation: Normal - Cardiovascular Rhythm: Regular Heart sounds: S1 appreciated, S2 appreciated - Abdominal Inspection: Normal Distension: No distension Bowel sounds: Normal Tenderness: Nontender - Rectal Tenderness: No Stool: See lab result Hemorrhoids: None - Back Back: CVA tenderness - Extremities General upper extremity: Normal inspection, Normal ROM. No: Edema General lower extremity: Normal inspection, Normal ROM. No: Edema - Neurological Neuro grossly intact: Yes [place] Coma Scale Eye Opening: Spontaneous [place] Coma Scale Verbal: Oriented [place] Coma Scale Motor: Obeys Commands [place] Coma Scale Total: 15 - Skin Skin Temperature: Warm Skin Moisture: Dry Skin Color: Normal Course - Re-evaluation Re-evalutation: 04/17/17 14:34 Vital signs stable, patient denies complaints at present. 04/17/17 15:[address] Villatoro who recommends consultation with hospitalist for admission given patient's dehydration in the setting of congestive heart failure and failure to thrive. Consulted with Dr. White who agrees to accept patient as an observation to medical floor. - Vital Signs Vital signs: Temp Pulse Resp BP Pulse Ox 98.5 F 90 14 138/107 H 100 04/17/17 11:37 04/17/17 11:37 04/17/17 17:01 04/17/17 17:00 04/17/17 17:01 - Laboratory Result Diagrams: 04/17/17 12:31 04/17/17 12:31 Laboratory results interpreted by me: 04/17/17 04/17/17 12:31 12:31 WBC 11.8 H RDW 16.3 H Seg Neutrophils % 85.2 H Lymphocytes % 8.2 L Absolute Neutrophils 10.1 H Sodium 149.0 H Carbon Dioxide 33 H BUN 117 H Creatinine 2.54 H Est GFR ( Amer) 22 L Est GFR (Non-Af Amer) 18 L Calcium 11.0 H Magnesium 2.8 H Direct Bilirubin 0.6 H Labs- Entire Visit 04/17/17 04/17/17 04/17/17 12:31 12:31 12:31 WBC 11.8 H RBC 4.44 Hgb 13.2 Hct 39.6 MCV 89 MCH 29.7 MCHC 33.4 RDW 16.3 H Plt Count 393 Seg Neutrophils % 85.2 H Lymphocytes % 8.2 L Monocytes % 5.7 Eosinophils % 0.4 Basophils % 0.5 Absolute Neutrophils 10.1 H Absolute Lymphocytes 1.0 Absolute Monocytes 0.7 Absolute Eosinophils 0.1 Absolute Basophils 0.1 Sodium 149.0 H Potassium 3.8 Chloride 99 Carbon Dioxide 33 H Anion Gap 17 BUN 117 H Creatinine 2.54 H Est GFR ( Amer) 22 L Est GFR (Non-Af Amer) 18 L Glucose 92 POC Glucose Lactic Acid 1.1 Calcium 11.0 H Magnesium 2.8 H Total Bilirubin 0.7 Direct Bilirubin 0.6 H Indirect Bilirubin Not Reportable Neonat Total Bilirubin Not Reportable AST 31 ALT 33 Alkaline Phosphatase 126 Total Protein 7.9 Albumin 4.5 Urine Color Urine Appearance Urine pH Ur Specific [place] Urine Protein Urine Glucose (UA) Urine Ketones Urine Blood Urine Nitrite Urine Bilirubin Urine Urobilinogen Ur Leukocyte Esterase Urine WBC (Auto) Urine RBC (Auto) U Hyaline Cast (Auto) Squamous Epi Cells Auto Urine Ascorbic Acid Stool Occult Blood 04/17/17 04/17/17 04/17/17 13:35 14:13 14:23 WBC RBC Hgb Hct MCV MCH MCHC RDW Plt Count Seg Neutrophils % Lymphocytes % Monocytes % Eosinophils % Basophils % Absolute Neutrophils Absolute Lymphocytes Absolute Monocytes Absolute Eosinophils Absolute Basophils Sodium Potassium Chloride Carbon Dioxide Anion Gap BUN Creatinine Est GFR ( Amer) Est GFR (Non-Af Amer) Glucose POC Glucose 82 Lactic Acid Calcium Magnesium Total Bilirubin Direct Bilirubin Indirect Bilirubin Neonat Total Bilirubin AST ALT Alkaline Phosphatase Total Protein Albumin Urine Color YELLOW Urine Appearance CLEAR Urine pH 5.0 Ur Specific [place] 1.010 Urine Protein NEGATIVE Urine Glucose (UA) NEGATIVE Urine Ketones NEGATIVE Urine Blood NEGATIVE Urine Nitrite NEGATIVE Urine Bilirubin NEGATIVE Urine Urobilinogen NEGATIVE Ur Leukocyte Esterase NEGATIVE Urine WBC (Auto) 0 Urine RBC (Auto) 1 U Hyaline Cast (Auto) 5 Squamous Epi Cells Auto <1 Urine Ascorbic Acid NEGATIVE Stool Occult Blood NEGATIVE - Diagnostic Test Radiology reviewed: Reports reviewed Discharge - Discharge Clinical Impression: Dehydration, Hx of congestive heart failure, Weight loss Malnourished Qualifiers: Malnutrition type: unspecified type Qualified Code(s): E46 - Unspecified protein-calorie malnutrition Renal failure Qualifiers: Acute renal failure type: unspecified Chronic kidney disease stage: unspecified stage Condition: Stable Disposition: ADMITTED OBSERVATION
[2017-04-17 12:50] LABS: ABSOLUTE BASOPHILS # (AUTO) 0.1 10^3/uL (0.0-0.2); ABSOLUTE EOSINOPHILS # (AUTO) 0.1 10^3/uL (0.0-0.6); ABSOLUTE MONOCYTES (AUTO) 0.7 10^3/uL (0.1-1.4); ABSOLUTE NEUT (AUTO) 10.1 10^3/uL (1.7-8.2); BASOPHILS % (AUTO) 0.5 % (0-2); EOSINOPHILS % (AUTO) 0.4 % (0-6); HEMATOCRIT 39.6 % (36.0-47.0); HEMOGLOBIN 13.2 g/dL (12.0-15.5); LYMPHOCYTES % (AUTO) 8.2 % (13-45); MEAN CORPUSCULAR HEMOGLOBIN 29.7 pg (27.0-33.4); MEAN CORPUSCULAR HGB CONC 33.4 g/dL (32.0-36.0); MEAN CORPUSCULAR VOLUME 89 fl (80-97); MONOCYTES % (AUTO) 5.7 % (3-13); RED BLOOD COUNT 4.44 10^6/uL (3.72-5.28); RED CELL DISTRIBUTION WIDTH 16.3 % (11.5-14.0); SEGMENTED NEUTROPHILS % (AUTO) 85.2 % (42-78); WHITE BLOOD COUNT 11.8 10^3/uL (4.0-10.5)
[2017-04-17 13:05] LABS: ALANINE AMINOTRANSFERASE 33 U/L (9-52); ALBUMIN 4.5 g/dL (3.5-5.0); ALKALINE PHOSPHATASE 126 U/L (38-126); ANION GAP 17 (5-19); ASPARTATE AMINO TRANSFERASE 31 U/L (14-36); BILIRUBIN,DIRECT 0.6 mg/dL (0.0-0.4); BILIRUBIN,TOTAL 0.7 mg/dL (0.2-1.3); CARBON DIOXIDE 33 mmol/L (22-30); CHLORIDE 99 mmol/L (98-107); CREATININE RESULT 2.54 mg/dL (0.52-1.25); GLUCOSE 92 mg/dL (75-110); MAGNESIUM 2.8 mg/dL (1.6-2.3); POTASSIUM 3.8 mmol/L (3.6-5.0); TOTAL PROTEIN 7.9 g/dL (6.3-8.2)
[2017-04-17 13:12] LABS: BLOOD UREA NITROGEN 117 mg/dL (7-20)
--- NOTE | 2017-04-17 13:15 | RADIOLOGY REPORT (SQ) ---
EXAM DESCRIPTION: CHEST SINGLE VIEW COMPLETED DATE/TIME: 04/17/2017 1:02 pm REASON FOR STUDY: weakness COMPARISON: CT chest 08/29/2016 Chest films 01/19/2017, 02/19/2017, 04/07/2017 EXAM PARAMETERS: NUMBER OF VIEWS: One view. TECHNIQUE: Single frontal radiographic view of the chest acquired. RADIATION DOSE: NA LIMITATIONS: None. FINDINGS: LUNGS AND PLEURA: Lungs are hyperinflated but clear. No pleural effusion. No pneumothorax. MEDIASTINUM AND HILAR STRUCTURES: No masses. Contour normal. HEART AND VASCULAR STRUCTURES: Heart normal in size. Normal vasculature. BONES: Osteopenic. Old healed left anterior 3rd rib fracture. HARDWARE: None in the chest. OTHER: No other significant finding. IMPRESSION: Lungs hyperinflated but clear. No pleural effusion. No pneumothorax. No cardiomegaly TECHNICAL DOCUMENTATION: JOB ID: [id number]
[2017-04-17 13:52] LABS: APPEARANCE,URINE CLEAR; BILIRUBIN,URINE NEGATIVE (NEGATIVE); GLUCOSE, URINE NEGATIVE (NEGATIVE); KETONES,URINE NEGATIVE (NEGATIVE); LEUKOCYTE ESTERASE,URINE NEGATIVE (NEGATIVE); NITRITE,URINE NEGATIVE (NEGATIVE); PROTEIN,URINE NEGATIVE (NEGATIVE); UROBILINOGEN,URINE NEGATIVE mg/dL (<2.0)
[2017-04-17] MEDS ORDERED: NORMAL SALINE 1000 ML 1,000 ML IV PRN (14:27)
[2017-04-17] MEDS ORDERED: ISOSORBIDE MONONITRATE 60 MG TAB.ER.24H PO ONE (15:33)
--- NOTE | 2017-04-17 16:34 | EKG REPORT ---
SEVERITY:- ABNORMAL ECG - SINUS RHYTHM PROBABLE LEFT ATRIAL ABNORMALITY PROBABLE LVH WITH SECONDARY REPOL ABNRM BORDERLINE PROLONGED QT INTERVAL : Confirmed by: Lupillo Pedroza 17-Apr-2017 16:33:20
[2017-04-17] MEDS ORDERED: ONDANSETRON HCL INJ/PF 4 MG/2 ML SDV IV PRN (16:48)
--- NOTE | 2017-04-17 16:48 | PDOC H&P ---
History of Present Illness History of Present Illness: LORENZO MENENDEZ is a 81 year old female with a past medical history significant for congestive heart failure, dyslipidemia and hypertension who presents to the service with failure to thrive. Unfortunately the patient is not able to participate in giving her own medical history at this time. She also has a history of underlying dementia as per the ER report. Therefore, this information is gleaned from chart review. Unfortunately, the patient's discharge specialist is not at bedside and will not be back until later on this afternoon. According to my discussion with the ER physician, the patient was sent to the emergency room from her primary care physician's office. She had had about a 10 pound weight loss over the last 10 days as reported by her primary care physician. The patient has care providers who come out to her home in the morning and in the evening. The patient reportedly has had a decrease appetite with decreased p.o. intake over the last 30 days. She was recently treated for urinary tract infection and just finished up prescribed antibiotics. The discharge specialist did not report that she had any fever or any complaints other than low back pain. Her outpatient physician is currently making arrangements for her to be placed in a half-way facility. Apparently these arrangements will be finalized by the end of the week. Her PCP reportedly was concerned for failure to thrive. In the emergency room the patient was found to have an elevated white blood cell count of 11.8 and an elevated BUN and creatinine of 117 and 2.54. Her sodium was also elevated at 149. In my review of the chart it appears that her baseline creatinine back in January is around 1.7 and prior to this in September was 1.1. She has been here in the past with dehydration and acute renal failure. The patient has no family but has her caretakers and a close friend who she regards as a son. It is not clear to me who is making medical decisions for her. Her PCP confirmed with the emergency room physician that the patient is in fact a DNR. In the emergency room at the bedside the patient is not speaking to me. The ER did report to me that she found her to be mostly oriented despite a history of underlying dementia. I spoke with the nurses caring for the patient in the emergency room and they confirm that the patient has not really been speaking with them either. She is receiving IV fluids. Chest x-ray done did not show any acute process but revealed hyperinflated lungs. Past Medical History Cardiac Medical History: Reports: Congestive Heart Failure, Coronary Artery Disease, Hyperlipidema, Hypertension Musculoskeltal Medical History: Reports: Arthritis Psychiatric Medical History: Reports: Dementia Past Surgical History Past Surgical History: Reports: Hysterectomy, Other - Cataract surgery Social History Information Source: Emergency Med Personnel, [facility] Records Lives with: Alone Smoking Status: Former Smoker Frequency of Alcohol Use: None Hx Recreational Drug Use: No Drugs: None Hx Prescription Drug Abuse: No - Advance Directive Resuscitation Status: Do Not Resuscitate Family History Family History: Hypertension, Malignancy Parental Family History Reviewed: Yes - Taken from prior chart Children Family History Reviewed: NA - Patient is unable to give her own history. Sibling(s) Family History Reviewed.: NA - Patient is unable to give her own history. Medication/Allergy Home Medications: Acetaminophen [Tylenol] 650 mg PO Q6HP PRN 04/17/17 Albuterol Sulfate [Ventolin 0.083% Neb 2.5 mg/3 ml Ampul] 1 vial NEB TID Aspirin [Aspirin 81 mg Chewable Tablet] 81 mg PO DAILY 04/17/17 Atorvastatin Calcium [Lipitor 20 mg Tablet] 20 mg PO QHS 04/17/17 Carvedilol [Coreg 25 mg Tablet] 25 mg PO Q12 04/17/17 Ergocalciferol (Vitamin D2) [Vitamin D2] 50,000 unit PO FR@1000 04/17/17 Ferrous Sulfate [Iron] 325 mg PO DAILY 04/17/17 Fluticasone Propionate [Flonase Nasal [place] 50 Mcg/[place] 16 gm] 2 sprays NASL Q12 04/17/17 Fluticasone/Salmeterol [Advair 250-50 Diskus 28 dose] 1 inh IH Q12 04/17/17 Furosemide [Lasix 40 mg Tablet] 80 mg PO Q12@0600,1800 04/17/17 Isosorbide Mononitrate [Imdur 60 mg Tablet.er] 60 mg PO DAILY 04/17/17 Montelukast Sodium [Singulair 10 mg Tablet] 10 mg PO QHS 04/17/17 Pantoprazole Sodium [Protonix] 40 mg PO DAILY 04/17/17 Potassium Chloride [Klor-Con 10 Meq Tablet.sa] 20 meq PO DAILY 04/17/17 Venlafaxine HCl ER [Effexor Xr 37.5 mg Cap.sr] 37.5 mg PO DAILY 04/17/17 Allergies/Adverse Reactions: No Known Allergies Allergy (Verified 01/19/17 12:21) Review of Systems ROS unobtainable: Due to mental status Physical Exam Vital Signs: Temp Pulse Resp BP Pulse Ox 98.5 F 90 13 156/63 H 100 04/17/17 11:37 04/17/17 11:37 04/17/17 14:02 04/17/17 14:02 04/17/17 14:02 Intake & Output 04/16/17 04/17/17 04/18/17 06:59 06:59 06:59 Weight 34.7 kg GENERAL: This is a well-developed grossly underweight, female resting in bed not appearing to be in any acute distress. HEENT: Normocephalic, atraumatic. Sclera are anicteric. Dry mucous membranes. No obvious lymphadenopathy. Trachea is midline. Temporal muscle wasting present. HEART: Regular rate and rhythm. No murmurs, rubs or gallops. LUNGS: Clear to auscultation anteriorly bilaterally with equal rise and fall of the chest. ABDOMEN: Soft, nontender, flat, nondistended with normoactive bowel sounds EXTREMETIES: No clubbing, cyanosis or edema. Small-caliber extremities with muscle wasting.. 2+ peripheral pulses bilaterally. NEURO: the patient was found initially sleeping. She will awaken to her name being called loudly. She is nonverbal at the bedside right now. I have asked her multiple questions and the patient does not answer. The patient moves all extremities. She does not cooperate for full neurologic assessment. At times she stares off into space when being spoken to. She fidgets with her clothing intermittently. Results Laboratory Results: 04/17/17 12:31 04/17/17 12:31 04/17/17 04/17/17 04/17/17 12:31 12:31 12:31 WBC 11.8 H RBC 4.44 Hgb 13.2 Hct 39.6 MCV 89 MCH 29.7 MCHC 33.4 RDW 16.3 H Plt Count 393 Seg Neutrophils % 85.2 H Lymphocytes % 8.2 L Monocytes % 5.7 Eosinophils % 0.4 Basophils % 0.5 Absolute Neutrophils 10.1 H Absolute Lymphocytes 1.0 Absolute Monocytes 0.7 Absolute Eosinophils 0.1 Absolute Basophils 0.1 Sodium 149.0 H Potassium 3.8 Chloride 99 Carbon Dioxide 33 H Anion Gap 17 BUN 117 H Creatinine 2.54 H Est GFR ( Amer) 22 L Est GFR (Non-Af Amer) 18 L Glucose 92 Lactic Acid 1.1 Calcium 11.0 H Magnesium 2.8 H Total Bilirubin 0.7 AST 31 ALT 33 Alkaline Phosphatase 126 Total Protein 7.9 Albumin 4.5 Urine Color Urine Appearance Urine pH Ur Specific [place] Urine Protein Urine Glucose (UA) Urine Ketones Urine Blood Urine Nitrite Ur Leukocyte Esterase Urine WBC (Auto) Urine RBC (Auto) Stool Occult Blood 04/17/17 04/17/17 13:35 14:13 WBC RBC Hgb Hct MCV MCH MCHC RDW Plt Count Seg Neutrophils % Lymphocytes % Monocytes % Eosinophils % Basophils % Absolute Neutrophils Absolute Lymphocytes Absolute Monocytes Absolute Eosinophils Absolute Basophils Sodium Potassium Chloride Carbon Dioxide Anion Gap BUN Creatinine Est GFR ( Amer) Est GFR (Non-Af Amer) Glucose Lactic Acid Calcium Magnesium Total Bilirubin AST ALT Alkaline Phosphatase Total Protein Albumin Urine Color YELLOW Urine Appearance CLEAR Urine pH 5.0 Ur Specific [place] 1.010 Urine Protein NEGATIVE Urine Glucose (UA) NEGATIVE Urine Ketones NEGATIVE Urine Blood NEGATIVE Urine Nitrite NEGATIVE Ur Leukocyte Esterase NEGATIVE Urine WBC (Auto) 0 Urine RBC (Auto) 1 Stool Occult Blood NEGATIVE Impressions: Chest X-Ray 04/17/17 12:17 IMPRESSION: Lungs hyperinflated but clear. No pleural effusion. No pneumothorax. No cardiomegaly Assessment & Plan - Diagnosis (1) Acute on chronic renal failure Qualifiers: Chronic kidney disease stage: stage 4 (severe) Plan: Continue IV fluids. Continue to monitor her renal function. The patient usually has stage III kidney disease. Her acute on chronic renal failure secondary to dehydration. (2) Hypernatremia Plan: Secondary to dehydration. Continue IV fluids. (3) Failure to thrive Plan: Patient has had decreased p.o. intake and she is grossly malnourished. At this point I do not know who is making medical decisions for her. I have been informed that she is DNR. At this point I would not recommend placement of PEG tube for nutritional support. Patient is elderly and has comorbid conditions and I am not certain that her quality of life would be improved with PEG tube. (4) Dehydration Plan: Acute on chronic renal failure management as above. Continue IV fluids. (5) Anemia in chronic kidney disease (CKD) Qualifiers: Chronic kidney disease stage: stage 3 (moderate) Qualified Code(s): N18.3 - Chronic kidney disease, stage 3 (moderate) (6) CHF (congestive heart failure) Qualifiers: Congestive heart failure type: unspecified congestive heart failure type Congestive heart failure chronicity: acute on chronic Qualified Code(s): I50.9 - Heart failure, unspecified Plan: The patient is not in acute heart failure. She looks dry on exam and not volume overloaded. Continue to monitor. Verify home medications. (7) COPD (chronic obstructive pulmonary disease) Qualifiers: COPD type: unspecified COPD Qualified Code(s): J44.9 - Chronic obstructive pulmonary disease, unspecified Plan: The patient is not in acute exacerbation. Continue home medications. (8) Hypertensive crisis Plan: The patient has isosorbide ordered down in the emergency room and she is getting ready to receive this. Verify home medicines and continue any antihypertensives. (9) Severe protein-calorie malnutrition Plan: We will consult dietary. Based on the patient's current level of mentation, I do not see her eating much while she is here in the hospital either. Add Ensure /boost on 2 her diet. (10) Dementia Plan: History of dementia is not listed in her previous medical chart. However the ER physician got this history from the discharge specialist and the PCP. Continue to monitor her mental state. It is unclear at this time if she is at her baseline mentation. This will need to be discussed with her caretakers when they return. (11) Leukocytosis Plan: Patient recently had a urinary tract infection for which she is status post antibiotic therapy. She is also significantly dehydrated. Her white blood cell count elevation may be secondary to dehydration. Repeat urine culture has been sent. - Time Time Spent: 30 to 50 Minutes Within: when bed available - Inpatient Certification Medical Necessity: Need For IV Fluids
[2017-04-17] MEDS: HEPARIN SOD (PORCINE) 5,000 UNIT/ML 1 ML SYRINGE SUBCUT SCH (21:29)
[2017-04-18] MEDS: HEPARIN SOD (PORCINE) 5,000 UNIT/ML 1 ML SYRINGE SUBCUT SCH ×3 (05:49→22:27)
[2017-04-18 06:48] LABS: ABSOLUTE BASOPHILS # (AUTO) 0.1 10^3/uL (0.0-0.2); ABSOLUTE LYMPHOCYTES (AUTO) 1.2 10^3/uL (0.5-4.7); ABSOLUTE MONOCYTES (AUTO) 0.9 10^3/uL (0.1-1.4); ABSOLUTE NEUT (AUTO) 8.6 10^3/uL (1.7-8.2); BASOPHILS % (AUTO) 0.8 % (0-2); EOSINOPHILS % (AUTO) 0.4 % (0-6); HEMATOCRIT 33.6 % (36.0-47.0); HGB HCT DIFFERENCE -0.3; LYMPHOCYTES % (AUTO) 10.8 % (13-45); MEAN CORPUSCULAR HEMOGLOBIN 29.3 pg (27.0-33.4); MEAN CORPUSCULAR HGB CONC 32.9 g/dL (32.0-36.0); MEAN CORPUSCULAR VOLUME 89 fl (80-97); MONOCYTES % (AUTO) 8.1 % (3-13); RED BLOOD COUNT 3.78 10^6/uL (3.72-5.28); RED CELL DISTRIBUTION WIDTH 16.4 % (11.5-14.0); SEGMENTED NEUTROPHILS % (AUTO) 79.9 % (42-78); WHITE BLOOD COUNT 10.7 10^3/uL (4.0-10.5)
[2017-04-18 07:09] LABS: HEMOGLOBIN 11.1 g/dL (12.0-15.5)
[2017-04-18 07:17] LABS: ANION GAP 17 (5-19); BLOOD UREA NITROGEN 110 mg/dL (7-20); CALCIUM 9.5 mg/dL (8.4-10.2); CARBON DIOXIDE 26 mmol/L (22-30); CHLORIDE 109 mmol/L (98-107); CREATININE RESULT 2.18 mg/dL (0.52-1.25); GLUCOSE 69 mg/dL (75-110); MAGNESIUM 2.7 mg/dL (1.6-2.3); POTASSIUM 3.4 mmol/L (3.6-5.0); SODIUM 152.2 mmol/L (137-145)
[2017-04-18] MEDS: ACETAMINOPHEN 325 MG TABLET PO PRN ×2 (08:47→13:50)
[2017-04-18] MEDS: HYDRALAZINE HCL INJ/PF 20 MG/1 ML SDV IV PRN ×2 (08:54→20:39)
[2017-04-18] MEDS ORDERED: ALBUTEROL SULFATE 0.083% NEB 2.5 MG/3 ML AMPUL NEB SCH (10:00)
[2017-04-18] MEDS ORDERED: INFLUENZA ADLT QUAD (36MOS+) 2017-18 VAC 0.5 ML SYR IM PRN (11:37)
[2017-04-18] MEDS: FLUTICASONE/SALMETEROL DISKUS 250-50 MCG/DOSE IH SCH ×2 (13:48→22:28)
[2017-04-18] MEDS: ISOSORBIDE MONONITRATE 60 MG TAB.ER.24H PO SCH (13:48)
[2017-04-18] MEDS: VENLAFAXINE HCL 37.5 MG CAP.SR.24H PO SCH (13:49)
[2017-04-18] MEDS: ALBUTEROL SULFATE 0.083% NEB 2.5 MG/3 ML AMPUL NEB SCH ×2 (14:12→19:41)
[2017-04-18] MEDS ORDERED: NORMAL SALINE 1000 ML 1,000 ML IV PRN (14:38)
--- NOTE | 2017-04-18 15:40 | PDOC PROGRESS REPORT ---
Subjective Progress Note for:: 04/18/17 Subjective:: Patient is 81-year-old female with a history of congestive heart failure dyslipidemia hypertension presenting with a complaint of gradual decline since February. Patient is not eating and has lost 10 pounds over the last 10 days. Patient is a DNR and does not want any further intervention. Patient caregiver is at the bedside and stated that she would like to speak to palliative care. She states that patient is doing a little bit better today. Physical Exam Vital Signs: Temp Pulse Resp BP Pulse Ox 97.7 F 70 16 154/70 H 99 04/18/17 04:00 04/18/17 07:00 04/18/17 04:00 04/18/17 04:00 04/18/17 04:00 Intake & Output 04/17/17 04/18/17 04/19/17 06:59 06:59 06:59 Intake Total 1090 Output Total 0 Balance 1090 Weight 34.7 kg General appearance: PRESENT: no acute distress, other - Elderly Head exam: PRESENT: normocephalic Eye exam: PRESENT: EOMI. ABSENT: scleral icterus Ear exam: PRESENT: normal external ear exam Mouth exam: PRESENT: moist Neck exam: ABSENT: carotid bruit, JVD, lymphadenopathy, thyromegaly Respiratory exam: PRESENT: clear to auscultation hansa. ABSENT: rales, rhonchi, wheezes Cardiovascular exam: PRESENT: RRR. ABSENT: diastolic murmur, rubs, systolic murmur Pulses: PRESENT: normal dorsalis pedis pul GI/Abdominal exam: PRESENT: normal bowel sounds, soft. ABSENT: distended, guarding, mass, organolmegaly, rebound, tenderness Rectal exam: PRESENT: deferred Extremities exam: PRESENT: full ROM. ABSENT: calf tenderness, clubbing, pedal edema Neurological exam: PRESENT: alert, awake, oriented to person, oriented to time, CN II-XII grossly intact. ABSENT: motor sensory deficit Psychiatric exam: PRESENT: appropriate affect, normal mood. ABSENT: homicidal ideation, suicidal ideation Skin exam: PRESENT: dry, intact, warm. ABSENT: cyanosis, rash Results Laboratory Results: 04/18/17 06:17 04/18/17 06:17 04/18/17 04/18/17 04/18/17 06:17 06: 06:17 WBC 10.7 H RBC 3.78 Hgb 11.1 L D Hct 33.6 L MCV 89 MCH 29.3 MCHC 32.9 RDW 16.4 H Plt Count 300 Seg Neutrophils % 79.9 H Lymphocytes % 10.8 L Monocytes % 8.1 Eosinophils % 0.4 Basophils % 0.8 Absolute Neutrophils 8.6 H Absolute Lymphocytes 1.2 Absolute Monocytes 0.9 Absolute Eosinophils 0.0 Absolute Basophils 0.1 Sodium 152.2 H Potassium 3.4 L Chloride 109 H Carbon Dioxide 26 Anion Gap 17 BUN 110 H Creatinine 2.18 H Est GFR ( Amer) 26 L Est GFR (Non-Af Amer) 22 L Glucose 69 L Calcium 9.5 Magnesium 2.7 H TSH 0.89 04/18/17 06:17 NT-Pro-B Natriuret Pep 4190 H Impressions: Chest X-Ray 04/17/17 12:17 IMPRESSION: Lungs hyperinflated but clear. No pleural effusion. No pneumothorax. No cardiomegaly Assessment & Plan - Diagnosis (1) Dehydration Is this a current diagnosis for this admission?: Yes Plan: On IV fluids but with change to D5W as patients hypernatremia is becoming worse. (2) Dementia Is this a current diagnosis for this admission?: Yes Plan: Possibly progressive as she is not eating and has been gradually declining. Patient is DNR and palliative care has been consulted. (3) Failure to thrive Is this a current diagnosis for this admission?: Yes Plan: This could be related to her dementia (4) Hx of congestive heart failure Is this a current diagnosis for this admission?: Yes Plan: Based on previous echo. Patient has normal EF but she does have mild diastolic dysfunction. (5) Hypernatremia Plan: This could have been related to dehydration. Will discontinue NS as the hypernatremia is worsening. Will start on D5W at 75cc/hr. (6) Hypertensive crisis Is this a current diagnosis for this admission?: Yes Plan: Patient with hypertensive emergency. Patient with elevated creatinine and worsening mentation. Will resume all home medications. Will not give normal saline as this may further elevate the blood pressure. (7) Leukocytosis Is this a current diagnosis for this admission?: Yes Plan: Possibly a stress response or due to hemoconcentration. Leukocytosis trending down. Urine culture shows no growth. (8) Severe protein-calorie malnutrition Is this a current diagnosis for this admission?: Yes Plan: Patient not eating well. This could be related to progressive dementia. Will encourage po intake and give supplement. Patient is a DNR and per caregiver, she never wanted a feeding tube. (9) Anemia in chronic kidney disease (CKD) Qualifiers: Chronic kidney disease stage: stage 3 (moderate) Qualified Code(s): N18.3 - Chronic kidney disease, stage 3 (moderate) Plan: Did trend down however this may be diluational. Patient does not have any obvious signs of bleeding. Will continue to monitor. (10) COPD (chronic obstructive pulmonary disease) Qualifiers: COPD type: unspecified COPD Qualified Code(s): J44.9 - Chronic obstructive pulmonary disease, unspecified Plan: Stable. Continue nebs, inhailers and supplemental oxygen. (11) Acute on chronic renal failure Qualifiers: Chronic kidney disease stage: stage 4 (severe) Is this a current diagnosis for this admission?: Yes Plan: Worsened by dehydration. Improving with gentle hydration. Avoid nephrotoxins and provide adequate blood pressure control. - Time Time Spent with patient: 15-24 minutes Anticipated discharge: Hospice Within: Other - Palliative care was consulted considering patient's dementia and refusal to eat. Will await there evaluation and recommendations.
[2017-04-18] MEDS: DEXTROSE 5%-WATER 1000 ML 1,000 ML IV PRN (15:46)
--- NOTE | 2017-04-18 22:20 | Palliative Consultation Report ---
Consultation Consult Reason: Palliative Care - HPI HPI: Palliative Care Initial Visit 04/18/17- 3:15 pm Appreciate palliative care consult request for this 81 year old woman admitted for failure to thrive via ER. Sammy is asleep, er paid caregiver of 6 weeks is at her bedside. Caregiver states that sammy has been declineing for over a month, since hospitalized with UTI. She is not esting and has lost ten pounds in ten days and about 20 pounds in the past 5-6 weeks. She is responsive but doesnt speak much Romansh, so the caregiver depends on patient's friend who visits often to translate. Caregiver states to her knowledge there is no family and patient has no power of rn faculty or health care surrogate. She said patient arranged for payment of caregivers through "[employer]" before she became so weak and increasingly confused. Her dementia is getting worse quickly. Caregiver says she is eating only bites and drinking very little every day. She doesnt complain of pain or shortness of breath, but is very weak. She came into the hospital with dehydration. The caregiver did say she found the name of a criminal investigator customs in the patients home. She is going to go there tomorrow and call the criminal investigator customs to see if he has any information about guardians or surrogates for this patient. SHe reports that her agency is increasing caregivers to 24 hours as patient is not safe to leave alone. No family has come to visit. The one friend is the only person the caregiver knows of to help this patient. Patient awakened when I called her name and smiled. She did not attempt to communicate. She dooked uncomfortable in the bed but when caregiver and I pulled her up she winced as if in pain briefly. No respiratory distress, pale and frail but no bruising or other abnormality or evidence trauma or falls. Onset: Last week Onset/Duration: Gradual Associated Symptoms: Weakness Past Medical History(Consults) - General Information Source: Friend, COUNT INCLUDES THE [facility] Records Home Medications: Acetaminophen [Tylenol] 650 mg PO Q6HP PRN 04/17/17 Albuterol Sulfate [Ventolin 0.083% Neb 2.5 mg/3 ml Ampul] 1 vial NEB TID Aspirin [Aspirin 81 mg Chewable Tablet] 81 mg PO DAILY 04/17/17 Atorvastatin Calcium [Lipitor 20 mg Tablet] 20 mg PO QHS 04/17/17 Carvedilol [Coreg 25 mg Tablet] 25 mg PO Q12 04/17/17 Ergocalciferol (Vitamin D2) [Vitamin D2] 50,000 unit PO FR@1000 04/17/17 Ferrous Sulfate [Iron] 325 mg PO DAILY 04/17/17 Fluticasone Propionate [Flonase Nasal [place] 50 Mcg/[place] 16 gm] 2 sprays NASL Q12 04/17/17 Fluticasone/Salmeterol [Advair 250-50 Diskus 28 dose] 1 inh IH Q12 04/17/17 Furosemide [Lasix 40 mg Tablet] 80 mg PO Q12@0600,1800 04/17/17 Isosorbide Mononitrate [Imdur 60 mg Tablet.er] 60 mg PO DAILY 04/17/17 Montelukast Sodium [Singulair 10 mg Tablet] 10 mg PO QHS 04/17/17 Pantoprazole Sodium [Protonix] 40 mg PO DAILY 04/17/17 Potassium Chloride [Klor-Con 10 Meq Tablet.sa] 20 meq PO DAILY 04/17/17 Venlafaxine HCl ER [Effexor Xr 37.5 mg Cap.sr] 37.5 mg PO DAILY 04/17/17 Allergies/Adverse Reactions: No Known Allergies Allergy (Verified 01/19/17 12:21) - Social History Lives with: Alone Family History: None - caregiver is with patient, She said they have no medical history for patient. Patient is too weak for giving ny history and has language brrier., Reviewed & Not Pertinent, Hypertension, Malignancy Parental Family History Reviewed: No Children Family History Reviewed: No Sibling(s) Family History Reviewed.: No Smoking Status: Never Smoker Frequency of Alcohol Use: None Hx Recreational Drug Use: No Drugs: None Hx Prescription Drug Abuse: No - Past Medical History Cardiac Medical History: Reports: Hx Congestive Heart Failure, Hx Coronary Artery Disease, Hx Hypercholesterolemia, Hx Hypertension Denies: Hx Heart Attack Pulmonary Medical History: Reports: Hx COPD Denies: Hx Asthma Neurological Medical History: Denies: Hx Cerebrovascular Accident, Hx Seizures Renal/ Medical History: Reports: Hx End Stage Renal Disease, Hx Renal Insufficiency. Denies: Hx Peritoneal Dialysis GI Medical History: Denies: Hx Hepatitis, Hx Hiatal Hernia, Hx Ulcer Musculoskeltal Medical History: Reports Hx Arthritis Psychiatric Medical History: Reports: Hx Dementia Infectious Medical History: Denies: Hx Hepatitis Hematology: Denies: Anemia, Sickle Cell Disease - Surgical History Past Surgical History: Reports: None, Hx Hysterectomy, Other - Cataract surgery. Denies: Hx Mastectomy, Hx Open Heart Surgery, Hx Pacemaker Review of systems ROS unobtainable: due to mental statu Constitutional: Malaise, Weakness Neurological/Psychological: Dementia Ojective:Exam Vital Signs: Temp Pulse Resp BP Pulse Ox 97.4 F 69 16 193/69 H 100 04/18/17 19:25 04/18/17 19:25 04/18/17 19:25 04/18/17 19:25 04/18/17 19:25 Intake & Output 04/17/17 04/18/17 04/19/17 06:59 06:59 06:59 Intake Total 1090 1991 Output Total 0 1 Balance 1090 1990 Weight 34.7 kg - General General Appearance: Lethargic In distress: None - HEENT Head: Normocephalic Eyes: Pale conjunctiva Pupils: PERRLA - Neck Neck: Supple - Respiratory Respiratory Status: No respiratory distress Breath sounds: Clear - Abdominal Inspection: Normal Distension: No distension Bowel Sounds: Normal - Neurological Cognition: Inattentive Speech: Other - Language barrier, speaks Serbian Cranial nerves: Normal Motor exam: Weakness - Psychological Associated symptoms: Normal affect, Decreased appetite, Excessive sleeping Objective-Diagnostic Laboratory: 04/18/17 06:17 04/18/17 06:17 04/18/17 04/18/17 04/18/17 06:17 06:17 06:17 WBC 10.7 H RBC 3.78 Hgb 11.1 L D Hct 33.6 L MCV 89 MCH 29.3 MCHC 32.9 RDW 16.4 H Plt Count 300 Seg Neutrophils % 79.9 H Lymphocytes % 10.8 L Monocytes % 8.1 Eosinophils % 0.4 Basophils % 0.8 Absolute Neutrophils 8.6 H Absolute Lymphocytes 1.2 Absolute Monocytes 0.9 Absolute Eosinophils 0.0 Absolute Basophils 0.1 Sodium 152.2 H Potassium 3.4 L Chloride 109 H Carbon Dioxide 26 Anion Gap 17 BUN 110 H Creatinine 2.18 H Est GFR ( Amer) 26 L Est GFR (Non-Af Amer) 22 L Glucose 69 L Calcium 9.5 Magnesium 2.7 H TSH 0.89 04/18/17 06:17 NT-Pro-B Natriuret Pep 4190 H Plan and Recommendation Plan and Recommendation: Patient gimenez recently been in [facility] and was seen by Palliative care at that time. I will see if I can find out anything about NOK or guardians from their notes. Encouraged caregiver to bring name and number of rn faculty to partner integration planner of she finds it again. Briefly discussed needing s heslt csre surrogate to send patient to another facility, to sign for home health or hospice on discharge, etc. No pain evident. Emaciated and weight loss. Protein 7.9 and Albumin 4.5 on admission, but patient very dehydrated. Have not been repeated since rehyrated with IV fluids. Appreciate caregiver's concern and commitment to this patient. Thank you for opportunity to assist with care, Will see if I can find other records or contacts for patient. - Time Spent with Patient Time spent with patient: 30 to 40 Minutes Time: 25 min with patient and caregiver, review of chart
[2017-04-18] MEDS: MONTELUKAST SODIUM 10 MG TABLET PO SCH (22:27)
[2017-04-18] MEDS: CARVEDILOL 12.5 MG TABLET PO SCH (22:28)
[2017-04-19] MEDS: DEXTROSE 5%-WATER 1000 ML 1,000 ML IV PRN (05:35)
[2017-04-19] MEDS: HEPARIN SOD (PORCINE) 5,000 UNIT/ML 1 ML SYRINGE SUBCUT SCH ×3 (05:37→23:07)
--- NOTE | 2017-04-19 05:54 | Physician Advisory Note ---
Physician Advisor ProgressNote .: Pursuant to the plan for [facility], I have reviewed the medical record for this patient. Physician Advisor Statement: Wow! Incredibly good documentation of ARF on CKD stage 4, anemia of CKD, acute hypernatremia.... Please consider documenting, if you agree: 1. "Chronic diastolic CHF" (Always need to say if CHF is acute or chronic, as well as syst or diast.) Thanks! CK
[2017-04-19] MEDS: ALBUTEROL SULFATE 0.083% NEB 2.5 MG/3 ML AMPUL NEB SCH ×3 (07:43→19:48)
[2017-04-19] MEDS: CARVEDILOL 12.5 MG TABLET PO SCH (08:59)
[2017-04-19] MEDS: ISOSORBIDE MONONITRATE 60 MG TAB.ER.24H PO SCH (09:00)
[2017-04-19] MEDS: FLUTICASONE/SALMETEROL DISKUS 250-50 MCG/DOSE IH SCH ×2 (09:00→23:03)
[2017-04-19] MEDS: VENLAFAXINE HCL 37.5 MG CAP.SR.24H PO SCH (09:01)
[2017-04-19] MEDS ORDERED: LANSOPRAZOLE 30 MG TAB.RAP.DR PO SCH (10:00)
[2017-04-19] MEDS ORDERED: DEXTROSE 5%-WATER 1000 ML 1,000 ML IV PRN (11:53)
[2017-04-19] MEDS ORDERED: MORPHINE SULFATE 10 MG/ML INJ IV PRN (12:11)
[2017-04-19] MEDS: ACETAMINOPHEN 325 MG TABLET PO PRN (12:42)
[2017-04-19] MEDS ORDERED: ONDANSETRON HCL INJ/PF 4 MG/2 ML SDV IV PRN (13:00)
[2017-04-19] MEDS ORDERED: ACETAMINOPHEN 325 MG TABLET PO PRN (13:00)
[2017-04-19] MEDS ORDERED: HYDRALAZINE HCL INJ/PF 20 MG/1 ML SDV IV PRN (13:00)
[2017-04-19] MEDS ORDERED: INFLUENZA ADLT QUAD (36MOS+) 2017-18 VAC 0.5 ML SYR IM PRN (13:00)
[2017-04-19] MEDS ORDERED: CLONIDINE 0.1 MG/24 HR PATCH.TDWK TD SCH (13:00)
[2017-04-19] MEDS: MONTELUKAST SODIUM 10 MG TABLET PO SCH (23:03)
[2017-04-20] MEDS: LANSOPRAZOLE 30 MG TAB.RAP.DR PO SCH (06:43)
[2017-04-20] MEDS: HEPARIN SOD (PORCINE) 5,000 UNIT/ML 1 ML SYRINGE SUBCUT SCH ×3 (06:44→21:09)
[2017-04-20 06:47] LABS: ANION GAP 11 (5-19); BLOOD UREA NITROGEN 72 mg/dL (7-20); CARBON DIOXIDE 24 mmol/L (22-30); CHLORIDE 105 mmol/L (98-107); CREATININE RESULT 1.59 mg/dL (0.52-1.25); GLUCOSE 100 mg/dL (75-110); POTASSIUM 3.4 mmol/L (3.6-5.0); SODIUM 140.1 mmol/L (137-145)
[2017-04-20] MEDS: DEXTROSE 5%-WATER 1000 ML 1,000 ML IV PRN (06:49)
[2017-04-20] MEDS ORDERED: POTASSI CL 20 MEQ/50 ML RIDER 20 MEQ/50 ML RTUPB IV ONE (08:00)
[2017-04-20] MEDS: ALBUTEROL SULFATE 0.083% NEB 2.5 MG/3 ML AMPUL NEB SCH ×3 (08:06→20:04)
[2017-04-20] MEDS: MORPHINE SULFATE 10 MG/ML INJ IV PRN ×3 (08:40→19:26)
[2017-04-20] MEDS: FLUTICASONE/SALMETEROL DISKUS 250-50 MCG/DOSE IH SCH ×2 (10:44→21:14)
[2017-04-20] MEDS: ISOSORBIDE MONONITRATE 60 MG TAB.ER.24H PO SCH (10:44)
[2017-04-20] MEDS: METOPROLOL SUCCINATE 25 MG TAB.SR.24H PO SCH (10:44)
[2017-04-20] MEDS: VENLAFAXINE HCL 37.5 MG CAP.SR.24H PO SCH (10:44)
--- NOTE | 2017-04-20 13:16 | Progress Note ---
Provider Note Provider Note: Palliative Care Follow UP visit Patient is resting in bed, opens eyes only, no attempt to speak. Paid caregiver is at bedside. Caregiver has tried to contact the civil rights attorney whose name she found in patients home. The attorneys office could not give her any information about guardian or health care surrogate. SHe has exhausted all other avenues of patient friends etc., to attempt to locate HCPOA. SHe reports patient has declined a great deal in the past 48 hours. She is taking few bites or sips by mouth and is sleeping almost 24 hours. She has little expression of pain or distress. IV fluids have been reduced but continue at low rate. Unfortunately, this patient probably will remain here until she passes since there is no one available to sign consent for transfer or other services such as hospice. Discussed this with the caregiver, who understands. O: Patient resting comfortably, breathing easily and in no distress at the present time. She appears more frail but no frowning or moaning. A/P: Will continue to follow for support. Appreciate calls from Dr. Ya regarding this patient and the situation she is in. Appreciate care given for patient by staff. NO recommendations for symptom management at the present as patient so comfortable, however, order for lorazapam prn may be needed if patient develops any problems with restlessness.
[2017-04-20] MEDS: MONTELUKAST SODIUM 10 MG TABLET PO SCH (21:14)
[2017-04-21] MEDS: MORPHINE SULFATE 10 MG/ML INJ IV PRN ×2 (03:26→12:44)
[2017-04-21] MEDS: HEPARIN SOD (PORCINE) 5,000 UNIT/ML 1 ML SYRINGE SUBCUT SCH ×3 (06:09→21:38)
[2017-04-21] MEDS: LANSOPRAZOLE 30 MG TAB.RAP.DR PO SCH (06:10)
[2017-04-21] MEDS: ALBUTEROL SULFATE 0.083% NEB 2.5 MG/3 ML AMPUL NEB SCH ×3 (07:39→21:27)
[2017-04-21] MEDS: ISOSORBIDE MONONITRATE 60 MG TAB.ER.24H PO SCH (09:33)
[2017-04-21] MEDS: METOPROLOL SUCCINATE 25 MG TAB.SR.24H PO SCH (09:33)
[2017-04-21] MEDS: VENLAFAXINE HCL 37.5 MG CAP.SR.24H PO SCH (09:33)
[2017-04-21] MEDS: FLUTICASONE/SALMETEROL DISKUS 250-50 MCG/DOSE IH SCH (09:36)
[2017-04-21] MEDS ORDERED: LORAZEPAM INJ 2 MG/1 ML VIAL IV PRN (18:11)
--- NOTE | 2017-04-21 18:27 | PDOC PROGRESS REPORT ---
Subjective Progress Note for:: 04/19/17 Subjective:: Patient is 81-year-old female with a history of congestive heart failure dyslipidemia hypertension presenting with a complaint of gradual decline since February. Patient is not eating and has lost 10 pounds over the last 10 days. Patient is a DNR and does not want any further intervention. Palliative care has been consulted and did speak to the caregiver about palliative care and hospice. Patient does not have a POA however she does have an deputy attorney general. Caregiver was asked to get in touch with deputy attorney general to see about having a guardian appointed to the patient. Patient is still not eating and is minimally interactive. Patient does not appear to be in any pain or distress. IV fluids were decreased. Physical Exam Vital Signs: Temp Pulse Resp BP Pulse Ox 97.9 F 62 18 150/64 H 100 04/19/17 16:00 04/19/17 16:00 04/19/17 16:00 04/19/17 16:00 04/19/17 16:00 Intake & Output 04/18/17 04/19/17 04/20/17 06:59 06:59 06:59 Intake Total 1090 3502 400 Output Total 0 1 Balance 1090 3501 400 Weight 34.7 kg 34.7 kg 34.7 kg General appearance: PRESENT: no acute distress, other - Frail-appearing Head exam: PRESENT: normocephalic Eye exam: PRESENT: EOMI. ABSENT: scleral icterus Ear exam: PRESENT: normal external ear exam Mouth exam: PRESENT: moist Neck exam: ABSENT: carotid bruit, JVD, lymphadenopathy, thyromegaly Respiratory exam: PRESENT: decreased breath sounds - But clear to auscultation, wheezes - Intermittent. ABSENT: rales, rhonchi Cardiovascular exam: PRESENT: RRR. ABSENT: diastolic murmur, rubs, systolic murmur Pulses: PRESENT: normal dorsalis pedis pul Vascular exam: PRESENT: normal capillary refill GI/Abdominal exam: PRESENT: normal bowel sounds, soft. ABSENT: distended, guarding, mass, organolmegaly, rebound, tenderness Rectal exam: PRESENT: deferred Extremities exam: PRESENT: full ROM. ABSENT: calf tenderness, clubbing, pedal edema Neurological exam: PRESENT: other - Resting peacefully. ABSENT: motor sensory deficit Psychiatric exam: PRESENT: homicidal ideation, suicidal ideation Skin exam: PRESENT: dry, intact, warm. ABSENT: cyanosis, rash Results Laboratory Results: 04/18/17 06:17 04/18/17 06:17 04/18/17 06:17 NT-Pro-B Natriuret Pep 4190 H Impressions: Chest X-Ray 04/17/17 12:17 IMPRESSION: Lungs hyperinflated but clear. No pleural effusion. No pneumothorax. No cardiomegaly Assessment & Plan - Diagnosis (1) Dehydration Is this a current diagnosis for this admission?: Yes Plan: Improved. Patient is on patient D5 water at a very slow rate to prevent volume overload as patient does have a history of chronic diastolic heart failure. Patient is not taking anything orally at this time therefore she is at risk for dehydration. Patient is however declining and may not feel thirsty. (2) Dementia Is this a current diagnosis for this admission?: Yes Plan: Possibly progressive as she is not eating and has been gradually declining. Patient is DNR and palliative is following the patient. (3) Failure to thrive Is this a current diagnosis for this admission?: Yes Plan: This could be related to her dementia. (4) Hx of congestive heart failure Is this a current diagnosis for this admission?: Yes Plan: Chronic diastolic heart failure. Patient has normal EF but she does have mild diastolic dysfunction. She is currently euvolemic. (5) Hypernatremia Plan: Resolved. Continue D5 water but decreased to KVO. (6) Hypertensive crisis Is this a current diagnosis for this admission?: Yes Plan: Patient with hypertensive urgency. Patient with elevated creatinine and worsening mentation. Blood pressures are labile. Patient is not swallowing medications well anymore will transition to clonidine patch and IV medications and limit the amount of oral medications being given. (7) Leukocytosis Is this a current diagnosis for this admission?: Yes Plan: Possibly a stress response or due to hemoconcentration. Leukocytosis trending down. Urine culture shows no growth. (8) Severe protein-calorie malnutrition Is this a current diagnosis for this admission?: Yes Plan: Patient is not eating despite not having any problems swallowing. This could be related to progressive dementia. Patient is a DNR and per caregiver, she never wanted a feeding tube. Will continue patient on D5 water to prevent dehydration however patient is not receiving adequate nutrition. (9) Anemia in chronic kidney disease (CKD) Qualifiers: Chronic kidney disease stage: stage 3 (moderate) Qualified Code(s): N18.3 - Chronic kidney disease, stage 3 (moderate) Is this a current diagnosis for this admission?: Yes Plan: Did trend down however this may be diluational. Patient does not have any obvious signs of bleeding. (10) COPD (chronic obstructive pulmonary disease) Qualifiers: COPD type: unspecified COPD Qualified Code(s): J44.9 - Chronic obstructive pulmonary disease, unspecified Plan: Stable. Continue nebs and supplemental oxygen. Patient not participating with taking inhalers. (11) Acute on chronic renal failure Qualifiers: Chronic kidney disease stage: stage 4 (severe) Is this a current diagnosis for this admission?: Yes Plan: Worsened by dehydration. Improving with gentle hydration. Avoid nephrotoxins and provide adequate blood pressure control. Patient still has urine output. No [place] in place however patient has several incontinent voids. - Time Time Spent with patient: Less than 15 minutes Anticipated discharge: Hospice Within: Other - Patient does not have a guardian at this time therefore no decisions can be made about patient being in hospice. Patient is declining quickly. Caregiver is attempting to contact patient's deputy attorney general to see if there can be an appointed guardian to make decisions regarding her care.
[2017-04-21] MEDS: METOPROLOL TARTRATE PF/INJ 5 MG/5 ML SDV IV SCH (21:38)
--- NOTE | 2017-04-22 02:28 | PDOC PROGRESS REPORT ---
Subjective Progress Note for:: 04/20/17 Subjective:: Patient is 81-year-old female with a history of congestive heart failure dyslipidemia hypertension presenting with a complaint of gradual decline since February. Patient is not eating and has lost 10 pounds over the last 10 days. Patient is a DNR and does not want any further intervention. Palliative care has been consulted and did speak to the caregiver about palliative care and hospice. Patient does not have a POA however she does have an assistant attorney general. Caregiver was asked to get in touch with assistant attorney general to see about having a guardian appointed to the patient. Electrolog Operator will not provide any information. APS was called. Less responsive. No caregiver at bedside. Patient resting peacefully. Physical Exam Vital Signs: Temp Pulse Resp BP Pulse Ox 97.6 F 73 18 172/79 H 99 04/20/17 15:51 04/20/17 15:51 04/20/17 15:51 04/20/17 15:51 04/20/17 15:51 Intake & Output 04/19/17 04/20/17 04/21/17 06:59 06:59 06:59 Intake Total 3502 1780 300 Output Total 1 Balance 3501 1780 300 Weight 34.7 kg 34.7 kg 34.7 kg General appearance: PRESENT: no acute distress, other - frail Head exam: PRESENT: atraumatic, normocephalic Eye exam: ABSENT: scleral icterus Mouth exam: PRESENT: dry mucosa Neck exam: ABSENT: carotid bruit, JVD, lymphadenopathy, thyromegaly Respiratory exam: PRESENT: clear to auscultation hansa, wheezes. ABSENT: rales, rhonchi, tachypnea, unlabored Cardiovascular exam: PRESENT: RRR. ABSENT: diastolic murmur, rubs, systolic murmur Pulses: PRESENT: normal dorsalis pedis pul Vascular exam: PRESENT: normal capillary refill GI/Abdominal exam: PRESENT: normal bowel sounds, soft. ABSENT: distended, guarding, mass, organolmegaly, rebound, tenderness Rectal exam: PRESENT: deferred Extremities exam: PRESENT: full ROM. ABSENT: calf tenderness, clubbing, pedal edema Neurological exam: PRESENT: other - minimally responsive. ABSENT: motor sensory deficit Psychiatric exam: ABSENT: homicidal ideation, suicidal ideation Skin exam: PRESENT: dry, intact, warm. ABSENT: cyanosis, rash Results Laboratory Results: 04/18/17 06:17 04/20/17 05:37 04/20/17 05:37 Sodium 140.1 Potassium 3.4 L Chloride 105 Carbon Dioxide 24 Anion Gap 11 BUN 72 H Creatinine 1.59 H Est GFR ( Amer) 38 L Est GFR (Non-Af Amer) 31 L Glucose 100 Calcium 9.0 04/18/17 06:17 NT-Pro-B Natriuret Pep 4190 H Impressions: Chest X-Ray 04/17/17 12:17 IMPRESSION: Lungs hyperinflated but clear. No pleural effusion. No pneumothorax. No cardiomegaly Assessment & Plan - Diagnosis (1) Dehydration Is this a current diagnosis for this admission?: Yes Plan: Improved. Patient is on patient D5 water at a very slow rate to prevent volume overload as patient does have a history of chronic diastolic heart failure. Patient is not taking anything orally at this time therefore she is at risk for dehydration. Patient is however declining and may not feel thirsty. (2) Dementia Is this a current diagnosis for this admission?: Yes Plan: Possibly progressive as she is not eating and has been gradually declining. Patient is DNR and palliative is following the patient. (3) Failure to thrive Is this a current diagnosis for this admission?: Yes Plan: Possibly secondary to progression of her dementia. (4) Hx of congestive heart failure Is this a current diagnosis for this admission?: Yes Plan: Chronic diastolic heart failure. Patient has normal EF but she does have mild diastolic dysfunction. She is currently euvolemic. Have decrease fluids to avoid volume overload. (5) Hypernatremia Plan: Resolved. Continue D5 water but decreased to KVO. (6) Hypertensive crisis Is this a current diagnosis for this admission?: Yes Plan: Patient with hypertensive urgency. Patient with elevated creatinine and worsening mentation. Blood pressures are labile. Patient is not participating in taking medications orally. Continue clonidine patch and IV medications and limit the amount of oral medications being given. (7) Leukocytosis Is this a current diagnosis for this admission?: Yes Plan: Possibly a stress response or due to hemoconcentration. Leukocytosis trended down. Urine culture shows no growth. (8) Severe protein-calorie malnutrition Is this a current diagnosis for this admission?: Yes Plan: Patient is not eating despite not having any problems swallowing. This could be related to progressive dementia. Patient is a DNR and per caregiver, she never wanted a feeding tube. Will continue patient on D5 water to prevent dehydration however patient is not receiving adequate nutrition. Patient spends most of her time sleeping. Palliative care is involved. Electrolog Operator not cooperating is assisting with obtaining guardianship for the patient. APS now involved. Attempting to have an appointment guardian to assist in making decisions for the patient and making her hospice. (9) Anemia in chronic kidney disease (CKD) Qualifiers: Chronic kidney disease stage: stage 3 (moderate) Qualified Code(s): N18.3 - Chronic kidney disease, stage 3 (moderate) Plan: Hemoglobin did trend down with fluids however hemoglobin of 11 is still improved from previous values in the past. Patient has no obvious signs of bleeding. (10) COPD (chronic obstructive pulmonary disease) Qualifiers: COPD type: unspecified COPD Qualified Code(s): J44.9 - Chronic obstructive pulmonary disease, unspecified Plan: Stable. Continue nebs and supplemental oxygen. Patient not participating with taking inhalers therefore discontinued. (11) Acute on chronic renal failure Qualifiers: Chronic kidney disease stage: stage 4 (severe) Is this a current diagnosis for this admission?: Yes Plan: Worsened by dehydration. Improved with gentle hydration. Avoid nephrotoxins and provide adequate blood pressure control. Patient still has urine output. No Pastor in place however patient has several incontinent voids. May have pastor placed for comfort reason and to keep patient dry.
--- NOTE | 2017-04-22 02:41 | PDOC PROGRESS REPORT ---
Subjective Progress Note for:: 04/21/17 Subjective:: Patient is 81-year-old female with a history of congestive heart failure dyslipidemia hypertension presenting with a complaint of gradual decline since February. Patient is not eating and has lost 10 pounds over the last 10 days. Patient is a DNR and does not want any further intervention. Palliative care has been consulted and did speak to the caregiver about palliative care and hospice. Patient does not have a POA however she does have an cook supervisor. Caregiver was asked to get in touch with cook supervisor to see about having a guardian appointed to the patient. Clinical Faculty will not provide any information. APS was called. Patient less responsive. Still not eating. Patient will moan whenever repositioned and has been receiving PRN doses of morphine regularly. She is currently not in any distress. Physical Exam Vital Signs: Temp Pulse Resp BP Pulse Ox 98.1 F 84 19 152/90 H 99 04/21/17 23:39 04/21/17 23:39 04/21/17 23:39 04/21/17 23:39 04/21/17 23:39 Intake & Output 04/20/17 04/21/17 04/22/17 06:59 06:59 06:59 Intake Total 1780 775 300 Balance 1780 775 300 Weight 34.7 kg 34.7 kg General appearance: PRESENT: mild distress, other - frail Head exam: PRESENT: normocephalic Eye exam: PRESENT: scleral icterus, other - eyes close Mouth exam: PRESENT: dry mucosa Neck exam: ABSENT: JVD, lymphadenopathy Respiratory exam: PRESENT: clear to auscultation hansa, unlabored, wheezes. ABSENT: rales, rhonchi, tachypnea Cardiovascular exam: PRESENT: RRR. ABSENT: diastolic murmur, rubs, systolic murmur Pulses: PRESENT: normal dorsalis pedis pul Vascular exam: PRESENT: normal capillary refill GI/Abdominal exam: PRESENT: normal bowel sounds, soft. ABSENT: distended, guarding, mass, organolmegaly, rebound, tenderness Rectal exam: PRESENT: deferred Extremities exam: PRESENT: full ROM. ABSENT: calf tenderness, clubbing, pedal edema Neurological exam: PRESENT: altered Psychiatric exam: PRESENT: suicidal ideation Skin exam: PRESENT: dry, intact, warm. ABSENT: cyanosis, rash Results Laboratory Results: 04/18/17 06:17 04/20/17 05:37 04/18/17 06:17 NT-Pro-B Natriuret Pep 4190 H Impressions: Chest X-Ray 04/17/17 12:17 IMPRESSION: Lungs hyperinflated but clear. No pleural effusion. No pneumothorax. No cardiomegaly Assessment & Plan - Diagnosis (1) Dehydration Is this a current diagnosis for this admission?: Yes Plan: Resolved. Patient is on patient D5 water at a very slow rate to prevent volume overload as patient does have a history of chronic diastolic heart failure. Patient is not taking anything orally at this time therefore she is at risk for dehydration. Patient is however declining and may not feel thirsty. Will allow for oral swabs to moisten mouth. (2) Dementia Is this a current diagnosis for this admission?: Yes Plan: Possibly progressive dementia as she is not eating and has been gradually declining. Patient is DNR and palliative is following the patient. Patient is not agitated however PRN ativan ordered if patient does become restless. (3) Failure to thrive Is this a current diagnosis for this admission?: Yes Plan: Possibly secondary to progression of her dementia. (4) Hx of congestive heart failure Is this a current diagnosis for this admission?: Yes Plan: Chronic diastolic heart failure. Patient has normal EF but she does have mild diastolic dysfunction. She is currently euvolemic. Have decrease fluids to KVO to avoid volume overload. (5) Hypernatremia Plan: Resolved. (6) Hypertensive crisis Is this a current diagnosis for this admission?: Yes Plan: Patient with hypertensive urgency. Patient with elevated creatinine and worsening mentation. Blood pressures are labile. Patient is not participating in taking medications orally. Continue clonidine patch and IV medications and limit the amount of oral medications being given. (7) Leukocytosis Is this a current diagnosis for this admission?: Yes Plan: Improved. Possibly a stress response or due to hemoconcentration. Leukocytosis trended down. Urine culture shows no growth. CXR not impressive. (8) Severe protein-calorie malnutrition Is this a current diagnosis for this admission?: Yes Plan: Patient is not eating despite not having any problems swallowing. This could be related to progressive dementia. Patient is a DNR and per caregiver, she never wanted a feeding tube. Will continue patient on D5 water to prevent dehydration however patient is not receiving adequate nutrition. Patient spends most of her time sleeping. Palliative care is involved. Clinical Faculty not cooperating is assisting with obtaining guardianship for the patient. APS now involved. Attempting to have an appointment guardian to assist in making decisions for the patient and making her hospice. (9) Anemia in chronic kidney disease (CKD) Qualifiers: Chronic kidney disease stage: stage 3 (moderate) Qualified Code(s): N18.3 - Chronic kidney disease, stage 3 (moderate) Is this a current diagnosis for this admission?: Yes Plan: Hemoglobin did trend down with fluids however hemoglobin of 11 is still improved from previous values. Patient has no obvious signs of bleeding. (10) COPD (chronic obstructive pulmonary disease) Qualifiers: COPD type: unspecified COPD Qualified Code(s): J44.9 - Chronic obstructive pulmonary disease, unspecified Plan: Stable. Continue nebs and supplemental oxygen. Patient not participating with taking inhalers therefore discontinued. (11) Acute on chronic renal failure Qualifiers: Chronic kidney disease stage: stage 4 (severe) Is this a current diagnosis for this admission?: Yes Plan: Likely due to dehydration from decrease oral intake. Improved with gentle hydration. Patient still has urine output. No Pastor in place however patient has several incontinent voids. May have pastor placed for comfort reason and to keep patient dry. - Time Time Spent with patient: Less than 15 minutes Within: Other - APS now involved in patient case. Patient will remain in the hospital and may ultimately here. - Inpatient Certification Medical Necessity: Other - APS involved.
--- NOTE | 2017-04-22 02:45 | Progress Note ---
Provider Note Provider Note: Please note that progress note dated 04/22 is suppose to be dated 04/21. Patient will require a progress note on 04/22.
[2017-04-22] MEDS: HEPARIN SOD (PORCINE) 5,000 UNIT/ML 1 ML SYRINGE SUBCUT SCH ×3 (05:27→22:13)
[2017-04-22] MEDS: ALBUTEROL SULFATE 0.083% NEB 2.5 MG/3 ML AMPUL NEB SCH ×3 (08:50→19:30)
[2017-04-22] MEDS: MORPHINE SULFATE 10 MG/ML INJ IV PRN ×2 (09:26→13:50)
[2017-04-22] MEDS: PANTOPRAZOLE SODIUM 40 MG VIAL IV SCH (09:28)
[2017-04-22] MEDS: METOPROLOL TARTRATE PF/INJ 5 MG/5 ML SDV IV SCH ×2 (09:35→21:58)
--- NOTE | 2017-04-22 17:34 | PDOC PROGRESS REPORT ---
Subjective Progress Note for:: 04/22/17 Subjective:: This is a follow-up visit for failure to thrive and acute renal failure with severe protein calorie malnutrition. Since I last saw the patient she has declined in her weight even further. She is not responding to questions for me at the moment. It is my understanding that Adult Protective Services has been contacted so that we may have a guardian assigned to her. Unfortunately the patient has no family members who can make decisions on her behalf. Apparently , she has an privacy attorney. It is reported that the privacy attorney would not give any information. What is unclear is whether or not the privacy attorney was speaking with 1 of her caretakers or physician. Physical Exam Vital Signs: Temp Pulse Resp BP Pulse Ox 98.2 F 86 12 153/80 H 100 04/22/17 11:09 04/22/17 11:09 04/22/17 11:09 04/22/17 11:09 04/22/17 11:09 Intake & Output 04/21/17 04/22/17 04/23/17 06:59 06:59 06:59 Intake Total 775 600 Balance 775 600 Weight 34.7 kg 98.3 kg GENERAL: This is a well-developed grossly underweight, female resting in bed not appearing to be in any acute distress. HEENT: Temporal muscle wasting present. HEART: Regular rate and rhythm. No murmurs, rubs or gallops. LUNGS: Clear to auscultation anteriorly bilaterally with equal rise and fall of the chest. ABDOMEN: Soft, nontender, flat, nondistended with normoactive bowel sounds EXTREMETIES: No clubbing, cyanosis. Patient has some slight swelling of her left ankle. There is some associated redness there. Small-caliber extremities with muscle wasting. NEURO: the patient was found sleeping. She moans when her ankle is touched lightly. Results Laboratory Results: 04/18/17 06:17 04/20/17 05:37 04/18/17 06:17 NT-Pro-B Natriuret Pep 4190 H Impressions: Chest X-Ray 04/17/17 12:17 IMPRESSION: Lungs hyperinflated but clear. No pleural effusion. No pneumothorax. No cardiomegaly Assessment & Plan - Diagnosis (1) Acute on chronic renal failure Qualifiers: Chronic kidney disease stage: stage 4 (severe) Is this a current diagnosis for this admission?: Yes Plan: Continue IV fluids. Continue to monitor her renal function. At last check her creatinine was down to 1.5. The patient usually has stage III kidney disease. Her acute on chronic renal failure secondary to dehydration. (2) Hypernatremia Plan: Secondary to dehydration. Continue IV fluids. This is currently resolved. (3) Failure to thrive Is this a current diagnosis for this admission?: Yes Plan: Patient has had decreased p.o. intake and she is grossly malnourished. At this point no one is making medical decisions for her I have been informed that she is DNR. At this point I would not recommend placement of PEG tube for nutritional support. Patient is elderly and has comorbid conditions and I am not certain that her quality of life would be improved with PEG tube. At this point in time I would recommend comfort care measures/hospice services. (4) Dehydration Is this a current diagnosis for this admission?: Yes Plan: Acute on chronic renal failure management as above. Continue IV fluids. (5) Anemia in chronic kidney disease (CKD) Qualifiers: Chronic kidney disease stage: stage 3 (moderate) Qualified Code(s): N18.3 - Chronic kidney disease, stage 3 (moderate) Is this a current diagnosis for this admission?: Yes Plan: Stable (6) CHF (congestive heart failure) Qualifiers: Congestive heart failure type: unspecified congestive heart failure type Congestive heart failure chronicity: acute on chronic Qualified Code(s): I50.9 - Heart failure, unspecified Plan: The patient is not in acute heart failure. Continue to monitor. (7) COPD (chronic obstructive pulmonary disease) Qualifiers: COPD type: unspecified COPD Qualified Code(s): J44.9 - Chronic obstructive pulmonary disease, unspecified Plan: The patient is not in acute exacerbation. Continue home medications. As able. (8) Hypertensive crisis Is this a current diagnosis for this admission?: Yes Plan: As needed antihypertensives.Continue scheduled metoprolol and clonidine (9) Severe protein-calorie malnutrition Is this a current diagnosis for this admission?: Yes Plan: The patient is still not eating. As mentioned previously I do not recommend PEG tube placement for nutrition. The patient is 81 years old and has comorbid medical conditions. Her failure to thrive is quite profound this point. I recommend hospice/comfort care measures. Do not think the patient's quality of life will be enhanced by any extreme life-saving measures. (10) Dementia Is this a current diagnosis for this admission?: Yes Plan: History of dementia is not listed in her previous medical chart. However the ER physician got this history from the class a lineman and the PCP. Continue to monitor her mental state. Today she is not awake for me. (11) Leukocytosis Is this a current diagnosis for this admission?: Yes Plan: Patient recently had a urinary tract infection for which she is status post antibiotic therapy. She is also significantly dehydrated. Her white blood cell count elevation may be secondary to dehydration on admission. Her last check the patient's white blood cell count was near normal. - Time Time Spent with patient: 15-24 minutes
[2017-04-23 04:59] LABS: ABSOLUTE BASOPHILS # (AUTO) 0.1 10^3/uL (0.0-0.2); ABSOLUTE LYMPHOCYTES (AUTO) 0.6 10^3/uL (0.5-4.7); ABSOLUTE MONOCYTES (AUTO) 1.3 10^3/uL (0.1-1.4); ABSOLUTE NEUT (AUTO) 10.2 10^3/uL (1.7-8.2); BASOPHILS % (AUTO) 0.4 % (0-2); EOSINOPHILS % (AUTO) 0.1 % (0-6); HEMATOCRIT 31.4 % (36.0-47.0); HEMOGLOBIN 10.2 g/dL (12.0-15.5); HGB HCT DIFFERENCE -0.8; LYMPHOCYTES % (AUTO) 5.1 % (13-45); MEAN CORPUSCULAR HEMOGLOBIN 28.9 pg (27.0-33.4); MEAN CORPUSCULAR HGB CONC 32.4 g/dL (32.0-36.0); MEAN CORPUSCULAR VOLUME 89 fl (80-97); MONOCYTES % (AUTO) 10.7 % (3-13); RED BLOOD COUNT 3.52 10^6/uL (3.72-5.28); RED CELL DISTRIBUTION WIDTH 16.3 % (11.5-14.0); SEGMENTED NEUTROPHILS % (AUTO) 83.7 % (42-78); WHITE BLOOD COUNT 12.2 10^3/uL (4.0-10.5)
[2017-04-23 05:10] LABS: ALANINE AMINOTRANSFERASE 23 U/L (9-52); ALBUMIN 2.8 g/dL (3.5-5.0); ALKALINE PHOSPHATASE 97 U/L (38-126); ANION GAP 14 (5-19); ASPARTATE AMINO TRANSFERASE 28 U/L (14-36); BILIRUBIN,DIRECT 0.7 mg/dL (0.0-0.4); BILIRUBIN,TOTAL 0.9 mg/dL (0.2-1.3); BLOOD UREA NITROGEN 66 mg/dL (7-20); CALCIUM 9.2 mg/dL (8.4-10.2); CARBON DIOXIDE 23 mmol/L (22-30); CHLORIDE 103 mmol/L (98-107); CREATININE RESULT 1.56 mg/dL (0.52-1.25); GLUCOSE 95 mg/dL (75-110); MAGNESIUM 2.3 mg/dL (1.6-2.3); POTASSIUM 4.3 mmol/L (3.6-5.0); SODIUM 139.9 mmol/L (137-145); TOTAL PROTEIN 5.8 g/dL (6.3-8.2)
[2017-04-23] MEDS: HEPARIN SOD (PORCINE) 5,000 UNIT/ML 1 ML SYRINGE SUBCUT SCH ×3 (05:33→21:37)
[2017-04-23] MEDS: MORPHINE SULFATE 10 MG/ML INJ IV PRN ×5 (08:33→19:30)
[2017-04-23] MEDS: ALBUTEROL SULFATE 0.083% NEB 2.5 MG/3 ML AMPUL NEB SCH ×3 (09:02→19:55)
[2017-04-23] MEDS: PANTOPRAZOLE SODIUM 40 MG VIAL IV SCH (10:10)
[2017-04-23] MEDS: METOPROLOL TARTRATE PF/INJ 5 MG/5 ML SDV IV SCH ×2 (10:10→21:37)
--- NOTE | 2017-04-23 16:15 | PDOC PROGRESS REPORT ---
Subjective Progress Note for:: 04/23/17 Subjective:: This is a follow-up visit for failure to thrive and acute renal failure with severe protein calorie malnutrition. There have been no acute events overnight. The patient still remains confused. I have attempted to contact her job trainer and I have left a message with Alisha Castro. The number I contacted was [phone]. I have also contacted risk management here at the hospital to reach out to the law offices the near [facility]. I also had an extensive conversation with discharge planning and Adult Protective Services. I have requested that we try and pursue guardianship on an emergency basis. I am not sure if that can be done. I have made my concerns for end-of- life care known with Adult Protective Services. I spoke with Hector Vogt, adoption social worker 3 Adult Protective Services Department of Gasoline Attendant at the bedside. Physical Exam Vital Signs: Temp Pulse Resp BP Pulse Ox 98.0 F 80 12 145/69 H 100 04/23/17 11:37 04/23/17 14:28 04/23/17 14:28 04/23/17 11:37 04/23/17 11:37 Intake & Output 04/22/17 04/23/17 04/24/17 06:59 06:59 06:59 Intake Total 600 685 Balance 600 685 Weight 98.3 kg 43.7 kg GENERAL: This is a well-developed grossly underweight, female resting in bed not appearing to be in any acute distress. EXTREMETIES: No clubbing, cyanosis. Patient has some slight swelling of her left ankle. There is some associated redness there. Small-caliber extremities with muscle wasting. Tender to palpation of her ankles. NEURO: the patient was found sleeping. She initially does not awaken; but after saying her name a couple of time she does awaken. Has visitors in the room to speak Armenian. Unfortunately, the patient is confused and disoriented. Even in her [place] tongue she is found to be confused and unintelligible by her visitors. Results Laboratory Results: 04/23/17 04:38 04/23/17 04:38 04/23/17 04/23/17 04/23/17 04:38 04:38 04:38 WBC 12.2 H RBC 3.52 L Hgb 10.2 L Hct 31.4 L MCV 89 MCH 28.9 MCHC 32.4 RDW 16.3 H Plt Count 292 Seg Neutrophils % 83.7 H Lymphocytes % 5.1 L Monocytes % 10.7 Eosinophils % 0.1 Basophils % 0.4 Absolute Neutrophils 10.2 H Absolute Lymphocytes 0.6 Absolute Monocytes 1.3 Absolute Eosinophils 0.0 Absolute Basophils 0.1 Sodium 139.9 Potassium 4.3 Chloride 103 Carbon Dioxide 23 Anion Gap 14 BUN 66 H Creatinine 1.56 H Est GFR ( Amer) 39 L Est GFR (Non-Af Amer) 32 L Glucose 95 Calcium 9.2 Magnesium 2.3 Total Bilirubin 0.9 AST 28 ALT 23 Alkaline Phosphatase 97 Ammonia < 8.7 L Total Protein 5.8 L Albumin 2.8 L 04/18/17 06:17 NT-Pro-B Natriuret Pep 4190 H Impressions: Chest X-Ray 04/17/17 12:17 IMPRESSION: Lungs hyperinflated but clear. No pleural effusion. No pneumothorax. No cardiomegaly Assessment & Plan - Diagnosis (1) Acute on chronic renal failure Qualifiers: Chronic kidney disease stage: stage 4 (severe) Is this a current diagnosis for this admission?: Yes Plan: Continue IV fluids. Continue to monitor her renal function. At last check her creatinine was down to 1.5. The patient usually has stage III kidney disease. Her acute on chronic renal failure secondary to dehydration. (2) Hypernatremia Plan: Secondary to dehydration. Continue IV fluids. This is currently resolved. (3) Failure to thrive Is this a current diagnosis for this admission?: Yes Plan: Patient has had decreased p.o. intake and she is grossly malnourished. At this point no one is making medical decisions for her. She is a DNR. At this point I would not recommend placement of PEG tube for nutritional support. She was offered food at the bedside while I was there. The patient would not receive any food or drink. Patient is elderly and has comorbid conditions and I am not certain that her quality of life would not be improved with PEG tube. At this point in time I would recommend comfort care measures/hospice services. (4) Dehydration Is this a current diagnosis for this admission?: Yes Plan: Acute on chronic renal failure management as above. Continue IV fluids. (5) Anemia in chronic kidney disease (CKD) Qualifiers: Chronic kidney disease stage: stage 3 (moderate) Qualified Code(s): N18.3 - Chronic kidney disease, stage 3 (moderate) Is this a current diagnosis for this admission?: Yes Plan: Stable (6) CHF (congestive heart failure) Qualifiers: Congestive heart failure type: unspecified congestive heart failure type Congestive heart failure chronicity: acute on chronic Qualified Code(s): I50.9 - Heart failure, unspecified Plan: The patient is not in acute heart failure. Continue to monitor. (7) COPD (chronic obstructive pulmonary disease) Qualifiers: COPD type: unspecified COPD Qualified Code(s): J44.9 - Chronic obstructive pulmonary disease, unspecified Plan: The patient is not in acute exacerbation. Continue home medications. As able. (8) Hypertensive crisis Is this a current diagnosis for this admission?: Yes Plan: As needed antihypertensives.Continue scheduled metoprolol and clonidine (9) Severe protein-calorie malnutrition Is this a current diagnosis for this admission?: Yes Plan: The patient is still not eating. As mentioned previously I do not recommend PEG tube placement for nutrition. The patient is 81 years old and has comorbid medical conditions that will not likely improve. Her failure to thrive is quite profound this point. I recommend hospice/comfort care measures. Do not think the patient's quality of life will be enhanced by any extreme life-saving measures. (10) Dementia Is this a current diagnosis for this admission?: Yes Plan: History of dementia is not listed in her previous medical chart. However the ER physician got this history from the paralegal internship and the PCP. Continue to monitor her mental state. Today the patient remains confused. (11) Leukocytosis Is this a current diagnosis for this admission?: Yes Plan: Patient recently had a urinary tract infection for which she is status post antibiotic therapy. She is also significantly dehydrated. Her white blood cell count elevation may be secondary to dehydration on admission. Her last check the patient's white blood cell count was near normal. Today however it seems to be slowly trending back up. It may be that the patient has had some element of aspiration pneumonia. (12) Pain and swelling of ankle Plan: Bilateral ankle pain and redness. Could be that the patient has some underlying gout. She clearly is very uncomfortable when these areas of her body are touched. The patient is on colchicine but she is not swallowing very well with her current mental status. We will give her a dose of Solu-Medrol. - Time Time Spent with patient: 35 or more minutes
--- NOTE | 2017-04-23 16:48 | RADIOLOGY REPORT (SQ) ---
EXAM DESCRIPTION: CHEST SINGLE VIEW COMPLETED DATE/TIME: 04/23/2017 4:40 pm REASON FOR STUDY: Leukocytosis COMPARISON: 04/17/2017 NUMBER OF VIEWS: One view. TECHNIQUE: Single frontal radiographic view of the chest acquired. LIMITATIONS: None. FINDINGS: LUNGS AND PLEURA: No opacities, masses or pneumothorax. No pleural effusion. Attenuated bl ood vessels and flattened ike-diaphragms. MEDIASTINUM AND HILAR STRUCTURES: No masses. Contour normal. HEART AND VASCULAR STRUCTURES: Heart normal in size. Normal vasculature. BONES: No acute findings. HARDWARE: None in the chest. OTHER: No other significant finding. IMPRESSION: COPD. NO ACUTE RADIOGRAPHIC FINDING IN THE CHEST. TECHNICAL DOCUMENTATION: JOB ID: [id number] 0006 [employer]- All Rights Reserved
[2017-04-23] MEDS ORDERED: METHYLPREDNISOLONE INJ 40 MG/1 ML SDV IV ONE (17:00)
[2017-04-24] MEDS: MORPHINE SULFATE 10 MG/ML INJ IV PRN ×2 (02:33→15:52)
[2017-04-24 04:49] LABS: HEMATOCRIT 32.4 % (36.0-47.0); HEMOGLOBIN 10.7 g/dL (12.0-15.5); HGB HCT DIFFERENCE -0.3; MEAN CORPUSCULAR HEMOGLOBIN 29.8 pg (27.0-33.4); MEAN CORPUSCULAR HGB CONC 33.1 g/dL (32.0-36.0); MEAN CORPUSCULAR VOLUME 90 fl (80-97); RED CELL DISTRIBUTION WIDTH 16.4 % (11.5-14.0); WHITE BLOOD COUNT 7.4 10^3/uL (4.0-10.5)
[2017-04-24 05:05] LABS: ANION GAP 14 (5-19); BLOOD UREA NITROGEN 69 mg/dL (7-20); CALCIUM 9.6 mg/dL (8.4-10.2); CARBON DIOXIDE 24 mmol/L (22-30); CHLORIDE 100 mmol/L (98-107); CREATININE RESULT 1.73 mg/dL (0.52-1.25); GLUCOSE 157 mg/dL (75-110); MAGNESIUM 2.4 mg/dL (1.6-2.3); SODIUM 138.2 mmol/L (137-145)
[2017-04-24] MEDS: HEPARIN SOD (PORCINE) 5,000 UNIT/ML 1 ML SYRINGE SUBCUT SCH ×2 (05:12→15:43)
[2017-04-24 05:55] LABS: BASOPHILS % (MANUAL) 0 % (0-2); EOSINOPHILS % (MANUAL) 0 % (0-6); LYMPHOCYTES % (MANUAL) 2 % (13-45); TOTAL CELLS COUNTED 100
[2017-04-24 05:56] LABS: ANISOCYTOSIS 1+; TOXIC VACUOLATION PRESENT
[2017-04-24 05:57] LABS: POLYCHROMASIA SLIGHT
[2017-04-24 05:59] LABS: OVALOCYTES SLIGHT; TARGET CELLS SLIGHT
[2017-04-24] MEDS: ALBUTEROL SULFATE 0.083% NEB 2.5 MG/3 ML AMPUL NEB SCH ×3 (08:45→20:39)
[2017-04-24] MEDS: PANTOPRAZOLE SODIUM 40 MG VIAL IV SCH (10:48)
[2017-04-24] MEDS: METOPROLOL TARTRATE PF/INJ 5 MG/5 ML SDV IV SCH ×2 (10:51→23:15)
--- NOTE | 2017-04-24 17:50 | PDOC PROGRESS REPORT ---
Subjective Progress Note for:: 04/24/17 Subjective:: This is a follow-up visit for failure to thrive and acute renal failure with severe protein calorie malnutrition. There have been no acute events overnight. When I walked in the room the patient was propped up in bed eating. Thus far she has had a few bites of pudding and a couple bites of a grilled cheese sandwich. She is being assisted by her manager business operations. The patient still remains confused. Physical Exam Vital Signs: Temp Pulse Resp BP Pulse Ox 98.2 F 77 12 148/60 H 99 04/24/17 15:09 04/24/17 15:09 04/24/17 15:09 04/24/17 15:09 04/24/17 15:09 Intake & Output 04/23/17 04/24/17 04/25/17 06:59 06:59 06:59 Intake Total 685 905 296 Output Total 3 Balance 685 902 296 Weight 43.7 kg 43.7 kg GENERAL: This is a well-developed grossly underweight, female resting in bed not appearing to be in any acute distress, eating. EXTREMETIES: No clubbing, cyanosis. Patient has some slight swelling of her left ankle. There is some associated redness there. Small-caliber extremities with muscle wasting. Tender to palpation of her ankles. Heart: Regular rate and rhythm. Lungs: Clear from the anterior perspective. The patient still has nasal cannula in place. NEURO: The patient is trying to eat in bed. She is clearly confused. She cannot answer basic questions. Her manager business operations tried to ask her similar questions such as what happened to her and where she thinks she is. The patient just stares and says yes. Results Laboratory Results: 04/24/17 04:15 04/24/17 04:15 04/24/17 04/24/17 04:15 04:15 WBC 7.4 RBC 3.60 L Hgb 10.7 L Hct 32.4 L MCV 90 MCH 29.8 MCHC 33.1 RDW 16.4 H Plt Count 329 Seg Neutrophils % Not Reportable Lymphocytes % Not Reportable Monocytes % Not Reportable Eosinophils % Not Reportable Basophils % Not Reportable Absolute Neutrophils Not Reportable Absolute Lymphocytes Not Reportable Absolute Monocytes Not Reportable Absolute Eosinophils Not Reportable Absolute Basophils Not Reportable Sodium 138.2 Potassium 5.0 Chloride 100 Carbon Dioxide 24 Anion Gap 14 BUN 69 H Creatinine 1.73 H Est GFR ( Amer) 34 L Est GFR (Non-Af Amer) 28 L Glucose 157 H Calcium 9.6 Magnesium 2.4 H 04/18/17 06:17 NT-Pro-B Natriuret Pep 4190 H Impressions: Chest X-Ray 04/23/17 00:00 IMPRESSION: COPD. NO ACUTE RADIOGRAPHIC FINDING IN THE CHEST. Assessment & Plan - Diagnosis (1) Acute on chronic renal failure Qualifiers: Chronic kidney disease stage: stage 4 (severe) Is this a current diagnosis for this admission?: Yes Plan: Continue IV fluids. Continue to monitor her renal function. At last check her creatinine 1.7. The patient usually has stage III kidney disease. Her acute on chronic renal failure secondary to dehydration. (2) Hypernatremia Plan: Secondary to dehydration. Continue IV fluids. This is currently resolved. (3) Failure to thrive Is this a current diagnosis for this admission?: Yes Plan: Patient has had decreased p.o. intake and she is grossly malnourished. At this point no one is making medical decisions for her. She is a DNR. At this point I would not recommend placement of PEG tube for nutritional support. She was offered food at the bedside while I was there. The patient would not receive any food or drink. Patient is elderly and has comorbid conditions and I am not certain that her quality of life would not be improved with PEG tube. At this point in time I would recommend comfort care measures/hospice services. (4) Dehydration Is this a current diagnosis for this admission?: Yes Plan: Acute on chronic renal failure management as above. Continue IV fluids. (5) Anemia in chronic kidney disease (CKD) Qualifiers: Chronic kidney disease stage: stage 3 (moderate) Qualified Code(s): N18.3 - Chronic kidney disease, stage 3 (moderate) Is this a current diagnosis for this admission?: Yes Plan: Stable (6) CHF (congestive heart failure) Qualifiers: Congestive heart failure type: unspecified congestive heart failure type Congestive heart failure chronicity: acute on chronic Qualified Code(s): I50.9 - Heart failure, unspecified Plan: The patient is not in acute heart failure. Continue to monitor. (7) COPD (chronic obstructive pulmonary disease) Qualifiers: COPD type: unspecified COPD Qualified Code(s): J44.9 - Chronic obstructive pulmonary disease, unspecified Plan: The patient is not in acute exacerbation. Continue home medications. As able. (8) Hypertensive crisis Is this a current diagnosis for this admission?: Yes Plan: As needed antihypertensives.Continue scheduled metoprolol and clonidine (9) Severe protein-calorie malnutrition Is this a current diagnosis for this admission?: Yes Plan: The patient eating this evening. This may be a last rally or the patient may in fact be improving. Apparently her PCP came to visit her today and this part her drive to eat. As mentioned previously I do not recommend PEG tube placement for nutrition. The patient is 81 years old and has comorbid medical conditions that will not likely improve. Her failure to thrive is quite profound this point. I recommend hospice/comfort care measures. Do not think the patient's quality of life will be enhanced by any extreme life-saving measures. (10) Dementia Is this a current diagnosis for this admission?: Yes Plan: History of dementia is not listed in her previous medical chart. However the ER physician got this history from the manager business operations and the PCP. Continue to monitor her mental state. Today the patient remains confused. (11) Leukocytosis Is this a current diagnosis for this admission?: Yes Plan: Patient recently had a urinary tract infection for which she is status post antibiotic therapy. She is also significantly dehydrated. Her white blood cell count is normal. It may be that the patient has had some element of aspiration pneumonia. (12) Pain and swelling of ankle Plan: Bilateral ankle pain and redness. Could be that the patient has some underlying gout. She clearly is very uncomfortable when these areas of her body are touched. The patient is on colchicine but she is not swallowing very well with her current mental status. We will give her a dose of Solu-Medrol. - Time Time Spent with patient: 15-24 minutes
--- NOTE | 2017-04-24 23:57 | Progress Note ---
Provider Note Provider Note: [facility] Follow up visit: 04/24/17 2:50-3:05 PM Brief visit to check on patient. She is taking few sips of Ensure from her paid caregiver who says this is the first PO intake she has had in several days. SHe appears more alert, but doesn't respond to verbal stimuli and doesnt acknowledge words directed to her or facial expression. She made no attempt to talk, looks very weak. Caregiver reports that there is no news from the anger control counselor who might have an idea of health care power of traffic law attorney. Caregiver has talked with psychiatric social worker supervisor and is hoping that the hospital anger control counselor might talk with the patients anger control counselor. Caregiver says she feels the staff from her agency would be capable of caring for patient at home. Hospice care center would be more appropriate choice for patient if someone can sign consent for hospice care and transport. Caregiver reports that patient has not had any sign of pain or distress. She is aware that this slight improvement may be a temporary change as a rally before , but she is glad to see her more alert an taking some nutrition. She reports patients close friend visited before she started acting more alert, and she feels the visit helped her. O: Patient in bed, very frail and weak. She is slowly sipping some Ensure without choling but is barely able to drink through the straw. Respirations unlabored. Color pale, No attempt to communicate. Pale and frail in appearance. No evidence pain. A/P: Failure to thrive with continued decline. Appropriate for hospice care center if someone can sign for transfer to hospice and initiation of hospice care. '
[2017-04-25] MEDS: HEPARIN SOD (PORCINE) 5,000 UNIT/ML 1 ML SYRINGE SUBCUT SCH ×3 (05:28→22:46)
[2017-04-25] MEDS: MORPHINE SULFATE 10 MG/ML INJ IV PRN ×3 (05:36→15:12)
[2017-04-25] MEDS: ALBUTEROL SULFATE 0.083% NEB 2.5 MG/3 ML AMPUL NEB SCH ×3 (07:48→19:35)
[2017-04-25] MEDS: DEXTROSE 5%-WATER 1000 ML 1,000 ML IV PRN (09:50)
[2017-04-25] MEDS: METOPROLOL TARTRATE PF/INJ 5 MG/5 ML SDV IV SCH ×2 (09:51→22:46)
--- NOTE | 2017-04-25 17:32 | PDOC PROGRESS REPORT ---
Subjective Progress Note for:: 04/25/17 Subjective:: This is a follow-up visit for failure to thrive and acute renal failure with severe protein calorie malnutrition. There have been no acute events overnight. Unfortunately I missed most of the patient's awake time today. Her nurse tells me that she did sit up for breakfast and try to eat a little bit. Physical Exam Vital Signs: Temp Pulse Resp BP Pulse Ox 98.2 F 70 16 175/68 H 98 04/25/17 12:00 04/25/17 15:40 04/25/17 15:40 04/25/17 15:40 04/25/17 15:40 Intake & Output 04/24/17 04/25/17 04/26/17 06:59 06:59 06:59 Intake Total 905 1001 Output Total 3 Balance 902 1001 Weight 43.7 kg 43.7 kg GENERAL: This is a well-developed grossly underweight, female resting in bed not appearing to be in any acute distress, sleeping EXTREMETIES: No clubbing, cyanosis. Ankle swelling has subsided as well as slight redness. Small caliber extremities.. Heart: Regular rate and rhythm. Lungs: Clear from the anterior perspective. The patient still has nasal cannula in place. NEURO: The patient is sleeping. When I wake her up she quickly drifts back off to sleep. Results Laboratory Results: 04/24/17 04:15 04/24/17 04:15 04/18/17 06:17 NT-Pro-B Natriuret Pep 4190 H Impressions: Chest X-Ray 04/23/17 00:00 IMPRESSION: COPD. NO ACUTE RADIOGRAPHIC FINDING IN THE CHEST. Assessment & Plan - Diagnosis (1) Acute on chronic renal failure Qualifiers: Chronic kidney disease stage: stage 4 (severe) Is this a current diagnosis for this admission?: Yes Plan: Continue IV fluids. Continue to monitor her renal function. At last check her creatinine 1.3. The patient usually has stage III kidney disease. Her acute on chronic renal failure secondary to dehydration. (2) Hypernatremia Plan: Secondary to dehydration. Continue IV fluids. This is currently resolved. (3) Failure to thrive Is this a current diagnosis for this admission?: Yes Plan: Patient has had decreased p.o. intake and she is grossly malnourished. At this point no one is making medical decisions for her. She is a DNR. At this point I would not recommend placement of PEG tube for nutritional support. I do not think that her quality of life would not be improved with PEG tube. At this point in time I would recommend comfort care measures/hospice services. (4) Dehydration Is this a current diagnosis for this admission?: Yes Plan: Acute on chronic renal failure management as above. Continue IV fluids. (5) Anemia in chronic kidney disease (CKD) Qualifiers: Chronic kidney disease stage: stage 3 (moderate) Qualified Code(s): N18.3 - Chronic kidney disease, stage 3 (moderate) Is this a current diagnosis for this admission?: Yes Plan: Stable (6) CHF (congestive heart failure) Qualifiers: Congestive heart failure type: unspecified congestive heart failure type Congestive heart failure chronicity: acute on chronic Qualified Code(s): I50.9 - Heart failure, unspecified Plan: The patient is not in acute heart failure. Continue to monitor. (7) COPD (chronic obstructive pulmonary disease) Qualifiers: COPD type: unspecified COPD Qualified Code(s): J44.9 - Chronic obstructive pulmonary disease, unspecified Plan: The patient is not in acute exacerbation. Continue home medications. As able. (8) Hypertensive crisis Is this a current diagnosis for this admission?: Yes Plan: As needed antihypertensives.Continue scheduled metoprolol and clonidine (9) Severe protein-calorie malnutrition Is this a current diagnosis for this admission?: Yes Plan: The patient eating this evening. This may be a last rally or the patient may in fact be improving. Apparently her PCP came to visit her today and this part her drive to eat. As mentioned previously I do not recommend PEG tube placement for nutrition. The patient is 81 years old and has comorbid medical conditions that will not likely improve. Her failure to thrive is quite profound this point. I recommend hospice/comfort care measures. Do not think the patient's quality of life will be enhanced by any extreme life-saving measures. (10) Dementia Is this a current diagnosis for this admission?: Yes Plan: History of dementia is not listed in her previous medical chart. However the ER physician got this history from the menagerie caretaker and the PCP. Continue to monitor her mental state. Today the patient remains confused. (11) Leukocytosis Is this a current diagnosis for this admission?: Yes Plan: Patient recently had a urinary tract infection for which she is status post antibiotic therapy. She is also significantly dehydrated. Her white blood cell count is normal. It may be that the patient has had some element of aspiration pneumonia. (12) Pain and swelling of ankle Plan: Bilateral ankle pain and redness. Could be that the patient has some underlying gout. She clearly is very uncomfortable when these areas of her body are touched. The patient is on colchicine but she is not swallowing very well with her current mental status. She is status post 1 dose of 40 mg Solu- Medrol which seems to have done the trick. She does not express any pain when her legs are examined. - Time Time Spent with patient: Less than 15 minutes - Inpatient Certification Medical Necessity: Need Close Monitoring Due to Risk of Patient Decompensation
[2017-04-26] MEDS: HYDRALAZINE HCL INJ/PF 20 MG/1 ML SDV IV PRN (00:01)
[2017-04-26] MEDS: HEPARIN SOD (PORCINE) 5,000 UNIT/ML 1 ML SYRINGE SUBCUT SCH ×3 (05:09→21:09)
[2017-04-26 05:10] LABS: HEMATOCRIT 31.7 % (36.0-47.0); HEMOGLOBIN 10.4 g/dL (12.0-15.5); HGB HCT DIFFERENCE -0.5; MEAN CORPUSCULAR HEMOGLOBIN 29.5 pg (27.0-33.4); MEAN CORPUSCULAR VOLUME 90 fl (80-97); RED BLOOD COUNT 3.53 10^6/uL (3.72-5.28); RED CELL DISTRIBUTION WIDTH 16.4 % (11.5-14.0); WHITE BLOOD COUNT 7.6 10^3/uL (4.0-10.5)
[2017-04-26 05:24] LABS: ANION GAP 11 (5-19); BLOOD UREA NITROGEN 70 mg/dL (7-20); CALCIUM 9.1 mg/dL (8.4-10.2); CARBON DIOXIDE 24 mmol/L (22-30); CHLORIDE 100 mmol/L (98-107); GLUCOSE 86 mg/dL (75-110); MAGNESIUM 2.1 mg/dL (1.6-2.3); POTASSIUM 4.5 mmol/L (3.6-5.0)
[2017-04-26 05:58] LABS: ABSOLUTE EOSINOPHILS# (MANUAL) 0.1 10^3/uL (0.0-0.6); BAND NEUTROPHILS % (MANUAL) 3 % (3-5); BASOPHILS % (MANUAL) 0 % (0-2); EOSINOPHILS % (MANUAL) 1 % (0-6); LYMPHOCYTES % (MANUAL) 16 % (13-45); TOTAL CELLS COUNTED 100
[2017-04-26 06:00] LABS: ANISOCYTOSIS 1+; OVALOCYTES SLIGHT; POIKILOCYTOSIS SLIGHT; TOXIC GRANULATION SLIGHT; TOXIC VACUOLATION PRESENT
[2017-04-26 06:01] LABS: SCHISTOCYTES SLIGHT; TEAR DROP CELLS SLIGHT
[2017-04-26] MEDS: ALBUTEROL SULFATE 0.083% NEB 2.5 MG/3 ML AMPUL NEB SCH ×3 (08:31→19:49)
[2017-04-26] MEDS: METOPROLOL TARTRATE PF/INJ 5 MG/5 ML SDV IV SCH ×2 (09:02→21:09)
[2017-04-26] MEDS ORDERED: CLONIDINE 0.1 MG/24 HR PATCH.TDWK TD SCH (10:00)
--- NOTE | 2017-04-26 16:51 | PDOC PROGRESS REPORT ---
Subjective Progress Note for:: 04/26/17 Subjective:: This is a follow-up visit for failure to thrive and acute renal failure with severe protein calorie malnutrition. There have been no acute events overnight. Physical Exam Vital Signs: Temp Pulse Resp BP Pulse Ox 97.7 F 76 17 156/80 H 96 04/26/17 03:58 04/26/17 14:09 04/26/17 14:09 04/26/17 03:58 04/26/17 03:58 Intake & Output 04/25/17 04/26/17 04/27/17 06:59 06:59 06:59 Intake Total 1001 832 240 Balance 1001 832 240 Weight 43.7 kg 43.7 kg GENERAL: This is a well-developed grossly underweight, female resting in bed not appearing to be in any acute distress, sleeping EXTREMETIES: No clubbing, cyanosis. Ankle swelling has subsided as well as slight redness. Small caliber extremities. Heart: Regular rate and rhythm. Lungs: Clear from the anterior perspective. The patient still has nasal cannula in place. NEURO: The patient is sleeping. When I wake her up she quickly drifts back off to sleep. Results Laboratory Results: 04/26/17 04:06 04/26/17 04:06 04/26/17 04/26/17 04:06 04:06 WBC 7.6 RBC 3.53 L Hgb 10.4 L Hct 31.7 L MCV 90 MCH 29.5 MCHC 33.0 RDW 16.4 H Plt Count 406 Seg Neutrophils % Not Reportable Lymphocytes % Not Reportable Monocytes % Not Reportable Eosinophils % Not Reportable Basophils % Not Reportable Absolute Neutrophils Not Reportable Absolute Lymphocytes Not Reportable Absolute Monocytes Not Reportable Absolute Eosinophils Not Reportable Absolute Basophils Not Reportable Sodium 135.0 L Potassium 4.5 Chloride 100 Carbon Dioxide 24 Anion Gap 11 BUN 70 H Creatinine 1.30 H Est GFR ( Amer) 48 L Est GFR (Non-Af Amer) 39 L Glucose 86 Calcium 9.1 Magnesium 2.1 04/18/17 06:17 NT-Pro-B Natriuret Pep 4190 H Impressions: Chest X-Ray 04/23/17 00:00 IMPRESSION: COPD. NO ACUTE RADIOGRAPHIC FINDING IN THE CHEST. Assessment & Plan - Diagnosis (1) Acute on chronic renal failure Qualifiers: Chronic kidney disease stage: stage 4 (severe) Is this a current diagnosis for this admission?: Yes Plan: Continue IV fluids. Continue to monitor her renal function. At last check her creatinine 1.7. The patient usually has stage III kidney disease. Her acute on chronic renal failure secondary to dehydration. (2) Hypernatremia Plan: Secondary to dehydration. Continue IV fluids. This is currently resolved. (3) Failure to thrive Is this a current diagnosis for this admission?: Yes Plan: Patient has had decreased p.o. intake and she is grossly malnourished. At this point no one is making medical decisions for her. She is a DNR. At this point I would not recommend placement of PEG tube for nutritional support. I do not think that her quality of life would not be improved with PEG tube. At this point in time I would recommend comfort care measures/hospice services. (4) Dehydration Is this a current diagnosis for this admission?: Yes Plan: Acute on chronic renal failure management as above. Continue IV fluids. (5) Anemia in chronic kidney disease (CKD) Qualifiers: Chronic kidney disease stage: stage 3 (moderate) Qualified Code(s): N18.3 - Chronic kidney disease, stage 3 (moderate) Is this a current diagnosis for this admission?: Yes Plan: Stable (6) CHF (congestive heart failure) Qualifiers: Congestive heart failure type: unspecified congestive heart failure type Congestive heart failure chronicity: acute on chronic Qualified Code(s): I50.9 - Heart failure, unspecified Plan: The patient is not in acute heart failure. Continue to monitor. (7) COPD (chronic obstructive pulmonary disease) Qualifiers: COPD type: unspecified COPD Qualified Code(s): J44.9 - Chronic obstructive pulmonary disease, unspecified Plan: The patient is not in acute exacerbation. Continue home medications. As able. (8) Hypertensive crisis Is this a current diagnosis for this admission?: Yes (9) Severe protein-calorie malnutrition Is this a current diagnosis for this admission?: Yes (10) Dementia Is this a current diagnosis for this admission?: Yes (11) Leukocytosis Is this a current diagnosis for this admission?: Yes
[2017-04-26] MEDS: MORPHINE SULFATE 10 MG/ML INJ IV PRN (20:09)
--- NOTE | 2017-04-26 23:36 | Progress Note ---
Provider Note Provider Note: Palliative Care Follow Up visit. 04/26/17 Brief visit with patient to follow up for Palliative care. Patient remains appropriate for [facility] but there remains no one availale or known who could sign consent to have patient transferred or to have hospice services started. Patient remains very weak with only few sips/bites of nourishment each day. She opens eyes to name and tactile stimulation but doesnt talk or try to communicate with me. Her color is pink and healthy with skin warm and dry. No noted mottling. Respirations are unlabored and even, no congestion audible. Heart rate is 70's with regular rhythm. IV fluids continue at 25ml per hour, with so little PO intake, patient cannot live too much longer. Hospice will be available to assume care of guardian is appointed and hospice is desired for patient.
[2017-04-27] MEDS: HEPARIN SOD (PORCINE) 5,000 UNIT/ML 1 ML SYRINGE SUBCUT SCH ×3 (05:54→22:14)
[2017-04-27] MEDS: MORPHINE SULFATE 10 MG/ML INJ IV PRN ×5 (05:57→18:25)
[2017-04-27] MEDS: ALBUTEROL SULFATE 0.083% NEB 2.5 MG/3 ML AMPUL NEB SCH ×3 (08:06→19:38)
[2017-04-27] MEDS: METOPROLOL TARTRATE PF/INJ 5 MG/5 ML SDV IV SCH ×2 (09:16→22:14)
--- NOTE | 2017-04-27 10:01 | PDOC PROGRESS REPORT ---
Subjective Progress Note for:: 04/27/17 Subjective:: This is a follow-up visit for failure to thrive and acute renal failure with severe protein calorie malnutrition. There have been no acute events overnight. The patient is sleeping and is not easily awakens therefore, she cannot participate in review of systems. Physical Exam Vital Signs: Temp Pulse Resp BP Pulse Ox 97.9 F 80 18 147/49 H 100 04/27/17 08:00 04/27/17 08:10 04/27/17 08:00 04/27/17 08:00 04/27/17 08:00 Intake & Output 04/26/17 04/27/17 04/28/17 06:59 06:59 06:59 Intake Total 832 548 Balance 832 548 Weight 43.7 kg 43 kg GENERAL: This is a well-developed grossly underweight, female resting in bed not appearing to be in any acute distress, sleeping EXTREMETIES: No clubbing, cyanosis. Ankle swelling has subsided as well as slight redness. Small caliber extremities. Heart: Regular rate and rhythm. Lungs: Clear from the anterior perspective. The patient still has nasal cannula in place. NEURO: The patient is sleeping. When I wake her up she quickly drifts back off to sleep. Results Laboratory Results: 04/26/17 04:06 04/26/17 04:06 04/18/17 06:17 NT-Pro-B Natriuret Pep 4190 H Impressions: Chest X-Ray 04/23/17 00:00 IMPRESSION: COPD. NO ACUTE RADIOGRAPHIC FINDING IN THE CHEST. Assessment & Plan - Diagnosis (1) Hypernatremia Plan: Secondary to dehydration. Continue IV fluids. This is currently resolved. (2) Failure to thrive Is this a current diagnosis for this admission?: Yes Plan: Patient has had decreased p.o. intake and she is grossly malnourished. At this point no one is making medical decisions for her. She is a DNR. At this point I would not recommend placement of PEG tube for nutritional support. I do not think that her quality of life would not be improved with PEG tube. At this point in time I would recommend comfort care measures/hospice services. (3) Dehydration Is this a current diagnosis for this admission?: Yes Plan: Acute on chronic renal failure management as above. Resolved (4) Anemia in chronic kidney disease (CKD) Qualifiers: Chronic kidney disease stage: stage 3 (moderate) Qualified Code(s): N18.3 - Chronic kidney disease, stage 3 (moderate) Is this a current diagnosis for this admission?: Yes Plan: Stable (5) CHF (congestive heart failure) Qualifiers: Congestive heart failure type: unspecified congestive heart failure type Congestive heart failure chronicity: acute on chronic Qualified Code(s): I50.9 - Heart failure, unspecified Plan: The patient is not in acute heart failure. Continue to monitor. (6) COPD (chronic obstructive pulmonary disease) Qualifiers: COPD type: unspecified COPD Qualified Code(s): J44.9 - Chronic obstructive pulmonary disease, unspecified Plan: The patient is not in acute exacerbation. Continue home medications. As able. (7) Hypertensive crisis Is this a current diagnosis for this admission?: Yes Plan: As needed antihypertensives.Continue scheduled metoprolol and clonidine (8) Severe protein-calorie malnutrition Is this a current diagnosis for this admission?: Yes Plan: The patient eating this evening. This may be a last rally or the patient may in fact be improving. Apparently her PCP came to visit her today and this part her drive to eat. As mentioned previously I do not recommend PEG tube placement for nutrition. The patient is 81 years old and has comorbid medical conditions that will not likely improve. Her failure to thrive is quite profound this point. I recommend hospice/comfort care measures. Do not think the patient's quality of life will be enhanced by any extreme life-saving measures. (9) Dementia Is this a current diagnosis for this admission?: Yes Plan: History of dementia is not listed in her previous medical chart. However the ER physician got this history from the consumer education specialist and the PCP. Continue to monitor her mental state. Today the patient remains confused. (10) Leukocytosis Is this a current diagnosis for this admission?: Yes Plan: Patient recently had a urinary tract infection for which she is status post antibiotic therapy. She is also significantly dehydrated. Her white blood cell count is normal. It may be that the patient has had some element of aspiration pneumonia. (11) Pain and swelling of ankle Plan: Bilateral ankle pain and redness. Could be that the patient has some underlying gout. She clearly is very uncomfortable when these areas of her body are touched. The patient is on colchicine but she is not swallowing very well with her current mental status. She is status post 1 dose of 40 mg Solu- Medrol about 4 days ago which seems to have done the trick. She grimaces when her ankles touch but does not seem to be nearly as much pain as before. (12) Hyponatremia Plan: Malnutrition. - Time Time Spent with patient: Less than 15 minutes
[2017-04-28] MEDS: HYDRALAZINE HCL INJ/PF 20 MG/1 ML SDV IV PRN (04:22)
[2017-04-28] MEDS ORDERED: CLONIDINE HCL 0.1 MG TABLET ONE (04:49)
[2017-04-28] MEDS ORDERED: LABETALOL HCL INJ 20 MG/4 ML DISP.SYRIN IV ONE (05:01)
[2017-04-28] MEDS ORDERED: CLONIDINE 0.2 MG/24 HR PATCH.TDWK TD ONE (05:15)
[2017-04-28] MEDS ORDERED: CLONIDINE HCL 0.2 MG TABLET PO ONE (05:30)
[2017-04-28] MEDS ORDERED: CLONIDINE 0.2 MG/24 HR PATCH.TDWK ONE (05:41)
[2017-04-28] MEDS: HEPARIN SOD (PORCINE) 5,000 UNIT/ML 1 ML SYRINGE SUBCUT SCH ×3 (05:44→21:18)
[2017-04-28] MEDS: CLONIDINE 0.2 MG/24 HR PATCH.TDWK TD SCH (05:52)
[2017-04-28 07:27] LABS: ANION GAP 13 (5-19); BLOOD UREA NITROGEN 52 mg/dL (7-20); CALCIUM 9.2 mg/dL (8.4-10.2); CARBON DIOXIDE 22 mmol/L (22-30); CHLORIDE 98 mmol/L (98-107); CREATININE RESULT 1.15 mg/dL (0.52-1.25); GLUCOSE 99 mg/dL (75-110); MAGNESIUM 1.9 mg/dL (1.6-2.3); POTASSIUM 4.8 mmol/L (3.6-5.0)
[2017-04-28 07:28] LABS: HEMATOCRIT 31.7 % (36.0-47.0); HEMOGLOBIN 10.5 g/dL (12.0-15.5); HGB HCT DIFFERENCE -0.2; MEAN CORPUSCULAR HEMOGLOBIN 29.8 pg (27.0-33.4); MEAN CORPUSCULAR HGB CONC 33.1 g/dL (32.0-36.0); MEAN CORPUSCULAR VOLUME 90 fl (80-97); RED BLOOD COUNT 3.53 10^6/uL (3.72-5.28); RED CELL DISTRIBUTION WIDTH 16.2 % (11.5-14.0); WHITE BLOOD COUNT 12.2 10^3/uL (4.0-10.5)
[2017-04-28] MEDS: ALBUTEROL SULFATE 0.083% NEB 2.5 MG/3 ML AMPUL NEB SCH ×3 (07:55→20:12)
[2017-04-28 08:03] LABS: BASOPHILS % (MANUAL) 0 % (0-2); EOSINOPHILS % (MANUAL) 0 % (0-6); LYMPHOCYTES % (MANUAL) 5 % (13-45); TOTAL CELLS COUNTED 100
[2017-04-28 08:05] LABS: ANISOCYTOSIS 1+; HELMET CELLS SLIGHT; POIKILOCYTOSIS SLIGHT; POLYCHROMASIA SLIGHT
[2017-04-28] MEDS: METOPROLOL TARTRATE PF/INJ 5 MG/5 ML SDV IV SCH ×2 (10:50→21:18)
--- NOTE | 2017-04-28 16:20 | PDOC PROGRESS REPORT ---
Subjective Progress Note for:: 04/28/17 Subjective:: 81-year-old female with failure to thrive and acute renal failure with severe protein calorie malnutrition. No acute events overnight. The patient is sleeping but easily awakens. Nonverbal. She appears comfortable. Physical Exam Vital Signs: Temp Pulse Resp BP Pulse Ox 98.0 F 96 16 165/81 H 97 04/28/17 11:30 04/28/17 14:00 04/28/17 14:00 04/28/17 11:30 04/28/17 14:00 Intake & Output 04/27/17 04/28/17 04/29/17 06:59 06:59 05:59 Intake Total 548 0 Balance 548 0 Weight 43 kg 43 kg Exam: GENERAL: This is a well-developed but grossly underweight, female. She is resting in bed and does not appear to be in any acute distress Heart: Regular rate and rhythm. Lungs: Clear bilaterally. Abdomen: Soft, nontender EXTREMETIES: No clubbing, cyanosis. Ankle swelling has subsided as well as slight redness. NEURO: Sleeping but easily arousable. Results Laboratory Results: 04/28/17 05:52 04/28/17 05:52 04/28/17 04/28/17 05:52 05:52 WBC 12.2 H RBC 3.53 L Hgb 10.5 L Hct 31.7 L MCV 90 MCH 29.8 MCHC 33.1 RDW 16.2 H Plt Count 420 Seg Neutrophils % Not Reportable Lymphocytes % Not Reportable Monocytes % Not Reportable Eosinophils % Not Reportable Basophils % Not Reportable Absolute Neutrophils Not Reportable Absolute Lymphocytes Not Reportable Absolute Monocytes Not Reportable Absolute Eosinophils Not Reportable Absolute Basophils Not Reportable Sodium 133.0 L Potassium 4.8 Chloride 98 Carbon Dioxide 22 Anion Gap 13 BUN 52 H Creatinine 1.15 Est GFR ( Amer) 55 L Est GFR (Non-Af Amer) 45 L Glucose 99 Calcium 9.2 Magnesium 1.9 04/18/17 06:17 NT-Pro-B Natriuret Pep 4190 H Impressions: Chest X-Ray 04/23/17 00:00 IMPRESSION: COPD. NO ACUTE RADIOGRAPHIC FINDING IN THE CHEST. Assessment & Plan - Diagnosis (1) Failure to thrive Qualifiers: Failure to thrive age range: in adult Qualified Code(s): R62.7 - Adult failure to thrive Is this a current diagnosis for this admission?: Yes Plan: Patient has decreased p.o. intake and remains significantly malnourished. She is DNR. She is awaiting guardianship. She is not likely to improve with PEG. Comfort care measures/hospice services will probably be ideal for this patient at this point. (2) Hypernatremia Is this a current diagnosis for this admission?: Yes Plan: Resolved. Continue IV fluid as patient taken a minimal p.o. (3) Hypertensive crisis Is this a current diagnosis for this admission?: Yes Plan: Continue scheduled metoprolol and clonidine. Continue as needed antihypertensives as well. (4) Anemia in chronic kidney disease (CKD) Qualifiers: Chronic kidney disease stage: stage 3 (moderate) Qualified Code(s): N18.3 - Chronic kidney disease, stage 3 (moderate) Is this a current diagnosis for this admission?: Yes Plan: Continue to trend H&H. (5) CKD (chronic kidney disease) stage 3, GFR 30-59 ml/min Is this a current diagnosis for this admission?: Yes Plan: Stable (6) Dementia Is this a current diagnosis for this admission?: Yes Plan: Awaiting guardianship. (7) COPD (chronic obstructive pulmonary disease) Qualifiers: COPD type: unspecified COPD Qualified Code(s): J44.9 - Chronic obstructive pulmonary disease, unspecified Is this a current diagnosis for this admission?: Yes Plan: Multiple exacerbation at this point. Continue nebulizers as needed.
[2017-04-28] MEDS: NORMAL SALINE 1000 ML 1,000 ML IV PRN (18:13)
[2017-04-28] MEDS ORDERED: ACETAMINOPHEN 650 MG SUPP.RECT PR PRN (21:07)
[2017-04-28] MEDS: MORPHINE SULFATE 10 MG/ML INJ IV PRN (22:18)
[2017-04-29] MEDS: HYDRALAZINE HCL INJ/PF 20 MG/1 ML SDV IV PRN (03:51)
[2017-04-29] MEDS ORDERED: LABETALOL HCL INJ 20 MG/4 ML DISP.SYRIN IV ONE (05:15)
[2017-04-29] MEDS: HEPARIN SOD (PORCINE) 5,000 UNIT/ML 1 ML SYRINGE SUBCUT SCH ×3 (05:23→21:00)
[2017-04-29 05:53] LABS: HEMATOCRIT 29.3 % (36.0-47.0); HEMOGLOBIN 9.6 g/dL (12.0-15.5); HGB HCT DIFFERENCE -0.5; MEAN CORPUSCULAR HEMOGLOBIN 29.1 pg (27.0-33.4); MEAN CORPUSCULAR HGB CONC 32.9 g/dL (32.0-36.0); MEAN CORPUSCULAR VOLUME 88 fl (80-97); RED BLOOD COUNT 3.31 10^6/uL (3.72-5.28); RED CELL DISTRIBUTION WIDTH 15.9 % (11.5-14.0)
[2017-04-29 06:22] LABS: BASOPHILS % (MANUAL) 0 % (0-2); EOSINOPHILS % (MANUAL) 0 % (0-6); LYMPHOCYTES % (MANUAL) 5 % (13-45); TOTAL CELLS COUNTED 100
[2017-04-29 06:24] LABS: TOXIC GRANULATION SLIGHT
[2017-04-29 06:25] LABS: ANISOCYTOSIS SLIGHT; OVALOCYTES SLIGHT
[2017-04-29 06:28] LABS: ANION GAP 12 (5-19); BLOOD UREA NITROGEN 46 mg/dL (7-20); CALCIUM 8.5 mg/dL (8.4-10.2); CARBON DIOXIDE 22 mmol/L (22-30); CHLORIDE 101 mmol/L (98-107); CREATININE RESULT 1.18 mg/dL (0.52-1.25); GLUCOSE 77 mg/dL (75-110); POTASSIUM 4.5 mmol/L (3.6-5.0)
[2017-04-29] MEDS ORDERED: MORPHINE SULFATE 10 MG/ML INJ IV ONE (07:00)
[2017-04-29] MEDS: ALBUTEROL SULFATE 0.083% NEB 2.5 MG/3 ML AMPUL NEB SCH (08:15)
[2017-04-29] MEDS: METOPROLOL TARTRATE PF/INJ 5 MG/5 ML SDV IV SCH ×2 (10:02→21:00)
[2017-04-29] MEDS: MORPHINE SULFATE 10 MG/ML INJ IV PRN (10:12)
[2017-04-29] MEDS: NORMAL SALINE 1000 ML 1,000 ML IV PRN (13:37)
--- NOTE | 2017-04-29 15:15 | RADIOLOGY REPORT (SQ) ---
EXAM DESCRIPTION: CHEST SINGLE VIEW COMPLETED DATE/TIME: 04/29/2017 2:57 pm REASON FOR STUDY: COUGH, INCREASED WBC COMPARISON: 04/23/2017 NUMBER OF VIEWS: One view. TECHNIQUE: Single frontal radiographic view of the chest acquired. LIMITATIONS: None. FINDINGS: LUNGS AND PLEURA: No opacities, masses or pneumothorax. No pleural effusion. Attenuated bl ood vessels and flattened ike-diaphragms. MEDIASTINUM AND HILAR STRUCTURES: No masses. Contour normal. HEART AND VASCULAR STRUCTURES: Heart normal in size. Normal vasculature. BONES: No acute findings. HARDWARE: None in the chest. OTHER: No other significant finding. IMPRESSION: COPD. NO ACUTE RADIOGRAPHIC FINDING IN THE CHEST. TECHNICAL DOCUMENTATION: JOB ID: [id number] [employer]- All Rights Reserved
[2017-04-30] MEDS: HEPARIN SOD (PORCINE) 5,000 UNIT/ML 1 ML SYRINGE SUBCUT SCH ×3 (05:23→22:02)
[2017-04-30] MEDS: ACETAMINOPHEN 325 MG TABLET PO PRN (05:50)
--- NOTE | 2017-04-30 08:04 | PDOC PROGRESS REPORT ---
Subjective Progress Note for:: 04/29/17 Subjective:: 81-year-old female with failure to thrive and acute renal failure with severe protein caloric malnutrition. No acute events overnight. The patient is more awake today, but she remains nonverbal. She appears comfortable. Physical Exam Vital Signs: Temp Pulse Resp BP Pulse Ox 97.9 F 86 18 155/78 H 95 04/29/17 19:54 04/29/17 19:54 04/29/17 19:54 04/29/17 19:54 04/29/17 19:54 Intake & Output 04/28/17 04/29/17 04/30/17 07:59 06:59 06:59 Intake Total 725 Output Total 100 Balance 625 Weight Results Laboratory Results: 04/29/17 04:17 04/29/17 04:17 04/29/17 04/29/17 04:17 04:17 WBC 14.0 H RBC 3.31 L Hgb 9.6 L Hct 29.3 L MCV 88 MCH 29.1 MCHC 32.9 RDW 15.9 H Plt Count 459 H Seg Neutrophils % Not Reportable Lymphocytes % Not Reportable Monocytes % Not Reportable Eosinophils % Not Reportable Basophils % Not Reportable Absolute Neutrophils Not Reportable Absolute Lymphocytes Not Reportable Absolute Monocytes Not Reportable Absolute Eosinophils Not Reportable Absolute Basophils Not Reportable Sodium 135.0 L Potassium 4.5 Chloride 101 Carbon Dioxide 22 Anion Gap 12 BUN 46 H Creatinine 1.18 Est GFR ( Amer) 53 L Est GFR (Non-Af Amer) 44 L Glucose 77 Calcium 8.5 04/18/17 06:17 NT-Pro-B Natriuret Pep 4190 H Impressions: Chest X-Ray 04/29/17 00:00 IMPRESSION: COPD. NO ACUTE RADIOGRAPHIC FINDING IN THE CHEST. Assessment & Plan - Diagnosis (1) Failure to thrive Qualifiers: Failure to thrive age range: in adult Qualified Code(s): R62.7 - Adult failure to thrive Is this a current diagnosis for this admission?: Yes Plan: Patient has decreased p.o. intake and remains significantly malnourished. She is DNR. She is awaiting guardianship. She is not likely to improve with PEG. Comfort care measures/hospice services will probably be ideal for this patient at this point. (2) Hypernatremia Is this a current diagnosis for this admission?: Yes Plan: Resolved. Continue IV fluid as patient taken a minimal p.o. (3) Hypertensive crisis Is this a current diagnosis for this admission?: Yes Plan: Continue scheduled metoprolol and clonidine. Continue as needed antihypertensives as well. (4) Anemia in chronic kidney disease (CKD) Qualifiers: Chronic kidney disease stage: stage 3 (moderate) Qualified Code(s): N18.3 - Chronic kidney disease, stage 3 (moderate) Is this a current diagnosis for this admission?: Yes Plan: Continue to trend H&H. (5) CKD (chronic kidney disease) stage 3, GFR 30-59 ml/min Is this a current diagnosis for this admission?: Yes Plan: Stable. Increase IV fluids as patient with decreased urine output. (6) Dementia Is this a current diagnosis for this admission?: Yes Plan: Awaiting guardianship. (7) COPD (chronic obstructive pulmonary disease) Qualifiers: COPD type: unspecified COPD Qualified Code(s): J44.9 - Chronic obstructive pulmonary disease, unspecified Is this a current diagnosis for this admission?: Yes Plan: Negative for exacerbation at this point. Continue nebulizers as needed.
[2017-04-30] MEDS: METOPROLOL TARTRATE PF/INJ 5 MG/5 ML SDV IV SCH ×2 (09:31→22:02)
[2017-04-30] MEDS ORDERED: MORPHINE SULFATE 10 MG/ML INJ IV PRN (10:55)
[2017-04-30] MEDS: OXYCODONE-ACETAMINOPHEN 5-325 MG TABLET PO PRN (11:05)
[2017-04-30] MEDS: DEXTROSE 5%-WATER 1000 ML 1,000 ML IV PRN (17:53)
--- NOTE | 2017-04-30 19:28 | PDOC PROGRESS REPORT ---
Subjective Progress Note for:: 04/30/17 Subjective:: 81-year-old female with failure to thrive and acute renal failure with severe protein caloric malnutrition. No acute events overnight. The patient is more awake today, mental status continued to improve, but she remains nonverbal. She appears comfortable. Physical Exam Vital Signs: Temp Pulse Resp BP Pulse Ox 98.0 F 72 16 180/65 H 100 04/30/17 16:31 04/30/17 16:31 04/30/17 16:31 04/30/17 16:31 04/30/17 16:31 Intake & Output 04/29/17 04/30/17 05/01/17 06:59 06:59 06:59 Intake Total 1737 670 Output Total 100 Balance 1637 670 Weight 45 kg Exam: GENERAL: This is a well-developed but grossly underweight, female. She is resting in bed and does not appear to be in any acute distress Heart: Regular rate and rhythm. Lungs: Clear bilaterally. Abdomen: Soft, nontender EXTREMETIES: No clubbing, cyanosis. Ankle swelling has subsided as well as slight redness. NEURO: Awake, alert, oriented cannot be tested as patient not answering questions. Results Laboratory Results: 04/29/17 04:17 04/29/17 04:17 04/18/17 06:17 NT-Pro-B Natriuret Pep 4190 H Impressions: Chest X-Ray 04/29/17 00:00 IMPRESSION: COPD. NO ACUTE RADIOGRAPHIC FINDING IN THE CHEST. Assessment & Plan - Diagnosis (1) Failure to thrive Qualifiers: Failure to thrive age range: in adult Qualified Code(s): R62.7 - Adult failure to thrive Is this a current diagnosis for this admission?: Yes Plan: Patient has decreased p.o. intake and remains significantly malnourished. She is DNR. She is awaiting guardianship. She is not likely to improve with PEG. Comfort care measures/hospice services will probably be ideal for this patient at this point. (2) Hypernatremia Is this a current diagnosis for this admission?: Yes Plan: Resolved. Continue IV fluid as patient taken a minimal p.o. (3) Hypertensive crisis Is this a current diagnosis for this admission?: Yes Plan: Continue scheduled metoprolol and clonidine. Continue as needed antihypertensives as well. (4) Anemia in chronic kidney disease (CKD) Qualifiers: Chronic kidney disease stage: stage 3 (moderate) Qualified Code(s): N18.3 - Chronic kidney disease, stage 3 (moderate) Is this a current diagnosis for this admission?: Yes Plan: Continue to trend H&H. (5) CKD (chronic kidney disease) stage 3, GFR 30-59 ml/min Is this a current diagnosis for this admission?: Yes Plan: Improved. Continue IV fluid. (6) Dementia Is this a current diagnosis for this admission?: Yes Plan: Awaiting guardianship. (7) COPD (chronic obstructive pulmonary disease) Qualifiers: COPD type: unspecified COPD Qualified Code(s): J44.9 - Chronic obstructive pulmonary disease, unspecified Is this a current diagnosis for this admission?: Yes Plan: Negative for exacerbation at this point. Continue nebulizers as needed.
[2017-04-30 20:48] LABS: HEMOGLOBIN 9.8 g/dL (12.0-15.5); HGB HCT DIFFERENCE -0.6; MEAN CORPUSCULAR HEMOGLOBIN 29.1 pg (27.0-33.4); MEAN CORPUSCULAR HGB CONC 32.7 g/dL (32.0-36.0); MEAN CORPUSCULAR VOLUME 89 fl (80-97); RED BLOOD COUNT 3.37 10^6/uL (3.72-5.28)
[2017-04-30 21:02] LABS: ANION GAP 12 (5-19); BLOOD UREA NITROGEN 42 mg/dL (7-20); CALCIUM 8.4 mg/dL (8.4-10.2); CARBON DIOXIDE 21 mmol/L (22-30); CHLORIDE 105 mmol/L (98-107); CREATININE RESULT 1.22 mg/dL (0.52-1.25); GLUCOSE 136 mg/dL (75-110); POTASSIUM 3.8 mmol/L (3.6-5.0); SODIUM 137.6 mmol/L (137-145)
[2017-04-30 21:30] LABS: ABSOLUTE EOSINOPHILS# (MANUAL) 0.1 10^3/uL (0.0-0.6); ANISOCYTOSIS 1+; BASOPHILS % (MANUAL) 0 % (0-2); EOSINOPHILS % (MANUAL) 1 % (0-6); LYMPHOCYTES % (MANUAL) 1 % (13-45); TOTAL CELLS COUNTED 100
[2017-05-01] MEDS: OXYCODONE-ACETAMINOPHEN 5-325 MG TABLET PO PRN ×2 (00:44→19:52)
[2017-05-01] MEDS: HEPARIN SOD (PORCINE) 5,000 UNIT/ML 1 ML SYRINGE SUBCUT SCH ×3 (05:41→22:57)
[2017-05-01] MEDS: METOPROLOL TARTRATE PF/INJ 5 MG/5 ML SDV IV SCH ×2 (11:09→22:57)
[2017-05-01] MEDS: MORPHINE SULFATE IR 15 MG TABLET PO PRN (14:40)
--- NOTE | 2017-05-01 16:16 | PDOC PROGRESS REPORT ---
Subjective Progress Note for:: 05/01/17 Subjective:: Complains of pain in her right knee. Physical Exam Vital Signs: Temp Pulse Resp BP Pulse Ox 98.5 F 87 18 159/86 H 100 05/01/17 15:13 05/01/17 15:13 05/01/17 15:13 05/01/17 15:13 05/01/17 15:13 Intake & Output 04/30/17 05/01/17 05/02/17 06:59 06:59 06:59 Intake Total 1737 1795 Output Total 100 Balance 1637 1795 Weight 45 kg 44.8 kg General appearance: PRESENT: no acute distress Eye exam: PRESENT: conjunctiva pink. ABSENT: scleral icterus Mouth exam: PRESENT: moist, tongue midline Neck exam: ABSENT: JVD Respiratory exam: PRESENT: clear to auscultation hansa. ABSENT: rales, rhonchi, wheezes Cardiovascular exam: PRESENT: RRR. ABSENT: diastolic murmur, rubs, systolic murmur GI/Abdominal exam: PRESENT: normal bowel sounds, soft. ABSENT: distended, guarding, mass, organolmegaly, rebound, tenderness Extremities exam: ABSENT: calf tenderness, clubbing, pedal edema Neurological exam: PRESENT: alert, awake, oriented to person, oriented to place. ABSENT: oriented to time, oriented to situation Psychiatric exam: PRESENT: flat affect Skin exam: PRESENT: dry, intact, warm. ABSENT: cyanosis, rash Results Laboratory Results: 04/30/17 20:00 04/30/17 20:00 04/30/17 04/30/17 20:00 20:00 WBC 14.0 H RBC 3.37 L Hgb 9.8 L Hct 30.0 L MCV 89 MCH 29.1 MCHC 32.7 RDW 16.0 H Plt Count 486 H Seg Neutrophils % Not Reportable Lymphocytes % Not Reportable Monocytes % Not Reportable Eosinophils % Not Reportable Basophils % Not Reportable Absolute Neutrophils Not Reportable Absolute Lymphocytes Not Reportable Absolute Monocytes Not Reportable Absolute Eosinophils Not Reportable Absolute Basophils Not Reportable Sodium 137.6 Potassium 3.8 Chloride 105 Carbon Dioxide 21 L Anion Gap 12 BUN 42 H Creatinine 1.22 Est GFR ( Amer) 51 L Est GFR (Non-Af Amer) 42 L Glucose 136 H Calcium 8.4 04/18/17 06:17 NT-Pro-B Natriuret Pep 4190 H Impressions: Chest X-Ray 04/29/17 00:00 IMPRESSION: COPD. NO ACUTE RADIOGRAPHIC FINDING IN THE CHEST. Assessment & Plan - Diagnosis (1) Failure to thrive Qualifiers: Failure to thrive age range: in adult Qualified Code(s): R62.7 - Adult failure to thrive Is this a current diagnosis for this admission?: Yes Plan: Patient is taking very minimal n.p.o. The patient is awaiting guardianship. Patient most likely would not benefit from a PEG tube. (2) Dementia Is this a current diagnosis for this admission?: Yes (3) Hypernatremia Is this a current diagnosis for this admission?: Yes Plan: Resolved. (4) Hypertensive crisis Is this a current diagnosis for this admission?: Yes Plan: Patient's blood pressure stable on metoprolol and clonidine. (5) Anemia in chronic kidney disease (CKD) Qualifiers: Chronic kidney disease stage: stage 3 (moderate) Qualified Code(s): N18.3 - Chronic kidney disease, stage 3 (moderate) Is this a current diagnosis for this admission?: Yes Plan: Hemoglobin remained stable. (6) CKD (chronic kidney disease) stage 3, GFR 30-59 ml/min Is this a current diagnosis for this admission?: Yes Plan: Patient is euvolemic. (7) COPD (chronic obstructive pulmonary disease) Qualifiers: COPD type: unspecified COPD Qualified Code(s): J44.9 - Chronic obstructive pulmonary disease, unspecified Is this a current diagnosis for this admission?: Yes Plan: No wheezing on exam today. - Time Time Spent with patient: 25-34 minutes - Inpatient Certification Medical Necessity: Need Close Monitoring Due to Risk of Patient Decompensation - Plan Summary Plan Summary: Patient is waiting on guardianship and probable skilled nurse facility placement.
--- NOTE | 2017-05-02 00:06 | Progress Note ---
Provider Note Provider Note: Palliative care follow up visit. 05/01/17 11:00 AM Today Mrs. Sandhu is awake and looking about. Respirations are easy and unlabored. Moving spontaneously in bed, laughs when spoken to and looks about the room. She has her paid caregiver at her bedside who says she has been eating a little more each day and is more alert each day. She feels she knows where she is and what is going on, however patients language barrier is making it difficult to ascertain how much she actually is aware. I spoke with the materials planner/production planner who does not feel patient is alert enough to make choices about HCPOA, etc. No one has been appointed at this point and although she has close friends who visit her, there is no one to assume responsibility legally. Caregiver feels patient is having pain and says the oxycodone doesnt help her as much as the morpine. Howeve, patient is lying in bed smiling, no frowning or moaning. Does not appear to be having severe pain and MSIR 15mg would most likely make her very sleepy. Will follow every few days, please call me if there is any change in HPOA status and I will be happy to discuss options with this person.
[2017-05-02] MEDS: MORPHINE SULFATE IR 15 MG TABLET PO PRN (03:40)
[2017-05-02 04:56] LABS: HEMATOCRIT 31.7 % (36.0-47.0); HEMOGLOBIN 10.3 g/dL (12.0-15.5); HGB HCT DIFFERENCE -0.8; MEAN CORPUSCULAR HEMOGLOBIN 29.2 pg (27.0-33.4); MEAN CORPUSCULAR HGB CONC 32.4 g/dL (32.0-36.0); MEAN CORPUSCULAR VOLUME 90 fl (80-97); RED BLOOD COUNT 3.53 10^6/uL (3.72-5.28); RED CELL DISTRIBUTION WIDTH 16.2 % (11.5-14.0); WHITE BLOOD COUNT 11.6 10^3/uL (4.0-10.5)
[2017-05-02 05:05] LABS: ANION GAP 7 (5-19); BLOOD UREA NITROGEN 37 mg/dL (7-20); CALCIUM 8.5 mg/dL (8.4-10.2); CARBON DIOXIDE 23 mmol/L (22-30); CHLORIDE 109 mmol/L (98-107); CREATININE RESULT 1.31 mg/dL (0.52-1.25); GLUCOSE 83 mg/dL (75-110); POTASSIUM 4.2 mmol/L (3.6-5.0); SODIUM 139.4 mmol/L (137-145)
[2017-05-02] MEDS: HEPARIN SOD (PORCINE) 5,000 UNIT/ML 1 ML SYRINGE SUBCUT SCH ×3 (05:37→21:39)
[2017-05-02 05:52] LABS: ABSOLUTE EOSINOPHILS# (MANUAL) 0.2 10^3/uL (0.0-0.6); BAND NEUTROPHILS % (MANUAL) 3 % (3-5); BASOPHILS % (MANUAL) 0 % (0-2); EOSINOPHILS % (MANUAL) 2 % (0-6); LYMPHOCYTES % (MANUAL) 11 % (13-45); TOTAL CELLS COUNTED 100
[2017-05-02 05:54] LABS: ANISOCYTOSIS 1+; OVALOCYTES SLIGHT; SCHISTOCYTES SLIGHT; TOXIC GRANULATION SLIGHT; TOXIC VACUOLATION PRESENT
[2017-05-02 05:55] LABS: POIKILOCYTOSIS SLIGHT; TEAR DROP CELLS SLIGHT
[2017-05-02] MEDS: METOPROLOL TARTRATE PF/INJ 5 MG/5 ML SDV IV SCH ×2 (09:11→21:39)
--- NOTE | 2017-05-02 13:22 | PDOC PROGRESS REPORT ---
Subjective Progress Note for:: 05/02/17 Subjective:: Complains of pain in her right knee. Physical Exam Vital Signs: Temp Pulse Resp BP Pulse Ox 97.8 F 93 18 159/88 H 99 05/02/17 11:28 05/02/17 11:28 05/02/17 11:28 05/02/17 11:28 05/02/17 11:28 Intake & Output 05/01/17 05/02/17 05/03/17 06:59 06:59 06:59 Intake Total 1795 2464 Balance 1795 2464 Weight 44.8 kg 46.3 kg General appearance: PRESENT: no acute distress Eye exam: PRESENT: conjunctiva pink. ABSENT: scleral icterus Mouth exam: PRESENT: moist, tongue midline Neck exam: ABSENT: JVD Respiratory exam: PRESENT: clear to auscultation hansa. ABSENT: rales, rhonchi, wheezes Cardiovascular exam: PRESENT: RRR. ABSENT: diastolic murmur, rubs, systolic murmur GI/Abdominal exam: PRESENT: normal bowel sounds, soft. ABSENT: distended, guarding, mass, organolmegaly, rebound, tenderness Neurological exam: PRESENT: alert, awake, oriented to person, CN II-XII grossly intact. ABSENT: oriented to place, oriented to time, oriented to situation, motor sensory deficit Psychiatric exam: PRESENT: appropriate affect Skin exam: PRESENT: dry, intact, warm. ABSENT: cyanosis, rash Results Laboratory Results: 05/02/17 03:58 05/02/17 03:58 05/02/17 05/02/17 03:58 03:58 WBC 11.6 H RBC 3.53 L Hgb 10.3 L Hct 31.7 L MCV 90 MCH 29.2 MCHC 32.4 RDW 16.2 H Plt Count 502 H Seg Neutrophils % Not Reportable Lymphocytes % Not Reportable Monocytes % Not Reportable Eosinophils % Not Reportable Basophils % Not Reportable Absolute Neutrophils Not Reportable Absolute Lymphocytes Not Reportable Absolute Monocytes Not Reportable Absolute Eosinophils Not Reportable Absolute Basophils Not Reportable Sodium 139.4 Potassium 4.2 Chloride 109 H Carbon Dioxide 23 Anion Gap 7 BUN 37 H Creatinine 1.31 H Est GFR ( Amer) 47 L Est GFR (Non-Af Amer) 39 L Glucose 83 Calcium 8.5 04/18/17 06:17 NT-Pro-B Natriuret Pep 4190 H Impressions: Chest X-Ray 04/29/17 00:00 IMPRESSION: COPD. NO ACUTE RADIOGRAPHIC FINDING IN THE CHEST. Assessment & Plan - Diagnosis (1) Failure to thrive Qualifiers: Failure to thrive age range: in adult Qualified Code(s): R62.7 - Adult failure to thrive Is this a current diagnosis for this admission?: Yes Plan: Patient is taking very minimal n.p.o. The patient is awaiting guardianship. Patient most likely would not benefit from a PEG tube. (2) Dementia Is this a current diagnosis for this admission?: Yes (3) Hypernatremia Is this a current diagnosis for this admission?: Yes Plan: Resolved. (4) Hypertensive crisis Is this a current diagnosis for this admission?: Yes Plan: Patient's blood pressure stable on metoprolol and clonidine. (5) Anemia in chronic kidney disease (CKD) Qualifiers: Chronic kidney disease stage: stage 3 (moderate) Qualified Code(s): N18.3 - Chronic kidney disease, stage 3 (moderate) Is this a current diagnosis for this admission?: Yes Plan: Hemoglobin remained stable. (6) CKD (chronic kidney disease) stage 3, GFR 30-59 ml/min Is this a current diagnosis for this admission?: Yes Plan: Patient is euvolemic. (7) COPD (chronic obstructive pulmonary disease) Qualifiers: COPD type: unspecified COPD Qualified Code(s): J44.9 - Chronic obstructive pulmonary disease, unspecified Is this a current diagnosis for this admission?: Yes Plan: No wheezing on exam today. - Time Time Spent with patient: 25-34 minutes - Inpatient Certification Medical Necessity: Need Close Monitoring Due to Risk of Patient Decompensation - Plan Summary Plan Summary: Awaiting on guardianship.
[2017-05-02] MEDS: OXYCODONE-ACETAMINOPHEN 5-325 MG TABLET PO PRN ×2 (14:31→21:39)
[2017-05-02] MEDS: DEXTROSE 5%-WATER 1000 ML 1,000 ML IV PRN (18:04)
[2017-05-03] MEDS: HEPARIN SOD (PORCINE) 5,000 UNIT/ML 1 ML SYRINGE SUBCUT SCH ×3 (06:17→22:48)
[2017-05-03] MEDS: NORMAL SALINE 1000 ML 1,000 ML IV PRN (08:57)
[2017-05-03] MEDS: METOPROLOL TARTRATE PF/INJ 5 MG/5 ML SDV IV SCH ×2 (09:23→22:49)
[2017-05-03] MEDS: OXYCODONE-ACETAMINOPHEN 5-325 MG TABLET PO PRN (09:27)
[2017-05-03] MEDS: MORPHINE SULFATE IR 15 MG TABLET PO PRN (11:00)
--- NOTE | 2017-05-03 14:58 | PDOC PROGRESS REPORT ---
Subjective Progress Note for:: 05/03/17 Subjective:: Denies any complaints. Physical Exam Vital Signs: Temp Pulse Resp BP Pulse Ox 98.9 F 87 17 160/50 H 100 05/03/17 11:43 05/03/17 11:43 05/03/17 11:43 05/03/17 11:43 05/03/17 11:43 Intake & Output 05/02/17 05/03/17 05/04/17 06:59 06:59 06:59 Intake Total 2464 1475 Balance 2464 1475 Weight 46.3 kg General appearance: PRESENT: no acute distress Eye exam: PRESENT: conjunctiva pink. ABSENT: scleral icterus Ear exam: PRESENT: normal external ear exam Neck exam: ABSENT: JVD Respiratory exam: PRESENT: clear to auscultation hansa. ABSENT: rales, rhonchi, wheezes Cardiovascular exam: PRESENT: RRR. ABSENT: diastolic murmur, rubs, systolic murmur GI/Abdominal exam: PRESENT: normal bowel sounds, soft. ABSENT: distended, guarding, mass, organolmegaly, rebound, tenderness Rectal exam: PRESENT: deferred Extremities exam: ABSENT: calf tenderness, clubbing, pedal edema Neurological exam: PRESENT: awake, oriented to person, CN II-XII grossly intact. ABSENT: oriented to place, oriented to time, oriented to situation, motor sensory deficit Psychiatric exam: PRESENT: flat affect Skin exam: PRESENT: dry, intact, warm. ABSENT: cyanosis, rash Results Laboratory Results: 05/02/17 03:58 05/02/17 03:58 04/18/17 06:17 NT-Pro-B Natriuret Pep 4190 H Impressions: Chest X-Ray 04/29/17 00:00 IMPRESSION: COPD. NO ACUTE RADIOGRAPHIC FINDING IN THE CHEST. Assessment & Plan - Diagnosis (1) Failure to thrive Qualifiers: Failure to thrive age range: in adult Qualified Code(s): R62.7 - Adult failure to thrive Is this a current diagnosis for this admission?: Yes Plan: Patient is taking very minimal n.p.o. The patient is awaiting guardianship. Patient most likely would not benefit from a PEG tube. (2) Dementia Is this a current diagnosis for this admission?: Yes Plan: university services program associate would like for us to have a competency evaluation by psychiatry prior to pursuing guardianship. Will consult Dr. Saeman. (3) Hypernatremia Is this a current diagnosis for this admission?: Yes Plan: Resolved. (4) Hypertensive crisis Is this a current diagnosis for this admission?: Yes Plan: Patient's blood pressure stable on metoprolol and clonidine. (5) Anemia in chronic kidney disease (CKD) Qualifiers: Chronic kidney disease stage: stage 3 (moderate) Qualified Code(s): N18.3 - Chronic kidney disease, stage 3 (moderate) Is this a current diagnosis for this admission?: Yes Plan: Hemoglobin remained stable. (6) CKD (chronic kidney disease) stage 3, GFR 30-59 ml/min Is this a current diagnosis for this admission?: Yes Plan: Patient is euvolemic. (7) COPD (chronic obstructive pulmonary disease) Qualifiers: COPD type: unspecified COPD Qualified Code(s): J44.9 - Chronic obstructive pulmonary disease, unspecified Is this a current diagnosis for this admission?: Yes Plan: No wheezing on exam today. - Time Time Spent with patient: 15-24 minutes - Inpatient Certification Medical Necessity: Need Close Monitoring Due to Risk of Patient Decompensation
[2017-05-04] MEDS: HEPARIN SOD (PORCINE) 5,000 UNIT/ML 1 ML SYRINGE SUBCUT SCH ×3 (05:36→22:10)
[2017-05-04 05:48] LABS: HEMATOCRIT 29.3 % (36.0-47.0); HEMOGLOBIN 9.5 g/dL (12.0-15.5); HGB HCT DIFFERENCE -0.8; MEAN CORPUSCULAR HGB CONC 32.5 g/dL (32.0-36.0); MEAN CORPUSCULAR VOLUME 89 fl (80-97); RED BLOOD COUNT 3.29 10^6/uL (3.72-5.28); WHITE BLOOD COUNT 12.7 10^3/uL (4.0-10.5)
[2017-05-04 06:08] LABS: ANION GAP 8 (5-19); BLOOD UREA NITROGEN 33 mg/dL (7-20); CALCIUM 8.4 mg/dL (8.4-10.2); CARBON DIOXIDE 16 mmol/L (22-30); CHLORIDE 112 mmol/L (98-107); CREATININE RESULT 1.14 mg/dL (0.52-1.25); GLUCOSE 69 mg/dL (75-110)
[2017-05-04 06:44] LABS: ABSOLUTE EOSINOPHILS# (MANUAL) 0.3 10^3/uL (0.0-0.6); BAND NEUTROPHILS % (MANUAL) 1 % (3-5); BASOPHILS % (MANUAL) 0 % (0-2); EOSINOPHILS % (MANUAL) 2 % (0-6); LYMPHOCYTES % (MANUAL) 10 % (13-45); TOTAL CELLS COUNTED 100
[2017-05-04 06:50] LABS: TOXIC GRANULATION SLIGHT; TOXIC VACUOLATION PRESENT
[2017-05-04 06:51] LABS: ANISOCYTOSIS 1+; OVALOCYTES SLIGHT; POLYCHROMASIA SLIGHT; TEAR DROP CELLS SLIGHT
[2017-05-04] MEDS: METOPROLOL TARTRATE PF/INJ 5 MG/5 ML SDV IV SCH ×2 (09:34→22:11)
[2017-05-04] MEDS: MORPHINE SULFATE IR 15 MG TABLET PO PRN (09:35)
--- NOTE | 2017-05-04 10:16 | PDOC PROGRESS REPORT ---
Subjective Progress Note for:: 05/04/17 Subjective:: Denies any complaints. Physical Exam Vital Signs: Temp Pulse Resp BP Pulse Ox 98.5 F 90 12 146/48 H 99 05/04/17 07:15 05/04/17 07:15 05/04/17 07:15 05/04/17 07:15 05/04/17 07:15 Intake & Output 05/03/17 05/04/17 05/05/17 06:59 06:59 06:59 Intake Total 1475 2115 Balance 1475 2115 General appearance: PRESENT: no acute distress Eye exam: PRESENT: conjunctiva pink. ABSENT: scleral icterus Mouth exam: PRESENT: moist, tongue midline Neck exam: ABSENT: JVD Respiratory exam: PRESENT: clear to auscultation hansa. ABSENT: rales, rhonchi, wheezes Cardiovascular exam: PRESENT: RRR. ABSENT: diastolic murmur, rubs, systolic murmur GI/Abdominal exam: PRESENT: normal bowel sounds, soft. ABSENT: distended, guarding, mass, organolmegaly, rebound, tenderness Extremities exam: ABSENT: calf tenderness, clubbing, pedal edema Neurological exam: PRESENT: awake Psychiatric exam: PRESENT: flat affect Skin exam: PRESENT: dry, intact, warm. ABSENT: cyanosis, rash Results Laboratory Results: 05/04/17 04:54 05/04/17 04:54 05/04/17 05/04/17 04:54 04:54 WBC 12.7 H RBC 3.29 L Hgb 9.5 L Hct 29.3 L MCV 89 MCH 29.0 MCHC 32.5 RDW 16.0 H Plt Count 480 H Seg Neutrophils % Not Reportable Lymphocytes % Not Reportable Monocytes % Not Reportable Eosinophils % Not Reportable Basophils % Not Reportable Absolute Neutrophils Not Reportable Absolute Lymphocytes Not Reportable Absolute Monocytes Not Reportable Absolute Eosinophils Not Reportable Absolute Basophils Not Reportable Sodium 136.0 L Potassium 5.0 Chloride 112 H Carbon Dioxide 16 L Anion Gap 8 BUN 33 H Creatinine 1.14 Est GFR ( Amer) 55 L Est GFR (Non-Af Amer) 46 L Glucose 69 L Calcium 8.4 04/18/17 06:17 NT-Pro-B Natriuret Pep 4190 H Impressions: Chest X-Ray 04/29/17 00:00 IMPRESSION: COPD. NO ACUTE RADIOGRAPHIC FINDING IN THE CHEST. Assessment & Plan - Diagnosis (1) Failure to thrive Qualifiers: Failure to thrive age range: in adult Qualified Code(s): R62.7 - Adult failure to thrive Is this a current diagnosis for this admission?: Yes Plan: Patient is taking very minimal n.p.o. The patient is awaiting guardianship. Patient most likely would not benefit from a PEG tube. (2) Dementia Is this a current diagnosis for this admission?: Yes Plan: senior director creative services would like for us to have a competency evaluation by psychiatry prior to pursuing guardianship. Will consult Dr. Seaman. (3) Hypernatremia Is this a current diagnosis for this admission?: Yes Plan: Resolved. (4) Hypertensive crisis Is this a current diagnosis for this admission?: Yes Plan: Patient's blood pressure stable on metoprolol and clonidine. (5) Anemia in chronic kidney disease (CKD) Qualifiers: Chronic kidney disease stage: stage 3 (moderate) Qualified Code(s): N18.3 - Chronic kidney disease, stage 3 (moderate) Is this a current diagnosis for this admission?: Yes Plan: Hemoglobin remained stable. (6) CKD (chronic kidney disease) stage 3, GFR 30-59 ml/min Is this a current diagnosis for this admission?: Yes Plan: Patient is euvolemic. (7) COPD (chronic obstructive pulmonary disease) Qualifiers: COPD type: unspecified COPD Qualified Code(s): J44.9 - Chronic obstructive pulmonary disease, unspecified Is this a current diagnosis for this admission?: Yes Plan: No wheezing on exam today. - Time Time Spent with patient: 25-34 minutes
[2017-05-04] MEDS: NORMAL SALINE 1000 ML 1,000 ML IV PRN (11:28)
[2017-05-04] MEDS: OXYCODONE-ACETAMINOPHEN 5-325 MG TABLET PO PRN (11:29)
[2017-05-05] MEDS: HEPARIN SOD (PORCINE) 5,000 UNIT/ML 1 ML SYRINGE SUBCUT SCH ×2 (05:13→13:26)
[2017-05-05] MEDS: CLONIDINE 0.2 MG/24 HR PATCH.TDWK TD SCH (05:13)
[2017-05-05] MEDS: METOPROLOL TARTRATE PF/INJ 5 MG/5 ML SDV IV SCH (10:03)
--- NOTE | 2017-05-05 10:33 | PDOC PROGRESS REPORT ---
Subjective Progress Note for:: 05/05/17 Subjective:: Denies any complaints. Physical Exam Vital Signs: Temp Pulse Resp BP Pulse Ox 97.8 F 83 16 153/78 H 100 05/05/17 07:39 05/05/17 07:39 05/05/17 07:39 05/05/17 07:39 05/05/17 08:10 Intake & Output 05/04/17 05/05/17 05/06/17 06:59 06:59 06:59 Intake Total 2114 2045 Balance 2114 2045 Weight 50 kg General appearance: PRESENT: no acute distress Eye exam: PRESENT: conjunctiva pink. ABSENT: scleral icterus Ear exam: PRESENT: normal external ear exam Mouth exam: PRESENT: moist, tongue midline Neck exam: ABSENT: JVD Respiratory exam: PRESENT: clear to auscultation hansa. ABSENT: rales, rhonchi, wheezes Cardiovascular exam: PRESENT: RRR. ABSENT: diastolic murmur, rubs, systolic murmur GI/Abdominal exam: PRESENT: normal bowel sounds, soft. ABSENT: distended, guarding, mass, organolmegaly, rebound, tenderness Extremities exam: ABSENT: calf tenderness, clubbing, pedal edema Neurological exam: PRESENT: awake Psychiatric exam: PRESENT: flat affect Skin exam: PRESENT: dry, intact, warm. ABSENT: cyanosis, rash Results Laboratory Results: 05/04/17 04:54 05/04/17 04:54 04/18/17 06:17 NT-Pro-B Natriuret Pep 4190 H Impressions: Chest X-Ray 04/29/17 00:00 IMPRESSION: COPD. NO ACUTE RADIOGRAPHIC FINDING IN THE CHEST. Assessment & Plan - Diagnosis (1) Failure to thrive Qualifiers: Failure to thrive age range: in adult Qualified Code(s): R62.7 - Adult failure to thrive Is this a current diagnosis for this admission?: Yes Plan: Patient is taking very minimal n.p.o. The patient is awaiting guardianship. Patient most likely would not benefit from a PEG tube. (2) Dementia Is this a current diagnosis for this admission?: Yes Plan: support services specialist is pursuing guardianship. The patient has been evaluated by psychiatry and is deemed incompetent. (3) Hypernatremia Is this a current diagnosis for this admission?: Yes Plan: Resolved. (4) Hypertensive crisis Is this a current diagnosis for this admission?: Yes Plan: Patient's blood pressure stable on metoprolol and clonidine. (5) Anemia in chronic kidney disease (CKD) Qualifiers: Chronic kidney disease stage: stage 3 (moderate) Qualified Code(s): N18.3 - Chronic kidney disease, stage 3 (moderate) Is this a current diagnosis for this admission?: Yes Plan: Hemoglobin remained stable. (6) CKD (chronic kidney disease) stage 3, GFR 30-59 ml/min Is this a current diagnosis for this admission?: Yes Plan: Patient is euvolemic. (7) COPD (chronic obstructive pulmonary disease) Qualifiers: COPD type: unspecified COPD Qualified Code(s): J44.9 - Chronic obstructive pulmonary disease, unspecified Is this a current diagnosis for this admission?: Yes Plan: No wheezing on exam today. - Time Time Spent with patient: 15-24 minutes - Inpatient Certification Medical Necessity: Need Close Monitoring Due to Risk of Patient Decompensation
[2017-05-06] MEDS: METOPROLOL TARTRATE PF/INJ 5 MG/5 ML SDV IV SCH ×3 (01:11→22:27)
[2017-05-06] MEDS: HEPARIN SOD (PORCINE) 5,000 UNIT/ML 1 ML SYRINGE SUBCUT SCH ×4 (01:27→22:38)
--- NOTE | 2017-05-06 10:47 | PDOC PROGRESS REPORT ---
Subjective Progress Note for:: 05/06/17 Subjective:: Denies any complaints. Physical Exam Vital Signs: Temp Pulse Resp BP Pulse Ox 98.1 F 100 18 171/96 H 98 05/06/17 07:33 05/06/17 07:33 05/06/17 07:33 05/06/17 07:33 05/06/17 08:11 Intake & Output 05/05/17 05/06/17 05/07/17 06:59 06:59 06:59 Intake Total 2045 825 Balance 2045 825 Weight 50 kg 51.7 kg General appearance: PRESENT: no acute distress Eye exam: PRESENT: conjunctiva pink. ABSENT: scleral icterus Mouth exam: PRESENT: moist, tongue midline Neck exam: ABSENT: JVD Respiratory exam: PRESENT: clear to auscultation hansa. ABSENT: rales, rhonchi, wheezes Cardiovascular exam: PRESENT: RRR. ABSENT: diastolic murmur, rubs, systolic murmur GI/Abdominal exam: PRESENT: normal bowel sounds, soft. ABSENT: distended, guarding, mass, organolmegaly, rebound, tenderness Extremities exam: ABSENT: calf tenderness, clubbing, pedal edema Neurological exam: PRESENT: alert, awake, oriented to person. ABSENT: oriented to place, oriented to time, oriented to situation Psychiatric exam: PRESENT: flat affect Skin exam: PRESENT: dry, intact, warm. ABSENT: cyanosis, rash Results Laboratory Results: 05/04/17 04:54 05/04/17 04:54 04/18/17 06:17 NT-Pro-B Natriuret Pep 4190 H Impressions: Chest X-Ray 04/29/17 00:00 IMPRESSION: COPD. NO ACUTE RADIOGRAPHIC FINDING IN THE CHEST. Assessment & Plan - Diagnosis (1) Failure to thrive Qualifiers: Failure to thrive age range: in adult Qualified Code(s): R62.7 - Adult failure to thrive Is this a current diagnosis for this admission?: Yes Plan: Patient is taking very minimal n.p.o. The patient is awaiting guardianship. Patient most likely would not benefit from a PEG tube. (2) Dementia Is this a current diagnosis for this admission?: Yes Plan: rehabilitation services counselor is pursuing guardianship. The patient has been evaluated by psychiatry and is deemed incompetent. (3) Hypernatremia Is this a current diagnosis for this admission?: Yes Plan: Resolved. (4) Hypertensive crisis Is this a current diagnosis for this admission?: Yes Plan: Patient's blood pressure have been increased on metoprolol and clonidine. Will increase the clonidine patch strength. (5) Anemia in chronic kidney disease (CKD) Qualifiers: Chronic kidney disease stage: stage 3 (moderate) Qualified Code(s): N18.3 - Chronic kidney disease, stage 3 (moderate) Is this a current diagnosis for this admission?: Yes Plan: Hemoglobin remained stable. (6) CKD (chronic kidney disease) stage 3, GFR 30-59 ml/min Is this a current diagnosis for this admission?: Yes Plan: Patient is euvolemic. (7) COPD (chronic obstructive pulmonary disease) Qualifiers: COPD type: unspecified COPD Qualified Code(s): J44.9 - Chronic obstructive pulmonary disease, unspecified Is this a current diagnosis for this admission?: Yes Plan: No wheezing on exam today. - Time Time Spent with patient: 25-34 minutes - Plan Summary Plan Summary: Awaiting guardianship and placement.
[2017-05-06] MEDS: CLONIDINE 0.3 MG/24 HR PATCH.TDWK TD SCH (14:00)
[2017-05-07] MEDS: HEPARIN SOD (PORCINE) 5,000 UNIT/ML 1 ML SYRINGE SUBCUT SCH ×4 (05:57→22:09)
[2017-05-07 07:06] LABS: HEMATOCRIT 31.1 % (36.0-47.0); HEMOGLOBIN 9.9 g/dL (12.0-15.5); HGB HCT DIFFERENCE -1.4; MEAN CORPUSCULAR HEMOGLOBIN 28.8 pg (27.0-33.4); MEAN CORPUSCULAR HGB CONC 31.8 g/dL (32.0-36.0); MEAN CORPUSCULAR VOLUME 91 fl (80-97); RED BLOOD COUNT 3.44 10^6/uL (3.72-5.28); RED CELL DISTRIBUTION WIDTH 16.3 % (11.5-14.0); WHITE BLOOD COUNT 12.1 10^3/uL (4.0-10.5)
[2017-05-07 07:21] LABS: ANION GAP 15 (5-19); BLOOD UREA NITROGEN 34 mg/dL (7-20); CALCIUM 9.5 mg/dL (8.4-10.2); CARBON DIOXIDE 13 mmol/L (22-30); CHLORIDE 116 mmol/L (98-107); CREATININE RESULT 1.39 mg/dL (0.52-1.25); GLUCOSE 56 mg/dL (75-110); POTASSIUM 5.1 mmol/L (3.6-5.0); SODIUM 144.2 mmol/L (137-145)
[2017-05-07 07:51] LABS: ABSOLUTE EOSINOPHILS# (MANUAL) 0.1 10^3/uL (0.0-0.6); BAND NEUTROPHILS % (MANUAL) 2 % (3-5); BASOPHILS % (MANUAL) 0 % (0-2); EOSINOPHILS % (MANUAL) 1 % (0-6); LYMPHOCYTES % (MANUAL) 8 % (13-45); TOTAL CELLS COUNTED 100
[2017-05-07 07:52] LABS: ANISOCYTOSIS 1+; OVALOCYTES 1+; POIKILOCYTOSIS 1+; TEAR DROP CELLS 1+
[2017-05-07] MEDS: METOPROLOL TARTRATE PF/INJ 5 MG/5 ML SDV IV SCH ×2 (10:15→22:03)
--- NOTE | 2017-05-07 11:32 | PDOC PROGRESS REPORT ---
Subjective Progress Note for:: 05/07/17 Subjective:: 81-year-old female who was admitted with failure to thrive with weight loss. The patient has dementia baseline. The patient has no family. The patient has been evaluated by psychiatry who deemed her to be incompetent. We are currently awaiting guardianship and creative services writer will work on placement. Patient denies any complaints today. She does have a swollen left ankle suspicious for gout. The patient has been eating very little. Physical Exam Vital Signs: Temp Pulse Resp BP Pulse Ox 97.7 F 105 H 16 151/79 H 100 05/07/17 07:19 05/07/17 07:19 05/07/17 07:19 05/07/17 07:19 05/07/17 07:19 Intake & Output 05/06/17 05/07/17 05/08/17 06:59 06:59 06:59 Intake Total 825 0 Balance 825 0 Weight 51.7 kg 50.8 kg General appearance: PRESENT: no acute distress Eye exam: PRESENT: conjunctiva pink. ABSENT: scleral icterus Mouth exam: PRESENT: moist, tongue midline Neck exam: ABSENT: JVD Respiratory exam: PRESENT: clear to auscultation hansa. ABSENT: rales, rhonchi, wheezes Cardiovascular exam: PRESENT: RRR. ABSENT: diastolic murmur, rubs, systolic murmur GI/Abdominal exam: PRESENT: normal bowel sounds, soft. ABSENT: distended, guarding, mass, organolmegaly, rebound, tenderness Extremities exam: PRESENT: other - Patient has some swelling over the lateral left ankle with an effusion suggestive of gout.. ABSENT: calf tenderness, clubbing, pedal edema Neurological exam: PRESENT: awake, oriented to person. ABSENT: oriented to place, oriented to time, oriented to situation, motor sensory deficit Psychiatric exam: PRESENT: flat affect Skin exam: PRESENT: dry, intact, warm. ABSENT: cyanosis, rash Results Laboratory Results: 05/07/17 05:59 05/07/17 05:59 05/07/17 05/07/17 05:59 05:59 WBC 12.1 H RBC 3.44 L Hgb 9.9 L Hct 31.1 L MCV 91 MCH 28.8 MCHC 31.8 L RDW 16.3 H Plt Count 543 H Seg Neutrophils % Not Reportable Lymphocytes % Not Reportable Monocytes % Not Reportable Eosinophils % Not Reportable Basophils % Not Reportable Absolute Neutrophils Not Reportable Absolute Lymphocytes Not Reportable Absolute Monocytes Not Reportable Absolute Eosinophils Not Reportable Absolute Basophils Not Reportable Sodium 144.2 Potassium 5.1 H Chloride 116 H Carbon Dioxide 13 L Anion Gap 15 BUN 34 H Creatinine 1.39 H Est GFR ( Amer) 44 L Est GFR (Non-Af Amer) 36 L Glucose 56 L Calcium 9.5 04/18/17 06:17 NT-Pro-B Natriuret Pep 4190 H Impressions: Chest X-Ray 04/29/17 00:00 IMPRESSION: COPD. NO ACUTE RADIOGRAPHIC FINDING IN THE CHEST. Assessment & Plan - Diagnosis (1) Failure to thrive Qualifiers: Failure to thrive age range: in adult Qualified Code(s): R62.7 - Adult failure to thrive Is this a current diagnosis for this admission?: Yes Plan: Patient is taking very minimal n.p.o. The patient is awaiting guardianship. Patient most likely would not benefit from a PEG tube given her dementia and most likely she is end-of-life. (2) Dementia Is this a current diagnosis for this admission?: Yes Plan: creative services writer is pursuing guardianship. The patient has been evaluated by psychiatry and is deemed incompetent. (3) Hypernatremia Is this a current diagnosis for this admission?: Yes Plan: Resolved. (4) Hypertensive crisis Is this a current diagnosis for this admission?: Yes Plan: Patient's blood pressure have been increased on metoprolol and clonidine. Will increase the clonidine patch strength. (5) Anemia in chronic kidney disease (CKD) Qualifiers: Chronic kidney disease stage: stage 3 (moderate) Qualified Code(s): N18.3 - Chronic kidney disease, stage 3 (moderate) Is this a current diagnosis for this admission?: Yes Plan: Hemoglobin remained stable. (6) CKD (chronic kidney disease) stage 3, GFR 30-59 ml/min Is this a current diagnosis for this admission?: Yes Plan: Patient is taking minimal in. Her creatinine has increased somewhat as has her potassium. We will continue to monitor potassium closely. (7) COPD (chronic obstructive pulmonary disease) Qualifiers: COPD type: unspecified COPD Qualified Code(s): J44.9 - Chronic obstructive pulmonary disease, unspecified Is this a current diagnosis for this admission?: Yes Plan: No wheezing on exam today. - Time Time Spent with patient: 15-24 minutes - Inpatient Certification Medical Necessity: Need Close Monitoring Due to Risk of Patient Decompensation - Plan Summary Plan Summary: Awaiting for guardianship so she can be placed. I think this patient would benefit from hospice given her very poor functional status.
--- NOTE | 2017-05-07 15:22 | PSYCHOLOGICAL NOTE ---
Psych Note - Psych Note Psych Note: This is a Capacity Evaluation Patient is an 81-year-old female who presented to the [facility] emergency department on 04/17/2017 after a visit to her Primary Care Provider, Dr. Kat, where there was concern for possible dehydration. Caregivers and Primary Care Provider reported patient had lost 10 pounds over a 12-day duration. Also reported was tarry stool, decreased appetite and decreased oral intake over a 30-day duration. Presenting concerns were listed as dizziness and weakness. Patient was subsequently admitted for acute on chronic renal failure, hypernatremia, failure to thrive, dehydration, anemia in chronic kidney disease , congestive heart failure, chronic obstructive pulmonary disease, hypertensive crisis, severe protein- calorie malnutrition, dementia and leukocytosis. Her healthcare medical insurance is Medicare and [employer]. She is , has no children and resides alone. Documentation indicates she has a caregiver from [facility] as emergency contact. The caregiver noted a male family friend that patient calls her son but has no biological relation, as well as a radiography technician who will not release information due to client-radiography technician confidentiality. [facility] does in-home health 7 days a week from [id number]. Hospital discharge planning is involved and has made a Department of P[employer] Up Copy [employer] Adult Protective Services report and request for guardianship. Patients Primary Care Provider said patient could not sign her own Power of Forge Press Operator paperwork given presentation and requested Department of Paste Up Copy Camera Operator assign a guardian. Review of chart revealed Patients medical history is positive for congestive heart failure, coronary artery disease, dyslipidemia, hypertension, dementia, arthritis, osteoporosis, and chronic obstructive pulmonary disease. She is a former nicotine smoker. Home medications include a list of 15 with Effexor 37.5MG QD being the only psychiatric medication. Medications prescribed while in the hospital include a list of 11 and none are psychiatric in nature. A Head CT dated 09/29/2016 completed secondary to confusion had the following findings : prominent ventricles, areas of low density in the white matter most likely due to chronic microvascular ischemic change, basal ganglia calcifications and age related involutional change. Impression was: chronic changes of atrophy and microvascular ischemia, as well as chronic paranasal sinus disease. These findings and impressions suggest significant neurodegenerative processes. Patients hospital visit history spans from 2010 to present. All were medically related, some were lab related. In 2017 patient has 11 ED visits with two being lab related. The others were: congestive heart failure and localized edema, difficulty breathing, acute renal failure, vitamin D deficiency, acute hypoxic respiratory failure, Nstemi and hypertensive urgency, general weakness, and current acute renal failure and failure to thrive. Current visit documentation noted patient has a walker at home but doesnt like to use it, has oxygen from [email or web address], and when discharged will have 24/ 7 in-home care from [facility]. Emergency Department documentation noted patient finished antibiotics days prior for a urinary tract infection. Notes stated patient was unable to engage in providing medical history and dialogue conversation through present. On 04/18/2017 palliative care initial visit was documented. On 04/22/2017 nurse expressed concerns to discharge planning regarding the change in patients condition, that caregivers have noted patient does have a Do Not Resuscitate, and the attending physician wanted to discuss comfort measures but there was nobody present as natural support. On 04/30/2017 the caregiver informed medical staff patient was the clearest she had been since the urinary tract infection. Attending nurse identified patient as more alert than she has been the past week but continued to answer questions about pain with head nodes and often smiled and laughed. The attending hospitalist requested a capacity evaluation due to concerns for failure to thrive and caregivers reported worsening dementia. The role of a capacity evaluation is to assess and measure a Patients abstract/ rational level of thinking, executive functioning/planning/sequencing, executive functioning/switching, attention, orientation, safety/problem solving , memory, ability to complete daily living activities, and safety awareness. A capacity evaluation to include a mental status exam, safety assessment, and cognitive evaluation was undertaken and results revealed the Patient was unable to verbally or physically communicate. She appeared to stare off during the evaluation and she was not able to follow any 1 or 2-step commands, suggesting her auditory comprehension abilities were impaired. The television in the room was noted to be on but she did not appear to be tracking the show on the tv. Noted is the television on [place]. Patient was unable to verbalize her preferences , engage in safety planning, or provide basic demographic information. Attending nurse stated caregivers reported prior to the past month before admission, the patient was able to walk, however during this visit she has not been able to ambulate, and has gotten upright to the side of her bed twice with physical therapy. airport planner who is familiar with patient from previous visits identified patient knows K[place] and has in the past been able to carry on dialogue conversations. Impression: The Patient is an 81-year-old female who is retired, a , and has no children. Although she has in-home nursing 7 days a week from [phone] she presented with concerns for failure to thrive. She has not been able to carry on dialogue conversations or provide pertinent medical history. Since June patient has had 11 visits to the ED. Patient has a Do Not Resuscitate, no Power of Forge Press Operator, and her radiography technician will not release information due to client- radiography technician confidentiality. Department of Paste Up Copy Camera Operator has been contacted. Primary Care Provider is working on Prison facility placement and felt patient could not sign her own Power of Forge Press Operator given current presentation. Patient has significant medical issues as well as neurodegenerative disease per Head CT dated 09/29/2016. Overall, results of the current capacity evaluation, inclusive of current presentation, chart review, medical records, notes, and collateral information revealed patient appears to be in an acute neurodegenerative process which she is likely not going to recover from. In my clinical opinion, with a reasonable degree of medical and clinical certainty, the Patient would benefit from a responsible and reliable Guardian to assist in managing her medical, financial, legal, and personal affairs. Her inability to respond, verbally or physically to questions of safety, preferences , or basic demographics, makes patient vulnerable to undue influence and a safety risk. Her multiple significant medical issues and neurocognitive deficits place her at risk for victimization or being involved / exposed to dangerous situations in which she could become seriously injured or . It is recommended patient be placed and monitored in a structured and predictable setting with 24-hour supervision and assistance. The following diagnoses are offered: DIAGNOSES: 1. 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 Acute Renal Failure 3. Chronic Obstructive Pulmonary Disease 4. Congestive Heart Failure 5. Hypertension 6. Severe Protein- Calorie Malnutrition RECOMMENDATIONS: 1. A responsible and reliable Guardian is recommended to manage the Patients personal, legal, financial, and medical affairs. 2. Regular primary care physician follow-up appointments for monitoring and management of her medical issues. 3. Referral for a Neurology consultation is recommended to assess, monitor and manage neurocognitive deficits and neurodegenerative processes. 4. Patient would benefit from 24-hour supervised living where staff is available for continued everyday monitoring.
[2017-05-08] MEDS: HEPARIN SOD (PORCINE) 5,000 UNIT/ML 1 ML SYRINGE SUBCUT SCH ×3 (05:38→23:05)
[2017-05-08 07:48] LABS: ABSOLUTE BASOPHILS # (AUTO) 0.1 10^3/uL (0.0-0.2); ABSOLUTE LYMPHOCYTES (AUTO) 0.9 10^3/uL (0.5-4.7); BASOPHILS % (AUTO) 0.7 % (0-2); EOSINOPHILS % (AUTO) 0.1 % (0-6); HEMATOCRIT 28.5 % (36.0-47.0); HEMOGLOBIN 9.3 g/dL (12.0-15.5); HGB HCT DIFFERENCE -0.6; LYMPHOCYTES % (AUTO) 5.9 % (13-45); MEAN CORPUSCULAR HEMOGLOBIN 29.4 pg (27.0-33.4); MEAN CORPUSCULAR HGB CONC 32.6 g/dL (32.0-36.0); MEAN CORPUSCULAR VOLUME 90 fl (80-97); MONOCYTES % (AUTO) 6.7 % (3-13); RED BLOOD COUNT 3.17 10^6/uL (3.72-5.28); RED CELL DISTRIBUTION WIDTH 16.5 % (11.5-14.0); SEGMENTED NEUTROPHILS % (AUTO) 86.6 % (42-78)
[2017-05-08 08:02] LABS: ANION GAP 17 (5-19); BLOOD UREA NITROGEN 37 mg/dL (7-20); CALCIUM 9.6 mg/dL (8.4-10.2); CARBON DIOXIDE 13 mmol/L (22-30); CHLORIDE 115 mmol/L (98-107); CREATININE RESULT 1.42 mg/dL (0.52-1.25); GLUCOSE 107 mg/dL (75-110); POTASSIUM 4.6 mmol/L (3.6-5.0); SODIUM 144.5 mmol/L (137-145)
[2017-05-08] MEDS: METOPROLOL TARTRATE PF/INJ 5 MG/5 ML SDV IV SCH ×2 (11:10→23:00)
[2017-05-08] MEDS: MORPHINE SULFATE 10 MG/5 ML ORAL SOLUTION UDCUP PO PRN (13:00)
--- NOTE | 2017-05-08 14:05 | PDOC PROGRESS REPORT ---
Subjective Progress Note for:: 05/08/17 Subjective:: This is a follow-up visit for failure to thrive and acute renal failure with severe protein calorie malnutrition. Since I last saw this patient she looks worse. She is not responding to questions for me or for her health care worker. Guardianship has still not been established. Her healthcare worker feels that she is in pain. Unfortunately she is lost her IV and cannot take p.o. as the patient is not able to cooperate with swallowing. Physical Exam Vital Signs: Temp Pulse Resp BP Pulse Ox 97.9 F 109 H 20 149/72 H 99 05/08/17 07:59 05/08/17 07:59 05/08/17 07:59 05/08/17 07:59 05/08/17 07:59 Intake & Output 05/07/17 05/08/17 05/09/17 06:59 06:59 06:59 Intake Total 0 357 Balance 0 357 Weight 50.8 kg 45.9 kg GENERAL: This is a well-developed grossly underweight, [place] female resting in bed sleeping and occasionally moaning. Heart: Regular rate and rhythm. Lungs: Clear from the anterior perspective. The patient still has nasal cannula in place. EXTREMETIES: No clubbing, cyanosis. Ankle swelling on the left is worse than when I last remember. The patient has developed 2+-3+ pitting edema of the right lower extremity NEURO: The patient is sleeping. When I try and wake her she moans in pain. She does not open her eyes or participate in any sort of conversation. Results Laboratory Results: 05/08/17 06:08 05/08/17 06:08 05/08/17 05/08/17 06:08 06:08 WBC 15.0 H RBC 3.17 L Hgb 9.3 L Hct 28.5 L MCV 90 MCH 29.4 MCHC 32.6 RDW 16.5 H Plt Count 496 H Seg Neutrophils % 86.6 H Lymphocytes % 5.9 L Monocytes % 6.7 Eosinophils % 0.1 Basophils % 0.7 Absolute Neutrophils 13.0 H Absolute Lymphocytes 0.9 Absolute Monocytes 1.0 Absolute Eosinophils 0.0 Absolute Basophils 0.1 Sodium 144.5 Potassium 4.6 Chloride 115 H Carbon Dioxide 13 L Anion Gap 17 BUN 37 H Creatinine 1.42 H Est GFR ( Amer) 43 L Est GFR (Non-Af Amer) 36 L Glucose 107 Calcium 9.6 04/18/17 06:17 NT-Pro-B Natriuret Pep 4190 H Impressions: Chest X-Ray 04/29/17 00:00 IMPRESSION: COPD. NO ACUTE RADIOGRAPHIC FINDING IN THE CHEST. Assessment & Plan - Diagnosis (1) Hypernatremia Is this a current diagnosis for this admission?: Yes Plan: Secondary to dehydration. This is currently resolved. (2) Failure to thrive Qualifiers: Failure to thrive age range: in adult Qualified Code(s): R62.7 - Adult failure to thrive Is this a current diagnosis for this admission?: Yes Plan: Patient has had decreased p.o. intake and she is grossly malnourished. At this point no one is making medical decisions for her. She is DNR. At this point I would not recommend placement of PEG tube for nutritional support. Patient is elderly and has comorbid conditions and I am not certain that her quality of life would be improved with PEG tube. At this point in time I would recommend comfort care measures/hospice services. (3) Dehydration Is this a current diagnosis for this admission?: Yes Plan: Acute on chronic renal failure management as above. Resolved. However, with no IV access she is likely to become dehydrated again. (4) Anemia in chronic kidney disease (CKD) Qualifiers: Chronic kidney disease stage: stage 3 (moderate) Qualified Code(s): N18.3 - Chronic kidney disease, stage 3 (moderate) Is this a current diagnosis for this admission?: Yes Plan: Resolved. (5) CHF (congestive heart failure) Qualifiers: Congestive heart failure type: unspecified congestive heart failure type Congestive heart failure chronicity: acute on chronic Qualified Code(s): I50.9 - Heart failure, unspecified Plan: The patient is currently edematous in all 4 extremities. Lasix would be useful in treating this patient however have no IV access. And the patient cannot take p.o. medications. (6) COPD (chronic obstructive pulmonary disease) Qualifiers: COPD type: unspecified COPD Qualified Code(s): J44.9 - Chronic obstructive pulmonary disease, unspecified Is this a current diagnosis for this admission?: Yes Plan: The patient is not in acute exacerbation. Continue home medications. As able. (7) Hypertensive crisis Is this a current diagnosis for this admission?: Yes Plan: As needed antihypertensives. Continue scheduled metoprolol and clonidine as appropriate. (8) Severe protein-calorie malnutrition Is this a current diagnosis for this admission?: Yes Plan: The patient is still not eating. As mentioned previously I do not recommend PEG tube placement for nutrition. The patient is 81 years old and has comorbid medical conditions. Her failure to thrive is quite profound this point. I recommend hospice/comfort care measures. Do not think the patient's quality of life will be enhanced by any extreme life-saving measures. Unfortunately, the patient still has no guardian appointed to make decisions for her. She has lost her IV site and I have no way to supply any sort of fluids or even nutrition if we were to consider TPN. Other than transdermal patches and sublingual morphine, I have no way to treat her pain either. Unfortunately she will likely need a PICC line. However, I have no one to authorize this. Without access, the patient will likely become dehydrated again and suffer from acute renal failure again. From this perspective I would consider having a PICC line placed and urgency and will place an order. (9) Dementia Is this a current diagnosis for this admission?: Yes Plan: History of dementia is not listed in her previous medical chart. However the ER physician got this history from the pest locator and the PCP. Continue to monitor her mental state. Today she is not awake for me. (10) Leukocytosis Is this a current diagnosis for this admission?: Yes Plan: Likely secondary to recent UTI she had prior to admission. This is resolved. - Time Time Spent with patient: 25-34 minutes - Inpatient Certification Medical Necessity: Need Close Monitoring Due to Risk of Patient Decompensation
[2017-05-09] MEDS: HEPARIN SOD (PORCINE) 5,000 UNIT/ML 1 ML SYRINGE SUBCUT SCH ×3 (05:18→21:29)
[2017-05-09] MEDS: MORPHINE SULFATE 10 MG/5 ML ORAL SOLUTION UDCUP PO PRN ×2 (08:21→12:06)
[2017-05-09] MEDS: METOPROLOL TARTRATE PF/INJ 5 MG/5 ML SDV IV SCH ×2 (12:21→21:29)
--- NOTE | 2017-05-09 13:15 | PDOC PROGRESS REPORT ---
Subjective Progress Note for:: 05/09/17 Subjective:: This is a follow-up visit for failure to thrive and acute renal failure with severe protein calorie malnutrition. The patient awoke this morning. Surprisingly she is able to communicate. She is able to say pardon me and to express that she is in pain. She asked her nurse for something to drink stating that she was thirsty. Physical Exam Vital Signs: Temp Pulse Resp BP Pulse Ox 97.8 F 99 16 192/92 H 97 05/09/17 07:19 05/09/17 07:19 05/09/17 07:19 05/09/17 07:19 05/09/17 12:30 Intake & Output 05/08/17 05/09/17 05/10/17 06:59 06:59 06:59 Intake Total 357 100 Balance 357 100 Weight 45.9 kg GENERAL: This is a well-developed grossly underweight, [place] female resting in bed sleeping and occasionally moaning. Heart: Regular rate and rhythm. Lungs: Clear from the anterior perspective. Posteriorly the patient sounds coarse especially at the bases. The patient still has nasal cannula in place. EXTREMETIES: No clubbing, cyanosis. Ankle swelling on the left is worse than when I last remember. The patient has developed 2+-3+ pitting edema of the right lower extremity NEURO: The patient is sleeping, but easily awakened. Unfortunately, she is not oriented. I have asked her what the date is and she says "pardon me". I asked her what the date was again and if she remembered what happened to her and the patient shrugs her shoulders and says "pardon me". She does respond yes to the question about whether or not she is in pain. She cannot tell me where she is. Results Laboratory Results: 05/08/17 06:08 05/08/17 06:08 04/18/17 06:17 NT-Pro-B Natriuret Pep 4190 H Impressions: Chest X-Ray 04/29/17 00:00 IMPRESSION: COPD. NO ACUTE RADIOGRAPHIC FINDING IN THE CHEST. Assessment & Plan - Diagnosis (1) Hypernatremia Is this a current diagnosis for this admission?: Yes Plan: Secondary to dehydration. This is currently resolved. (2) Failure to thrive Qualifiers: Failure to thrive age range: in adult Qualified Code(s): R62.7 - Adult failure to thrive Is this a current diagnosis for this admission?: Yes Plan: Patient has had decreased p.o. intake and she is grossly malnourished. At this point no one is making medical decisions for her. She is DNR. At this point I would not recommend placement of PEG tube for nutritional support. Patient is elderly and has comorbid conditions and I am not certain that her quality of life would be improved with PEG tube. At this point in time I would recommend comfort care measures/hospice services. (3) Dehydration Is this a current diagnosis for this admission?: Yes Plan: Acute on chronic renal failure management as above. Resolved. However, with no IV access she is likely to become dehydrated again. (4) Anemia in chronic kidney disease (CKD) Qualifiers: Chronic kidney disease stage: stage 3 (moderate) Qualified Code(s): N18.3 - Chronic kidney disease, stage 3 (moderate) Is this a current diagnosis for this admission?: Yes Plan: Resolved. (5) CHF (congestive heart failure) Qualifiers: Congestive heart failure type: unspecified congestive heart failure type Congestive heart failure chronicity: acute on chronic Qualified Code(s): I50.9 - Heart failure, unspecified Plan: The patient is currently edematous in all 4 extremities. Lasix would be useful in treating this patient however have no IV access. And the patient cannot take p.o. medications. (6) COPD (chronic obstructive pulmonary disease) Qualifiers: COPD type: unspecified COPD Qualified Code(s): J44.9 - Chronic obstructive pulmonary disease, unspecified Is this a current diagnosis for this admission?: Yes Plan: The patient is not in acute exacerbation. Continue home medications. As able. (7) Hypertensive crisis Is this a current diagnosis for this admission?: Yes Plan: As needed antihypertensives. Continue scheduled metoprolol and clonidine as appropriate. (8) Severe protein-calorie malnutrition Is this a current diagnosis for this admission?: Yes Plan: The patient is still not eating. As mentioned previously I do not recommend PEG tube placement for nutrition. The patient is 81 years old and has comorbid medical conditions. Her failure to thrive is quite profound this point. I recommend hospice/comfort care measures. Do not think the patient's quality of life will be enhanced by any extreme life-saving measures. Unfortunately, the patient still has no guardian appointed to make decisions for her. She has lost her IV site and I have no way to supply any sort of fluids or even nutrition if we were to consider TPN. Other than transdermal patches and sublingual morphine, I have no way to treat her pain either. Currently she is awake and was able to sit through a straw. Her mental status has been quite labile and she is likely to become lethargic again. Unfortunately she will likely need a PICC line. However, I have no one to authorize this. Without access, the patient will likely become dehydrated again and suffer from acute renal failure again. From this perspective I would consider having a PICC line placed urgently and I have signed her consent. (9) Dementia Is this a current diagnosis for this admission?: Yes Plan: History of dementia is not listed in her previous medical chart. However the ER physician got this history from the community ambassador and the PCP. Continue to monitor her mental state. Today she is not awake for me. (10) Leukocytosis Is this a current diagnosis for this admission?: Yes Plan: Likely secondary to recent UTI she had prior to admission. Patient's white blood cell count is going up again. I wonder given her lung findings if she has developed pneumonia. Will have to check a chest x-ray. She will need access if I am to treat anything that is found with antibiotics. - Time Time Spent with patient: 15-24 minutes - Inpatient Certification Medical Necessity: Need Close Monitoring Due to Risk of Patient Decompensation
--- NOTE | 2017-05-09 15:52 | RADIOLOGY REPORT (SQ) ---
EXAM DESCRIPTION: PICC INSERTION; FLUORO/CV PLACEMENT; U/S GUIDE FOR VASCULAR ACCESS COMPLETED DATE/TIME: 05/09/2017 3:18 pm; 05/09/2017 3:19 pm REASON FOR STUDY: loss of iv access; IV ACCESS COMPARISON: AP chest 04/29/2017 FLUOROSCOPY TIME: 4 seconds 1 digital chest image, 1 ultrasound image saved to PACS. TECHNIQUE: Fluoroscopic and ultrasound guided PICC placement. LIMITATIONS: None. PROCEDURE: After written consent and assessment were obtained, the patient was brought into the fluo roscopy room and place supine on the table. Ultrasound was used on the patient's left arm for PICC a ccess. The left arm was prepped and draped in a sterile fashion along with the ultrasound probe. The entry site was anesthetized with 3.5 mL of 1% lidocaine. A 21 gauge 7 cm needle was advanced through the skin and into the left basilic vein under live ultrasound guidance. An ultrasound image was save d to PACS confirming access site. A .018 guide wire was then inserted through the needle and into th e venous system. The needle was the removed and an 11 blade scalpel was used to make a 1cm skin incis ion. A 5 fr peel-away sheath was advanced over the wire and into the venous system. A measurement wa s then made using the existing wire and live fluoroscopic guidance. The wire was then removed and the trimmed. The PICC was advanced through the peel-away sheath and into the venous system. The peel-marcela y sheath was removed and the catheter was adhered to the patients arm with a stat lock. The catheter was then aspirated and flushed and a sterile bandage was placed over the access site. A fluoroscopic spot image was saved to PACS confirming the catheter tip within the superior vena cava. IMPRESSION: SUCCESSFUL PLACEMENT OF A 5 FR DUAL LUMEN 35 CM PICC IN THE LEFT BASILIC VEIN. COMMENT: Patient medication list reviewed: Yes- Quality ID# [id number]:Eligible professional attests to doc umenting in the medical record they obtained, updated, or reviewed the patient's current medications. . Quality ID 145: Final reports for procedures using fluoroscopy that document radiation exposure nandini tiffani, or exposure time and number of fluorographic images (if radiation exposure indices are not avail able) Quality ID #76: The patient was prepped and draped using maximum sterile barrier technique including cap, mask, sterile gown, sterile gloves, a large sterile sheet, hand hygiene, and 2% Chlorhexidine fo r cutaneous antisepsis. When ultrasound is used, sterile ultrasound techniques are followed requiring sterile gel and sterile probes. TECHNICAL DOCUMENTATION: JOB ID: [id number] [employer]- All Rights Reserved
--- NOTE | 2017-05-09 15:54 | RADIOLOGY REPORT (SQ) ---
EXAM DESCRIPTION: CHEST SINGLE VIEW COMPLETED DATE/TIME: 05/09/2017 3:19 pm REASON FOR STUDY: course breath sounds with elevated wbc COMPARISON: 04/29/2017 chest film EXAM PARAMETERS: NUMBER OF VIEWS: One view. TECHNIQUE: Single frontal radiographic view of the chest acquired. RADIATION DOSE: NA LIMITATIONS: None. FINDINGS: LUNGS AND PLEURA: No opacities, masses or pneumothorax. No pleural effusion. MEDIASTINUM AND HILAR STRUCTURES: No masses. Contour normal. HEART AND VASCULAR STRUCTURES: Heart normal in size. Normal vasculature. BONES: Osteoporotic with old healed anterior left 3rd 4th and 5th rib fractures HARDWARE: Left PICC line tip superior vena cava OTHER: No other significant finding. IMPRESSION: No acute infiltrates Left PICC line tip superior vena cava TECHNICAL DOCUMENTATION: JOB ID: [id number] [employer]- All Rights Reserved
[2017-05-09] MEDS: HYDRALAZINE HCL INJ/PF 20 MG/1 ML SDV IV PRN (16:20)
[2017-05-09] MEDS ORDERED: BISACODYL 10 MG SUPP.RECT PR ONE (19:30)
[2017-05-09] MEDS: NORMAL SALINE 10 ML SDV (SCHEDULED) IV SCH (21:31)
[2017-05-10] MEDS: HEPARIN SOD (PORCINE) 5,000 UNIT/ML 1 ML SYRINGE SUBCUT SCH ×3 (05:05→21:24)
[2017-05-10 06:47] LABS: HEMATOCRIT 28.3 % (36.0-47.0); HEMOGLOBIN 9.4 g/dL (12.0-15.5); HGB HCT DIFFERENCE -0.1; MEAN CORPUSCULAR HEMOGLOBIN 29.7 pg (27.0-33.4); MEAN CORPUSCULAR HGB CONC 33.2 g/dL (32.0-36.0); MEAN CORPUSCULAR VOLUME 90 fl (80-97); RED BLOOD COUNT 3.16 10^6/uL (3.72-5.28); RED CELL DISTRIBUTION WIDTH 16.3 % (11.5-14.0); WHITE BLOOD COUNT 9.6 10^3/uL (4.0-10.5)
[2017-05-10 06:50] LABS: ANION GAP 9 (5-19); BLOOD UREA NITROGEN 28 mg/dL (7-20); CALCIUM 9.6 mg/dL (8.4-10.2); CARBON DIOXIDE 21 mmol/L (22-30); CHLORIDE 116 mmol/L (98-107); CREATININE RESULT 1.22 mg/dL (0.52-1.25); GLUCOSE 99 mg/dL (75-110); MAGNESIUM 1.9 mg/dL (1.6-2.3); POTASSIUM 4.1 mmol/L (3.6-5.0); SODIUM 146.2 mmol/L (137-145)
[2017-05-10 07:21] LABS: ABSOLUTE EOSINOPHILS# (MANUAL) 0.1 10^3/uL (0.0-0.6); BASOPHILS % (MANUAL) 1 % (0-2); EOSINOPHILS % (MANUAL) 1 % (0-6); LYMPHOCYTES % (MANUAL) 12 % (13-45); POLYCHROMASIA SLIGHT; TOTAL CELLS COUNTED 100; TOXIC GRANULATION SLIGHT; TOXIC VACUOLATION PRESENT
[2017-05-10] MEDS: METOPROLOL TARTRATE PF/INJ 5 MG/5 ML SDV IV SCH ×2 (09:34→21:24)
[2017-05-10] MEDS: MORPHINE SULFATE 10 MG/5 ML ORAL SOLUTION UDCUP PO PRN (09:34)
[2017-05-10] MEDS: NORMAL SALINE 10 ML SDV (SCHEDULED) IV SCH ×2 (09:34→21:24)
--- NOTE | 2017-05-10 11:06 | PDOC PROGRESS REPORT ---
Subjective Progress Note for:: 05/10/17 Subjective:: This is a follow-up visit for failure to thrive and acute renal failure with severe protein calorie malnutrition. Yesterday the patient had complained of feeling like something was stuck in her rectum. The nurses were able to see that she needs to have a bowel movement but could not get it out. I ordered a Dulcolax suppository which helped her to have partial relief. The patient still indicates in her own way that she is uncomfortable in her rectum. No acute events overnight. The patient did have a PICC line placed emergently. Physical Exam Vital Signs: Temp Pulse Resp BP Pulse Ox 97.4 F 90 12 131/93 H 98 05/10/17 07:32 05/10/17 07:32 05/10/17 07:32 05/10/17 07:32 05/10/17 07:32 Intake & Output 05/09/17 05/10/17 05/11/17 06:59 06:59 06:59 Intake Total 100 240 Balance 100 240 Weight 45.8 kg GENERAL: This is a well-developed grossly underweight, Thai female resting in bed awake Heart: Regular rate and rhythm. Lungs: Clear from the anterior perspective. Equal rise and fall the chest. Abdomen: Flat but firm. Nondistended hypoactive bowel sounds. EXTREMETIES: No clubbing, cyanosis. Ankle swelling on the left. The patient has developed 2+-3+ pitting edema of the right lower extremity NEURO: Awake and alert. Patient is still not oriented. Results Laboratory Results: 05/10/17 06:30 05/10/17 06:30 05/10/17 05/10/17 06:30 06:30 WBC 9.6 RBC 3.16 L Hgb 9.4 L Hct 28.3 L MCV 90 MCH 29.7 MCHC 33.2 RDW 16.3 H Plt Count 417 Seg Neutrophils % Not Reportable Lymphocytes % Not Reportable Monocytes % Not Reportable Eosinophils % Not Reportable Basophils % Not Reportable Absolute Neutrophils Not Reportable Absolute Lymphocytes Not Reportable Absolute Monocytes Not Reportable Absolute Eosinophils Not Reportable Absolute Basophils Not Reportable Sodium 146.2 H Potassium 4.1 Chloride 116 H Carbon Dioxide 21 L Anion Gap 9 BUN 28 H Creatinine 1.22 Est GFR ( Amer) 51 L Est GFR (Non-Af Amer) 42 L Glucose 99 Calcium 9.6 Magnesium 1.9 04/18/17 06:17 NT-Pro-B Natriuret Pep 4190 H Impressions: Chest X-Ray 05/09/17 00:00 IMPRESSION: No acute infiltrates Left PICC line tip superior vena cava Guidance Fluoroscopy 05/09/17 00:00 IMPRESSION: SUCCESSFUL PLACEMENT OF A 5 FR DUAL LUMEN 35 CM PICC IN THE LEFT BASILIC VEIN. Interventional Vascular Procedure 05/09/17 00:00 IMPRESSION: SUCCESSFUL PLACEMENT OF A 5 FR DUAL LUMEN 35 CM PICC IN THE LEFT BASILIC VEIN. PICC Line Insertion 05/09/17 00:00 IMPRESSION: SUCCESSFUL PLACEMENT OF A 5 FR DUAL LUMEN 35 CM PICC IN THE LEFT BASILIC VEIN. Assessment & Plan - Diagnosis (1) Hypernatremia Is this a current diagnosis for this admission?: Yes Plan: Secondary to dehydration. As expected, not having IV access has led to mild hypernatremia and mild dehydration again. Resume fluids now that the PICC line is established and continue to monitor. (2) Failure to thrive Qualifiers: Failure to thrive age range: in adult Qualified Code(s): R62.7 - Adult failure to thrive Is this a current diagnosis for this admission?: Yes Plan: Patient has had decreased p.o. intake and she is grossly malnourished. At this point no one is making medical decisions for her. She is DNR. At this point I would not recommend placement of PEG tube for nutritional support. Patient is elderly and has comorbid conditions and I am not certain that her quality of life would be improved with PEG tube. At this point in time I would recommend comfort care measures/hospice services. (3) Dehydration Is this a current diagnosis for this admission?: Yes Plan: Acute on chronic renal failure management as above. Continue IV fluids. Patient is slightly hyponatremic today. (4) Anemia in chronic kidney disease (CKD) Qualifiers: Chronic kidney disease stage: stage 3 (moderate) Qualified Code(s): N18.3 - Chronic kidney disease, stage 3 (moderate) Is this a current diagnosis for this admission?: Yes Plan: Resolved. (5) CHF (congestive heart failure) Qualifiers: Congestive heart failure type: unspecified congestive heart failure type Congestive heart failure chronicity: acute on chronic Qualified Code(s): I50.9 - Heart failure, unspecified Plan: The patient is currently edematous in all 4 extremities. Now that PICC line has been established, I will give her a low-dose of Lasix to try and help with her swelling and the pain associated with it. (6) COPD (chronic obstructive pulmonary disease) Qualifiers: COPD type: unspecified COPD Qualified Code(s): J44.9 - Chronic obstructive pulmonary disease, unspecified Is this a current diagnosis for this admission?: Yes Plan: The patient is not in acute exacerbation. Continue home medications. As able. (7) Hypertensive crisis Is this a current diagnosis for this admission?: Yes Plan: As needed antihypertensives. Continue scheduled metoprolol and clonidine as appropriate. (8) Severe protein-calorie malnutrition Is this a current diagnosis for this admission?: Yes Plan: The patient is still not eating. As mentioned previously I do not recommend PEG tube placement for nutrition. The patient is 81 years old and has comorbid medical conditions. Her failure to thrive is quite profound this point. I recommend hospice/comfort care measures. Do not think the patient's quality of life will be enhanced by any extreme life-saving measures. Unfortunately, the patient still has no guardian appointed to make decisions for her. PICC line was established. The patient went awake occasionally asks for something to drink. (9) Dementia Is this a current diagnosis for this admission?: Yes Plan: History of dementia is not listed in her previous medical chart. However the ER physician got this history from the thread twister and the PCP. Continue to monitor her mental state. (10) Leukocytosis Is this a current diagnosis for this admission?: Yes Plan: Likely secondary to recent UTI she had prior to admission. This is over. Patient's white blood cell count did go up again. Today it spontaneously resolved. Chest x-ray done yesterday showed no acute infiltrates. No antibiotics on board at this point. Continue to monitor. (11) Constipation Plan: The suppository helps some. The patient still has a sensation that something is stuck. She does not say this specifically but motions in that direction. I have asked the nurse to see if they can do a digital disimpaction. If necessary we can give her fleets. - Time Time Spent with patient: 15-24 minutes Within: Other
[2017-05-10] MEDS ORDERED: NA PHOS,M-B/NA PHOS,DI-BA (PEDIATRIC) 66 ML ENEMA PR PRN (12:00)
[2017-05-10] MEDS ORDERED: FUROSEMIDE INJ/PF 20 MG/2 ML SDV IV ONE (12:00)
[2017-05-10] MEDS ORDERED: METHYLPREDNISOLONE INJ 40 MG/1 ML SDV IV ONE (12:00)
[2017-05-11] MEDS: HEPARIN SOD (PORCINE) 5,000 UNIT/ML 1 ML SYRINGE SUBCUT SCH ×3 (06:30→21:43)
--- NOTE | 2017-05-11 09:08 | PDOC PROGRESS REPORT ---
Subjective Progress Note for:: 05/11/17 Subjective:: This is a follow-up visit for failure to thrive and acute renal failure with severe protein calorie malnutrition. The patient currently states that she is not in any pain. She is watching TV and laughing at the appropriate funny parts. She states that she wants her water but nothing else on her tray. Physical Exam Vital Signs: Temp Pulse Resp BP Pulse Ox 97.3 F 78 17 143/88 H 96 05/11/17 03:29 05/11/17 07:00 05/11/17 03:29 05/11/17 03:29 05/11/17 03:29 Intake & Output 05/10/17 05/11/17 05/12/17 06:59 06:59 06:59 Intake Total 240 140 Balance 240 140 Weight 45.8 kg 46.2 kg GENERAL: This is a well-developed grossly underweight, Vietnamese female resting in bed awake Heart: Regular rate and rhythm. Lungs: Slight wheeze heard on exam today. Equal rise and fall the chest. Abdomen: Flat but firm. Nondistended hypoactive bowel sounds. EXTREMETIES: No clubbing, cyanosis. Ankle swelling on the left. The patient has developed 2+-3+ pitting edema of the right lower extremity NEURO: Awake and alert. Patient is still not oriented. She cannot tell me that she is in the hospital or what happened to her. Occasionally she looks up at the television and during a blooper's reel, she laughs appropriately Results Laboratory Results: 05/10/17 06:30 05/10/17 06:30 04/18/17 06:17 NT-Pro-B Natriuret Pep 4190 H Impressions: Chest X-Ray 05/09/17 00:00 IMPRESSION: No acute infiltrates Left PICC line tip superior vena cava Guidance Fluoroscopy 05/09/17 00:00 IMPRESSION: SUCCESSFUL PLACEMENT OF A 5 FR DUAL LUMEN 35 CM PICC IN THE LEFT BASILIC VEIN. Interventional Vascular Procedure 05/09/17 00:00 IMPRESSION: SUCCESSFUL PLACEMENT OF A 5 FR DUAL LUMEN 35 CM PICC IN THE LEFT BASILIC VEIN. PICC Line Insertion 05/09/17 00:00 IMPRESSION: SUCCESSFUL PLACEMENT OF A 5 FR DUAL LUMEN 35 CM PICC IN THE LEFT BASILIC VEIN. Assessment & Plan - Diagnosis (1) Hypernatremia Is this a current diagnosis for this admission?: Yes Plan: Secondary to dehydration. Continue fluids since she is not taking much p.o. (2) Failure to thrive Qualifiers: Failure to thrive age range: in adult Qualified Code(s): R62.7 - Adult failure to thrive Is this a current diagnosis for this admission?: Yes Plan: Patient has had decreased p.o. intake and she is grossly malnourished. At this point no one is making medical decisions for her. She is DNR. At this point I would not recommend placement of PEG tube for nutritional support. Patient is elderly and has comorbid conditions and I am not certain that her quality of life would be improved with PEG tube. At this point in time I would recommend comfort care measures/hospice services. (3) Dehydration Is this a current diagnosis for this admission?: Yes Plan: Acute on chronic renal failure management as above. Continue IV fluids. Patient is slightly hyponatremic today. (4) Anemia in chronic kidney disease (CKD) Qualifiers: Chronic kidney disease stage: stage 3 (moderate) Qualified Code(s): N18.3 - Chronic kidney disease, stage 3 (moderate) Is this a current diagnosis for this admission?: Yes Plan: Resolved. (5) CHF (congestive heart failure) Qualifiers: Congestive heart failure type: unspecified congestive heart failure type Congestive heart failure chronicity: acute on chronic Qualified Code(s): I50.9 - Heart failure, unspecified Plan: The patient is currently edematous in all 4 extremities. (6) COPD (chronic obstructive pulmonary disease) Qualifiers: COPD type: unspecified COPD Qualified Code(s): J44.9 - Chronic obstructive pulmonary disease, unspecified Is this a current diagnosis for this admission?: Yes Plan: The patient is not in acute exacerbation. Continue home medications. As able. (7) Hypertensive crisis Is this a current diagnosis for this admission?: Yes Plan: As needed antihypertensives. Continue scheduled metoprolol and clonidine as appropriate. (8) Severe protein-calorie malnutrition Is this a current diagnosis for this admission?: Yes Plan: The patient is still not eating. As mentioned previously I do not recommend PEG tube placement for nutrition. The patient is 81 years old and has comorbid medical conditions. Her failure to thrive is quite profound this point. I recommend hospice/comfort care measures. Do not think the patient's quality of life will be enhanced by any extreme life-saving measures. Unfortunately, the patient still has no guardian appointed to make decisions for her. PICC line was established. The patient went awake occasionally asks for something to drink. (9) Dementia Is this a current diagnosis for this admission?: Yes Plan: History of dementia is not listed in her previous medical chart. However the ER physician got this history from the iridologist and the PCP. Continue to monitor her mental state. (10) Leukocytosis Is this a current diagnosis for this admission?: Yes Plan: Likely secondary to recent UTI she had prior to admission. This is over. Patient's white blood cell count did go up again. Today it spontaneously resolved. Most recent x-ray showed no acute infiltrates. No antibiotics on board at this point. Continue to monitor. (11) Constipation Plan: Resolved (12) Gout Plan: Patient has a history of gout. She is on colchicine for maintenance at home. She is had episodes where she has complained of pain in her ankle or when she has not been responsive has moaned out with touching of her ankle. She has been receiving intermittent doses of Solu-Medrol since she could not tolerate oral medications. Today going to schedule the Solu-Medrol every 12 for the next few days. We will see how she does. I think this will help not only her ankle but also the wheeze that I detect today. - Time Time Spent with patient: 15-24 minutes
[2017-05-11] MEDS: NORMAL SALINE 10 ML SDV (SCHEDULED) IV SCH ×2 (09:16→21:43)
[2017-05-11] MEDS: METOPROLOL TARTRATE PF/INJ 5 MG/5 ML SDV IV SCH ×2 (09:16→21:43)
[2017-05-11] MEDS: METHYLPREDNISOLONE INJ 40 MG/1 ML SDV IV SCH ×2 (11:15→21:43)
[2017-05-11] MEDS: NORMAL SALINE 1000 ML 1,000 ML IV PRN (15:50)
[2017-05-12] MEDS: MORPHINE SULFATE 10 MG/ML INJ IV PRN ×2 (01:43→21:38)
[2017-05-12] MEDS: HYDRALAZINE HCL INJ/PF 20 MG/1 ML SDV IV PRN ×2 (01:43→21:38)
[2017-05-12] MEDS: NORMAL SALINE 1000 ML 1,000 ML IV PRN (05:33)
[2017-05-12] MEDS: HEPARIN SOD (PORCINE) 5,000 UNIT/ML 1 ML SYRINGE SUBCUT SCH ×3 (05:33→21:38)
[2017-05-12 06:13] LABS: HEMOGLOBIN 8.8 g/dL (12.0-15.5); HGB HCT DIFFERENCE -0.6; MEAN CORPUSCULAR HEMOGLOBIN 29.4 pg (27.0-33.4); MEAN CORPUSCULAR HGB CONC 32.6 g/dL (32.0-36.0); MEAN CORPUSCULAR VOLUME 90 fl (80-97); RED BLOOD COUNT 2.99 10^6/uL (3.72-5.28); RED CELL DISTRIBUTION WIDTH 16.8 % (11.5-14.0); WHITE BLOOD COUNT 10.2 10^3/uL (4.0-10.5)
[2017-05-12 06:50] LABS: ANION GAP 7 (5-19); BLOOD UREA NITROGEN 32 mg/dL (7-20); CALCIUM 8.8 mg/dL (8.4-10.2); CARBON DIOXIDE 23 mmol/L (22-30); CHLORIDE 111 mmol/L (98-107); CREATININE RESULT 1.21 mg/dL (0.52-1.25); GLUCOSE 134 mg/dL (75-110); MAGNESIUM 1.7 mg/dL (1.6-2.3); POTASSIUM 4.4 mmol/L (3.6-5.0); SODIUM 140.9 mmol/L (137-145)
[2017-05-12 06:56] LABS: BASOPHILS % (MANUAL) 0 % (0-2); EOSINOPHILS % (MANUAL) 0 % (0-6); LYMPHOCYTES % (MANUAL) 3 % (13-45); TOTAL CELLS COUNTED 100
[2017-05-12 06:58] LABS: ANISOCYTOSIS 1+; OVALOCYTES 1+; POIKILOCYTOSIS SLIGHT; TOXIC GRANULATION SLIGHT
[2017-05-12 06:59] LABS: POLYCHROMASIA SLIGHT
[2017-05-12] MEDS: NORMAL SALINE 10 ML SDV (SCHEDULED) IV SCH ×2 (09:11→21:38)
[2017-05-12] MEDS: METOPROLOL TARTRATE PF/INJ 5 MG/5 ML SDV IV SCH ×2 (09:12→21:39)
[2017-05-12] MEDS: METHYLPREDNISOLONE INJ 40 MG/1 ML SDV IV SCH ×2 (09:12→21:38)
--- NOTE | 2017-05-12 12:35 | PDOC PROGRESS REPORT ---
Subjective Progress Note for:: 05/12/17 Subjective:: reason for visit: f/u ARF, FTT, dementia, severe PCM she is pleasantly demented, has no recollection of having met me on previous admissions and has no idea where she is or why; therefore a ROS and medical hx from the patient is of little use. for her part she denies dyspnea, chest pain , fevers/chills, n/v/d and she is trying to eat bfast when I arrive to see her. speech is clear and she will move all 4 extremities and follow only simple commands. nursing reports that in spite of a standing order for IVFs to start after her PICC line, none have been given for the last 2 days for reasons not clear to me. they also report migratory edema, sometimes in her foot, then the other one , her hands but then the other one and today its RLE at the foot and LUE in the forearm. PICC is reportedly functioning as it should. ROS: unobtainable due to pt's mental state Physical Exam Vital Signs: Temp Pulse Resp BP Pulse Ox 97.6 F 73 18 152/80 H 100 05/12/17 11:52 05/12/17 11:52 05/12/17 11:52 05/12/17 11:52 05/12/17 11:52 Intake & Output 05/11/17 05/12/17 05/13/17 06:59 06:59 06:59 Intake Total 140 670 Balance 140 670 Weight 46.2 kg 46.2 kg General appearance: PRESENT: no acute distress, cooperative Head exam: PRESENT: atraumatic Eye exam: PRESENT: conjunctiva pale, EOMI, PERRLA Mouth exam: PRESENT: moist, tongue midline Respiratory exam: PRESENT: clear to auscultation hansa. ABSENT: accessory muscle use Cardiovascular exam: PRESENT: RRR. ABSENT: tachycardia GI/Abdominal exam: PRESENT: normal bowel sounds, soft. ABSENT: tenderness Extremities exam: PRESENT: +1 edema - Rt foot and distal to elbow LUE; PICC is c /d/i without palpable cord Musculoskeletal exam: PRESENT: full ROM Neurological exam: PRESENT: alert, awake, oriented to person - only Psychiatric exam: ABSENT: agitated, anxious Results Laboratory Results: 05/12/17 05:45 05/12/17 05:45 05/12/17 05/12/17 05:45 05:45 WBC 10.2 RBC 2.99 L Hgb 8.8 L Hct 27.0 L MCV 90 MCH 29.4 MCHC 32.6 RDW 16.8 H Plt Count 397 Seg Neutrophils % Not Reportable Lymphocytes % Not Reportable Monocytes % Not Reportable Eosinophils % Not Reportable Basophils % Not Reportable Absolute Neutrophils Not Reportable Absolute Lymphocytes Not Reportable Absolute Monocytes Not Reportable Absolute Eosinophils Not Reportable Absolute Basophils Not Reportable Sodium 140.9 Potassium 4.4 Chloride 111 H Carbon Dioxide 23 Anion Gap 7 BUN 32 H Creatinine 1.21 Est GFR ( Amer) 52 L Est GFR (Non-Af Amer) 43 L Glucose 134 H Calcium 8.8 Magnesium 1.7 04/18/17 06:17 NT-Pro-B Natriuret Pep 4190 H Impressions: Chest X-Ray 05/09/17 00:00 IMPRESSION: No acute infiltrates Left PICC line tip superior vena cava Guidance Fluoroscopy 05/09/17 00:00 IMPRESSION: SUCCESSFUL PLACEMENT OF A 5 FR DUAL LUMEN 35 CM PICC IN THE LEFT BASILIC VEIN. Interventional Vascular Procedure 05/09/17 00:00 IMPRESSION: SUCCESSFUL PLACEMENT OF A 5 FR DUAL LUMEN 35 CM PICC IN THE LEFT BASILIC VEIN. PICC Line Insertion 05/09/17 00:00 IMPRESSION: SUCCESSFUL PLACEMENT OF A 5 FR DUAL LUMEN 35 CM PICC IN THE LEFT BASILIC VEIN. Assessment & Plan - Diagnosis (1) Dementia Is this a current diagnosis for this admission?: Yes (2) Failure to thrive Qualifiers: Failure to thrive age range: in adult Qualified Code(s): R62.7 - Adult failure to thrive Is this a current diagnosis for this admission?: Yes (3) Severe protein-calorie malnutrition Is this a current diagnosis for this admission?: Yes (4) Anemia in chronic kidney disease (CKD) Qualifiers: Chronic kidney disease stage: stage 3 (moderate) Qualified Code(s): N18.3 - Chronic kidney disease, stage 3 (moderate) Is this a current diagnosis for this admission?: Yes Plan: slightly worse today but I suspect from her poor nutritional state and she's been at or below this level many times before during previous admissions. I think expectant is best at this point. - Time Time Spent with patient: 25-34 minutes - Plan Summary Plan Summary: all her chronic conditions appear stable or improving at this point so seems prudent to continue current regimen. reportedly we are awaiting guardianship and placement options.
[2017-05-12] MEDS: ALBUTEROL SULFATE 0.083% NEB 2.5 MG/3 ML AMPUL NEB PRN (21:24)
[2017-05-13] MEDS: NORMAL SALINE 1000 ML 1,000 ML IV PRN ×2 (05:17→22:28)
[2017-05-13] MEDS: HEPARIN SOD (PORCINE) 5,000 UNIT/ML 1 ML SYRINGE SUBCUT SCH ×3 (05:17→22:28)
[2017-05-13 07:07] LABS: HEMATOCRIT 25.4 % (36.0-47.0); HEMOGLOBIN 8.4 g/dL (12.0-15.5); HGB HCT DIFFERENCE -0.2; MEAN CORPUSCULAR HEMOGLOBIN 29.8 pg (27.0-33.4); MEAN CORPUSCULAR HGB CONC 33.2 g/dL (32.0-36.0); MEAN CORPUSCULAR VOLUME 90 fl (80-97); RED BLOOD COUNT 2.83 10^6/uL (3.72-5.28); RED CELL DISTRIBUTION WIDTH 16.7 % (11.5-14.0); WHITE BLOOD COUNT 7.6 10^3/uL (4.0-10.5)
[2017-05-13 07:15] LABS: ANION GAP 10 (5-19); BLOOD UREA NITROGEN 40 mg/dL (7-20); CALCIUM 8.4 mg/dL (8.4-10.2); CARBON DIOXIDE 22 mmol/L (22-30); CHLORIDE 109 mmol/L (98-107); CREATININE RESULT 1.25 mg/dL (0.52-1.25); GLUCOSE 121 mg/dL (75-110); MAGNESIUM 1.7 mg/dL (1.6-2.3); PHOSPHORUS 3.1 mg/dL (2.5-4.5); POTASSIUM 4.7 mmol/L (3.6-5.0); SODIUM 140.9 mmol/L (137-145)
[2017-05-13 07:26] LABS: BASOPHILS % (MANUAL) 0 % (0-2); EOSINOPHILS % (MANUAL) 0 % (0-6); LYMPHOCYTES % (MANUAL) 9 % (13-45); TOTAL CELLS COUNTED 100
[2017-05-13 07:28] LABS: ANISOCYTOSIS 1+; BURR CELLS 1+; HYPOCHROMASIA 1+; POIKILOCYTOSIS 1+
[2017-05-13 07:29] LABS: POLYCHROMASIA SLIGHT; SCHISTOCYTES SLIGHT; TOXIC GRANULATION SLIGHT
[2017-05-13] MEDS: CLONIDINE 0.3 MG/24 HR PATCH.TDWK TD SCH (11:00)
[2017-05-13] MEDS: METOPROLOL TARTRATE PF/INJ 5 MG/5 ML SDV IV SCH ×2 (11:10→22:28)
[2017-05-13] MEDS: METHYLPREDNISOLONE INJ 40 MG/1 ML SDV IV SCH ×2 (11:10→22:28)
[2017-05-13] MEDS: NORMAL SALINE 10 ML SDV (SCHEDULED) IV SCH ×2 (11:10→22:28)
[2017-05-13] MEDS: MORPHINE SULFATE 10 MG/ML INJ IV PRN (11:32)
--- NOTE | 2017-05-13 12:59 | PDOC PROGRESS REPORT ---
Subjective Progress Note for:: 05/13/17 Subjective:: This is a follow-up visit for failure to thrive and acute renal failure with severe protein calorie malnutrition. No acute events overnight. The patient tells me that her legs hurt at her ankles and feet by pointing to them when asked if she is in pain. Physical Exam Vital Signs: Temp Pulse Resp BP Pulse Ox 98.1 F 80 19 176/73 H 100 05/13/17 11:25 05/13/17 11:25 05/13/17 11:25 05/13/17 11:25 05/13/17 11:25 Intake & Output 05/12/17 05/13/17 05/14/17 06:59 06:59 06:59 Intake Total 670 200 Balance 670 200 Weight 46.2 kg 46.2 kg GENERAL: This is a well-developed grossly underweight, [place] female resting in bed awake Heart: Regular rate and rhythm. Lungs: Diminished with equal rise and fall the chest. Abdomen: Flat but firm. Nondistended. Normoactive bowel sounds EXTREMETIES: No clubbing, cyanosis. Ankle swelling on the left. The patient has developed 2+-3+ pitting edema of the feet NEURO: Initially sleeping, but easily awakened. When awake she is alert. Patient is still not oriented. Results Laboratory Results: 05/13/17 05:20 05/13/17 05:20 05/13/17 05/13/17 05:20 05:20 WBC 7.6 RBC 2.83 L Hgb 8.4 L Hct 25.4 L MCV 90 MCH 29.8 MCHC 33.2 RDW 16.7 H Plt Count 366 Seg Neutrophils % Not Reportable Lymphocytes % Not Reportable Monocytes % Not Reportable Eosinophils % Not Reportable Basophils % Not Reportable Absolute Neutrophils Not Reportable Absolute Lymphocytes Not Reportable Absolute Monocytes Not Reportable Absolute Eosinophils Not Reportable Absolute Basophils Not Reportable Sodium 140.9 Potassium 4.7 Chloride 109 H Carbon Dioxide 22 Anion Gap 10 BUN 40 H Creatinine 1.25 Est GFR ( Amer) 50 L Est GFR (Non-Af Amer) 41 L Glucose 121 H Calcium 8.4 Phosphorus 3.1 Magnesium 1.7 04/18/17 06:17 NT-Pro-B Natriuret Pep 4190 H Impressions: Chest X-Ray 05/09/17 00:00 IMPRESSION: No acute infiltrates Left PICC line tip superior vena cava Guidance Fluoroscopy 05/09/17 00:00 IMPRESSION: SUCCESSFUL PLACEMENT OF A 5 FR DUAL LUMEN 35 CM PICC IN THE LEFT BASILIC VEIN. Interventional Vascular Procedure 05/09/17 00:00 IMPRESSION: SUCCESSFUL PLACEMENT OF A 5 FR DUAL LUMEN 35 CM PICC IN THE LEFT BASILIC VEIN. PICC Line Insertion 05/09/17 00:00 IMPRESSION: SUCCESSFUL PLACEMENT OF A 5 FR DUAL LUMEN 35 CM PICC IN THE LEFT BASILIC VEIN. Assessment & Plan - Diagnosis (1) Hypernatremia Is this a current diagnosis for this admission?: Yes Plan: Secondary to dehydration. Continue IV fluids. (2) Failure to thrive Qualifiers: Failure to thrive age range: in adult Qualified Code(s): R62.7 - Adult failure to thrive Is this a current diagnosis for this admission?: Yes Plan: Patient has had decreased p.o. intake and she is grossly malnourished. At this point no one is making medical decisions for her. She is DNR. At this point I would not recommend placement of PEG tube for nutritional support. Patient is elderly and has comorbid conditions and I am not certain that her quality of life would be improved with PEG tube. At this point in time I would recommend comfort care measures/hospice services. (3) Dehydration Is this a current diagnosis for this admission?: Yes Plan: Acute on chronic renal failure management as above. Continue IV fluids. (4) Anemia in chronic kidney disease (CKD) Qualifiers: Chronic kidney disease stage: stage 3 (moderate) Qualified Code(s): N18.3 - Chronic kidney disease, stage 3 (moderate) Is this a current diagnosis for this admission?: Yes Plan: Resolved. (5) CHF (congestive heart failure) Qualifiers: Congestive heart failure type: unspecified congestive heart failure type Congestive heart failure chronicity: acute on chronic Qualified Code(s): I50.9 - Heart failure, unspecified Plan: The patient is currently edematous in all 4 extremities. Continue as needed Lasix (6) COPD (chronic obstructive pulmonary disease) Qualifiers: COPD type: unspecified COPD Qualified Code(s): J44.9 - Chronic obstructive pulmonary disease, unspecified Is this a current diagnosis for this admission?: Yes Plan: The patient is not in acute exacerbation. Continue home medications. As able. (7) Hypertensive crisis Is this a current diagnosis for this admission?: Yes Plan: As needed antihypertensives. Continue scheduled metoprolol and clonidine as appropriate. (8) Severe protein-calorie malnutrition Is this a current diagnosis for this admission?: Yes Plan: The patient is still not eating. As mentioned previously I do not recommend PEG tube placement for nutrition. The patient is 81 years old and has comorbid medical conditions. Her failure to thrive is quite profound this point. I recommend hospice/comfort care measures. Do not think the patient's quality of life will be enhanced by any extreme life-saving measures. Unfortunately, the patient still has no guardian appointed to make decisions for her. PICC line was established. (9) Dementia Is this a current diagnosis for this admission?: Yes Plan: History of dementia is not listed in her previous medical chart. However the ER physician got this history from the lap layer and the PCP. Continue to monitor her mental state. (10) Leukocytosis Is this a current diagnosis for this admission?: Yes Plan: Likely secondary to recent UTI she had prior to admission. This is over. Patient's white blood cell count did go up again and then spontaneously resolved. Repeat chest x-ray done on 05/08. No antibiotics on board at this point. Continue to monitor. (11) Constipation Plan: Resolved. - Time Time Spent with patient: Less than 15 minutes
[2017-05-13] MEDS: HYDRALAZINE HCL INJ/PF 20 MG/1 ML SDV IV PRN (18:37)
[2017-05-14] MEDS: HEPARIN SOD (PORCINE) 5,000 UNIT/ML 1 ML SYRINGE SUBCUT SCH ×3 (06:05→21:36)
[2017-05-14] MEDS: METHYLPREDNISOLONE INJ 40 MG/1 ML SDV IV SCH (09:28)
[2017-05-14] MEDS: METOPROLOL TARTRATE PF/INJ 5 MG/5 ML SDV IV SCH ×2 (09:28→21:36)
[2017-05-14] MEDS: NORMAL SALINE 10 ML SDV (SCHEDULED) IV SCH ×2 (09:28→21:36)
--- NOTE | 2017-05-14 11:34 | PDOC PROGRESS REPORT ---
Subjective Progress Note for:: 05/14/17 Subjective:: This is a follow-up visit for failure to thrive and acute renal failure with severe protein calorie malnutrition. The patient currently states that she is not in any pain. She is sitting up in bed and laughing. Her laughter today seems to be not directed towards any specific thing. Guardianship is still pending. Physical Exam Vital Signs: Temp Pulse Resp BP Pulse Ox 98.0 F 86 16 170/94 H 97 05/14/17 07:09 05/14/17 07:09 05/14/17 07:09 05/14/17 07:09 05/14/17 07:09 Intake & Output 05/13/17 05/14/17 05/15/17 06:59 06:59 06:59 Intake Total 200 1505 Balance 200 1505 Weight 46.2 kg 54 kg GENERAL: This is a well-developed grossly underweight, [place] female resting in bed awake preparing for lunch. Heart: Regular rate and rhythm. Lungs: Diminished with equal rise and fall the chest. The patient has upper airway gurgling sounds. Abdomen: Flat but firm. Nondistended. Normoactive bowel sounds EXTREMETIES: No clubbing, cyanosis. Ankle swelling on the left. The patient has developed 2+-3+ pitting edema of the feet. Edema also exists in the upper extremities as well. NEURO: Awake, alert and laughing. She is still not oriented however. Results Laboratory Results: 05/13/17 05:20 05/13/17 05:20 04/18/17 06:17 NT-Pro-B Natriuret Pep 4190 H Impressions: Chest X-Ray 05/09/17 00:00 IMPRESSION: No acute infiltrates Left PICC line tip superior vena cava Guidance Fluoroscopy 05/09/17 00:00 IMPRESSION: SUCCESSFUL PLACEMENT OF A 5 FR DUAL LUMEN 35 CM PICC IN THE LEFT BASILIC VEIN. Interventional Vascular Procedure 05/09/17 00:00 IMPRESSION: SUCCESSFUL PLACEMENT OF A 5 FR DUAL LUMEN 35 CM PICC IN THE LEFT BASILIC VEIN. PICC Line Insertion 05/09/17 00:00 IMPRESSION: SUCCESSFUL PLACEMENT OF A 5 FR DUAL LUMEN 35 CM PICC IN THE LEFT BASILIC VEIN. Assessment & Plan - Diagnosis (1) Hypernatremia Is this a current diagnosis for this admission?: Yes Plan: Secondary to dehydration. Continue fluids since she is not taking much p.o. (2) Failure to thrive Qualifiers: Failure to thrive age range: in adult Qualified Code(s): R62.7 - Adult failure to thrive Is this a current diagnosis for this admission?: Yes Plan: Patient has had decreased p.o. intake and she is grossly malnourished. At this point no one is making medical decisions for her. She is DNR. At this point I would not recommend placement of PEG tube for nutritional support. Patient is elderly and has comorbid conditions and I am not certain that her quality of life would be improved with PEG tube. At this point in time I would recommend comfort care measures/hospice services. (3) Dehydration Is this a current diagnosis for this admission?: Yes Plan: Acute on chronic renal failure management as above. Continue IV fluids. (4) Anemia in chronic kidney disease (CKD) Qualifiers: Chronic kidney disease stage: stage 3 (moderate) Qualified Code(s): N18.3 - Chronic kidney disease, stage 3 (moderate) Is this a current diagnosis for this admission?: Yes Plan: Resolved. (5) CHF (congestive heart failure) Qualifiers: Congestive heart failure type: unspecified congestive heart failure type Congestive heart failure chronicity: acute on chronic Qualified Code(s): I50.9 - Heart failure, unspecified Plan: The patient is currently edematous in all 4 extremities. (6) COPD (chronic obstructive pulmonary disease) Qualifiers: COPD type: unspecified COPD Qualified Code(s): J44.9 - Chronic obstructive pulmonary disease, unspecified Is this a current diagnosis for this admission?: Yes Plan: The patient is not in acute exacerbation. Continue home medications. As able. (7) Hypertensive crisis Is this a current diagnosis for this admission?: Yes Plan: As needed antihypertensives. Continue scheduled metoprolol and clonidine as appropriate. (8) Severe protein-calorie malnutrition Is this a current diagnosis for this admission?: Yes Plan: The patient is still not eating. As mentioned previously I do not recommend PEG tube placement for nutrition. The patient is 81 years old and has comorbid medical conditions. Her failure to thrive is quite profound this point. I recommend hospice/comfort care measures. Do not think the patient's quality of life will be enhanced by any extreme life-saving measures. Unfortunately, the patient still has no guardian appointed to make decisions for her. PICC line was established. The patient went awake occasionally asks for something to drink. She is going to try and eat today. (9) Dementia Is this a current diagnosis for this admission?: Yes Plan: History of dementia is not listed in her previous medical chart. However the ER physician got this history from the online trader and the PCP. Continue to monitor her mental state. (10) Leukocytosis Is this a current diagnosis for this admission?: Yes Plan: Patient's white blood cell count is intermittently elevated. She had a UTI that was present on admission to account for it in the beginning of her stay. After which it resolved. Then it trended back up and spontaneously resolved again. No antibiotics for now. (11) Constipation Plan: Resolved (12) Gout Plan: Patient has a history of gout. She is on colchicine for maintenance at home. She is had episodes where she has complained of pain in her ankle or when she has not been responsive has moaned out with touching of her ankle. She has been receiving intermittent doses of Solu-Medrol since she could not tolerate oral medications. This was subsequently followed by scheduled Solu-Medrol for the last 3 days. We will discontinue this today and see how she does. - Time Time Spent with patient: 15-24 minutes
[2017-05-14] MEDS: MORPHINE SULFATE 10 MG/ML INJ IV PRN (14:03)
[2017-05-14] MEDS: HYDRALAZINE HCL INJ/PF 20 MG/1 ML SDV IV PRN (16:20)
[2017-05-15] MEDS: HEPARIN SOD (PORCINE) 5,000 UNIT/ML 1 ML SYRINGE SUBCUT SCH ×3 (06:20→21:33)
[2017-05-15] MEDS: METOPROLOL TARTRATE PF/INJ 5 MG/5 ML SDV IV SCH ×2 (09:03→21:33)
[2017-05-15] MEDS: NORMAL SALINE 10 ML SDV (SCHEDULED) IV SCH ×2 (09:03→21:34)
[2017-05-15] MEDS: MORPHINE SULFATE 10 MG/5 ML ORAL SOLUTION UDCUP PO PRN (10:13)
[2017-05-15] MEDS: ALBUTEROL SULFATE 0.083% NEB 2.5 MG/3 ML AMPUL NEB PRN ×2 (10:20→20:46)
--- NOTE | 2017-05-15 13:43 | PDOC PROGRESS REPORT ---
Subjective Progress Note for:: 05/15/17 Subjective:: 81-year-old female who is pleasantly demented without complaints today. Physical Exam Vital Signs: Temp Pulse Resp BP Pulse Ox 98.1 F 87 16 134/64 H 96 05/15/17 11:21 05/15/17 11:21 05/15/17 11:21 05/15/17 11:21 05/15/17 11:21 Intake & Output 05/14/17 05/15/17 05/16/17 06:59 06:59 06:59 Intake Total 1505 1580 Balance 1505 1580 Weight 54 kg 55.7 kg General appearance: PRESENT: no acute distress Eye exam: PRESENT: conjunctiva pink. ABSENT: scleral icterus Mouth exam: PRESENT: moist, tongue midline Neck exam: ABSENT: JVD Respiratory exam: PRESENT: clear to auscultation hansa. ABSENT: rales, rhonchi, wheezes Cardiovascular exam: PRESENT: RRR. ABSENT: diastolic murmur, rubs, systolic murmur GI/Abdominal exam: PRESENT: normal bowel sounds, soft. ABSENT: distended, guarding, mass, organolmegaly, rebound, tenderness Extremities exam: PRESENT: pedal edema, +1 edema. ABSENT: calf tenderness, clubbing Neurological exam: PRESENT: altered, awake Psychiatric exam: PRESENT: flat affect Skin exam: PRESENT: dry, intact, warm. ABSENT: cyanosis, rash Results Laboratory Results: 05/13/17 05:20 05/13/17 05:20 04/18/17 06:17 NT-Pro-B Natriuret Pep 4190 H Impressions: Chest X-Ray 05/09/17 00:00 IMPRESSION: No acute infiltrates Left PICC line tip superior vena cava Guidance Fluoroscopy 05/09/17 00:00 IMPRESSION: SUCCESSFUL PLACEMENT OF A 5 FR DUAL LUMEN 35 CM PICC IN THE LEFT BASILIC VEIN. Interventional Vascular Procedure 05/09/17 00:00 IMPRESSION: SUCCESSFUL PLACEMENT OF A 5 FR DUAL LUMEN 35 CM PICC IN THE LEFT BASILIC VEIN. PICC Line Insertion 05/09/17 00:00 IMPRESSION: SUCCESSFUL PLACEMENT OF A 5 FR DUAL LUMEN 35 CM PICC IN THE LEFT BASILIC VEIN. Assessment & Plan - Diagnosis (1) Failure to thrive Qualifiers: Failure to thrive age range: in adult Qualified Code(s): R62.7 - Adult failure to thrive Is this a current diagnosis for this admission?: Yes Plan: Patient is taking very minimal n.p.o. The patient is awaiting guardianship. Patient most likely would not benefit from a PEG tube given her dementia and most likely she is end-of-life. (2) Dementia Is this a current diagnosis for this admission?: Yes Plan: industrial services worker is pursuing guardianship. The patient has been evaluated by psychiatry and is deemed incompetent. (3) Hypernatremia Is this a current diagnosis for this admission?: Yes Plan: Resolved. (4) Hypertensive crisis Is this a current diagnosis for this admission?: Yes Plan: Patient's blood pressure have been stable (5) Anemia in chronic kidney disease (CKD) Qualifiers: Chronic kidney disease stage: stage 3 (moderate) Qualified Code(s): N18.3 - Chronic kidney disease, stage 3 (moderate) Is this a current diagnosis for this admission?: Yes Plan: Hemoglobin remained stable. (6) CKD (chronic kidney disease) stage 3, GFR 30-59 ml/min Is this a current diagnosis for this admission?: Yes Plan: Patient is taking some p.o. in. She does have some edema we will stop the IV fluids for now. (7) COPD (chronic obstructive pulmonary disease) Qualifiers: COPD type: unspecified COPD Qualified Code(s): J44.9 - Chronic obstructive pulmonary disease, unspecified Is this a current diagnosis for this admission?: Yes Plan: No wheezing on exam today. - Time Time Spent with patient: 25-34 minutes - Inpatient Certification Medical Necessity: Need Close Monitoring Due to Risk of Patient Decompensation - Plan Summary Plan Summary: Awaiting guardianship and placement.
[2017-05-15] MEDS: NORMAL SALINE 10 ML SDV (AFTER EACH USE) IV PRN (21:34)
[2017-05-16] MEDS: HYDRALAZINE HCL INJ/PF 20 MG/1 ML SDV IV PRN (04:40)
[2017-05-16] MEDS: HEPARIN SOD (PORCINE) 5,000 UNIT/ML 1 ML SYRINGE SUBCUT SCH ×3 (05:14→21:20)
[2017-05-16] MEDS: MORPHINE SULFATE 10 MG/ML INJ IV PRN ×2 (05:17→09:44)
[2017-05-16] MEDS: METOPROLOL TARTRATE PF/INJ 5 MG/5 ML SDV IV SCH ×2 (09:43→21:20)
[2017-05-16] MEDS: NORMAL SALINE 10 ML SDV (SCHEDULED) IV SCH ×2 (09:45→21:20)
--- NOTE | 2017-05-16 14:11 | PDOC PROGRESS REPORT ---
Subjective Progress Note for:: 05/16/17 Subjective:: 81-year-old female who is pleasantly demented without complaints today. Physical Exam Vital Signs: Temp Pulse Resp BP Pulse Ox 97.6 F 97 16 179/94 H 98 05/16/17 07:14 05/16/17 07:14 05/16/17 07:14 05/16/17 07:14 05/16/17 07:14 Intake & Output 05/15/17 05/16/17 05/17/17 06:59 06:59 06:59 Intake Total 1580 360 Balance 1580 360 Weight 55.7 kg 55.7 kg General appearance: PRESENT: no acute distress Eye exam: PRESENT: conjunctiva pink. ABSENT: scleral icterus Mouth exam: PRESENT: moist, tongue midline Neck exam: ABSENT: JVD Respiratory exam: PRESENT: clear to auscultation hansa. ABSENT: rales, rhonchi, wheezes Cardiovascular exam: PRESENT: RRR. ABSENT: diastolic murmur, rubs, systolic murmur GI/Abdominal exam: PRESENT: normal bowel sounds, soft. ABSENT: distended, guarding, mass, organolmegaly, rebound, tenderness Extremities exam: PRESENT: pedal edema. ABSENT: calf tenderness, clubbing Neurological exam: PRESENT: awake Psychiatric exam: PRESENT: flat affect Skin exam: PRESENT: dry, intact, warm. ABSENT: cyanosis, rash Results Laboratory Results: 05/13/17 05:20 05/13/17 05:20 04/18/17 06:17 NT-Pro-B Natriuret Pep 4190 H Impressions: Chest X-Ray 05/09/17 00:00 IMPRESSION: No acute infiltrates Left PICC line tip superior vena cava Guidance Fluoroscopy 05/09/17 00:00 IMPRESSION: SUCCESSFUL PLACEMENT OF A 5 FR DUAL LUMEN 35 CM PICC IN THE LEFT BASILIC VEIN. Interventional Vascular Procedure 05/09/17 00:00 IMPRESSION: SUCCESSFUL PLACEMENT OF A 5 FR DUAL LUMEN 35 CM PICC IN THE LEFT BASILIC VEIN. PICC Line Insertion 05/09/17 00:00 IMPRESSION: SUCCESSFUL PLACEMENT OF A 5 FR DUAL LUMEN 35 CM PICC IN THE LEFT BASILIC VEIN. Assessment & Plan - Diagnosis (1) Failure to thrive Qualifiers: Failure to thrive age range: in adult Qualified Code(s): R62.7 - Adult failure to thrive Is this a current diagnosis for this admission?: Yes Plan: Patient is taking slightly more in by mouth. The patient is awaiting guardianship. Patient most likely would not benefit from a PEG tube given her dementia and most likely she is end-of-life. (2) Dementia Is this a current diagnosis for this admission?: Yes Plan: client services account manager is pursuing guardianship. The patient has been evaluated by psychiatry and is deemed incompetent. (3) Hypernatremia Is this a current diagnosis for this admission?: Yes Plan: Resolved. (4) Hypertensive crisis Is this a current diagnosis for this admission?: Yes Plan: Patient's blood pressure have been more elevated. Will add on Norvasc. (5) Anemia in chronic kidney disease (CKD) Qualifiers: Chronic kidney disease stage: stage 3 (moderate) Qualified Code(s): N18.3 - Chronic kidney disease, stage 3 (moderate) Is this a current diagnosis for this admission?: Yes Plan: Hemoglobin remained stable. (6) CKD (chronic kidney disease) stage 3, GFR 30-59 ml/min Is this a current diagnosis for this admission?: Yes Plan: Patient appears to be euvolemic although she does have some third spacing and lower extremity edema. (7) COPD (chronic obstructive pulmonary disease) Qualifiers: COPD type: unspecified COPD Qualified Code(s): J44.9 - Chronic obstructive pulmonary disease, unspecified Is this a current diagnosis for this admission?: Yes Plan: No wheezing on exam today. - Time Time Spent with patient: 25-34 minutes - Plan Summary Plan Summary: Awaiting on placement.
[2017-05-16] MEDS ORDERED: AMLODIPINE BESYLATE 5 MG TABLET PO ONE (14:30)
[2017-05-16] MEDS: ACETAMINOPHEN 325 MG TABLET PO PRN ×2 (16:04→21:20)
[2017-05-17] MEDS: HEPARIN SOD (PORCINE) 5,000 UNIT/ML 1 ML SYRINGE SUBCUT SCH ×2 (05:28→13:25)
[2017-05-17 07:32] LABS: HEMATOCRIT 25.7 % (36.0-47.0); HEMOGLOBIN 8.4 g/dL (12.0-15.5); HGB HCT DIFFERENCE -0.5; MEAN CORPUSCULAR HEMOGLOBIN 29.5 pg (27.0-33.4); MEAN CORPUSCULAR HGB CONC 32.6 g/dL (32.0-36.0); MEAN CORPUSCULAR VOLUME 91 fl (80-97); RED BLOOD COUNT 2.84 10^6/uL (3.72-5.28); RED CELL DISTRIBUTION WIDTH 17.7 % (11.5-14.0); WHITE BLOOD COUNT 11.5 10^3/uL (4.0-10.5)
[2017-05-17 07:55] LABS: ANION GAP 7 (5-19); BLOOD UREA NITROGEN 48 mg/dL (7-20); CALCIUM 8.2 mg/dL (8.4-10.2); CARBON DIOXIDE 20 mmol/L (22-30); CHLORIDE 112 mmol/L (98-107); CREATININE RESULT 1.35 mg/dL (0.52-1.25); GLUCOSE 76 mg/dL (75-110); POTASSIUM 4.7 mmol/L (3.6-5.0); SODIUM 139.3 mmol/L (137-145)
[2017-05-17 07:59] LABS: ABSOLUTE EOSINOPHILS# (MANUAL) 0.5 10^3/uL (0.0-0.6); ANISOCYTOSIS 2+; BAND NEUTROPHILS % (MANUAL) 1 % (3-5); BASOPHILS % (MANUAL) 0 % (0-2); EOSINOPHILS % (MANUAL) 4 % (0-6); HYPOCHROMASIA SLIGHT; LYMPHOCYTES % (MANUAL) 10 % (13-45); OVALOCYTES 1+; PLATELET CLUMPS PRESENT; POIKILOCYTOSIS 1+; POLYCHROMASIA SLIGHT; ROULEAUX SLIGHT; TOTAL CELLS COUNTED 100
[2017-05-17] MEDS: METOPROLOL TARTRATE PF/INJ 5 MG/5 ML SDV IV SCH ×2 (09:50→21:43)
[2017-05-17] MEDS: AMLODIPINE BESYLATE 5 MG TABLET PO SCH (09:50)
[2017-05-17] MEDS: NORMAL SALINE 10 ML SDV (SCHEDULED) IV SCH ×2 (09:51→21:43)
--- NOTE | 2017-05-17 11:29 | PDOC PROGRESS REPORT ---
Subjective Progress Note for:: 05/17/17 Subjective:: 81-year-old female who is pleasantly demented without complaints today. Physical Exam Vital Signs: Temp Pulse Resp BP Pulse Ox 97.8 F 92 16 162/79 H 100 05/17/17 08:00 05/17/17 08:00 05/17/17 08:00 05/17/17 08:00 05/17/17 08:00 Intake & Output 05/16/17 05/17/17 05/18/17 06:59 06:59 06:59 Intake Total 360 964 Balance 360 964 Weight 55.7 kg 55.7 kg General appearance: PRESENT: no acute distress Eye exam: PRESENT: conjunctiva pink. ABSENT: scleral icterus Mouth exam: PRESENT: moist, tongue midline Neck exam: ABSENT: JVD Respiratory exam: PRESENT: clear to auscultation hansa. ABSENT: rales, rhonchi, wheezes Cardiovascular exam: PRESENT: RRR. ABSENT: diastolic murmur, rubs, systolic murmur GI/Abdominal exam: PRESENT: normal bowel sounds, soft. ABSENT: distended, guarding, mass, organolmegaly, rebound, tenderness Extremities exam: PRESENT: pedal edema. ABSENT: calf tenderness, clubbing Neurological exam: PRESENT: awake Psychiatric exam: PRESENT: flat affect Skin exam: PRESENT: dry, intact, warm. ABSENT: cyanosis, rash Results Laboratory Results: 05/17/17 07:00 05/17/17 07:00 05/17/17 05/17/17 07:00 07:00 WBC 11.5 H RBC 2.84 L Hgb 8.4 L Hct 25.7 L MCV 91 MCH 29.5 MCHC 32.6 RDW 17.7 H Plt Count 340 Seg Neutrophils % Not Reportable Lymphocytes % Not Reportable Monocytes % Not Reportable Eosinophils % Not Reportable Basophils % Not Reportable Absolute Neutrophils Not Reportable Absolute Lymphocytes Not Reportable Absolute Monocytes Not Reportable Absolute Eosinophils Not Reportable Absolute Basophils Not Reportable Sodium 139.3 Potassium 4.7 Chloride 112 H Carbon Dioxide 20 L Anion Gap 7 BUN 48 H Creatinine 1.35 H Est GFR ( Amer) 46 L Est GFR (Non-Af Amer) 38 L Glucose 76 Calcium 8.2 L 04/18/17 06:17 NT-Pro-B Natriuret Pep 4190 H Impressions: Chest X-Ray 05/09/17 00:00 IMPRESSION: No acute infiltrates Left PICC line tip superior vena cava Guidance Fluoroscopy 05/09/17 00:00 IMPRESSION: SUCCESSFUL PLACEMENT OF A 5 FR DUAL LUMEN 35 CM PICC IN THE LEFT BASILIC VEIN. Interventional Vascular Procedure 05/09/17 00:00 IMPRESSION: SUCCESSFUL PLACEMENT OF A 5 FR DUAL LUMEN 35 CM PICC IN THE LEFT BASILIC VEIN. PICC Line Insertion 05/09/17 00:00 IMPRESSION: SUCCESSFUL PLACEMENT OF A 5 FR DUAL LUMEN 35 CM PICC IN THE LEFT BASILIC VEIN. Assessment & Plan - Diagnosis (1) Failure to thrive Qualifiers: Failure to thrive age range: in adult Qualified Code(s): R62.7 - Adult failure to thrive Is this a current diagnosis for this admission?: Yes Plan: Patient is taking slightly more in by mouth. The patient is awaiting guardianship. Patient most likely would not benefit from a PEG tube given her dementia and most likely she is end-of-life. (2) Dementia Is this a current diagnosis for this admission?: Yes Plan: public services librarian is pursuing guardianship. The patient has been evaluated by psychiatry and is deemed incompetent. (3) Hypernatremia Is this a current diagnosis for this admission?: Yes Plan: Resolved. (4) Hypertensive crisis Is this a current diagnosis for this admission?: Yes Plan: Blood pressures have remained elevated. (5) Anemia in chronic kidney disease (CKD) Qualifiers: Chronic kidney disease stage: stage 3 (moderate) Qualified Code(s): N18.3 - Chronic kidney disease, stage 3 (moderate) Is this a current diagnosis for this admission?: Yes Plan: Hemoglobin remained stable. (6) CKD (chronic kidney disease) stage 3, GFR 30-59 ml/min Is this a current diagnosis for this admission?: Yes Plan: Patient appears to be euvolemic. (7) COPD (chronic obstructive pulmonary disease) Qualifiers: COPD type: unspecified COPD Qualified Code(s): J44.9 - Chronic obstructive pulmonary disease, unspecified Is this a current diagnosis for this admission?: Yes Plan: No wheezing on exam today. - Time Time Spent with patient: 15-24 minutes - Plan Summary Plan Summary: Awaiting on placement.
[2017-05-17] MEDS: ALBUTEROL SULFATE 0.083% NEB 2.5 MG/3 ML AMPUL NEB PRN (14:12)
[2017-05-18] MEDS: ALBUTEROL SULFATE 0.083% NEB 2.5 MG/3 ML AMPUL NEB PRN ×2 (06:41→20:02)
[2017-05-18] MEDS: AMLODIPINE BESYLATE 5 MG TABLET PO SCH (09:12)
[2017-05-18] MEDS: METOPROLOL TARTRATE PF/INJ 5 MG/5 ML SDV IV SCH ×2 (09:12→21:05)
[2017-05-18] MEDS: NORMAL SALINE 10 ML SDV (AFTER EACH USE) IV PRN (09:13)
[2017-05-18] MEDS: NORMAL SALINE 10 ML SDV (SCHEDULED) IV SCH ×2 (09:13→21:05)
--- NOTE | 2017-05-18 11:28 | PDOC PROGRESS REPORT ---
Subjective Progress Note for:: 05/18/17 Subjective:: 81-year-old female who is pleasantly demented without complaints today. Physical Exam Vital Signs: Temp Pulse Resp BP Pulse Ox 98.7 F 90 17 150/81 H 97 05/18/17 07:10 05/18/17 10:16 05/18/17 10:16 05/18/17 07:10 05/18/17 07:10 Intake & Output 05/17/17 05/18/17 05/19/17 06:59 06:59 06:59 Intake Total 964 806 Balance 964 806 Weight 55.7 kg 55.7 kg General appearance: PRESENT: no acute distress Eye exam: PRESENT: conjunctiva pink. ABSENT: scleral icterus Mouth exam: PRESENT: moist, tongue midline Neck exam: ABSENT: JVD Respiratory exam: PRESENT: clear to auscultation hansa. ABSENT: rales, rhonchi, wheezes Cardiovascular exam: PRESENT: RRR. ABSENT: diastolic murmur, rubs, systolic murmur GI/Abdominal exam: PRESENT: normal bowel sounds, soft. ABSENT: distended, guarding, mass, organolmegaly, rebound, tenderness Extremities exam: PRESENT: pedal edema - Trace pedal edema.. ABSENT: calf tenderness, clubbing Neurological exam: PRESENT: alert, awake, oriented to person, oriented to place , oriented to time, oriented to situation, CN II-XII grossly intact. ABSENT: motor sensory deficit Psychiatric exam: PRESENT: appropriate affect Skin exam: PRESENT: dry, intact, warm. ABSENT: cyanosis, rash Results Laboratory Results: 05/17/17 07:00 05/17/17 07:00 04/18/17 06:17 NT-Pro-B Natriuret Pep 4190 H Impressions: Chest X-Ray 05/09/17 00:00 IMPRESSION: No acute infiltrates Left PICC line tip superior vena cava Guidance Fluoroscopy 05/09/17 00:00 IMPRESSION: SUCCESSFUL PLACEMENT OF A 5 FR DUAL LUMEN 35 CM PICC IN THE LEFT BASILIC VEIN. Interventional Vascular Procedure 05/09/17 00:00 IMPRESSION: SUCCESSFUL PLACEMENT OF A 5 FR DUAL LUMEN 35 CM PICC IN THE LEFT BASILIC VEIN. PICC Line Insertion 05/09/17 00:00 IMPRESSION: SUCCESSFUL PLACEMENT OF A 5 FR DUAL LUMEN 35 CM PICC IN THE LEFT BASILIC VEIN. Assessment & Plan - Diagnosis (1) Failure to thrive Qualifiers: Failure to thrive age range: in adult Qualified Code(s): R62.7 - Adult failure to thrive Is this a current diagnosis for this admission?: Yes Plan: Patient is taking slightly more in by mouth. The patient is awaiting guardianship. Patient most likely would not benefit from a PEG tube given her dementia and most likely she is end-of-life. (2) Dementia Is this a current diagnosis for this admission?: Yes Plan: director client services is pursuing guardianship. The patient has been evaluated by psychiatry and is deemed incompetent. (3) Hypernatremia Is this a current diagnosis for this admission?: Yes Plan: Resolved. (4) Hypertensive crisis Is this a current diagnosis for this admission?: Yes Plan: Blood pressures have remained stable. (5) Anemia in chronic kidney disease (CKD) Qualifiers: Chronic kidney disease stage: stage 3 (moderate) Qualified Code(s): N18.3 - Chronic kidney disease, stage 3 (moderate) Is this a current diagnosis for this admission?: Yes Plan: Hemoglobin remained stable. (6) CKD (chronic kidney disease) stage 3, GFR 30-59 ml/min Is this a current diagnosis for this admission?: Yes Plan: Patient appears to be euvolemic. (7) COPD (chronic obstructive pulmonary disease) Qualifiers: COPD type: unspecified COPD Qualified Code(s): J44.9 - Chronic obstructive pulmonary disease, unspecified Is this a current diagnosis for this admission?: Yes Plan: No wheezing on exam today. - Time Time Spent with patient: 25-34 minutes - Inpatient Certification Medical Necessity: Need Close Monitoring Due to Risk of Patient Decompensation - Plan Summary Plan Summary: Awaiting guardianship and placement.
[2017-05-19] MEDS: ALBUTEROL SULFATE 0.083% NEB 2.5 MG/3 ML AMPUL NEB PRN ×2 (09:14→23:18)
[2017-05-19] MEDS: NORMAL SALINE 10 ML SDV (SCHEDULED) IV SCH ×2 (10:23→21:24)
[2017-05-19] MEDS: METOPROLOL TARTRATE PF/INJ 5 MG/5 ML SDV IV SCH ×2 (10:23→21:24)
[2017-05-19] MEDS: NORMAL SALINE 10 ML SDV (AFTER EACH USE) IV PRN ×2 (10:23→21:24)
[2017-05-19] MEDS: AMLODIPINE BESYLATE 5 MG TABLET PO SCH (10:23)
--- NOTE | 2017-05-19 11:30 | PDOC PROGRESS REPORT ---
Subjective Progress Note for:: 05/19/17 Subjective:: 81-year-old female who is pleasantly demented without complaints today. Physical Exam Vital Signs: Temp Pulse Resp BP Pulse Ox 98.0 F 100 26 H 160/82 H 97 05/19/17 08:00 05/19/17 09:16 05/19/17 09:16 05/19/17 08:00 05/19/17 09:16 Intake & Output 05/18/17 05/19/17 05/20/17 06:59 06:59 06:59 Intake Total 806 660 Balance 806 660 Weight 55.7 kg 58.3 kg General appearance: PRESENT: no acute distress Eye exam: PRESENT: conjunctiva pink. ABSENT: scleral icterus Ear exam: PRESENT: normal external ear exam Mouth exam: PRESENT: moist, tongue midline Neck exam: ABSENT: JVD Respiratory exam: PRESENT: clear to auscultation hansa. ABSENT: rales, rhonchi, wheezes Cardiovascular exam: PRESENT: RRR. ABSENT: diastolic murmur, rubs, systolic murmur GI/Abdominal exam: PRESENT: normal bowel sounds, soft. ABSENT: distended, guarding, mass, organolmegaly, rebound, tenderness Extremities exam: ABSENT: calf tenderness, clubbing, pedal edema Neurological exam: PRESENT: awake, oriented to person. ABSENT: oriented to place, oriented to time, oriented to situation Psychiatric exam: PRESENT: flat affect Skin exam: PRESENT: abrasion Results Laboratory Results: 05/17/17 07:00 05/17/17 07:00 04/18/17 06:17 NT-Pro-B Natriuret Pep 4190 H Impressions: Chest X-Ray 05/09/17 00:00 IMPRESSION: No acute infiltrates Left PICC line tip superior vena cava Guidance Fluoroscopy 05/09/17 00:00 IMPRESSION: SUCCESSFUL PLACEMENT OF A 5 FR DUAL LUMEN 35 CM PICC IN THE LEFT BASILIC VEIN. Interventional Vascular Procedure 05/09/17 00:00 IMPRESSION: SUCCESSFUL PLACEMENT OF A 5 FR DUAL LUMEN 35 CM PICC IN THE LEFT BASILIC VEIN. PICC Line Insertion 05/09/17 00:00 IMPRESSION: SUCCESSFUL PLACEMENT OF A 5 FR DUAL LUMEN 35 CM PICC IN THE LEFT BASILIC VEIN. Assessment & Plan - Diagnosis (1) Failure to thrive Qualifiers: Failure to thrive age range: in adult Qualified Code(s): R62.7 - Adult failure to thrive Is this a current diagnosis for this admission?: Yes Plan: Patient is taking slightly more in by mouth. The patient is awaiting guardianship. Patient most likely would not benefit from a PEG tube given her dementia and most likely she is end-of-life. (2) Dementia Is this a current diagnosis for this admission?: Yes Plan: teleservices representative is pursuing guardianship. The patient has been evaluated by psychiatry and is deemed incompetent. (3) Hypernatremia Is this a current diagnosis for this admission?: Yes Plan: Resolved. (4) Hypertensive crisis Is this a current diagnosis for this admission?: Yes Plan: Blood pressures have remained stable. (5) Anemia in chronic kidney disease (CKD) Qualifiers: Chronic kidney disease stage: stage 3 (moderate) Qualified Code(s): N18.3 - Chronic kidney disease, stage 3 (moderate) Is this a current diagnosis for this admission?: Yes Plan: Hemoglobin remained stable. (6) CKD (chronic kidney disease) stage 3, GFR 30-59 ml/min Is this a current diagnosis for this admission?: Yes Plan: Patient appears to be euvolemic. (7) COPD (chronic obstructive pulmonary disease) Qualifiers: COPD type: unspecified COPD Qualified Code(s): J44.9 - Chronic obstructive pulmonary disease, unspecified Is this a current diagnosis for this admission?: Yes Plan: No wheezing on exam today. - Time Time Spent with patient: 15-24 minutes - Inpatient Certification Medical Necessity: Need Close Monitoring Due to Risk of Patient Decompensation - Plan Summary Plan Summary: Awaiting placement
[2017-05-20] MEDS: NORMAL SALINE 10 ML SDV (AFTER EACH USE) IV PRN ×2 (04:30→09:12)
[2017-05-20 04:44] LABS: HEMATOCRIT 26.9 % (36.0-47.0); HEMOGLOBIN 8.8 g/dL (12.0-15.5); HGB HCT DIFFERENCE -0.5; MEAN CORPUSCULAR HEMOGLOBIN 29.8 pg (27.0-33.4); MEAN CORPUSCULAR HGB CONC 32.8 g/dL (32.0-36.0); MEAN CORPUSCULAR VOLUME 91 fl (80-97); RED BLOOD COUNT 2.96 10^6/uL (3.72-5.28); RED CELL DISTRIBUTION WIDTH 18.3 % (11.5-14.0); WHITE BLOOD COUNT 10.7 10^3/uL (4.0-10.5)
[2017-05-20 05:02] LABS: BASOPHILS % (MANUAL) 0 % (0-2); EOSINOPHILS % (MANUAL) 0 % (0-6); LYMPHOCYTES % (MANUAL) 3 % (13-45); TOTAL CELLS COUNTED 100
[2017-05-20 05:03] LABS: ANION GAP 10 (5-19); BLOOD UREA NITROGEN 38 mg/dL (7-20); CALCIUM 8.5 mg/dL (8.4-10.2); CARBON DIOXIDE 20 mmol/L (22-30); CHLORIDE 110 mmol/L (98-107); CREATININE RESULT 1.26 mg/dL (0.52-1.25); GLUCOSE 91 mg/dL (75-110); POTASSIUM 4.7 mmol/L (3.6-5.0)
[2017-05-20 05:04] LABS: ANISOCYTOSIS 2+; OVALOCYTES 1+; POIKILOCYTOSIS 1+; TEAR DROP CELLS 1+
[2017-05-20] MEDS: METOPROLOL TARTRATE PF/INJ 5 MG/5 ML SDV IV SCH ×2 (09:12→21:12)
[2017-05-20] MEDS: NORMAL SALINE 10 ML SDV (SCHEDULED) IV SCH ×2 (09:12→21:13)
[2017-05-20] MEDS: AMLODIPINE BESYLATE 5 MG TABLET PO SCH (09:12)
[2017-05-20] MEDS: ALBUTEROL SULFATE 0.083% NEB 2.5 MG/3 ML AMPUL NEB PRN (09:49)
[2017-05-20] MEDS: CLONIDINE 0.3 MG/24 HR PATCH.TDWK TD SCH (11:45)
--- NOTE | 2017-05-20 12:02 | PDOC PROGRESS REPORT ---
Subjective Progress Note for:: 05/20/17 Subjective:: 81-year-old female who is pleasantly demented without complaints today. Physical Exam Vital Signs: Temp Pulse Resp BP Pulse Ox 98.2 F 82 26 H 187/73 H 95 05/20/17 07:38 05/20/17 09:49 05/20/17 09:49 05/20/17 07:38 05/20/17 09:49 Intake & Output 05/19/17 05/20/17 05/21/17 06:59 06:59 06:59 Intake Total 660 536 Balance 660 536 Weight 58.3 kg 57.3 kg General appearance: PRESENT: no acute distress Eye exam: PRESENT: conjunctiva pink. ABSENT: scleral icterus Neck exam: ABSENT: JVD Respiratory exam: PRESENT: clear to auscultation hansa. ABSENT: rales, rhonchi, wheezes Cardiovascular exam: PRESENT: RRR. ABSENT: diastolic murmur, rubs, systolic murmur GI/Abdominal exam: PRESENT: normal bowel sounds, soft. ABSENT: distended, guarding, mass, organolmegaly, rebound, tenderness Extremities exam: PRESENT: pedal edema, +1 edema. ABSENT: calf tenderness, clubbing Neurological exam: PRESENT: awake, oriented to person Psychiatric exam: PRESENT: flat affect Results Laboratory Results: 05/20/17 04:29 05/20/17 04:29 05/20/17 05/20/17 04:29 04:29 WBC 10.7 H RBC 2.96 L Hgb 8.8 L Hct 26.9 L MCV 91 MCH 29.8 MCHC 32.8 RDW 18.3 H Plt Count 340 Seg Neutrophils % Not Reportable Lymphocytes % Not Reportable Monocytes % Not Reportable Eosinophils % Not Reportable Basophils % Not Reportable Absolute Neutrophils Not Reportable Absolute Lymphocytes Not Reportable Absolute Monocytes Not Reportable Absolute Eosinophils Not Reportable Absolute Basophils Not Reportable Sodium 140.0 Potassium 4.7 Chloride 110 H Carbon Dioxide 20 L Anion Gap 10 BUN 38 H Creatinine 1.26 H Est GFR ( Amer) 49 L Est GFR (Non-Af Amer) 41 L Glucose 91 Calcium 8.5 04/18/17 06:17 NT-Pro-B Natriuret Pep 4190 H Impressions: Chest X-Ray 05/09/17 00:00 IMPRESSION: No acute infiltrates Left PICC line tip superior vena cava Guidance Fluoroscopy 05/09/17 00:00 IMPRESSION: SUCCESSFUL PLACEMENT OF A 5 FR DUAL LUMEN 35 CM PICC IN THE LEFT BASILIC VEIN. Interventional Vascular Procedure 05/09/17 00:00 IMPRESSION: SUCCESSFUL PLACEMENT OF A 5 FR DUAL LUMEN 35 CM PICC IN THE LEFT BASILIC VEIN. PICC Line Insertion 05/09/17 00:00 IMPRESSION: SUCCESSFUL PLACEMENT OF A 5 FR DUAL LUMEN 35 CM PICC IN THE LEFT BASILIC VEIN. Assessment & Plan - Diagnosis (1) Failure to thrive Qualifiers: Failure to thrive age range: in adult Qualified Code(s): R62.7 - Adult failure to thrive Is this a current diagnosis for this admission?: Yes Plan: Patient is taking slightly more in by mouth. The patient is awaiting guardianship. Patient most likely would not benefit from a PEG tube given her dementia and most likely she is end-of-life. (2) Dementia Is this a current diagnosis for this admission?: Yes Plan: director of career services is pursuing guardianship. The patient has been evaluated by psychiatry and is deemed incompetent. (3) Hypernatremia Is this a current diagnosis for this admission?: Yes Plan: Resolved. (4) Hypertensive crisis Is this a current diagnosis for this admission?: Yes Plan: Blood pressures have remained stable. (5) Anemia in chronic kidney disease (CKD) Qualifiers: Chronic kidney disease stage: stage 3 (moderate) Qualified Code(s): N18.3 - Chronic kidney disease, stage 3 (moderate) Is this a current diagnosis for this admission?: Yes Plan: Hemoglobin remained stable. (6) CKD (chronic kidney disease) stage 3, GFR 30-59 ml/min Is this a current diagnosis for this admission?: Yes Plan: Patient appears to be euvolemic. (7) COPD (chronic obstructive pulmonary disease) Qualifiers: COPD type: unspecified COPD Qualified Code(s): J44.9 - Chronic obstructive pulmonary disease, unspecified Is this a current diagnosis for this admission?: Yes Plan: No wheezing on exam today. - Time Time Spent with patient: 15-24 minutes - Plan Summary Plan Summary: Awaiting on placement
[2017-05-21] MEDS: HYDRALAZINE HCL INJ/PF 20 MG/1 ML SDV IV PRN (05:45)
--- NOTE | 2017-05-21 10:11 | PDOC PROGRESS REPORT ---
Subjective Progress Note for:: 05/21/17 Subjective:: 81-year-old female who is pleasantly demented without complaints today. Physical Exam Vital Signs: Temp Pulse Resp BP Pulse Ox 97.7 F 109 H 16 174/66 H 96 05/21/17 07:20 05/21/17 07:20 05/21/17 07:20 05/21/17 07:20 05/21/17 07:20 Intake & Output 05/20/17 05/21/17 05/22/17 06:59 06:59 06:59 Intake Total 536 70 Balance 536 70 Weight 57.3 kg 57.3 kg General appearance: PRESENT: no acute distress Eye exam: PRESENT: conjunctiva pink. ABSENT: scleral icterus Mouth exam: PRESENT: moist, tongue midline Neck exam: ABSENT: JVD Respiratory exam: PRESENT: rhonchi - Coarse rhonchi bilaterally.. ABSENT: rales , wheezes Cardiovascular exam: PRESENT: RRR. ABSENT: diastolic murmur, rubs, systolic murmur GI/Abdominal exam: PRESENT: normal bowel sounds, soft. ABSENT: distended, guarding, mass, organolmegaly, rebound, tenderness Extremities exam: PRESENT: pedal edema. ABSENT: calf tenderness, clubbing Neurological exam: PRESENT: awake, oriented to person. ABSENT: oriented to place, oriented to time, oriented to situation Psychiatric exam: PRESENT: flat affect Skin exam: PRESENT: dry, intact, warm. ABSENT: cyanosis, rash Results Laboratory Results: 05/20/17 04:29 05/20/17 04:29 04/18/17 06:17 NT-Pro-B Natriuret Pep 4190 H Impressions: Chest X-Ray 05/09/17 00:00 IMPRESSION: No acute infiltrates Left PICC line tip superior vena cava Guidance Fluoroscopy 05/09/17 00:00 IMPRESSION: SUCCESSFUL PLACEMENT OF A 5 FR DUAL LUMEN 35 CM PICC IN THE LEFT BASILIC VEIN. Interventional Vascular Procedure 05/09/17 00:00 IMPRESSION: SUCCESSFUL PLACEMENT OF A 5 FR DUAL LUMEN 35 CM PICC IN THE LEFT BASILIC VEIN. PICC Line Insertion 05/09/17 00:00 IMPRESSION: SUCCESSFUL PLACEMENT OF A 5 FR DUAL LUMEN 35 CM PICC IN THE LEFT BASILIC VEIN. Assessment & Plan - Diagnosis (1) Failure to thrive Qualifiers: Failure to thrive age range: in adult Qualified Code(s): R62.7 - Adult failure to thrive Is this a current diagnosis for this admission?: Yes Plan: Patient is taking slightly more in by mouth. The patient is awaiting guardianship. Patient most likely would not benefit from a PEG tube given her dementia and most likely she is end-of-life. (2) Dementia Is this a current diagnosis for this admission?: Yes Plan: real estate services coordinator is pursuing guardianship. The patient has been evaluated by psychiatry and is deemed incompetent. (3) Hypernatremia Is this a current diagnosis for this admission?: Yes Plan: Resolved. (4) Hypertensive crisis Is this a current diagnosis for this admission?: Yes Plan: Blood pressures have been elevated. Will increase the Norvasc. (5) Anemia in chronic kidney disease (CKD) Qualifiers: Chronic kidney disease stage: stage 3 (moderate) Qualified Code(s): N18.3 - Chronic kidney disease, stage 3 (moderate) Is this a current diagnosis for this admission?: Yes Plan: Hemoglobin remained stable. (6) CKD (chronic kidney disease) stage 3, GFR 30-59 ml/min Is this a current diagnosis for this admission?: Yes Plan: Patient appears to be euvolemic. (7) COPD (chronic obstructive pulmonary disease) Qualifiers: COPD type: unspecified COPD Qualified Code(s): J44.9 - Chronic obstructive pulmonary disease, unspecified Is this a current diagnosis for this admission?: Yes Plan: No wheezing on exam today. - Time Time Spent with patient: 15-24 minutes - Plan Summary Plan Summary: Awaiting placement
[2017-05-21] MEDS: METOPROLOL TARTRATE PF/INJ 5 MG/5 ML SDV IV SCH (10:55)
[2017-05-21] MEDS: NORMAL SALINE 10 ML SDV (SCHEDULED) IV SCH ×2 (10:56→22:44)
[2017-05-21] MEDS: MORPHINE SULFATE IR 15 MG TABLET PO PRN (11:05)
[2017-05-21] MEDS ORDERED: AMLODIPINE BESYLATE 5 MG TABLET PO SCH (12:00)
[2017-05-21] MEDS: NA PHOS,M-B/NA PHOS,DI-BA (ADULT) 133 ML ENEMA PR PRN (13:46)
[2017-05-21] MEDS: ALBUTEROL SULFATE 0.083% NEB 2.5 MG/3 ML AMPUL NEB PRN (20:08)
[2017-05-22] MEDS: MORPHINE SULFATE IR 15 MG TABLET PO PRN ×2 (00:15→14:44)
[2017-05-22 07:01] LABS: ANION GAP 10 (5-19); BLOOD UREA NITROGEN 45 mg/dL (7-20); CALCIUM 8.9 mg/dL (8.4-10.2); CARBON DIOXIDE 20 mmol/L (22-30); CHLORIDE 110 mmol/L (98-107); CREATININE RESULT 1.66 mg/dL (0.52-1.25); GLUCOSE 106 mg/dL (75-110); POTASSIUM 5.1 mmol/L (3.6-5.0); SODIUM 140.4 mmol/L (137-145)
[2017-05-22 07:02] LABS: HEMATOCRIT 24.2 % (36.0-47.0); HGB HCT DIFFERENCE -0.8; MEAN CORPUSCULAR HEMOGLOBIN 29.6 pg (27.0-33.4); MEAN CORPUSCULAR HGB CONC 32.1 g/dL (32.0-36.0); MEAN CORPUSCULAR VOLUME 92 fl (80-97); RED BLOOD COUNT 2.62 10^6/uL (3.72-5.28); WHITE BLOOD COUNT 9.7 10^3/uL (4.0-10.5)
[2017-05-22 07:32] LABS: HEMOGLOBIN 7.8 g/dL (12.0-15.5)
[2017-05-22 07:57] LABS: BASOPHILS % (MANUAL) 0 % (0-2); EOSINOPHILS % (MANUAL) 0 % (0-6); LYMPHOCYTES % (MANUAL) 3 % (13-45); TOTAL CELLS COUNTED 100
[2017-05-22 08:00] LABS: ANISOCYTOSIS 2+; OVALOCYTES 1+; POIKILOCYTOSIS 1+; POLYCHROMASIA SLIGHT; SCHISTOCYTES SLIGHT
[2017-05-22] MEDS: NORMAL SALINE 10 ML SDV (SCHEDULED) IV SCH ×2 (10:00→22:43)
[2017-05-22] MEDS: AMLODIPINE BESYLATE 10 MG TABLET PO SCH (10:00)
[2017-05-22] MEDS ORDERED: MORPHINE SULFATE 10 MG/5 ML ORAL SOLUTION UDCUP PO PRN (17:28)
--- NOTE | 2017-05-22 17:28 | PDOC PROGRESS REPORT ---
Subjective Progress Note for:: 05/22/17 Subjective:: This is a follow-up visit for failure to thrive and acute renal failure with severe protein calorie malnutrition. No acute events overnight. The patient is not lucid today. The nurse thinks that she might be in pain. Apparently her IV and sublingual pain medications have been discontinued. Reason For Visit: ACUTE RENAL FAILURE AND FAILURE TO THRIVE Physical Exam Vital Signs: Temp Pulse Resp BP Pulse Ox 98.3 F 100 20 147/91 H 96 05/22/17 11:18 05/22/17 11:18 05/22/17 11:18 05/22/17 11:18 05/22/17 11:18 Intake & Output 05/21/17 05/22/17 05/23/17 06:59 06:59 06:59 Intake Total 70 736 Balance 70 736 Weight 57.3 kg GENERAL: This is a well-developed grossly underweight, Chinese female resting sleeping Heart: Regular rate and rhythm. Lungs: Gurgling heard at the door. Coarse breath sounds anteriorly with equal rise and fall the chest. Abdomen: Flat but firm. Nondistended hypoactive bowel sounds. EXTREMETIES: No clubbing, cyanosis. Ankle swelling bilaterally NEURO: Initially sleep. When awakened the patient moans as if she is in pain. Results Laboratory Results: 05/22/17 06:10 05/22/17 06:10 05/22/17 05/22/17 06:10 06:10 WBC 9.7 RBC 2.62 L Hgb 7.8 L Hct 24.2 L MCV 92 MCH 29.6 MCHC 32.1 RDW 18.0 H Plt Count 328 Seg Neutrophils % Not Reportable Lymphocytes % Not Reportable Monocytes % Not Reportable Eosinophils % Not Reportable Basophils % Not Reportable Absolute Neutrophils Not Reportable Absolute Lymphocytes Not Reportable Absolute Monocytes Not Reportable Absolute Eosinophils Not Reportable Absolute Basophils Not Reportable Sodium 140.4 Potassium 5.1 H Chloride 110 H Carbon Dioxide 20 L Anion Gap 10 BUN 45 H Creatinine 1.66 H Est GFR ( Amer) 36 L Est GFR (Non-Af Amer) 30 L Glucose 106 Calcium 8.9 04/18/17 06:17 NT-Pro-B Natriuret Pep 4190 H Impressions: Chest X-Ray 05/09/17 00:00 IMPRESSION: No acute infiltrates Left PICC line tip superior vena cava Guidance Fluoroscopy 05/09/17 00:00 IMPRESSION: SUCCESSFUL PLACEMENT OF A 5 FR DUAL LUMEN 35 CM PICC IN THE LEFT BASILIC VEIN. Interventional Vascular Procedure 05/09/17 00:00 IMPRESSION: SUCCESSFUL PLACEMENT OF A 5 FR DUAL LUMEN 35 CM PICC IN THE LEFT BASILIC VEIN. PICC Line Insertion 05/09/17 00:00 IMPRESSION: SUCCESSFUL PLACEMENT OF A 5 FR DUAL LUMEN 35 CM PICC IN THE LEFT BASILIC VEIN. Assessment & Plan - Diagnosis (1) Hypernatremia Is this a current diagnosis for this admission?: Yes Plan: Secondary to dehydration. Continue IV fluids. (2) Failure to thrive Qualifiers: Failure to thrive age range: in adult Qualified Code(s): R62.7 - Adult failure to thrive Is this a current diagnosis for this admission?: Yes Plan: Patient has had decreased p.o. intake and she is grossly malnourished. At this point no one is making medical decisions for her. She is DNR. At this point I would not recommend placement of PEG tube for nutritional support. Patient is elderly and has comorbid conditions and I am not certain that her quality of life would be improved with PEG tube. At this point in time I would recommend comfort care measures/hospice services. (3) Dehydration Is this a current diagnosis for this admission?: Yes Plan: Acute on chronic renal failure management as above. Continue IV fluids. (4) Anemia in chronic kidney disease (CKD) Qualifiers: Chronic kidney disease stage: stage 3 (moderate) Qualified Code(s): N18.3 - Chronic kidney disease, stage 3 (moderate) Is this a current diagnosis for this admission?: Yes Plan: Resolved. (5) CHF (congestive heart failure) Qualifiers: Congestive heart failure type: unspecified congestive heart failure type Congestive heart failure chronicity: acute on chronic Qualified Code(s): I50.9 - Heart failure, unspecified Plan: The patient is currently edematous in all 4 extremities. Continue as needed Lasix (6) COPD (chronic obstructive pulmonary disease) Qualifiers: COPD type: unspecified COPD Qualified Code(s): J44.9 - Chronic obstructive pulmonary disease, unspecified Is this a current diagnosis for this admission?: Yes Plan: The patient is not in acute exacerbation. Continue home medications. As able. (7) Hypertensive crisis Is this a current diagnosis for this admission?: Yes Plan: As needed antihypertensives. Continue scheduled Norvasc and clonidine as appropriate. (8) Severe protein-calorie malnutrition Is this a current diagnosis for this admission?: Yes Plan: The patient is still not eating. As mentioned previously I do not recommend PEG tube placement for nutrition. The patient is 81 years old and has comorbid medical conditions. Her failure to thrive is quite profound this point. I recommend hospice/comfort care measures. Do not think the patient's quality of life will be enhanced by any extreme life-saving measures. Unfortunately, the patient still has no guardian appointed to make decisions for her. PICC line was established. (9) Dementia Is this a current diagnosis for this admission?: Yes Plan: History of dementia is not listed in her previous medical chart. However the ER physician got this history from the hog counter and the PCP. Continue to monitor her mental state. (10) Leukocytosis Is this a current diagnosis for this admission?: Yes Plan: Resolved (11) Constipation Plan: Resolved. - Time Time Spent with patient: 15-24 minutes
[2017-05-23] MEDS: AMLODIPINE BESYLATE 10 MG TABLET PO SCH (10:38)
[2017-05-23] MEDS: NORMAL SALINE 10 ML SDV (SCHEDULED) IV SCH ×2 (10:39→23:50)
[2017-05-23] MEDS ORDERED: FUROSEMIDE INJ/PF 20 MG/2 ML SDV IV ONE (11:44)
--- NOTE | 2017-05-23 11:49 | PDOC PROGRESS REPORT ---
Subjective Progress Note for:: 05/23/17 Subjective:: This is a follow-up visit for failure to thrive and acute renal failure with severe protein calorie malnutrition. No acute events overnight. The patient is not lucid today. Reason For Visit: ACUTE RENAL FAILURE AND FAILURE TO THRIVE Physical Exam Vital Signs: Temp Pulse Resp BP Pulse Ox 97.5 F 120 H 8 L 148/96 H 97 05/23/17 07:45 05/23/17 07:45 05/23/17 07:45 05/23/17 07:45 05/23/17 07:45 Intake & Output 05/22/17 05/23/17 05/24/17 06:59 06:59 06:59 Intake Total 736 140 Balance 736 140 Weight 52.2 kg GENERAL: This is a well-developed grossly underweight, Azeri female resting sleeping Heart: Regular rate and rhythm. Lungs: Gurgling heard at the door. Coarse breath sounds anteriorly with equal rise and fall the chest. Abdomen: Flat but firm. Nondistended hypoactive bowel sounds. EXTREMETIES: No clubbing, cyanosis. pitting edema in all extremities. NEURO: Initially sleep. When awakened the patient moans as if she is in pain. Results Laboratory Results: 05/22/17 06:10 05/22/17 06:10 04/18/17 06:17 NT-Pro-B Natriuret Pep 4190 H Impressions: Chest X-Ray 05/09/17 00:00 IMPRESSION: No acute infiltrates Left PICC line tip superior vena cava Guidance Fluoroscopy 05/09/17 00:00 IMPRESSION: SUCCESSFUL PLACEMENT OF A 5 FR DUAL LUMEN 35 CM PICC IN THE LEFT BASILIC VEIN. Interventional Vascular Procedure 05/09/17 00:00 IMPRESSION: SUCCESSFUL PLACEMENT OF A 5 FR DUAL LUMEN 35 CM PICC IN THE LEFT BASILIC VEIN. PICC Line Insertion 05/09/17 00:00 IMPRESSION: SUCCESSFUL PLACEMENT OF A 5 FR DUAL LUMEN 35 CM PICC IN THE LEFT BASILIC VEIN. Assessment & Plan - Diagnosis (1) Hypernatremia Is this a current diagnosis for this admission?: Yes Plan: Secondary to dehydration. Continue IV fluids. (2) Failure to thrive Qualifiers: Failure to thrive age range: in adult Qualified Code(s): R62.7 - Adult failure to thrive Is this a current diagnosis for this admission?: Yes Plan: Patient has had decreased p.o. intake and she is grossly malnourished. At this point no one is making medical decisions for her. She is DNR. At this point I would not recommend placement of PEG tube for nutritional support. Patient is elderly and has comorbid conditions and I am not certain that her quality of life would be improved with PEG tube. At this point in time I would recommend comfort care measures/hospice services. (3) Dehydration Is this a current diagnosis for this admission?: Yes Plan: Acute on chronic renal failure management as above. Continue IV fluids. (4) Anemia in chronic kidney disease (CKD) Qualifiers: Chronic kidney disease stage: stage 3 (moderate) Qualified Code(s): N18.3 - Chronic kidney disease, stage 3 (moderate) Is this a current diagnosis for this admission?: Yes Plan: Resolved. (5) CHF (congestive heart failure) Qualifiers: Congestive heart failure type: unspecified congestive heart failure type Congestive heart failure chronicity: acute on chronic Qualified Code(s): I50.9 - Heart failure, unspecified Plan: The patient is currently edematous in all 4 extremities. Continue as needed Lasix (6) COPD (chronic obstructive pulmonary disease) Qualifiers: COPD type: unspecified COPD Qualified Code(s): J44.9 - Chronic obstructive pulmonary disease, unspecified Is this a current diagnosis for this admission?: Yes Plan: The patient is not in acute exacerbation. Continue home medications. As able. (7) Hypertensive crisis Is this a current diagnosis for this admission?: Yes Plan: As needed antihypertensives. Continue scheduled Norvasc and clonidine as appropriate. (8) Severe protein-calorie malnutrition Is this a current diagnosis for this admission?: Yes Plan: The patient is still not eating consistently. As mentioned previously I do not recommend PEG tube placement for nutrition. The patient is 81 years old and has comorbid medical conditions. Her failure to thrive is quite profound this point. I recommend hospice/comfort care measures. Do not think the patient's quality of life will be enhanced by any extreme life-saving measures. Unfortunately, the patient still has no guardian appointed to make decisions for her. (9) Dementia Is this a current diagnosis for this admission?: Yes Plan: History of dementia is not listed in her previous medical chart. However the ER physician got this history from the sausage mixer and the PCP. Continue to monitor her mental state. (10) Leukocytosis Is this a current diagnosis for this admission?: Yes Plan: Resolved (11) Constipation Plan: Resolved. - Time Time Spent with patient: 15-24 minutes
--- NOTE | 2017-05-23 13:35 | RADIOLOGY REPORT (SQ) ---
EXAM DESCRIPTION: CHEST SINGLE VIEW COMPLETED DATE/TIME: 05/23/2017 1:25 pm REASON FOR STUDY: crackles and edema COMPARISON: CT chest 08/29/2016 Chest film 01/19/2017, 04/29/2017, 05/09/2017 EXAM PARAMETERS: NUMBER OF VIEWS: One view. TECHNIQUE: Single frontal radiographic view of the chest acquired. RADIATION DOSE: NA LIMITATIONS: None. FINDINGS: LUNGS AND PLEURA: Upper lobes are hyperlucent from obstructive disease. At both bases, Yann lines are present with patchy airspace disease worrisome for edema. Pneumonia could not be excluded. No gross pleural effusions. MEDIASTINUM AND HILAR STRUCTURES: No masses. Contour normal. HEART AND VASCULAR STRUCTURES: Tortuous distal thoracic aorta. No cardiomegaly BONES: Osteoporotic HARDWARE: Left PICC line tip in the superior vena cava OTHER: No other significant finding. IMPRESSION: Obstructive lung disease with mild alveolar and interstitial edema at the bases. Basila r pneumonia could not entirely be excluded TECHNICAL DOCUMENTATION: JOB ID: [id number] [employer]- All Rights Reserved
[2017-05-23] MEDS: DEXTROSE 5%-1/2 NORMAL SALINE 1,000 ML IV PRN (18:40)
[2017-05-24 05:20] LABS: HEMATOCRIT 24.8 % (36.0-47.0); HGB HCT DIFFERENCE -0.8; MEAN CORPUSCULAR HEMOGLOBIN 29.7 pg (27.0-33.4); MEAN CORPUSCULAR HGB CONC 32.4 g/dL (32.0-36.0); MEAN CORPUSCULAR VOLUME 92 fl (80-97); RED BLOOD COUNT 2.71 10^6/uL (3.72-5.28); RED CELL DISTRIBUTION WIDTH 18.3 % (11.5-14.0)
[2017-05-24 05:35] LABS: ANION GAP 14 (5-19); BLOOD UREA NITROGEN 48 mg/dL (7-20); CALCIUM 8.7 mg/dL (8.4-10.2); CARBON DIOXIDE 18 mmol/L (22-30); CHLORIDE 110 mmol/L (98-107); CREATININE RESULT 2.05 mg/dL (0.52-1.25); GLUCOSE 122 mg/dL (75-110); MAGNESIUM 2.2 mg/dL (1.6-2.3); SODIUM 142.2 mmol/L (137-145)
[2017-05-24 06:00] LABS: ABSOLUTE EOSINOPHILS# (MANUAL) 0.1 10^3/uL (0.0-0.6); BASOPHILS % (MANUAL) 0 % (0-2); EOSINOPHILS % (MANUAL) 1 % (0-6); LYMPHOCYTES % (MANUAL) 4 % (13-45); POLYCHROMASIA SLIGHT; TOTAL CELLS COUNTED 100; TOXIC GRANULATION SLIGHT
[2017-05-24 06:01] LABS: ANISOCYTOSIS 2+; BURR CELLS 1+; HELMET CELLS SLIGHT; POIKILOCYTOSIS SLIGHT
[2017-05-24 06:02] LABS: OVALOCYTES SLIGHT; ROULEAUX SLIGHT; TEAR DROP CELLS SLIGHT
[2017-05-24] MEDS: NORMAL SALINE 10 ML SDV (SCHEDULED) IV SCH (10:09)
[2017-05-24] MEDS: AMLODIPINE BESYLATE 10 MG TABLET PO SCH (10:09)
[2017-05-24] MEDS ORDERED: SCOPOLAMINE HYDROBROMIDE 1.5 MG PATCH.TD72 TD ONE (12:00)
[2017-05-24] MEDS: DEXTROSE 5%-1/2 NORMAL SALINE 1,000 ML IV PRN (12:02)
[2017-05-24] MEDS ORDERED: DEXTROSE 5%-1/2 NORMAL SALINE 1,000 ML IV PRN ×2 (13:16→13:29)
--- NOTE | 2017-05-24 13:21 | PDOC PROGRESS REPORT ---
Subjective Progress Note for:: 05/24/17 Subjective:: No new events overnight. Patient was sleeping when I arrived and though she will awaken she is largely nonverbal track me around the room only briefly before falling back to sleep again. I could not elicit a review of systems her medical history from her. ROS: Unobtainable due to patient's mental state. Reason For Visit: ACUTE RENAL FAILURE AND FAILURE TO THRIVE Physical Exam Vital Signs: Temp Pulse Resp BP Pulse Ox 98.4 F 100 14 144/59 H 95 05/24/17 11:44 05/24/17 11:44 05/24/17 11:44 05/24/17 11:44 05/24/17 11:44 Intake & Output 05/23/17 05/24/17 05/25/17 06:59 06:59 06:59 Intake Total 140 150 Output Total 1 Balance 140 149 Weight 52.2 kg 52.2 kg General appearance: PRESENT: no acute distress, thin. ABSENT: well-nourished Eye exam: PRESENT: EOMI. ABSENT: conjunctival injection, scleral icterus Mouth exam: PRESENT: dry mucosa Respiratory exam: PRESENT: crackles - At the bases, other - Heavy secretions. ABSENT: stridor, unlabored, wheezes Cardiovascular exam: PRESENT: RRR. ABSENT: systolic murmur GI/Abdominal exam: PRESENT: soft. ABSENT: tenderness - No grimace Extremities exam: ABSENT: pedal edema Musculoskeletal exam: PRESENT: other - Very weak 3 out of 5 at best though difficult to get her to participate in a formal exam Neurological exam: PRESENT: altered Results Laboratory Results: 05/24/17 04:40 05/24/17 04:40 05/24/17 05/24/17 04:40 04:40 WBC 14.0 H RBC 2.71 L Hgb 8.0 L Hct 24.8 L MCV 92 MCH 29.7 MCHC 32.4 RDW 18.3 H Plt Count 356 Seg Neutrophils % Not Reportable Lymphocytes % Not Reportable Monocytes % Not Reportable Eosinophils % Not Reportable Basophils % Not Reportable Absolute Neutrophils Not Reportable Absolute Lymphocytes Not Reportable Absolute Monocytes Not Reportable Absolute Eosinophils Not Reportable Absolute Basophils Not Reportable Sodium 142.2 Potassium 5.0 Chloride 110 H Carbon Dioxide 18 L Anion Gap 14 BUN 48 H Creatinine 2.05 H Est GFR ( Amer) 28 L Est GFR (Non-Af Amer) 23 L Glucose 122 H Calcium 8.7 Magnesium 2.2 04/18/17 06:17 NT-Pro-B Natriuret Pep 4190 H Impressions: Chest X-Ray 05/23/17 00:00 IMPRESSION: Obstructive lung disease with mild alveolar and interstitial edema at the bases. Basilar pneumonia could not entirely be excluded Assessment & Plan - Diagnosis (1) Acute on chronic renal failure Qualifiers: Chronic kidney disease stage: stage 4 (severe) Is this a current diagnosis for this admission?: Yes Plan: Likely prerenal and related to decreased oral intake as her mental state and overall condition continues to decline. Will increase IV fluids and continue to monitor her renal function. Avoid nephrotoxic medications were possible. (2) Dementia Is this a current diagnosis for this admission?: Yes Plan: Unchanged if anything slightly worse. (3) Failure to thrive Qualifiers: Failure to thrive age range: in adult Qualified Code(s): R62.7 - Adult failure to thrive Is this a current diagnosis for this admission?: Yes Plan: Poor oral intake, poor nutrition. This is equally poor (4) Severe protein-calorie malnutrition Is this a current diagnosis for this admission?: Yes (5) Anemia in chronic kidney disease (CKD) Qualifiers: Chronic kidney disease stage: stage 3 (moderate) Qualified Code(s): N18.3 - Chronic kidney disease, stage 3 (moderate) Is this a current diagnosis for this admission?: Yes (6) Hypernatremia Is this a current diagnosis for this admission?: Yes Plan: Improved with IV fluids, check again in the morning. - Time Time Spent with patient: 25-34 minutes Medications reviewed and adjusted accordingly: Yes - Plan Summary Plan Summary: Overall prognosis is quite poor complicated by her inability to make decisions and no family or guardian stepping forward to assist. I agree that a palliative care or hospice care consult is appropriate but we must have permission to proceed.
[2017-05-24] MEDS: ALBUTEROL SULFATE 0.083% NEB 2.5 MG/3 ML AMPUL NEB PRN (14:23)
[2017-05-24] MEDS: MORPHINE SULFATE 10 MG/ML INJ IV PRN ×2 (14:45→20:51)
[2017-05-25] MEDS: NORMAL SALINE 10 ML SDV (SCHEDULED) IV SCH ×3 (02:14→22:18)
[2017-05-25] MEDS: MORPHINE SULFATE 10 MG/ML INJ IV PRN ×2 (04:37→23:50)
[2017-05-25 05:57] LABS: ANION GAP 14 (5-19); BLOOD UREA NITROGEN 48 mg/dL (7-20); CALCIUM 8.5 mg/dL (8.4-10.2); CARBON DIOXIDE 19 mmol/L (22-30); CHLORIDE 109 mmol/L (98-107); CREATININE RESULT 2.26 mg/dL (0.52-1.25); GLUCOSE 154 mg/dL (75-110); POTASSIUM 4.8 mmol/L (3.6-5.0); SODIUM 141.8 mmol/L (137-145)
[2017-05-25] MEDS ORDERED: FUROSEMIDE INJ/PF 40 MG/4 ML SDV ONE (07:31)
[2017-05-25] MEDS: ALBUTEROL SULFATE 0.083% NEB 2.5 MG/3 ML AMPUL NEB PRN ×2 (08:09→17:32)
[2017-05-25] MEDS ORDERED: FUROSEMIDE INJ/PF 40 MG/4 ML SDV IV ONE (09:00)
[2017-05-25] MEDS: AMLODIPINE BESYLATE 10 MG TABLET PO SCH (13:04)
--- NOTE | 2017-05-25 13:12 | PDOC PROGRESS REPORT ---
Subjective Progress Note for:: 05/25/17 Subjective:: This is a follow-up visit for failure to thrive and acute renal failure with severe protein calorie malnutrition. No acute events overnight. However, I received a phone call from the nurse stating that the patient had coarse breath sounds and increased worsening in her fluid retention. I came up to see the patient and she is not she barely moans when moderately shaken. Reason For Visit: ACUTE RENAL FAILURE AND FAILURE TO THRIVE Physical Exam Vital Signs: Temp Pulse Resp BP Pulse Ox 97.3 F 94 18 126/74 H 96 05/25/17 07:10 05/25/17 08:09 05/25/17 08:09 05/25/17 07:10 05/25/17 08:09 Intake & Output 05/24/17 05/25/17 05/26/17 06:59 06:59 06:59 Intake Total 150 133 Output Total 1 0 Balance 149 133 Weight 52.2 kg 52.2 kg GENERAL: This is a well-developed grossly underweight, [place] female resting sleeping Heart: Regular rate and rhythm. Lungs: Gurgling heard at the door. Coarse breath sounds anteriorly with equal rise and fall the chest. Abdomen: Flat but firm. Nondistended hypoactive bowel sounds. EXTREMETIES: No clubbing, cyanosis. pitting edema in all extremities. NEURO: Not responsive Results Laboratory Results: 05/24/17 04:40 05/25/17 04:35 05/25/17 04:35 Sodium 141.8 Potassium 4.8 Chloride 109 H Carbon Dioxide 19 L Anion Gap 14 BUN 48 H Creatinine 2.26 H Est GFR ( Amer) 25 L Est GFR (Non-Af Amer) 21 L Glucose 154 H Calcium 8.5 Phosphorus 5.0 H Magnesium 2.0 04/18/17 06:17 NT-Pro-B Natriuret Pep 4190 H Impressions: Guidance Fluoroscopy 05/09/17 00:00 IMPRESSION: SUCCESSFUL PLACEMENT OF A 5 FR DUAL LUMEN 35 CM PICC IN THE LEFT BASILIC VEIN. Interventional Vascular Procedure 05/09/17 00:00 IMPRESSION: SUCCESSFUL PLACEMENT OF A 5 FR DUAL LUMEN 35 CM PICC IN THE LEFT BASILIC VEIN. PICC Line Insertion 05/09/17 00:00 IMPRESSION: SUCCESSFUL PLACEMENT OF A 5 FR DUAL LUMEN 35 CM PICC IN THE LEFT BASILIC VEIN. Chest X-Ray 05/23/17 00:00 IMPRESSION: Obstructive lung disease with mild alveolar and interstitial edema at the bases. Basilar pneumonia could not entirely be excluded Assessment & Plan - Diagnosis (1) Hypernatremia Is this a current diagnosis for this admission?: Yes Plan: Secondary to dehydration. Continue IV fluids for maintenance. (2) Failure to thrive Qualifiers: Failure to thrive age range: in adult Qualified Code(s): R62.7 - Adult failure to thrive Is this a current diagnosis for this admission?: Yes Plan: Patient has had decreased p.o. intake and she is grossly malnourished. At this point no one is making medical decisions for her. She is DNR. At this point I would not recommend placement of PEG tube for nutritional support. Patient is elderly and has comorbid conditions and I am not certain that her quality of life would be improved with PEG tube. At this point in time I would recommend comfort care measures/hospice services. (3) Dehydration Is this a current diagnosis for this admission?: Yes Plan: Acute on chronic renal failure management as above. Continue IV fluids on maintenance rate. At this point the patient likely has ATN. Will check urine lites. (4) Anemia in chronic kidney disease (CKD) Qualifiers: Chronic kidney disease stage: stage 3 (moderate) Qualified Code(s): N18.3 - Chronic kidney disease, stage 3 (moderate) Is this a current diagnosis for this admission?: Yes Plan: Resolved. (5) CHF (congestive heart failure) Qualifiers: Congestive heart failure type: unspecified congestive heart failure type Congestive heart failure chronicity: acute on chronic Qualified Code(s): I50.9 - Heart failure, unspecified Plan: The patient is currently edematous in all 4 extremities. Continue as needed Lasix (6) COPD (chronic obstructive pulmonary disease) Qualifiers: COPD type: unspecified COPD Qualified Code(s): J44.9 - Chronic obstructive pulmonary disease, unspecified Is this a current diagnosis for this admission?: Yes Plan: The patient is not in acute exacerbation. Continue home medications. As able. (7) Hypertensive crisis Is this a current diagnosis for this admission?: Yes Plan: Resolved. As needed antihypertensives. Continue scheduled Norvasc and clonidine as appropriate. (8) Severe protein-calorie malnutrition Is this a current diagnosis for this admission?: Yes Plan: The patient is still not eating consistently. As mentioned previously I do not recommend PEG tube placement for nutrition. The patient is 81 years old and has comorbid medical conditions. Her failure to thrive is quite profound this point. I recommend hospice/comfort care measures. Do not think the patient's quality of life will be enhanced by any extreme life-saving measures. Unfortunately, the patient still has no guardian appointed to make decisions for her. Court date is scheduled for June 05. She has anasarca. This is due to poor malnutrition and low albumin. Her kidney function has worsened. She is not putting out much urine. We will go ahead and give her 25 g of albumin. Hopefully this will help mobilize some fluid off of her lung and out of her interstitial tissues. Although this may be of some benefit in the short- term, this will not help in the long-term. In fact I do not expect it to help beyond today. (9) Dementia Is this a current diagnosis for this admission?: Yes Plan: History of dementia is not listed in her previous medical chart. However the ER physician got this history from the radiologic technologist chief and the PCP. Continue to monitor her mental state. (10) Leukocytosis Is this a current diagnosis for this admission?: Yes Plan: Patient has spiked a white count again. No fevers thus far. Will check urine culture. And chest x-ray. Begin Zosyn empirically. (11) Constipation Plan: Resolved. - Time Time Spent with patient: 15-24 minutes
[2017-05-25] MEDS: ALBUMIN HUMAN 50 ML IV SCH ×2 (14:16→15:43)
--- NOTE | 2017-05-25 14:26 | RADIOLOGY REPORT (SQ) ---
EXAM DESCRIPTION: CHEST SINGLE VIEW COMPLETED DATE/TIME: 05/25/2017 2:05 pm REASON FOR STUDY: Worsening sob COMPARISON: 05/23/2017. EXAM PARAMETERS: NUMBER OF VIEWS: One view. TECHNIQUE: Single frontal radiographic view of the chest acquired. RADIATION DOSE: NA LIMITATIONS: None. FINDINGS: LUNGS AND PLEURA: Hyperinflation. Airspace disease in the right lung base unchanged. Inc reasing left basilar density with developing left pleural effusion. MEDIASTINUM AND HILAR STRUCTURES: No masses. Contour normal. HEART AND VASCULAR STRUCTURES: Heart normal in size. Normal vasculature. BONES: No acute findings. HARDWARE: PICC line. OTHER: No other significant finding. IMPRESSION: COPD. INCREASING LEFT BASILAR DENSITY WITH DEVELOPING LEFT PLEURAL EFFUSION. TECHNICAL DOCUMENTATION: JOB ID: [id number] [employer] All Rights Reserved
[2017-05-25] MEDS ORDERED: NORMAL SALINE 1000 ML 1,000 ML IV PRN (16:10)
[2017-05-25] MEDS: PIPERACILLIN SODIUM/TAZOBACTAM 2.25 GM in NORMAL SALINE 50 ML IV SCH ×2 (16:24→22:18)
[2017-05-25 17:17] LABS: APPEARANCE,URINE CLOUDY; BILIRUBIN,URINE NEGATIVE (NEGATIVE); GLUCOSE, URINE NEGATIVE (NEGATIVE); KETONES,URINE NEGATIVE (NEGATIVE); LEUKOCYTE ESTERASE,URINE LARGE (NEGATIVE); NITRITE,URINE NEGATIVE (NEGATIVE); PROTEIN,URINE 30 mg/dL (NEGATIVE); UROBILINOGEN,URINE NEGATIVE mg/dL (<2.0)
[2017-05-25 17:31] LABS: WBC,URINE >100 /HPF
[2017-05-25 17:32] LABS: BACTERIA,URINE 3+ /HPF
[2017-05-25 17:42] LABS: URINE CREATININE 135.2 mg/dL (15-278)
[2017-05-25] MEDS ORDERED: PIPERACILLIN SODIUM/TAZOBACTAM 3.375 GM in NORMAL SALINE 100 ML IV SCH (18:00)
--- NOTE | 2017-05-25 23:22 | Progress Note ---
Provider Note Provider Note: Palliative care follow up note. Visit 05/25/17 11:00 - 11:15Am Brief visit with patient who does not have caregiver at bedside today. Patient is in bed with much upper airway congestion and mild dyspnea noted. She opens eyes to tactile stimulation but does not respond to verbal stimulation today. Nurse at bedside, when I assisted her to reposition patient , the patient still did not respond. Nurse reports that she has been less responsive recently and is eating much less. She used to eat a fair breakfast and bites and sips the rest of the day. However, the past few days patient has refused food for staff. She is very pale but does not appear to be in pain. Mrs. Sandhu has a lot of edema in her arms and facial tissue. Nurse reports that patient has had IV fluids until recently. At this stage in her condition IV fluids will most likely not be helpful and may cause more discomfort. production planner reports that patient has guardianship hearing on 06/05. If she lives long enough for this appointment she will hopefully be transferred to hospice for comfort care. If she were at hospice care center, she would not be given IV fluids as that would not provide comfort for her at this stage in her physical decline. Morphine concentrate can be used PO for control pain or dyspnea. Appropriate starting dose would be 0.5 ml ( 10 mg ) PO q 3 hours prn. This would not require IV access and would provide approximately the equivalent of 3 mg IV morphine over a slower absorption rate. Will continue to follow peripherally. Encouraged nurse to all me if any new problems. Appreciate care given to this unfortunate lady who has friends but no appointed health care surrogate to make care decisions for her.
[2017-05-25] MEDS ORDERED: SCOPOLAMINE HYDROBROMIDE 1.5 MG PATCH.TD72 ONE (23:39)
[2017-05-25] MEDS ORDERED: SCOPOLAMINE HYDROBROMIDE 1.5 MG PATCH.TD72 TD ONE (23:45)
[2017-05-26] MEDS: MORPHINE SULFATE 10 MG/ML INJ IV PRN ×3 (04:13→21:01)
[2017-05-26] MEDS: PIPERACILLIN SODIUM/TAZOBACTAM 2.25 GM in NORMAL SALINE 50 ML IV SCH ×3 (06:11→21:01)
[2017-05-26] MEDS: NORMAL SALINE 10 ML SDV (SCHEDULED) IV SCH ×2 (10:24→21:01)
[2017-05-26] MEDS: AMLODIPINE BESYLATE 10 MG TABLET PO SCH (10:24)
--- NOTE | 2017-05-26 10:41 | PDOC PROGRESS REPORT ---
Subjective Progress Note for:: 05/26/17 Subjective:: Nursing reports that pt is very swollen. Pt sleeping. Reason For Visit: ACUTE RENAL FAILURE AND FAILURE TO THRIVE Physical Exam Vital Signs: Temp Pulse Resp BP Pulse Ox 97.5 F 93 12 138/98 H 100 05/26/17 07:54 05/26/17 07:54 05/26/17 07:54 05/26/17 07:54 05/26/17 07:54 Intake & Output 05/25/17 05/26/17 05/27/17 06:59 06:59 06:59 Intake Total 133 40 Output Total 0 Balance 133 40 Weight 52.2 kg 56.7 kg General appearance: PRESENT: no acute distress, thin Head exam: PRESENT: atraumatic, normocephalic Eye exam: PRESENT: other - eyes closed. Ear exam: PRESENT: normal external ear exam Mouth exam: PRESENT: dry mucosa Neck exam: ABSENT: carotid bruit, JVD, lymphadenopathy, thyromegaly Respiratory exam: PRESENT: other - Fair air movement in the anterior lobes however greatly diminished at bases Cardiovascular exam: PRESENT: RRR. ABSENT: diastolic murmur, rubs, systolic murmur Pulses: PRESENT: normal dorsalis pedis pul Vascular exam: PRESENT: normal capillary refill GI/Abdominal exam: PRESENT: normal bowel sounds, soft. ABSENT: distended, guarding, mass, organolmegaly, rebound, tenderness Rectal exam: PRESENT: deferred Extremities exam: PRESENT: full ROM, pedal edema, +2 edema. ABSENT: calf tenderness, clubbing Neurological exam: PRESENT: other - Sleeping Psychiatric exam: PRESENT: other - Sleeping Results Laboratory Results: 05/24/17 04:40 05/25/17 04:35 05/25/17 16:54 Urine Color YELLOW Urine Appearance CLOUDY Urine pH 7.0 Ur Specific Godfrey 1.010 Urine Protein 30 H Urine Glucose (UA) NEGATIVE Urine Ketones NEGATIVE Urine Blood SMALL H Urine Nitrite NEGATIVE Ur Leukocyte Esterase LARGE H Ur Squamous Epith Cells MANY 04/18/17 06:17 NT-Pro-B Natriuret Pep 4190 H Impressions: Guidance Fluoroscopy 05/09/17 00:00 IMPRESSION: SUCCESSFUL PLACEMENT OF A 5 FR DUAL LUMEN 35 CM PICC IN THE LEFT BASILIC VEIN. Interventional Vascular Procedure 05/09/17 00:00 IMPRESSION: SUCCESSFUL PLACEMENT OF A 5 FR DUAL LUMEN 35 CM PICC IN THE LEFT BASILIC VEIN. PICC Line Insertion 05/09/17 00:00 IMPRESSION: SUCCESSFUL PLACEMENT OF A 5 FR DUAL LUMEN 35 CM PICC IN THE LEFT BASILIC VEIN. Chest X-Ray 05/25/17 00:00 IMPRESSION: COPD. INCREASING LEFT BASILAR DENSITY WITH DEVELOPING LEFT PLEURAL EFFUSION. Assessment & Plan - Diagnosis (1) Anasarca Is this a current diagnosis for this admission?: Yes Plan: We will discontinue IV fluids. Will check chest x-ray. Concerned that patient could have pulmonary edema. (2) Constipation Is this a current diagnosis for this admission?: Yes Plan: Resolved. (3) Dehydration Is this a current diagnosis for this admission?: Yes Plan: Resolved. Due to patient's poor nutritional intake patient is third spacing fluid. (4) Dementia Is this a current diagnosis for this admission?: Yes Plan: Supportive care. (5) Failure to thrive Qualifiers: Failure to thrive age range: in adult Qualified Code(s): R62.7 - Adult failure to thrive Is this a current diagnosis for this admission?: Yes Plan: We will continue to encourage p.o. intake. (6) Hypernatremia Is this a current diagnosis for this admission?: Yes Plan: Resolved. (7) Hypertensive crisis Is this a current diagnosis for this admission?: Yes Plan: Continue current medications. (8) Severe protein-calorie malnutrition Is this a current diagnosis for this admission?: Yes Plan: We will encourage p.o. intake. (9) Anemia in chronic kidney disease (CKD) Qualifiers: Chronic kidney disease stage: stage 3 (moderate) Qualified Code(s): N18.3 - Chronic kidney disease, stage 3 (moderate) Is this a current diagnosis for this admission?: Yes Plan: Supportive care. (10) COPD (chronic obstructive pulmonary disease) Qualifiers: COPD type: unspecified COPD Qualified Code(s): J44.9 - Chronic obstructive pulmonary disease, unspecified Is this a current diagnosis for this admission?: Yes Plan: stable - Time Time Spent with patient: 15-24 minutes - Patient's prognosis is poor. Patient has a guardianship hearing on 06/05 however do not think that patient's health will be able to wait that long. Patient is slowly deteriorating will continue to do investigative work to see what changes can be made to help improve patient 's overall clinical presentation. Will stop IV fluids today. Will check chest x-ray today. If patient demonstrates evidence of pulmonary edema will give low- dose Lasix.
--- NOTE | 2017-05-26 11:29 | RADIOLOGY REPORT (SQ) ---
EXAM DESCRIPTION: CHEST SINGLE VIEW COMPLETED DATE/TIME: 05/26/2017 11:21 am REASON FOR STUDY: concern for Pulmonary edema COMPARISON: CT chest 08/29/2016 AP chest 04/07/2017, 05/09/2017, 05/23/2017 EXAM PARAMETERS: NUMBER OF VIEWS: One view. TECHNIQUE: Single frontal radiographic view of the chest acquired. RADIATION DOSE: NA LIMITATIONS: None. FINDINGS: LUNGS AND PLEURA: Consolidation at both lung bases stable compared to previous studies. Trace left pleural effusion unchanged. No pneumothorax. MEDIASTINUM AND HILAR STRUCTURES: No masses. Contour normal. HEART AND VASCULAR STRUCTURES: Heart normal in size. Normal vasculature. BONES: No acute findings. HARDWARE: Left PICC line tip superior vena cava OTHER: No other significant finding. IMPRESSION: Unchanged bibasilar infiltrates and trace left pleural effusion TECHNICAL DOCUMENTATION: JOB ID: [id number] [employer]- All Rights Reserved
[2017-05-26] MEDS: ALBUTEROL SULFATE 0.083% NEB 2.5 MG/3 ML AMPUL NEB PRN (14:42)
[2017-05-27] MEDS: ALBUTEROL SULFATE 0.083% NEB 2.5 MG/3 ML AMPUL NEB PRN (03:42)
[2017-05-27] MEDS: MORPHINE SULFATE 10 MG/ML INJ IV PRN ×3 (03:57→23:07)
[2017-05-27] MEDS: PIPERACILLIN SODIUM/TAZOBACTAM 2.25 GM in NORMAL SALINE 50 ML IV SCH ×3 (05:43→23:05)
[2017-05-27 06:11] LABS: HEMATOCRIT 24.9 % (36.0-47.0); HGB HCT DIFFERENCE -1.8; MEAN CORPUSCULAR HEMOGLOBIN 28.8 pg (27.0-33.4); MEAN CORPUSCULAR HGB CONC 31.1 g/dL (32.0-36.0); MEAN CORPUSCULAR VOLUME 93 fl (80-97); RED BLOOD COUNT 2.68 10^6/uL (3.72-5.28); RED CELL DISTRIBUTION WIDTH 18.3 % (11.5-14.0); WHITE BLOOD COUNT 17.7 10^3/uL (4.0-10.5)
[2017-05-27 06:12] LABS: HEMOGLOBIN 7.7 g/dL (12.0-15.5)
[2017-05-27 06:26] LABS: ANION GAP 15 (5-19); BLOOD UREA NITROGEN 54 mg/dL (7-20); CALCIUM 8.4 mg/dL (8.4-10.2); CARBON DIOXIDE 17 mmol/L (22-30); CHLORIDE 111 mmol/L (98-107); CREATININE RESULT 3.28 mg/dL (0.52-1.25); GLUCOSE 80 mg/dL (75-110); POTASSIUM 5.2 mmol/L (3.6-5.0); SODIUM 143.2 mmol/L (137-145)
[2017-05-27 06:29] LABS: BASOPHILS % (MANUAL) 0 % (0-2); EOSINOPHILS % (MANUAL) 0 % (0-6); LYMPHOCYTES % (MANUAL) 4 % (13-45); NUCLEATED RED BLOOD CELLS 2 /100 WBC (0); TOTAL CELLS COUNTED 100
[2017-05-27 06:31] LABS: ANISOCYTOSIS SLIGHT; HYPOCHROMASIA 1+; OVALOCYTES SLIGHT; POIKILOCYTOSIS SLIGHT; POLYCHROMASIA SLIGHT; SCHISTOCYTES SLIGHT
[2017-05-27] MEDS: NORMAL SALINE 10 ML SDV (AFTER EACH USE) IV PRN (09:27)
[2017-05-27] MEDS: NORMAL SALINE 10 ML SDV (SCHEDULED) IV SCH ×2 (09:27→23:05)
[2017-05-27] MEDS: AMLODIPINE BESYLATE 10 MG TABLET PO SCH (09:28)
[2017-05-27] MEDS ORDERED: SCOPOLAMINE HYDROBROMIDE 1.5 MG PATCH.TD72 TD SCH (10:00)
[2017-05-27] MEDS: CLONIDINE 0.3 MG/24 HR PATCH.TDWK TD SCH (10:15)
--- NOTE | 2017-05-27 16:25 | PDOC PROGRESS REPORT ---
Subjective Progress Note for:: 05/27/17 Subjective:: This is a follow-up visit for failure to thrive and acute renal failure with severe protein calorie malnutrition. No acute events overnight. The patient is not lucid today. Patient continues to decline and look worse. The nurse taking care of her today felt that she was dying but then suddenly her respirations improved. Reason For Visit: ACUTE RENAL FAILURE AND FAILURE TO THRIVE Physical Exam Vital Signs: Temp Pulse Resp BP Pulse Ox 97.5 F 86 10 L 165/71 H 97 05/27/17 11:37 05/27/17 14:00 05/27/17 11:37 05/27/17 11:37 05/27/17 11:37 Intake & Output 05/26/17 05/27/17 05/28/17 06:59 06:59 06:59 Intake Total 40 0 0 Balance 40 0 0 Weight 56.7 kg 56.6 kg GENERAL: This is a well-developed grossly underweight, [place] female resting not responsive Heart: Regular rate and rhythm. 2 out of 6 systolic ejection murmur no gallops or rubs. Lungs: Gurgling heard at the door. Coarse breath sounds anteriorly with equal rise and fall the chest. Abdomen: Flat but firm. Nondistended hypoactive bowel sounds. EXTREMETIES: No clubbing, cyanosis. pitting edema in all extremities. Anasarca NEURO: Not responsive Results Laboratory Results: 05/27/17 05:42 05/27/17 05:42 05/27/17 05/27/17 05:42 05:42 WBC 17.7 H RBC 2.68 L Hgb 7.7 L Hct 24.9 L MCV 93 MCH 28.8 MCHC 31.1 L RDW 18.3 H Plt Count 395 Seg Neutrophils % Not Reportable Lymphocytes % Not Reportable Monocytes % Not Reportable Eosinophils % Not Reportable Basophils % Not Reportable Absolute Neutrophils Not Reportable Absolute Lymphocytes Not Reportable Absolute Monocytes Not Reportable Absolute Eosinophils Not Reportable Absolute Basophils Not Reportable Sodium 143.2 Potassium 5.2 H Chloride 111 H Carbon Dioxide 17 L Anion Gap 15 BUN 54 H Creatinine 3.28 H Est GFR ( Amer) 16 L Est GFR (Non-Af Amer) 14 L Glucose 80 Calcium 8.4 04/18/17 06:17 NT-Pro-B Natriuret Pep 4190 H Impressions: Guidance Fluoroscopy 05/09/17 00:00 IMPRESSION: SUCCESSFUL PLACEMENT OF A 5 FR DUAL LUMEN 35 CM PICC IN THE LEFT BASILIC VEIN. Interventional Vascular Procedure 05/09/17 00:00 IMPRESSION: SUCCESSFUL PLACEMENT OF A 5 FR DUAL LUMEN 35 CM PICC IN THE LEFT BASILIC VEIN. PICC Line Insertion 05/09/17 00:00 IMPRESSION: SUCCESSFUL PLACEMENT OF A 5 FR DUAL LUMEN 35 CM PICC IN THE LEFT BASILIC VEIN. Chest X-Ray 05/26/17 00:00 IMPRESSION: Unchanged bibasilar infiltrates and trace left pleural effusion Assessment & Plan - Diagnosis (1) Hypernatremia Is this a current diagnosis for this admission?: Yes Plan: Secondary to dehydration. IV fluids discontinued secondary to anasarca. (2) Failure to thrive Qualifiers: Failure to thrive age range: in adult Qualified Code(s): R62.7 - Adult failure to thrive Is this a current diagnosis for this admission?: Yes Plan: Patient has had decreased p.o. intake and she is grossly malnourished. At this point no one is making medical decisions for her. She is DNR. At this point I would not recommend placement of PEG tube for nutritional support. Patient is elderly and has comorbid conditions and I am not certain that her quality of life would be improved with PEG tube. At this point in time I would recommend comfort care measures/hospice services. (3) Dehydration Is this a current diagnosis for this admission?: Yes Plan: Acute on chronic renal failure management as above. Fluids discontinued secondary to anasarca. (4) Anemia in chronic kidney disease (CKD) Qualifiers: Chronic kidney disease stage: stage 3 (moderate) Qualified Code(s): N18.3 - Chronic kidney disease, stage 3 (moderate) Is this a current diagnosis for this admission?: Yes Plan: acute on chronic anemia in CKD. declining. check stools. (5) CHF (congestive heart failure) Qualifiers: Congestive heart failure type: unspecified congestive heart failure type Congestive heart failure chronicity: acute on chronic Qualified Code(s): I50.9 - Heart failure, unspecified Plan: The patient is currently edematous in all 4 extremities. Continue as needed Lasix. Her edema is likely secondary to her malnutrition in part. (6) COPD (chronic obstructive pulmonary disease) Qualifiers: COPD type: unspecified COPD Qualified Code(s): J44.9 - Chronic obstructive pulmonary disease, unspecified Is this a current diagnosis for this admission?: Yes Plan: The patient is not in acute exacerbation. Continue home medications. As able. (7) Hypertensive crisis Is this a current diagnosis for this admission?: Yes Plan: As needed antihypertensives. Continue scheduled Norvasc and clonidine as appropriate. (8) Severe protein-calorie malnutrition Is this a current diagnosis for this admission?: Yes Plan: The patient is still not eating. As mentioned previously I do not recommend PEG tube placement for nutrition. The patient is 81 years old and has comorbid medical conditions. Her failure to thrive is quite profound this point. I recommend hospice/comfort care measures. Do not think the patient's quality of life will be enhanced by any extreme life-saving measures. Unfortunately, the patient still has no guardian appointed to make decisions for her. (9) Dementia Is this a current diagnosis for this admission?: Yes Plan: History of dementia is not listed in her previous medical chart. However the ER physician got this history from the final assembler and the PCP. Continue to monitor her mental state. (10) Leukocytosis Is this a current diagnosis for this admission?: Yes Plan: Patient's leukocytosis has returned. She has bibasilar infiltrates on chest x -ray. I suspect that this is a hospital-acquired pneumonia likely with gram- negative rods or even MRSA. Patient is on Zosyn and has been on this since 25 May. Will add MRSA coverage. (11) Constipation Is this a current diagnosis for this admission?: Yes Plan: Resolved. - Time Time Spent with patient: 15-24 minutes
[2017-05-27] MEDS ORDERED: LINEZOLID 300 ML IV ONE (22:36)
[2017-05-27] MEDS: LINEZOLID 300 ML IV SCH (23:13)
[2017-05-28] MEDS: PIPERACILLIN SODIUM/TAZOBACTAM 2.25 GM in NORMAL SALINE 50 ML IV SCH ×3 (05:07→22:27)
[2017-05-28] MEDS: AMLODIPINE BESYLATE 10 MG TABLET PO SCH (10:13)
[2017-05-28] MEDS: LINEZOLID 300 ML IV SCH ×2 (10:26→22:26)
[2017-05-28] MEDS: SCOPOLAMINE HYDROBROMIDE 1.5 MG PATCH.TD72 TD SCH (10:26)
[2017-05-28] MEDS: NORMAL SALINE 10 ML SDV (SCHEDULED) IV SCH ×2 (10:26→22:27)
[2017-05-28] MEDS: ALBUTEROL SULFATE 0.083% NEB 2.5 MG/3 ML AMPUL NEB PRN (11:28)
[2017-05-28] MEDS ORDERED: HYDRALAZINE HCL INJ/PF 20 MG/1 ML SDV IV PRN (15:56)
[2017-05-28] MEDS ORDERED: FUROSEMIDE INJ/PF 20 MG/2 ML SDV IV ONE (16:02)
--- NOTE | 2017-05-28 16:03 | PDOC PROGRESS REPORT ---
Subjective Progress Note for:: 05/28/17 Subjective:: This is a follow-up visit for failure to thrive and acute renal failure with severe protein calorie malnutrition. No acute events overnight. The patient is not lucid today. Patient continues to decline. Reason For Visit: ACUTE RENAL FAILURE AND FAILURE TO THRIVE Physical Exam Vital Signs: Temp Pulse Resp BP Pulse Ox 97.3 F 91 15 141/62 H 97 05/28/17 11:06 05/28/17 11:28 05/28/17 11:28 05/28/17 11:06 05/28/17 11:06 Intake & Output 05/27/17 05/28/17 05/29/17 06:59 06:59 06:59 Intake Total 0 0 Balance 0 0 Weight 56.6 kg 57.5 kg GENERAL: This is a well-developed grossly underweight, [place] female resting not responsive Heart: Regular rate and rhythm. 2 out of 6 systolic ejection murmur no gallops or rubs. Lungs: Gurgling heard at the door. Coarse breath sounds anteriorly with equal rise and fall the chest. Abdomen: Flat but firm. Nondistended hypoactive bowel sounds. EXTREMETIES: No clubbing, cyanosis. pitting edema in all extremities, her abdomen and chest. Anasarca NEURO: Not responsive Results Laboratory Results: 05/27/17 05:42 05/27/17 05:42 04/18/17 06:17 NT-Pro-B Natriuret Pep 4190 H Impressions: Guidance Fluoroscopy 05/09/17 00:00 IMPRESSION: SUCCESSFUL PLACEMENT OF A 5 FR DUAL LUMEN 35 CM PICC IN THE LEFT BASILIC VEIN. Interventional Vascular Procedure 05/09/17 00:00 IMPRESSION: SUCCESSFUL PLACEMENT OF A 5 FR DUAL LUMEN 35 CM PICC IN THE LEFT BASILIC VEIN. PICC Line Insertion 05/09/17 00:00 IMPRESSION: SUCCESSFUL PLACEMENT OF A 5 FR DUAL LUMEN 35 CM PICC IN THE LEFT BASILIC VEIN. Chest X-Ray 05/26/17 00:00 IMPRESSION: Unchanged bibasilar infiltrates and trace left pleural effusion Assessment & Plan - Diagnosis (1) Hypernatremia Is this a current diagnosis for this admission?: Yes Plan: Secondary to dehydration. IV fluids discontinued secondary to anasarca. (2) Failure to thrive Qualifiers: Failure to thrive age range: in adult Qualified Code(s): R62.7 - Adult failure to thrive Is this a current diagnosis for this admission?: Yes Plan: Patient has had decreased p.o. intake and she is grossly malnourished. At this point no one is making medical decisions for her. She is DNR. At this point I would not recommend placement of PEG tube for nutritional support. Patient is elderly and has comorbid conditions and I am not certain that her quality of life would be improved with PEG tube. At this point in time I would recommend comfort care measures/hospice services. During this hospitalization the patient has rallied on 3 separate occasions. This will be the fourth time that she has declined. This time around the patient looks worse and she has anasarca. She is not making much urine at all. She likely has a hospital- acquired pneumonia. I think that she is slowly shutting down and that the patient is approaching . Continue supportive care. The patient's court date is June 05 for establishment of guardianship. (3) Dehydration Is this a current diagnosis for this admission?: Yes Plan: Acute on chronic renal failure management as above. Fluids discontinued secondary to anasarca. (4) Anemia in chronic kidney disease (CKD) Qualifiers: Chronic kidney disease stage: stage 3 (moderate) Qualified Code(s): N18.3 - Chronic kidney disease, stage 3 (moderate) Is this a current diagnosis for this admission?: Yes Plan: stable. Repeat cbc (5) CHF (congestive heart failure) Qualifiers: Congestive heart failure type: unspecified congestive heart failure type Congestive heart failure chronicity: acute on chronic Qualified Code(s): I50.9 - Heart failure, unspecified Plan: The patient is currently edematous in all 4 extremities. Continue as needed Lasix. Her edema is likely secondary to her malnutrition in part. In large part however, her edema is secondary to her organ system slowly shutting down. I believe the patient is nearing . Again, she has no guardian. We will continue reasonable treatment and give her some Lasix. Patient is not making much urine so I am doubtful that this will help. She has scopolamine patch to assist with any dyspnea. (6) COPD (chronic obstructive pulmonary disease) Qualifiers: COPD type: unspecified COPD Qualified Code(s): J44.9 - Chronic obstructive pulmonary disease, unspecified Is this a current diagnosis for this admission?: Yes Plan: The patient is not in acute exacerbation. Continue home medications. As able. (7) Hypertensive crisis Is this a current diagnosis for this admission?: Yes Plan: As needed antihypertensives. Continue scheduled Norvasc and clonidine as appropriate. At present the patient cannot take p.o. We will leave her oral medicines on in case she eventually can take them. Will add as needed. For now her blood pressures have been more than reasonable. (8) Severe protein-calorie malnutrition Is this a current diagnosis for this admission?: Yes Plan: The patient is still not eating. As mentioned previously I do not recommend PEG tube placement for nutrition. The patient is 81 years old and has comorbid medical conditions. Her failure to thrive is quite profound this point. I recommend hospice/comfort care measures. Do not think the patient's quality of life will be enhanced by any extreme life-saving measures. Unfortunately, the patient still has no guardian appointed to make decisions for her. (9) Dementia Is this a current diagnosis for this admission?: Yes Plan: History of dementia is not listed in her previous medical chart. However the ER physician got this history from the grab operator and the PCP. Continue to monitor her mental state. (10) Leukocytosis Is this a current diagnosis for this admission?: Yes Plan: Patient's leukocytosis has returned. She has bibasilar infiltrates on chest x -ray. I suspect that this is a hospital-acquired pneumonia likely with gram- negative rods or even MRSA. Patient is on Zosyn and Linezolid. (11) Constipation Is this a current diagnosis for this admission?: Yes Plan: Resolved. - Time Time Spent with patient: 15-24 minutes
[2017-05-28] MEDS ORDERED: FUROSEMIDE INJ/PF 40 MG/4 ML SDV IV ONE (17:00)
[2017-05-28 18:03] LABS: HGB HCT DIFFERENCE -1.2; MEAN CORPUSCULAR HGB CONC 31.5 g/dL (32.0-36.0); MEAN CORPUSCULAR VOLUME 92 fl (80-97); RED BLOOD COUNT 2.61 10^6/uL (3.72-5.28); RED CELL DISTRIBUTION WIDTH 18.5 % (11.5-14.0); WHITE BLOOD COUNT 16.5 10^3/uL (4.0-10.5)
[2017-05-28 18:16] LABS: ANION GAP 13 (5-19); BLOOD UREA NITROGEN 53 mg/dL (7-20); CALCIUM 7.4 mg/dL (8.4-10.2); CARBON DIOXIDE 14 mmol/L (22-30); CHLORIDE 114 mmol/L (98-107); CREATININE RESULT 3.52 mg/dL (0.52-1.25); GLUCOSE 69 mg/dL (75-110); MAGNESIUM 1.9 mg/dL (1.6-2.3); POTASSIUM 4.8 mmol/L (3.6-5.0); SODIUM 141.4 mmol/L (137-145)
[2017-05-28 18:36] LABS: BAND NEUTROPHILS % (MANUAL) 2 % (3-5); BASOPHILS % (MANUAL) 0 % (0-2); EOSINOPHILS % (MANUAL) 0 % (0-6); LYMPHOCYTES % (MANUAL) 4 % (13-45); TOTAL CELLS COUNTED 100
[2017-05-28 18:37] LABS: ANISOCYTOSIS 2+; TOXIC VACUOLATION PRESENT
[2017-05-28 18:41] LABS: HEMOGLOBIN 7.6 g/dL (12.0-15.5)
[2017-05-28] MEDS: MORPHINE SULFATE 10 MG/ML INJ IV PRN (20:36)
[2017-05-29] MEDS: PIPERACILLIN SODIUM/TAZOBACTAM 2.25 GM in NORMAL SALINE 50 ML IV SCH ×3 (06:39→22:19)
[2017-05-29 07:35] LABS: HGB HCT DIFFERENCE -1.5; MEAN CORPUSCULAR HEMOGLOBIN 28.9 pg (27.0-33.4); MEAN CORPUSCULAR HGB CONC 31.3 g/dL (32.0-36.0); MEAN CORPUSCULAR VOLUME 92 fl (80-97); RED CELL DISTRIBUTION WIDTH 18.2 % (11.5-14.0); WHITE BLOOD COUNT 16.4 10^3/uL (4.0-10.5)
[2017-05-29 07:48] LABS: ANION GAP 16 (5-19); BLOOD UREA NITROGEN 59 mg/dL (7-20); CALCIUM 8.2 mg/dL (8.4-10.2); CARBON DIOXIDE 15 mmol/L (22-30); CHLORIDE 111 mmol/L (98-107); CREATININE RESULT 4.27 mg/dL (0.52-1.25); GLUCOSE 81 mg/dL (75-110); MAGNESIUM 2.1 mg/dL (1.6-2.3); POTASSIUM 5.6 mmol/L (3.6-5.0); SODIUM 142.1 mmol/L (137-145)
[2017-05-29 08:23] LABS: HEMOGLOBIN 7.5 g/dL (12.0-15.5)
[2017-05-29 08:41] LABS: BAND NEUTROPHILS % (MANUAL) 2 % (3-5); BASOPHILS % (MANUAL) 0 % (0-2); EOSINOPHILS % (MANUAL) 0 % (0-6); LYMPHOCYTES % (MANUAL) 6 % (13-45); TOTAL CELLS COUNTED 100
[2017-05-29 08:42] LABS: ANISOCYTOSIS 1+; BURR CELLS SLIGHT; OVALOCYTES 1+; POIKILOCYTOSIS 1+
[2017-05-29] MEDS: AMLODIPINE BESYLATE 10 MG TABLET PO SCH (10:42)
[2017-05-29] MEDS: NORMAL SALINE 10 ML SDV (SCHEDULED) IV SCH ×2 (10:46→22:19)
[2017-05-29] MEDS: LINEZOLID 300 ML IV SCH ×2 (10:46→22:19)
[2017-05-29] MEDS: MORPHINE SULFATE 10 MG/ML INJ IV PRN (11:20)
[2017-05-29 12:26] LABS: PATH REVIEW PATHOLOGIST REVIEWED
--- NOTE | 2017-05-29 16:28 | PDOC PROGRESS REPORT ---
Subjective Progress Note for:: 05/29/17 Subjective:: 81-year-old female who is pleasantly demented without complaints today. Reason For Visit: ACUTE RENAL FAILURE AND FAILURE TO THRIVE Physical Exam Vital Signs: Temp Pulse Resp BP Pulse Ox 97.3 F 87 16 136/46 H 91 L 05/29/17 07:13 05/29/17 14:00 05/29/17 07:13 05/29/17 07:13 05/29/17 07:13 Intake & Output 05/28/17 05/29/17 05/30/17 06:59 06:59 06:59 Intake Total 0 0 0 Output Total 0 Balance 0 0 0 Weight 57.5 kg 57.5 kg General appearance: PRESENT: no acute distress Eye exam: PRESENT: conjunctiva pink. ABSENT: scleral icterus Mouth exam: PRESENT: moist, tongue midline Neck exam: ABSENT: JVD Respiratory exam: PRESENT: clear to auscultation hansa. ABSENT: rales, rhonchi, wheezes Cardiovascular exam: PRESENT: RRR. ABSENT: diastolic murmur, rubs, systolic murmur GI/Abdominal exam: PRESENT: normal bowel sounds, soft. ABSENT: distended, guarding, mass, organolmegaly, rebound, tenderness Extremities exam: PRESENT: pedal edema, +1 edema. ABSENT: calf tenderness, clubbing Neurological exam: PRESENT: awake, oriented to person. ABSENT: oriented to place, oriented to time, oriented to situation Psychiatric exam: PRESENT: flat affect Skin exam: PRESENT: dry, intact, warm. ABSENT: cyanosis, rash Results Laboratory Results: 05/29/17 07:24 05/29/17 07:24 05/28/17 05/28/17 05/29/17 17:37 17:37 07:24 WBC 16.5 H 16.4 H RBC 2.61 L 2.60 L Hgb 7.6 L 7.5 L Hct 24.0 L 24.0 L MCV 92 92 MCH 29.0 28.9 MCHC 31.5 L 31.3 L RDW 18.5 H 18.2 H Plt Count 378 382 Seg Neutrophils % Not Reportable Not Reportable Lymphocytes % Not Reportable Not Reportable Monocytes % Not Reportable Not Reportable Eosinophils % Not Reportable Not Reportable Basophils % Not Reportable Not Reportable Absolute Neutrophils Not Reportable Not Reportable Absolute Lymphocytes Not Reportable Not Reportable Absolute Monocytes Not Reportable Not Reportable Absolute Eosinophils Not Reportable Not Reportable Absolute Basophils Not Reportable Not Reportable Sodium 141.4 Potassium 4.8 Chloride 114 H Carbon Dioxide 14 L Anion Gap 13 BUN 53 H Creatinine 3.52 H Est GFR ( Amer) 15 L Est GFR (Non-Af Amer) 12 L Glucose 69 L Calcium 7.4 L Magnesium 1.9 05/29/17 07:24 WBC RBC Hgb Hct MCV MCH MCHC RDW Plt Count Seg Neutrophils % Lymphocytes % Monocytes % Eosinophils % Basophils % Absolute Neutrophils Absolute Lymphocytes Absolute Monocytes Absolute Eosinophils Absolute Basophils Sodium 142.1 Potassium 5.6 H Chloride 111 H Carbon Dioxide 15 L Anion Gap 16 BUN 59 H Creatinine 4.27 H Est GFR ( Amer) 12 L Est GFR (Non-Af Amer) 10 L Glucose 81 Calcium 8.2 L Magnesium 2.1 04/18/17 06:17 NT-Pro-B Natriuret Pep 4190 H Impressions: Guidance Fluoroscopy 05/09/17 00:00 IMPRESSION: SUCCESSFUL PLACEMENT OF A 5 FR DUAL LUMEN 35 CM PICC IN THE LEFT BASILIC VEIN. Interventional Vascular Procedure 05/09/17 00:00 IMPRESSION: SUCCESSFUL PLACEMENT OF A 5 FR DUAL LUMEN 35 CM PICC IN THE LEFT BASILIC VEIN. PICC Line Insertion 05/09/17 00:00 IMPRESSION: SUCCESSFUL PLACEMENT OF A 5 FR DUAL LUMEN 35 CM PICC IN THE LEFT BASILIC VEIN. Chest X-Ray 05/26/17 00:00 IMPRESSION: Unchanged bibasilar infiltrates and trace left pleural effusion Assessment & Plan - Diagnosis (1) Failure to thrive Qualifiers: Failure to thrive age range: in adult Qualified Code(s): R62.7 - Adult failure to thrive Is this a current diagnosis for this admission?: Yes Plan: The patient is awaiting guardianship. Patient most likely would not benefit from a PEG tube given her dementia and most likely she is end-of-life. (2) Dementia Is this a current diagnosis for this admission?: Yes Plan: travel services professional is pursuing guardianship. The patient has been evaluated by psychiatry and is deemed incompetent. (3) Hypernatremia Is this a current diagnosis for this admission?: Yes Plan: Resolved. (4) Hypertensive crisis Is this a current diagnosis for this admission?: Yes Plan: Blood pressures have been stable. (5) Anemia in chronic kidney disease (CKD) Qualifiers: Chronic kidney disease stage: stage 3 (moderate) Qualified Code(s): N18.3 - Chronic kidney disease, stage 3 (moderate) Is this a current diagnosis for this admission?: Yes Plan: Hemoglobin remained stable. (6) CKD (chronic kidney disease) stage 3, GFR 30-59 ml/min Is this a current diagnosis for this admission?: Yes Plan: Patient appears to be euvolemic. (7) COPD (chronic obstructive pulmonary disease) Qualifiers: COPD type: unspecified COPD Qualified Code(s): J44.9 - Chronic obstructive pulmonary disease, unspecified Is this a current diagnosis for this admission?: Yes Plan: No wheezing on exam today. - Time Time Spent with patient: 15-24 minutes - Plan Summary Plan Summary: Awaiting placement.
--- NOTE | 2017-05-29 22:34 | Progress Note ---
Provider Note Provider Note: Palliative care follow up visit 05/29/17 11:30 AM Brief visit to check on patient. She is in bed, very weak, frowning and moaning. She has a visitor at her bedside, but is not speaking to me or visitor. She has much less edema in arms and face, breath sounds not as congested. Mrs. Sandhu does not look at me when her name is called and doesnt respond to touch or comforting words. Nurse reports patient is not eating or drinking. I asked nurse to give her morphine as ordered and she promised to do that and keep an eye on patient for further pain. I do not think this patient will live until her guardianship hearing on Jun 05. However, I certainly appreciate the care [facility] has given to her in spite of the circumstances. Will follow.
[2017-05-30] MEDS: MORPHINE SULFATE 10 MG/ML INJ IV PRN ×6 (01:10→23:54)
[2017-05-30] MEDS: PIPERACILLIN SODIUM/TAZOBACTAM 2.25 GM in NORMAL SALINE 50 ML IV SCH ×3 (07:32→22:25)
[2017-05-30 07:37] LABS: HEMATOCRIT 25.6 % (36.0-47.0); HGB HCT DIFFERENCE -1.9; MEAN CORPUSCULAR HEMOGLOBIN 28.7 pg (27.0-33.4); MEAN CORPUSCULAR VOLUME 93 fl (80-97); RED BLOOD COUNT 2.77 10^6/uL (3.72-5.28); RED CELL DISTRIBUTION WIDTH 18.6 % (11.5-14.0); WHITE BLOOD COUNT 18.7 10^3/uL (4.0-10.5)
[2017-05-30 07:47] LABS: ANION GAP 15 (5-19); BLOOD UREA NITROGEN 63 mg/dL (7-20); CARBON DIOXIDE 15 mmol/L (22-30); CHLORIDE 111 mmol/L (98-107); CREATININE RESULT 4.19 mg/dL (0.52-1.25); GLUCOSE 85 mg/dL (75-110); POTASSIUM 5.1 mmol/L (3.6-5.0); SODIUM 141.2 mmol/L (137-145)
[2017-05-30 07:49] LABS: HEMOGLOBIN 7.9 g/dL (12.0-15.5)
[2017-05-30 08:24] LABS: BAND NEUTROPHILS % (MANUAL) 6 % (3-5); BASOPHILS % (MANUAL) 0 % (0-2); EOSINOPHILS % (MANUAL) 0 % (0-6); LYMPHOCYTES % (MANUAL) 2 % (13-45); TOTAL CELLS COUNTED 100
[2017-05-30 08:25] LABS: ANISOCYTOSIS 1+; HYPOCHROMASIA SLIGHT; TOXIC GRANULATION 1+
[2017-05-30] MEDS: LINEZOLID 300 ML IV SCH ×2 (09:42→22:25)
[2017-05-30] MEDS: AMLODIPINE BESYLATE 10 MG TABLET PO SCH (09:43)
[2017-05-30] MEDS: NORMAL SALINE 10 ML SDV (SCHEDULED) IV SCH ×2 (09:43→22:25)
--- NOTE | 2017-05-30 12:08 | PDOC PROGRESS REPORT ---
Subjective Progress Note for:: 05/30/17 Subjective:: Patient will respond to painful stimuli. Reason For Visit: ACUTE RENAL FAILURE AND FAILURE TO THRIVE Physical Exam Vital Signs: Temp Pulse Resp BP Pulse Ox 97.5 F 76 12 101/53 L 97 05/30/17 07:30 05/30/17 07:30 05/30/17 07:30 05/30/17 07:30 05/30/17 07:30 Intake & Output 05/29/17 05/30/17 05/31/17 06:59 06:59 06:59 Intake Total 0 0 Output Total 0 Balance 0 0 Weight 57.5 kg 57.3 kg General appearance: PRESENT: mild distress Eye exam: PRESENT: conjunctiva pink. ABSENT: scleral icterus Mouth exam: PRESENT: dry mucosa, tongue midline Neck exam: ABSENT: JVD Respiratory exam: PRESENT: rhonchi - Coarse rhonchi bilaterally.. ABSENT: rales , wheezes Cardiovascular exam: PRESENT: RRR. ABSENT: diastolic murmur, rubs, systolic murmur GI/Abdominal exam: PRESENT: normal bowel sounds, soft. ABSENT: distended, guarding, mass, organolmegaly, rebound, tenderness Extremities exam: PRESENT: pedal edema. ABSENT: calf tenderness, clubbing Neurological exam: PRESENT: altered Psychiatric exam: PRESENT: flat affect Skin exam: PRESENT: dry, intact, warm. ABSENT: cyanosis, rash Results Laboratory Results: 05/30/17 06:20 05/30/17 06:20 05/30/17 05/30/17 06:20 06:20 WBC 18.7 H RBC 2.77 L Hgb 7.9 L Hct 25.6 L MCV 93 MCH 28.7 MCHC 31.0 L RDW 18.6 H Plt Count 364 Seg Neutrophils % Not Reportable Lymphocytes % Not Reportable Monocytes % Not Reportable Eosinophils % Not Reportable Basophils % Not Reportable Absolute Neutrophils Not Reportable Absolute Lymphocytes Not Reportable Absolute Monocytes Not Reportable Absolute Eosinophils Not Reportable Absolute Basophils Not Reportable Sodium 141.2 Potassium 5.1 H Chloride 111 H Carbon Dioxide 15 L Anion Gap 15 BUN 63 H Creatinine 4.19 H Est GFR ( Amer) 12 L Est GFR (Non-Af Amer) 10 L Glucose 85 Calcium 8.0 L 04/18/17 06:17 NT-Pro-B Natriuret Pep 4190 H Impressions: Guidance Fluoroscopy 05/09/17 00:00 IMPRESSION: SUCCESSFUL PLACEMENT OF A 5 FR DUAL LUMEN 35 CM PICC IN THE LEFT BASILIC VEIN. Interventional Vascular Procedure 05/09/17 00:00 IMPRESSION: SUCCESSFUL PLACEMENT OF A 5 FR DUAL LUMEN 35 CM PICC IN THE LEFT BASILIC VEIN. PICC Line Insertion 05/09/17 00:00 IMPRESSION: SUCCESSFUL PLACEMENT OF A 5 FR DUAL LUMEN 35 CM PICC IN THE LEFT BASILIC VEIN. Chest X-Ray 05/26/17 00:00 IMPRESSION: Unchanged bibasilar infiltrates and trace left pleural effusion Assessment & Plan - Diagnosis (1) Failure to thrive Qualifiers: Failure to thrive age range: in adult Qualified Code(s): R62.7 - Adult failure to thrive Is this a current diagnosis for this admission?: Yes Plan: The patient is awaiting guardianship. Patient most likely would not benefit from a PEG tube given her dementia and most likely she is end-of-life. (2) Dementia Is this a current diagnosis for this admission?: Yes Plan: disability services coordinator is pursuing guardianship. The patient has been evaluated by psychiatry and is deemed incompetent. (3) Hypernatremia Is this a current diagnosis for this admission?: Yes Plan: Resolved. (4) Hypertensive crisis Is this a current diagnosis for this admission?: Yes Plan: Blood pressures have been stable. (5) Anemia in chronic kidney disease (CKD) Qualifiers: Chronic kidney disease stage: stage 3 (moderate) Qualified Code(s): N18.3 - Chronic kidney disease, stage 3 (moderate) Is this a current diagnosis for this admission?: Yes Plan: stable. (6) CKD (chronic kidney disease) stage 3, GFR 30-59 ml/min Is this a current diagnosis for this admission?: Yes Plan: Patient appears to be euvolemic. (7) COPD (chronic obstructive pulmonary disease) Qualifiers: COPD type: unspecified COPD Qualified Code(s): J44.9 - Chronic obstructive pulmonary disease, unspecified Is this a current diagnosis for this admission?: Yes Plan: No wheezing on exam today. - Time Time Spent with patient: 25-34 minutes - Inpatient Certification Medical Necessity: Need Close Monitoring Due to Risk of Patient Decompensation
[2017-05-30] MEDS: NA PHOS,M-B/NA PHOS,DI-BA (ADULT) 133 ML ENEMA PR PRN (17:39)
[2017-05-31] MEDS: PIPERACILLIN SODIUM/TAZOBACTAM 2.25 GM in NORMAL SALINE 50 ML IV SCH ×3 (05:21→23:13)
[2017-05-31] MEDS: MORPHINE SULFATE 10 MG/ML INJ IV PRN ×2 (06:38→16:15)
[2017-05-31] MEDS: LINEZOLID 300 ML IV SCH ×2 (11:15→23:13)
[2017-05-31] MEDS: SCOPOLAMINE HYDROBROMIDE 1.5 MG PATCH.TD72 TD SCH (11:16)
[2017-05-31] MEDS: NORMAL SALINE 10 ML SDV (SCHEDULED) IV SCH ×2 (11:18→23:13)
[2017-05-31] MEDS: AMLODIPINE BESYLATE 10 MG TABLET PO SCH (11:18)
--- NOTE | 2017-05-31 16:01 | PDOC PROGRESS REPORT ---
Subjective Progress Note for:: 05/31/17 Subjective:: Patient will respond to painful stimuli. Reason For Visit: ACUTE RENAL FAILURE AND FAILURE TO THRIVE Physical Exam Vital Signs: Temp Pulse Resp BP Pulse Ox 98.2 F 67 8 L 106/65 99 05/30/17 15:22 05/31/17 11:10 05/31/17 11:10 05/31/17 11:10 05/31/17 15:50 Intake & Output 05/30/17 05/31/17 06/01/17 06:59 06:59 06:59 Intake Total 0 Balance 0 Weight 57.3 kg 57.4 kg General appearance: PRESENT: mild distress Eye exam: PRESENT: conjunctiva pink. ABSENT: scleral icterus Mouth exam: PRESENT: dry mucosa Neck exam: ABSENT: JVD Respiratory exam: PRESENT: clear to auscultation hansa. ABSENT: rales, rhonchi, wheezes Cardiovascular exam: PRESENT: tachycardia. ABSENT: diastolic murmur, rubs, systolic murmur GI/Abdominal exam: PRESENT: normal bowel sounds, soft. ABSENT: distended, guarding, mass, organolmegaly, rebound, tenderness Extremities exam: PRESENT: pedal edema, +2 edema. ABSENT: calf tenderness, clubbing Neurological exam: PRESENT: altered Skin exam: PRESENT: dry, intact, warm. ABSENT: cyanosis, rash Results Laboratory Results: 05/30/17 06:20 05/30/17 06:20 04/18/17 06:17 NT-Pro-B Natriuret Pep 4190 H Impressions: Guidance Fluoroscopy 05/09/17 00:00 IMPRESSION: SUCCESSFUL PLACEMENT OF A 5 FR DUAL LUMEN 35 CM PICC IN THE LEFT BASILIC VEIN. Interventional Vascular Procedure 05/09/17 00:00 IMPRESSION: SUCCESSFUL PLACEMENT OF A 5 FR DUAL LUMEN 35 CM PICC IN THE LEFT BASILIC VEIN. PICC Line Insertion 05/09/17 00:00 IMPRESSION: SUCCESSFUL PLACEMENT OF A 5 FR DUAL LUMEN 35 CM PICC IN THE LEFT BASILIC VEIN. Chest X-Ray 05/26/17 00:00 IMPRESSION: Unchanged bibasilar infiltrates and trace left pleural effusion Assessment & Plan - Diagnosis (1) Failure to thrive Qualifiers: Failure to thrive age range: in adult Qualified Code(s): R62.7 - Adult failure to thrive Is this a current diagnosis for this admission?: Yes Plan: The patient is awaiting guardianship. Patient most likely would not benefit from a PEG tube given her dementia and most likely she is end-of-life. (2) Dementia Is this a current diagnosis for this admission?: Yes (3) Hypernatremia Is this a current diagnosis for this admission?: Yes (4) Hypertensive crisis Is this a current diagnosis for this admission?: Yes (5) Anemia in chronic kidney disease (CKD) Qualifiers: Chronic kidney disease stage: stage 3 (moderate) Qualified Code(s): N18.3 - Chronic kidney disease, stage 3 (moderate) Is this a current diagnosis for this admission?: Yes (6) CKD (chronic kidney disease) stage 3, GFR 30-59 ml/min Is this a current diagnosis for this admission?: Yes (7) COPD (chronic obstructive pulmonary disease) Qualifiers: COPD type: unspecified COPD Qualified Code(s): J44.9 - Chronic obstructive pulmonary disease, unspecified Is this a current diagnosis for this admission?: Yes - Time Time Spent with patient: 15-24 minutes - Plan Summary Plan Summary: Awaiting guardianship.
--- NOTE | 2017-05-31 23:06 | Progress Note ---
Provider Note Provider Note: Palliative Care Follow up visit: 05/31/17 1:30PM Follow up visit for pain and symptoms control. Patient was uncomfortable when I saw her last with some restlessness noted. Today, patient is unresponsive to my voice and touch. SHe is pale and breathing in a deep clear manner with mouth open as seen patients very near . She had no cyanosis and no mottling noted, but she does appear to be approaching . Unfortunate end of life experience for this lonely lady. Will follow. Nonbillable visit today.
[2017-06-01] MEDS: MORPHINE SULFATE 10 MG/ML INJ IV PRN ×6 (01:33→16:45)
[2017-06-01] MEDS: PIPERACILLIN SODIUM/TAZOBACTAM 2.25 GM in NORMAL SALINE 50 ML IV SCH (07:38)
[2017-06-01] MEDS: NORMAL SALINE 10 ML SDV (SCHEDULED) IV SCH (09:05)
[2017-06-01] MEDS: AMLODIPINE BESYLATE 10 MG TABLET PO SCH (09:06)
[2017-06-01] MEDS: LINEZOLID 300 ML IV SCH (10:54)
--- NOTE | 2017-06-01 13:41 | PDOC PROGRESS REPORT ---
Subjective Progress Note for:: 06/01/17 Subjective:: Unresponsive Reason For Visit: ACUTE RENAL FAILURE AND FAILURE TO THRIVE Physical Exam Vital Signs: Temp Pulse Resp BP Pulse Ox 92.5 F L 55 L 6 L 53/20 L 87 L 06/01/17 02:15 06/01/17 11:04 06/01/17 11:04 06/01/17 11:04 06/01/17 11:04 Intake & Output 05/31/17 06/01/17 06/02/17 06:59 06:59 06:59 Weight 57.4 kg 56.5 kg General appearance: PRESENT: mild distress Eye exam: PRESENT: conjunctiva pink. ABSENT: scleral icterus Mouth exam: PRESENT: dry mucosa Neck exam: ABSENT: JVD Respiratory exam: PRESENT: accessory muscle use Cardiovascular exam: PRESENT: RRR. ABSENT: diastolic murmur, rubs, systolic murmur GI/Abdominal exam: PRESENT: normal bowel sounds, soft. ABSENT: distended, guarding, mass, organolmegaly, rebound, tenderness Extremities exam: PRESENT: pedal edema, +2 edema. ABSENT: calf tenderness, clubbing Neurological exam: PRESENT: altered Results Laboratory Results: 05/30/17 06:20 05/30/17 06:20 04/18/17 06:17 NT-Pro-B Natriuret Pep 4190 H Impressions: Guidance Fluoroscopy 05/09/17 00:00 IMPRESSION: SUCCESSFUL PLACEMENT OF A 5 FR DUAL LUMEN 35 CM PICC IN THE LEFT BASILIC VEIN. Interventional Vascular Procedure 05/09/17 00:00 IMPRESSION: SUCCESSFUL PLACEMENT OF A 5 FR DUAL LUMEN 35 CM PICC IN THE LEFT BASILIC VEIN. PICC Line Insertion 05/09/17 00:00 IMPRESSION: SUCCESSFUL PLACEMENT OF A 5 FR DUAL LUMEN 35 CM PICC IN THE LEFT BASILIC VEIN. Chest X-Ray 05/26/17 00:00 IMPRESSION: Unchanged bibasilar infiltrates and trace left pleural effusion Assessment & Plan - Diagnosis (1) Failure to thrive Qualifiers: Failure to thrive age range: in adult Qualified Code(s): R62.7 - Adult failure to thrive Is this a current diagnosis for this admission?: Yes Plan: The patient is awaiting guardianship. Patient most likely would not benefit from a PEG tube given her dementia and most likely she is end-of-life. (2) Dementia Is this a current diagnosis for this admission?: Yes Plan: equipment services associate is pursuing guardianship. The patient has been evaluated by psychiatry and is deemed incompetent. (3) Hypernatremia Is this a current diagnosis for this admission?: Yes Plan: Resolved. (4) Hypertensive crisis Is this a current diagnosis for this admission?: Yes (5) Anemia in chronic kidney disease (CKD) Qualifiers: Chronic kidney disease stage: stage 3 (moderate) Qualified Code(s): N18.3 - Chronic kidney disease, stage 3 (moderate) Is this a current diagnosis for this admission?: Yes (6) CKD (chronic kidney disease) stage 3, GFR 30-59 ml/min Is this a current diagnosis for this admission?: Yes (7) COPD (chronic obstructive pulmonary disease) Qualifiers: COPD type: unspecified COPD Qualified Code(s): J44.9 - Chronic obstructive pulmonary disease, unspecified Is this a current diagnosis for this admission?: Yes - Plan Summary Plan Summary: Patient is nearing the end of her life. We will stop all of her medications except for her morphine.
[2017-06-02] MEDS: NORMAL SALINE 10 ML SDV (SCHEDULED) IV SCH ×3 (01:28→23:00)
[2017-06-02] MEDS: MORPHINE SULFATE 10 MG/ML INJ IV PRN ×9 (06:56→23:00)
--- NOTE | 2017-06-02 12:48 | PDOC PROGRESS REPORT ---
Subjective Progress Note for:: 06/02/17 Subjective:: Unresponsive Reason For Visit: ACUTE RENAL FAILURE AND FAILURE TO THRIVE Physical Exam Vital Signs: Temp Pulse Resp BP Pulse Ox 92.5 F L 42 L 8 L 71/26 L 92 06/01/17 02:15 06/02/17 11:51 06/02/17 11:51 06/02/17 11:51 06/02/17 11:51 Intake & Output 06/01/17 06/02/17 06/03/17 06:59 06:59 06:59 Intake Total 0 Output Total 0 Balance 0 Weight 56.5 kg 56.5 kg General appearance: PRESENT: mild distress Eye exam: PRESENT: conjunctiva pink. ABSENT: scleral icterus Mouth exam: PRESENT: dry mucosa Neck exam: ABSENT: JVD Respiratory exam: PRESENT: rhonchi. ABSENT: rales, wheezes Cardiovascular exam: PRESENT: irregular rhythm, systolic murmur GI/Abdominal exam: PRESENT: normal bowel sounds, soft. ABSENT: distended, guarding, mass, organolmegaly, rebound, tenderness Extremities exam: PRESENT: pedal edema, +2 edema. ABSENT: calf tenderness, clubbing Neurological exam: PRESENT: altered Psychiatric exam: PRESENT: agitated Results Laboratory Results: 05/30/17 06:20 05/30/17 06:20 04/18/17 06:17 NT-Pro-B Natriuret Pep 4190 H Impressions: Guidance Fluoroscopy 05/09/17 00:00 IMPRESSION: SUCCESSFUL PLACEMENT OF A 5 FR DUAL LUMEN 35 CM PICC IN THE LEFT BASILIC VEIN. Interventional Vascular Procedure 05/09/17 00:00 IMPRESSION: SUCCESSFUL PLACEMENT OF A 5 FR DUAL LUMEN 35 CM PICC IN THE LEFT BASILIC VEIN. PICC Line Insertion 05/09/17 00:00 IMPRESSION: SUCCESSFUL PLACEMENT OF A 5 FR DUAL LUMEN 35 CM PICC IN THE LEFT BASILIC VEIN. Chest X-Ray 05/26/17 00:00 IMPRESSION: Unchanged bibasilar infiltrates and trace left pleural effusion Assessment & Plan - Diagnosis (1) Failure to thrive Qualifiers: Failure to thrive age range: in adult Qualified Code(s): R62.7 - Adult failure to thrive Is this a current diagnosis for this admission?: Yes Plan: The patient is awaiting guardianship. Patient most likely would not benefit from a PEG tube given her dementia and most likely she is end-of-life. (2) Dementia Is this a current diagnosis for this admission?: Yes Plan: program services planner is pursuing guardianship. The patient has been evaluated by psychiatry and is deemed incompetent. (3) Hypernatremia Is this a current diagnosis for this admission?: Yes (4) Hypertensive crisis Is this a current diagnosis for this admission?: Yes (5) Anemia in chronic kidney disease (CKD) Qualifiers: Chronic kidney disease stage: stage 3 (moderate) Qualified Code(s): N18.3 - Chronic kidney disease, stage 3 (moderate) Is this a current diagnosis for this admission?: Yes (6) CKD (chronic kidney disease) stage 3, GFR 30-59 ml/min Is this a current diagnosis for this admission?: Yes (7) COPD (chronic obstructive pulmonary disease) Qualifiers: COPD type: unspecified COPD Qualified Code(s): J44.9 - Chronic obstructive pulmonary disease, unspecified Is this a current diagnosis for this admission?: Yes - Time Time Spent with patient: 15-24 minutes - Inpatient Certification Medical Necessity: Need Close Monitoring Due to Risk of Patient Decompensation
[2017-06-03] MEDS: MORPHINE SULFATE 10 MG/ML INJ IV PRN ×5 (01:08→15:29)
[2017-06-03] MEDS: NORMAL SALINE 10 ML SDV (SCHEDULED) IV SCH ×2 (09:53→22:24)
[2017-06-03] MEDS: CLONIDINE 0.3 MG/24 HR PATCH.TDWK TD SCH (10:21)
[2017-06-03] MEDS: SCOPOLAMINE HYDROBROMIDE 1.5 MG PATCH.TD72 TD SCH (10:24)
--- NOTE | 2017-06-03 11:44 | PDOC PROGRESS REPORT ---
Subjective Progress Note for:: 06/03/17 Subjective:: Unresponsive Reason For Visit: ACUTE RENAL FAILURE AND FAILURE TO THRIVE Physical Exam Vital Signs: Temp Pulse Resp BP Pulse Ox 92.5 F L 65 20 49/19 L 92 06/01/17 02:15 06/03/17 08:54 06/03/17 08:54 06/03/17 08:54 06/02/17 11:51 Intake & Output 06/02/17 06/03/17 06/04/17 06:59 06:59 06:59 Intake Total 0 0 Output Total 0 0 Balance 0 0 Weight 56.5 kg 56.5 kg General appearance: PRESENT: mild distress Eye exam: PRESENT: conjunctiva pink Mouth exam: PRESENT: dry mucosa Respiratory exam: PRESENT: rhonchi. ABSENT: rales, wheezes Cardiovascular exam: PRESENT: RRR, tachycardia. ABSENT: diastolic murmur, rubs , systolic murmur GI/Abdominal exam: PRESENT: normal bowel sounds, soft. ABSENT: distended, guarding, mass, organolmegaly, rebound, tenderness Extremities exam: PRESENT: pedal edema. ABSENT: calf tenderness, clubbing Neurological exam: PRESENT: altered Results Laboratory Results: 05/30/17 06:20 05/30/17 06:20 04/18/17 06:17 NT-Pro-B Natriuret Pep 4190 H Impressions: Guidance Fluoroscopy 05/09/17 00:00 IMPRESSION: SUCCESSFUL PLACEMENT OF A 5 FR DUAL LUMEN 35 CM PICC IN THE LEFT BASILIC VEIN. Interventional Vascular Procedure 05/09/17 00:00 IMPRESSION: SUCCESSFUL PLACEMENT OF A 5 FR DUAL LUMEN 35 CM PICC IN THE LEFT BASILIC VEIN. PICC Line Insertion 05/09/17 00:00 IMPRESSION: SUCCESSFUL PLACEMENT OF A 5 FR DUAL LUMEN 35 CM PICC IN THE LEFT BASILIC VEIN. Chest X-Ray 05/26/17 00:00 IMPRESSION: Unchanged bibasilar infiltrates and trace left pleural effusion Assessment & Plan - Diagnosis (1) Failure to thrive Qualifiers: Failure to thrive age range: in adult Qualified Code(s): R62.7 - Adult failure to thrive Is this a current diagnosis for this admission?: Yes Plan: The patient is awaiting guardianship. She appears to be actively dying at this time. 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 The patient has been evaluated by psychiatry and is deemed incompetent. (3) Hypernatremia Is this a current diagnosis for this admission?: Yes (4) Hypertensive crisis Is this a current diagnosis for this admission?: Yes (5) Anemia in chronic kidney disease (CKD) Qualifiers: Chronic kidney disease stage: stage 3 (moderate) Qualified Code(s): N18.3 - Chronic kidney disease, stage 3 (moderate) Is this a current diagnosis for this admission?: Yes (6) CKD (chronic kidney disease) stage 3, GFR 30-59 ml/min Is this a current diagnosis for this admission?: Yes (7) COPD (chronic obstructive pulmonary disease) Qualifiers: COPD type: unspecified COPD Qualified Code(s): J44.9 - Chronic obstructive pulmonary disease, unspecified Is this a current diagnosis for this admission?: Yes - Time Time Spent with patient: 15-24 minutes - Plan Summary Plan Summary: The patient has been hypotensive and is unresponsive. I anticipate that she will in the next 24-48 hours.
[2017-06-04] MEDS ORDERED: HYDRALAZINE HCL INJ/PF 20 MG/1 ML SDV IV PRN (11:00)
--- NOTE | 2017-06-04 14:49 | PDOC PROGRESS REPORT ---
Subjective Progress Note for:: 06/04/17 Subjective:: Unresponsive Reason For Visit: ACUTE RENAL FAILURE AND FAILURE TO THRIVE Physical Exam Vital Signs: Temp Pulse Resp BP Pulse Ox 92.5 F L 45 L 12 53/32 L 91 L 06/01/17 02:15 06/04/17 08:00 06/04/17 08:00 06/04/17 08:00 06/04/17 08:00 Intake & Output 06/03/17 06/04/17 06/05/17 06:59 06:59 06:59 Intake Total 0 0 Output Total 0 Balance 0 0 Weight 56.5 kg 56.5 kg General appearance: PRESENT: mild distress Eye exam: PRESENT: conjunctiva pink. ABSENT: scleral icterus Mouth exam: PRESENT: moist, tongue midline Neck exam: ABSENT: JVD Respiratory exam: PRESENT: rhonchi Cardiovascular exam: PRESENT: irregular rhythm, tachycardia. ABSENT: diastolic murmur, rubs, systolic murmur Extremities exam: PRESENT: pedal edema, other - Patient has anasarca Neurological exam: PRESENT: other - Unresponsive Results Laboratory Results: 05/30/17 06:20 05/30/17 06:20 04/18/17 06:17 NT-Pro-B Natriuret Pep 4190 H Impressions: Guidance Fluoroscopy 05/09/17 00:00 IMPRESSION: SUCCESSFUL PLACEMENT OF A 5 FR DUAL LUMEN 35 CM PICC IN THE LEFT BASILIC VEIN. Interventional Vascular Procedure 05/09/17 00:00 IMPRESSION: SUCCESSFUL PLACEMENT OF A 5 FR DUAL LUMEN 35 CM PICC IN THE LEFT BASILIC VEIN. PICC Line Insertion 05/09/17 00:00 IMPRESSION: SUCCESSFUL PLACEMENT OF A 5 FR DUAL LUMEN 35 CM PICC IN THE LEFT BASILIC VEIN. Chest X-Ray 05/26/17 00:00 IMPRESSION: Unchanged bibasilar infiltrates and trace left pleural effusion Assessment & Plan - Diagnosis (1) Failure to thrive Qualifiers: Failure to thrive age range: in adult Qualified Code(s): R62.7 - Adult failure to thrive Is this a current diagnosis for this admission?: Yes Plan: The patient is awaiting guardianship. She appears to be actively dying at this time. (2) Dementia Is this a current diagnosis for this admission?: Yes Plan: volunteer services specialist is pursuing guardianship. The patient has been evaluated by psychiatry and is deemed incompetent. (3) Hypernatremia Is this a current diagnosis for this admission?: Yes Plan: Resolved. (4) Hypertensive crisis Is this a current diagnosis for this admission?: Yes (5) Anemia in chronic kidney disease (CKD) Qualifiers: Chronic kidney disease stage: stage 3 (moderate) Qualified Code(s): N18.3 - Chronic kidney disease, stage 3 (moderate) Is this a current diagnosis for this admission?: Yes (6) CKD (chronic kidney disease) stage 3, GFR 30-59 ml/min Is this a current diagnosis for this admission?: Yes (7) COPD (chronic obstructive pulmonary disease) Qualifiers: COPD type: unspecified COPD Qualified Code(s): J44.9 - Chronic obstructive pulmonary disease, unspecified Is this a current diagnosis for this admission?: Yes - Time Time Spent with patient: 15-24 minutes
[2017-06-04] MEDS: NORMAL SALINE 10 ML SDV (SCHEDULED) IV SCH ×2 (16:05→22:51)
[2017-06-04 20:57] VITALS: BP 80/22
== END 2017-06-04 21:35 | disposition expired | DRG 682 ==
LOC: ER 11:03 → EH 18:08 → 5 19:41
PROVIDERS: ADMIT Hospitalist; ATTEND Hospitalist
PROC: 02HV33Z Insertion of Infusion Device into Superior Vena Cava, Percutaneous Approach (ICD-10-PCS; principal; 2017-05-09)
PROC: B5181ZA Fluoroscopy of Superior Vena Cava using Low Osmolar Contrast, Guidance (ICD-10-PCS; 2017-05-09)
PROC: B548ZZA Ultrasonography of Superior Vena Cava, Guidance (ICD-10-PCS; 2017-05-09)
DX: N17.9 Acute kidney failure, unspecified (principal); E43 Unspecified severe protein-calorie malnutrition; E87.0 Hyperosmolality and hypernatremia; I16.9 Hypertensive crisis, unspecified; I13.0 Hypertensive heart and chronic kidney disease with heart failure and stage 1 through stage 4 chronic kidney disease, or unspecified chronic kidney disease; I50.32 Chronic diastolic (congestive) heart failure; N18.3 Chronic kidney disease, stage 3 (moderate); D63.1 Anemia in chronic kidney disease; E86.0 Dehydration; Z66 Do not resuscitate; J44.9 Chronic obstructive pulmonary disease, unspecified; Z68.24 Body mass index [BMI] 24.0-24.9, adult; I25.10 Atherosclerotic heart disease of native coronary artery without angina pectoris; E78.5 Hyperlipidemia, unspecified; F01.50 Vascular dementia, unspecified severity, without behavioral disturbance, psychotic disturbance, mood disturbance, and anxiety; M19.90 Unspecified osteoarthritis, unspecified site; M25.561 Pain in right knee; Z79.82 Long term (current) use of aspirin; Z79.899 Other long term (current) drug therapy; Z99.2 Dependence on renal dialysis; Z90.710 Acquired absence of both cervix and uterus; Z95.0 Presence of cardiac pacemaker; Z87.891 Personal history of nicotine dependence
CPT/HCPCS: 36415; 36569; 71010; 76937; 77001; 80048; 80053; 81001; 82140; 82272; 82570; 82962; 83605; 83735; 83880; 84100; 84300; 84443; 85025; 87086; 93005; 93010; 94640; 99285; G8978-GP; G8979-GP; J0360; J1642; J1644; J1940; J2020; J2270; J2543; J2920; J3480; J3490; J7030; J7060; P9047; S0164